=== PATIENT | female | born 1975 | race Caucasian/White ===

== ENCOUNTER 2022-09-10 10:50 | Emergency (ER) | payer OTHER, SELFPAY ==
[2022-09-10 10:53] VITALS: BP 132/97; PULSE 101; RESP 18; TEMP 36.9; O2SAT 95; BMI 29.5
--- NOTE | 2022-09-10 11:21 | ED.NAVMDI1 ---
HPI - Nausea/Vomiting/Diarrhea General Chief complaint: Nausea/Vomiting/Diarrhea Stated complaint: NAUSEA, VOMITING Time Seen by Provider: 09/10/22 11:03 Source: patient Mode of arrival: ambulance Limitations: no limitations History of Present Illness HPI Narrative: several days of nausea, vomiting and generalized abdominal pain in the pit of my stomach . No flank pain. No fever or chills. No prior history of bowel obstruction but she told me that she gets bound up a lot . Related Data Home Medications Medication Instructions Recorded Confirmed albuterol sulfate 90 mcg/actuation 1 inh inhalation Q6H PRN shortness 09/10/22 09/10/22 aerosol inhaler (Ventolin HFA) of breath or wheezing clonidine HCl 0.2 mg tablet 0.2 mg PO QDAY 09/10/22 09/10/22 diphenhydramine HCl 25 mg capsule 25 mg PO Q8H PRN allergy symptoms 09/10/22 09/10/22 (Allergy (diphenhydramine)) escitalopram oxalate 10 mg tablet 10 mg PO QDAY 09/10/22 09/10/22 famotidine 20 mg tablet 20 mg PO Q12H 09/10/22 09/10/22 levothyroxine 125 mcg tablet 125 mcg PO QDAY 09/10/22 09/10/22 loratadine 10 mg tablet 10 mg PO Q24H 09/10/22 09/10/22 omeprazole 40 mg capsule,delayed 40 mg PO QDAY 09/10/22 09/10/22 release pregabalin 150 mg capsule 150 mg PO Q12H 09/10/22 09/10/22 quetiapine 200 mg tablet 200 mg PO QDAY 09/10/22 09/10/22 simvastatin 20 mg tablet 20 mg PO QDAY 09/10/22 09/10/22 tizanidine 6 mg capsule 6 mg PO Q8H 09/10/22 09/10/22 Allergies Allergy/AdvReac Type Severity Reaction Status Date / Time Antihistamines - Alkylamine AdvReac Intermediate Verified 09/10/22 10:53 PFSH PFSH Social History Smoking status: Current every day smoker Exam Narrative Exam Narrative: Nurses notes and vital signs reviewed and patient is not hypoxic. afebrile General: Well-appearing and in no apparent distress. Skin: Warm, dry, no pallor noted. No rash. Head: Normocephalic, atraumatic. Neck: Supple, non-tender. Eye: Pupils are equal, round and EOMI. No scleral icterus. Ears, Nose, Mouth, and Throat: Oral mucosa is dry Cardiovascular: borderline tachycardia. Respiratory: No accessory muscle use or respiratory distress. Lungs are clear to auscultation, no wheezing, rales or rhonchi Back: No CVA tenderness Musculoskeletal: normal ROM GI: Abdomen is soft, non-distended. Normal bowel sounds. No masses appreciated. Diffuse tenderness to palpation. No rebound, guarding, or rigidity noted. Neurological: A&O x4. No cranial nerve dysfunction observed. No truncal ataxia. Moves all extremities. Sensation intact. Psychiatric: Cooperative and interactive. Normal mood and affect. Constitutional Vital Signs - 24 hr 09/10/22 10:53 Temperature 98.5 F Pulse Rate [Monitor] 101 H Respiratory Rate 18 Blood Pressure [Left Arm] 132/97 H Pulse Oximetry 95 Oxygen Delivery Method Room Air Course Vital Signs Vital signs: Vital Signs Temperature 98.5 F 09/10/22 10:53 Pulse Rate 101 H 09/10/22 10:53 Respiratory Rate 18 09/10/22 10:53 Blood Pressure 132/97 H 09/10/22 10:53 Pulse Oximetry 95 09/10/22 10:53 Oxygen Delivery Method Room Air 09/10/22 10:53 Temperature 98.5 F 09/10/22 10:53 Pulse Rate 101 H 09/10/22 10:53 Respiratory Rate 18 09/10/22 10:53 Blood Pressure 132/97 H 09/10/22 10:53 Pulse Oximetry 95 09/10/22 10:53 Oxygen Delivery Method Room Air 09/10/22 10:53 MDM - Nausea/Vomiting/Diarrhea MDM Narrative Medical decision making narrative: peripheral IV was established and blood drawn and sent for testing. The patient received normal saline IV fluid, IV Zofran and IV Dilaudid. CT scan of the abdomen pelvis was obtained with IV contrast but without oral contrastand she was found to have intussusception. I spoke with both Dr. Webb and Dr. carolina and it was agreed the patient be admitted for further monitoring and evaluation. Dr. carolina ask us to get a CT scan of the abdomen pelvis with oral contrast and Dr. Webb was made aware and ordered that test. We had a bed assignment and the patient was to be taken upstairs and she decided to sign out against medical advice. I do both verbal and written consent that she understood the risks associated with that decision and she said that she needed to go home. I encouraged her to return the emergency Department if her condition worsens at all. She was markedly improved after ED treatment. Lab Data Attestation: I reviewed the patient's lab results. Labs: Lab Results 09/10/22 Range/Units 11:28 WBC 6.7 (4.0-11.0) 10^3/uL RBC 4.31 (4.20-5.40) 10^6/uL Hgb 14.2 (12.0-16.0) g/dL Hct 41.2 (36.0-48.0) % MCV 95.6 (81.0-99.0) fL MCH 32.9 (26.7-34.0) pg MCHC 34.5 (29.9-35.2) g/dL RDW 14.4 (11.0-15.0) % Plt Count 144 L (150-450) 10^3/uL MPV 11.3 (9.5-13.5) fL Neut % (Auto) 66.8 (43.0-75.0) % Lymph % (Auto) 22.9 (20.5-60.0) % Broome % (Auto) 9.4 (1.7-12.0) % Eos % (Auto) 0.1 L (0.9-7.0) % Baso % (Auto) 0.7 (0.2-2.0) % Neut # (Auto) 4.5 (1.4-6.5) 10^3/uL Lymph # (Auto) 1.5 (1.2-3.8) 10^3/uL [place]ome # (Auto) 0.6 (0.3-0.8) 10^3/uL Eos # (Auto) 0.0 (0.0-0.7) 10^3/uL Baso # (Auto) 0.1 (0.0-0.1) 10^3/uL Abs Immat Gran (auto) 0.01 (0.00-0.03) 10^3/uL Imm/Tot Granulo (auto) 0.1 (0.0-0.5) % Sodium 140 (136-145) mmol/L Potassium 2.7 L* (3.5-5.1) mmol/L Chloride 98 (98-107) mmol/L Carbon Dioxide 28.8 (21.0-32.0) mmol/L Anion Gap 15.9 BUN 11.0 (7.0-18.0) mg/dL Creatinine 1.05 H (0.55-1.02) mg/dL Est GFR ( Amer) >60 (>=60) Est GFR (Non-Af Amer) 56 L (>=60) BUN/Creatinine Ratio 10.5 Glucose 105 (74-106) mg/dL Calcium 8.5 (8.5-10.1) mg/dL Total Bilirubin 0.7 (0.2-1.0) mg/dL AST 19 (15-37) U/L ALT 27 (14-59) U/L Alkaline Phosphatase 62 (46-116) U/L Total Protein 7.1 (6.4-8.2) g/dL Albumin 4.0 (3.4-5.0) g/dL Globulin 3.1 g/dL Albumin/Globulin Ratio 1.3 Lipase 119.0 (73.0-393.0) U/L Imaging Data ct abd/pelvis: Radiologist's impression: Patient Name: KAREN CLEMENTE MRN: [facility]:[id number] date: 1975 Sex: F Assigned Patient Location: ED.MAIN Current Patient Location: Accession/Order Number: [id number] Exam Date: 09/10/2022 12:38 Report Date: 09/10/2022 14:06 At the request of: JAN CHAPA Procedure: CT abdomen pelvis w con CT ABDOMEN AND PELVIS WITH CONTRAST HISTORY: Abdominal pain. Vomiting. COMPARISON: CT 02/18/2016. METHOD: Dose reduction techniques were achieved by using automated exposure control and/or adjustment of mA and/or kV according to patient size and/or use of iterative reconstruction technique. FINDINGS: The lung bases are clear. There is no intrahepatic mass or intrahepatic biliary ductal dilatation. The pancreas and stomach are normal appearing. The spleen is normal in size. The adrenal glands are normal appearing. The liver is fatty. There are multiple left renal stones the largest measuring 4 mm. There are no solid renal masses or hydronephrosis. There is no bowel wall thickening or obstruction. There is intussusception seen in the left upper quadrant jejunal bowel loop with no evidence of obstruction, axial image 44 and coronal image 45. The appendix is normal appearing. There is no free fluid or free air. There are no acute bony abnormalities. IMPRESSION: Left upper quadrant jejunal small bowel intussusception with no evidence of obstruction. Multiple left renal stones, largest measuring 4 mm; no hydronephrosis. Fatty liver. Normal appendix. Electronically authenticated by: ERIS RAMSEY Date: 09/10/2022 14:06 Discharge Plan Discharge Chief Complaint: Nausea/Vomiting/Diarrhea Clinical Impression: Intussusception Time of Disposition Decision: 13:24
[2022-09-10] MEDS: HYDROMORPHONE HCL 1 MG/ML CARTRIDGE IVP (11:28)
[2022-09-10] MEDS: PANTOPRAZOLE SODIUM 40 MG VIAL IV (11:28)
[2022-09-10] MEDS: 0.9 % SODIUM CHLORIDE 1,000 ML 999 ML IV (11:28)
[2022-09-10] MEDS: ONDANSETRON PF 4 MG/2 ML VIAL IV (11:28)
[2022-09-10 11:37] LABS: Basophils Absolute Auto 0.1 10^3/uL (0.0-0.1); Basophils Percent Auto 0.7 % (0.2-2.0); Eosinophils Percent Auto 0.1 % (0.9-7.0); Hematocrit 41.2 % (36.0-48.0); Hemoglobin 14.2 g/dL (12.0-16.0); Immature Granulocytes Abs Auto 0.01 10^3/uL (0.00-0.03); Immature Granulocytes Pct Auto 0.1 % (0.0-0.5); Lymphocytes Absolute Auto 1.5 10^3/uL (1.2-3.8); Lymphocytes Percent Auto 22.9 % (20.5-60.0); Mean Corpuscular HGB Conc 34.5 g/dL (29.9-35.2); Mean Corpuscular Hemoglobin 32.9 pg (26.7-34.0); Mean Corpuscular Volume 95.6 fL (81.0-99.0); Mean Platelet Volume 11.3 fL (9.5-13.5); Monocytes Absolute Auto 0.6 10^3/uL (0.3-0.8); Monocytes Percent Auto 9.4 % (1.7-12.0); Neutrophils Absolute Auto 4.5 10^3/uL (1.4-6.5); Neutrophils Percent Auto 66.8 % (43.0-75.0); Platelet Count 144 10^3/uL (150-450); Red Blood Count 4.31 10^6/uL (4.20-5.40); Red Cell Distribution Width 14.4 % (11.0-15.0); White Blood Count 6.7 10^3/uL (4.0-11.0)
[2022-09-10 11:51] LABS: Alanine Aminotransferase 27 U/L (14-59); Albumin Globulin Ratio 1.3; Alkaline Phosphatase 62 U/L (46-116); Anion Gap 15.9; Aspartate Amino Transferase 19 U/L (15-37); BUN Creatinine Ratio 10.5; Bilirubin Total 0.7 mg/dL (0.2-1.0); Calcium 8.5 mg/dL (8.5-10.1); Carbon Dioxide 28.8 mmol/L (21.0-32.0); Chloride 98 mmol/L (98-107); Estimated GFR (African America >60 (>=60); Estimated GFR (Non-African Ame 56 (>=60); Globulin 3.1 g/dL; Glucose 105 mg/dL (74-106); Sodium 140 mmol/L (136-145); Total Protein 7.1 g/dL (6.4-8.2)
[2022-09-10 11:52] LABS: Potassium 2.7 mmol/L (3.5-5.1)
[2022-09-10] MEDS: POTASSIUM CHLORIDE 10 MEQ ER TABLET 20 MEQ PO (12:19)
[2022-09-10] MEDS: POTASSIUM CHLORIDE IN WATER 10 MEQ/100 ML PIGGYBACK 100 MEQ IV (12:36)
--- NOTE | 2022-09-10 15:01 | PC.NURSE ---
pt states she can not stay in the hospital due to dog care this nurse educates patient on importance of her healthcare and to get this taken care of for abd pain she still adamantly states that she cant stayat the sopital and that she needs to take care of the dog this nurse asks patient if any other familly member can take care of the dog and pt states no they cant pt states thank you for caring but i need to take care of my dog dr martinez notified of pt decision at this time
--- NOTE | 2022-09-10 15:09 | PC.NURSE ---
ama paper signed w dr martinez in as well as this nurse to explain beliefs
[2022-09-10 15:23] VITALS: BP 124/76; PULSE 104; RESP 18; TEMP 36.8; O2SAT 98
== END 2022-09-10 15:42 | disposition left against medical advice (07) ==
LOC: ER 11:29 → MS 15:26
PROVIDERS: Emergency Provider Emergency Medicine; Visit Provider Family Medicine
DX: K56.1 Intussusception (principal); Z79.899 Other long term (current) drug therapy; F17.210 Nicotine dependence, cigarettes, uncomplicated
CPT/HCPCS: 36415; 74177; 80053; 81003; 83690; 85025; 96365; 96366; 96375; 99285; J1170; Q9967

== ENCOUNTER 2022-11-06 12:45 | Emergency (ER) | payer OTHER, SELFPAY ==
[2022-11-06 12:50] VITALS: BP 118/86; PULSE 72; RESP 18; TEMP 37.1; O2SAT 97; BMI 30.6
--- NOTE | 2022-11-06 12:54 | XR_ITS ---
The [address] [address] Patient Name: KAREN CLEMENTE MRN: [id number] date: 1975 Sex: F Assigned Patient Location: ER Current Patient Location: Accession/Order Number: [id number] Exam Date: 11/06/2022 12:56 Report Date: 11/06/2022 13:36 At the request of: TELLO JEFFREY Procedure: XR hand RT 2V EXAM: XR hand RT 2V HISTORY: Right hand bruising COMPARISON: None. TECHNIQUE: 2 views right hand. FINDINGS: No fracture or dislocation right hand. No significant soft tissue swelling or radiopaque foreign body. Minimal degenerative change throughout the IP joints. XR/XR hand RT 2V IMPRESSION: No acute process right hand. Electronically authenticated by: SANKET KNOX Date: 11/06/2022 13:36
--- NOTE | 2022-11-06 13:05 | ED.GENADUL1 ---
HPI - General Adult General Chief complaint: Skin/Abscess/Foreign Body Stated complaint: R HAND POSS. SPIDER BITE Time Seen by Provider: 11/06/22 13:05 Source: patient Mode of arrival: ambulance Limitations: no limitations History of Present Illness HPI narrative: This document has been composed with a new electronic medical record and [employer] voice recognition system. This document may not fully inaccurately reflect the entirety of the patient encounter.patient's here for evaluation of discoloration on the dorsum of her right hand and wrist. She has no known trauma falls injury or change in activity level. She is left-handed dominant. She does not have a discoloration or pain on the volar surface of the hand. She is not running a fever. She has not had a wounds that are draining or if had discharge or any indication of infection. She has no streaking in her forearm. No tenderness in her forearm elbow or any other he other joints are completely asymptomatic. She doesn't actually have pain over the joints of much as it is over the generalized dorsum of the hand Related Data Home Medications Medication Instructions Recorded Confirmed albuterol sulfate 90 mcg/actuation 2 inh inhalation Q6H PRN shortness 09/10/22 09/11/22 aerosol inhaler (Ventolin HFA) of breath or wheezing clonidine HCl 0.2 mg tablet 0.2 mg PO TID PRN hypertension 09/10/22 09/11/22 diphenhydramine HCl 25 mg capsule 25 mg PO Q8H PRN allergy symptoms 09/10/22 09/10/22 (Allergy (diphenhydramine)) escitalopram oxalate 10 mg tablet 10 mg PO QDAY 09/10/22 09/10/22 famotidine 20 mg tablet 20 mg PO .QHS 09/10/22 09/11/22 levothyroxine 125 mcg tablet 125 mcg PO QDAY 09/10/22 09/10/22 loratadine 10 mg tablet 10 mg PO .QD 09/10/22 09/11/22 omeprazole 40 mg capsule,delayed 40 mg PO QDAY 09/10/22 09/10/22 release pregabalin 150 mg capsule 150 mg PO TID 09/10/22 09/11/22 quetiapine 200 mg tablet 200 mg PO .QHS 09/10/22 09/11/22 simvastatin 20 mg tablet 20 mg PO .QHS 09/10/22 09/11/22 tizanidine 6 mg capsule 6 mg PO TID PRN muscle spasticity 09/10/22 09/11/22 budesonide-formoterol HFA 160 2 inh inhalation BID 09/11/22 09/11/22 mcg-4.5 mcg/actuation aerosol inhaler ondansetron 4 mg disintegrating 4 mg PO DAILY PRN nausea and 09/11/22 09/11/22 tablet vomiting Allergies Allergy/AdvReac Type Severity Reaction Status Date / Time naproxen Allergy Intermediate Verified 11/06/22 12:52 Antihistamines - Alkylamine AdvReac Intermediate Verified 09/10/22 10:53 PFSH [facility] Social History Smoking status: Current every day smoker Exam Narrative Exam Narrative: awake alert vitals are stable she is afebrile does not appear to uncomfortable. Her neurovascular examination of the distal extremity is normal with good capillary fill. There is no pallor or anemia. Strong radial pulses noted. She has full unrestricted range of motion of the digits and the wrist. She has a freely movable nontender ganglion cyst over the dorsum in the mid area proximal to the index finger MCP. I don't believe that's related to the bruising and ecchymosis is noted throughout the rest the dorsum of the hand. The volar surface the hand is normal. There is no abscess there is no evidence soft tissue infection there is no warmth. X-rays were done be negative by my review. Constitutional Vital Signs, click to edit/add: Last Vital Signs Temp 98.7 F 11/06/22 12:50 Pulse 72 11/06/22 12:50 Resp 18 11/06/22 12:50 BP 118/86 11/06/22 12:50 Pulse Ox 97 11/06/22 12:50 O2 Del Method Room Air 11/06/22 12:50 Course Vital Signs Vital signs: Vital Signs Temperature 98.7 F 11/06/22 12:50 Pulse Rate 72 11/06/22 12:50 Respiratory Rate 18 11/06/22 12:50 Blood Pressure 118/86 11/06/22 12:50 Pulse Oximetry 97 11/06/22 12:50 Oxygen Delivery Method Room Air 11/06/22 12:50 Temperature 98.7 F 11/06/22 12:50 Pulse Rate 72 11/06/22 12:50 Respiratory Rate 18 11/06/22 12:50 Blood Pressure 118/86 11/06/22 12:50 Pulse Oximetry 97 11/06/22 12:50 Oxygen Delivery Method Room Air 11/06/22 12:50 Medical Decision Making [facility] Narrative Medical decision making narrative: this patient has no history of trauma or injury and images are negative. She has a benign nonrelated ganglion cyst over the dorsum of her right hand. She is left-handed dominant. She has minimal discomfort with flexion and extension against resistance at the wrist bones with no tenderness over the carpal bones to palpation. This injury appears to be most consistent with a remote subcutaneous bleeding from one of the vessels in the hand with no bony abnormality or evidence of infection. She'll be placed in an immobilizing device. She is to follow-up with a hand surgeon if they ganglion cyst bothers her at all Discharge Plan Discharge Chief Complaint: Skin/Abscess/Foreign Body Clinical Impression: Ganglion cyst of dorsum of right wrist Patient Disposition: Home, Self-Care Time of Disposition Decision: 13:08 Prescriptions / Home Meds: No Action albuterol sulfate [Ventolin HFA] 90 mcg/actuation HFA aerosol inhaler 2 inh INHALATION Q6H PRN (Reason: shortness of breath or wheezing) clonidine HCl 0.2 mg tablet 0.2 mg PO TID PRN (Reason: hypertension) diphenhydramine HCl [Allergy (diphenhydramine)] 25 mg capsule 25 mg PO Q8H PRN (Reason: allergy symptoms) escitalopram oxalate 10 mg tablet 10 mg PO QDAY famotidine 20 mg tablet 20 mg PO .QHS levothyroxine 125 mcg tablet 125 mcg PO QDAY loratadine 10 mg tablet 10 mg PO .QD omeprazole 40 mg capsule,delayed release(DR/EC) 40 mg PO QDAY pregabalin 150 mg capsule 150 mg PO TID quetiapine 200 mg tablet 200 mg PO .QHS simvastatin 20 mg tablet 20 mg PO .QHS tizanidine 6 mg capsule 6 mg PO TID PRN (Reason: muscle spasticity) budesonide-formoterol 160-4.5 mcg/actuation HFA aerosol inhaler 2 inh inhalation BID ondansetron 4 mg tablet,disintegrating 4 mg PO DAILY PRN (Reason: nausea and vomiting) Additional Instructions: where the wrist splint for one week. Follow-up with local orthopedic or hand surgeon if he will not use cyst removed Stand Alone Forms: Portal Instructions Referrals: Physician,Non-Staff, MD [Primary Care Provider] - 1 week
== END 2022-11-06 13:26 | disposition home or self-care (01) ==
PROVIDERS: Emergency Provider Emergency Medicine Emergency Medical Services
DX: M67.431 Ganglion, right wrist (principal); Z79.890 Hormone replacement therapy; Z79.899 Other long term (current) drug therapy; F17.210 Nicotine dependence, cigarettes, uncomplicated
CPT/HCPCS: 73120; 99283

== ENCOUNTER 2023-01-18 12:17 | Emergency (ER) | payer OTHER, SELFPAY ==
[2023-01-18 12:20] VITALS: BP 91/61; PULSE 83; RESP 20; TEMP 36.9; O2SAT 95; BMI 27.5
--- NOTE | 2023-01-18 12:32 | ED_ITS ---
HPI - SOB/Dyspnea General Chief Complaint: Upper Respiratory Infection Stated Complaint: COUGH Time Seen by Provider: 01/18/23 12:19 Source: patient Mode of arrival: ambulance Limitations: no limitations History of Present Illness HPI Narrative: 47-year-old female who is a history of chronic obstructive pulmonary disease presents for cough and shortness of breath. She feels like this for him there but she can't coough it up. She hasn't had a nebulized treatment today but she did take one yesterday and she's been sick for 5-7 days. No known fever, she doesn't have a thermometer at home. No hemoptysis. Related Data Home Medications Medication Instructions Recorded Confirmed albuterol sulfate 90 mcg/actuation 2 inh inhalation Q6H PRN shortness 09/10/22 01/18/23 aerosol inhaler (Ventolin HFA) of breath or wheezing clonidine HCl 0.2 mg tablet 0.2 mg PO TID PRN hypertension 09/10/22 01/18/23 diphenhydramine HCl 25 mg capsule 25 mg PO Q8H PRN allergy symptoms 09/10/22 09/10/22 (Allergy (diphenhydramine)) escitalopram oxalate 10 mg tablet 10 mg PO QDAY 09/10/22 01/18/23 famotidine 20 mg tablet 20 mg PO .QHS 09/10/22 01/18/23 levothyroxine 125 mcg tablet 125 mcg PO QDAY 09/10/22 01/18/23 loratadine 10 mg tablet 10 mg PO .QD 09/10/22 09/11/22 omeprazole 40 mg capsule,delayed 40 mg PO QDAY 09/10/22 09/10/22 release pregabalin 150 mg capsule 150 mg PO TID 09/10/22 01/18/23 quetiapine 200 mg tablet 200 mg PO .QHS 09/10/22 01/18/23 simvastatin 20 mg tablet 20 mg PO .QHS 09/10/22 01/18/23 tizanidine 6 mg capsule 6 mg PO TID PRN muscle spasticity 09/10/22 01/18/23 budesonide-formoterol HFA 160 2 inh inhalation BID 09/11/22 01/18/23 mcg-4.5 mcg/actuation aerosol inhaler ondansetron 4 mg disintegrating 4 mg PO DAILY PRN nausea and 09/11/22 09/11/22 tablet vomiting Previous Rx's Medication Instructions Recorded azithromycin 250 mg tablet See Rx Instructions PO .COMPLEX #6 01/18/23 (Zithromax Z-Ramos) tabs prednisone 10 mg tablet See Rx Instructions .Route 01/18/23 .COMPLEX #30 tabs Allergies Allergy/AdvReac Type Severity Reaction Status Date / Time naproxen Allergy Intermediate Verified 01/18/23 12:23 Antihistamines - Alkylamine AdvReac Intermediate Verified 01/18/23 12:23 Review of Systems ROS Narrative A ten point review of systems is negative except as noted above. PFSH PFSH Medical History Arthritis ?M19.90 - Unspecified osteoarthritis, unspecified site (ICD-10) COPD (chronic obstructive pulmonary disease) ?J44.9 - Chronic obstructive pulmonary disease, unspecified (ICD-10) Emphysema of lung ?J43.9 - Emphysema, unspecified (ICD-10) Fibromyalgia ?M79.7 - Fibromyalgia (ICD-10) Ganglion cyst of dorsum of right wrist ?M67.431 - Ganglion, right wrist (ICD-10) Glaucoma ?H40.9 - Unspecified glaucoma (ICD-10) Intussusception ?K56.1 - Intussusception (ICD-10) Ovarian cyst ?N83.209 - Unspecified ovarian cyst, unspecified side (ICD-10) Pneumonia ?J18.9 - Pneumonia, unspecified organism (ICD-10) Recovering alcoholic ?F10.21 - Alcohol dependence, in remission (ICD-10) Surgical History (Updated 01/17/23 @ 13:31 by Annie Leong RN) H/O colonoscopy ?Z98.890 - Other specified postprocedural states (ICD-10) H/O oophorectomy History of lung biopsy ?Z98.890 - Other specified postprocedural states (ICD-10) Family History (Updated 01/17/23 @ 13:32 by Annie Leong, SHARONDA) Other Aneurysm Emphysema of lung Social History Smoking status: Current every day smoker Exam Narrative Exam Narrative: Nurses note and vital signs reviewed and patient is not hypoxic. General: The patient appears well and in no apparent distress. Patient is resting comfortably on cart. Skin: Warm, dry, no pallor noted. There is no rash noted. Head: Normocephalic, atraumatic Eye: Normal conjunctiva, no drainage Ears, Nose, Mouth, and Throat: oral mucosa is moist. Nares patent. Cardiovascular: Regular Rate and Rhythm Respiratory: bilateral rhonchi present throughout Back: non-tender GI: nontender Musculoskeletal: The patient has no evidence of calf tenderness, no pitting edema, symmetrical pulses noted bilaterally Neurological: A&O, normal speech Psychiatric: Cooperative Constitutional Vital Signs, click to edit/add: Last Vital Signs Temp 98.5 F 01/18/23 12:20 Pulse 75 01/18/23 12:51 Resp 20 01/18/23 12:51 BP 91/61 01/18/23 12:20 Pulse Ox 88 L 01/18/23 14:15 O2 Del Method Room Air 01/18/23 14:15 Course Vital Signs Vital signs: Vital Signs Temperature 98.5 F 01/18/23 12:20 Pulse Rate 83 01/18/23 12:20 Respiratory Rate 20 01/18/23 12:20 Blood Pressure 91/61 01/18/23 12:20 Pulse Oximetry 95 01/18/23 12:20 Oxygen Delivery Method Room Air 01/18/23 12:20 Temperature 98.5 F 01/18/23 12:20 Pulse Rate 75 01/18/23 12:51 Respiratory Rate 20 01/18/23 12:51 Blood Pressure 91/61 01/18/23 12:20 Pulse Oximetry 88 L 01/18/23 14:15 Oxygen Delivery Method Room Air 01/18/23 14:15 MDM - SOB/Dyspnea MDM Narrative Medical decision making narrative: the patient presents with chronic obstructive pulmonary disease exacerbation. She was given IV Solu-Medrol and aerosol treatments and feels improved and is able to be discharged home. Treatment diagnosis and disposition were discussed with the patient. Differential Diagnosis Differential diagnosis: Likely acute exacerbation of chronic obstructive airways disease, congestive heart failure and community acquired pneumonia Lab Data Attestation: I reviewed the patient's lab results. Labs: Lab Results 01/18/23 Range/Units 12:40 WBC 7.8 (4.0-11.0) 10^3/uL RBC 3.53 L (4.20-5.40) 10^6/uL Hgb 11.8 L (12.0-16.0) g/dL Hct 35.3 L (36.0-48.0) % MCV 100.0 H (81.0-99.0) fL MCH 33.4 (26.7-34.0) pg MCHC 33.4 (29.9-35.2) g/dL RDW 13.4 (11.0-15.0) % Plt Count 116 L (150-450) 10^3/uL MPV 11.9 (9.5-13.5) fL Neut % (Auto) 63.7 (43.0-75.0) % Lymph % (Auto) 23.7 (20.5-60.0) % [place] % (Auto) 10.2 (1.7-12.0) % Eos % (Auto) 1.4 (0.9-7.0) % Baso % (Auto) 0.5 (0.2-2.0) % Neut # (Auto) 4.9 (1.4-6.5) 10^3/uL Lymph # (Auto) 1.8 (1.2-3.8) 10^3/uL [place] # (Auto) 0.8 (0.3-0.8) 10^3/uL Eos # (Auto) 0.1 (0.0-0.7) 10^3/uL Baso # (Auto) 0.0 (0.0-0.1) 10^3/uL Abs Immat Gran (auto) 0.04 H (0.00-0.03) 10^3/uL Imm/Tot Granulo (auto) 0.5 (0.0-0.5) % Sodium 139 (136-145) mmol/L Potassium 3.9 (3.5-5.1) mmol/L Chloride 106 (98-107) mmol/L Carbon Dioxide 27.9 (21.0-32.0) mmol/L Anion Gap 9.0 BUN 10.0 (7.0-18.0) mg/dL Creatinine 0.81 (0.55-1.02) mg/dL Est GFR ( Amer) >60 (>=60) Est GFR (Non-Af Amer) >60 (>=60) BUN/Creatinine Ratio 12.3 Glucose 106 (74-106) mg/dL Calcium 8.5 (8.5-10.1) mg/dL SARS-CoV-2 (PCR) Negative (NEGATIVE) Imaging Data Chest x-ray: My impression: chest x-ray on my interpretation shows no acute findings Critical Care Time Critical Care Time Critical Care Time: Yes Total Critical Care Time: 35 Attestation: Due to the high probability of sudden and clinically significant deterioration in the patient's condition he/she required the highest level of my preparedness to intervene urgently I provided critical care time including documentation time, medication orders and management, reevaluation, vital sign assessment, ordering and reviewing of lab tests, ordering and reviewing of x-ray studies, and admission orders. Aggregate critical care time is 35 minutes including only time during which I was engaged in work directly related to his/her care and did not include time spent treating other patients simultaneously. Discharge Plan Discharge Chief Complaint: Upper Respiratory Infection Clinical Impression: Acute exacerbation of chronic obstructive pulmonary disease Patient Disposition: Home, Self-Care Time of Disposition Decision: 14:53 Condition: Good Mode of Transportation: Private Vehicle Prescriptions / Home Meds: New prednisone 10 mg tablet See Rx Instructions .ROUTE .COMPLEX Qty: 30 0RF Rx Instructions: 4 by mouth daily for three days then 3 by mouth daily for three days then 2 by mouth daily for three days then 1 by mouth daily for three days azithromycin [Zithromax Z-Ramos] 250 mg tablet See Rx Instructions .ROUTE .COMPLEX Qty: 6 0RF Rx Instructions: For 250 mg dose pack: take 500 mg today (day 1), then 250 mg for 4 days (days 2-5) No Action albuterol sulfate [Ventolin HFA] 90 mcg/actuation HFA aerosol inhaler 2 inh INHALATION Q6H PRN (Reason: shortness of breath or wheezing) clonidine HCl 0.2 mg tablet 0.2 mg PO TID PRN (Reason: hypertension) diphenhydramine HCl [Allergy (diphenhydramine)] 25 mg capsule 25 mg PO Q8H PRN (Reason: allergy symptoms) escitalopram oxalate 10 mg tablet 10 mg PO QDAY famotidine 20 mg tablet 20 mg PO .QHS levothyroxine 125 mcg tablet 125 mcg PO QDAY loratadine 10 mg tablet 10 mg PO .QD omeprazole 40 mg capsule,delayed release(DR/EC) 40 mg PO QDAY pregabalin 150 mg capsule 150 mg PO TID quetiapine 200 mg tablet 200 mg PO .QHS simvastatin 20 mg tablet 20 mg PO .QHS tizanidine 6 mg capsule 6 mg PO TID PRN (Reason: muscle spasticity) budesonide-formoterol 160-4.5 mcg/actuation HFA aerosol inhaler 2 inh inhalation BID ondansetron 4 mg tablet,disintegrating 4 mg PO DAILY PRN (Reason: nausea and vomiting) Instructions: COPD (Chronic Obstructive Pulmonary Disease) (ED) Stand Alone Forms: Portal Instructions Referrals: Physician,Non-Staff, MD [Primary Care Provider] - 1 week
[2023-01-18] MEDS: 0.9 % SODIUM CHLORIDE 1,000 ML 1000 ML IV (12:48)
[2023-01-18] MEDS: KETOROLAC TROMETHAMINE 30 MG/ML VIAL IVP (12:49)
[2023-01-18 12:51] VITALS: PULSE 75; RESP 20; O2SAT 94
[2023-01-18] MEDS: ALBUTEROL SULFATE 2.5 MG/3 ML VIAL NEB IH (12:51)
[2023-01-18 13:01] LABS: Basophils Percent Auto 0.5 % (0.2-2.0); Eosinophils Absolute Auto 0.1 10^3/uL (0.0-0.7); Eosinophils Percent Auto 1.4 % (0.9-7.0); Hematocrit 35.3 % (36.0-48.0); Hemoglobin 11.8 g/dL (12.0-16.0); Immature Granulocytes Abs Auto 0.04 10^3/uL (0.00-0.03); Immature Granulocytes Pct Auto 0.5 % (0.0-0.5); Lymphocytes Absolute Auto 1.8 10^3/uL (1.2-3.8); Lymphocytes Percent Auto 23.7 % (20.5-60.0); Mean Corpuscular HGB Conc 33.4 g/dL (29.9-35.2); Mean Corpuscular Hemoglobin 33.4 pg (26.7-34.0); Mean Platelet Volume 11.9 fL (9.5-13.5); Monocytes Absolute Auto 0.8 10^3/uL (0.3-0.8); Monocytes Percent Auto 10.2 % (1.7-12.0); Neutrophils Absolute Auto 4.9 10^3/uL (1.4-6.5); Neutrophils Percent Auto 63.7 % (43.0-75.0); Platelet Count 116 10^3/uL (150-450); Red Blood Count 3.53 10^6/uL (4.20-5.40); Red Cell Distribution Width 13.4 % (11.0-15.0); White Blood Count 7.8 10^3/uL (4.0-11.0)
[2023-01-18 13:05] LABS: BUN Creatinine Ratio 12.3; Calcium 8.5 mg/dL (8.5-10.1); Carbon Dioxide 27.9 mmol/L (21.0-32.0); Chloride 106 mmol/L (98-107); Estimated GFR (African America >60 (>=60); Estimated GFR (Non-African Ame >60 (>=60); Glucose 106 mg/dL (74-106); Potassium 3.9 mmol/L (3.5-5.1); SARS-CoV-2 Ag NEGATIVE (NEGATIVE); Sodium 139 mmol/L (136-145)
--- NOTE | 2023-01-18 13:05 | XR_ITS ---
The [address] [address] Patient Name: KAREN CLEMENTE MRN: [id number] date: 1975 Sex: F Assigned Patient Location: ER Current Patient Location: ER Accession/Order Number: [id number] Exam Date: 01/18/2023 13:00 Report Date: 01/18/2023 15:29 At the request of: ROBERT MUELLER Procedure: XR chest 1V EXAMINATION: XR chest 1V, 01/18/2023 1:00 PM EST HISTORY: SOB COMPARISON: Relevant priors reviewed including chest x-ray 09/21/2015 TECHNIQUE: AP portable view of the chest performed. FINDINGS: Medical devices: None. Cardiomediastinal silhouette is unchanged, given technical differences between exams. Similar hyperexpansion. The lungs are clear. No large pleural effusion, or pneumothorax. XR/XR chest 1V IMPRESSION: 1. No acute cardiopulmonary abnormality. Electronically authenticated by: SHAN GARSIA Date: 01/18/2023 15:29
[2023-01-18] MEDS: METHYLPREDNISOLONE SOD SUCC PF 125 MG/2 ML VIAL IVP (13:08)
[2023-01-18] MEDS: CODEINE 10 MG/GUAIFENESIN 100 MG 5 ML CUP 10 ML PO (13:26)
[2023-01-18 14:15] VITALS: O2SAT 88
--- NOTE | 2023-01-18 14:15 | PC.NURSE ---
pt placed on 2L NC -- SpO2 now 94%
--- NOTE | 2023-01-18 14:22 | ECG_ITS ---
The [facility] Test Date: 2023-01-18 Pat Name: KAREN CLEMENTE Department: Room: - Gender: Female [employer]: : 1975 Requested By: [id number] Order Number: [id number] Reading MD: MOLLY FIORE Measurements Intervals [place] Rate: 81 P: 90 ND: 140 QRS: 76 QRSD: 90 T: 69 QT: 364 QTc: 401 Interpretive Statements 1100 Sinus rhythm Non-Specific T wave inversion in aVL 2420 RSR (QR) in lead V1/V2, consistent with right ventricular conduction delay 7300 Indeterminate axis 9130 borderline ECG No previous ECG available for comparison Electronically Signed On 01-20-2023 6:19:27 EST by MOLLY FIORE
[2023-01-18 15:09] VITALS: O2SAT 90
[2023-01-18 15:17] LABS: SARS-CoV-2 NAA NOT DETECTED (NOT DETECTE)
--- OUTSIDE RECORDS SUMMARY | 2023-02-28 14:20 | XMS_ITS | CCD ---
Author Name Unknown Address [address] [place] [address] Organization [facility] Care Team Providers Care [employer] Name Role Phone MINISTERIO WALLIS Unavailable Unavailable MINISTERIO WALLIS Unavailable Unavailable Zbigniew/Kyaw Watt Attending Provider [facility] Primary Care Provider [phone] Pricilla Engle Attending Provider Geo Coy Unavailable Zbigniew/Kyree Watt Attending Provider [facility] Primary Care Provider Lowmindi, DO Tenriism Attending Provider Zbigniew/Kyree Watt Attending Provider [facility] Primary Care Provider DO Jason Michele Attending Provider Lowrie, DO Tenriism Referring Provider Lowrilester, DO Tenriism Other Provider [facility] Primary Care Provider DO Jason Michele Attending Provider Lowrie, DO Tenriism Other Provider MD Laurie Oliva Attending Provider [facility] Primary Care Provider MD Breanna Taylor Attending Provider Lowrilester, DO Tenriism Referring Provider DO Jason Michele Attending Provider [facility] Services Primary Care Provider MD Laurie Oliva Attending Provider [facility] Primary Care Unavaila ble Ketvertis, Laurie Admitting Unavailable Ketvertis, Laurie Attending Unavailable Leny, aJson Attending Unavailable [facility] Services Primary Care Unavaila ble Lowrie, Tenriism Referring Unavailable Leny, Jason Admitting Unavailable Claudia Idris Admitting Unavailab le ClaudiaIdris gillis Attending Unavailab le [facility] Services Primary Care Unavaila ble Ketvertis, Laurie Attending Unavailable [facility] Primary Care Unavaila ble Ketvertis, Laurie Admitting Unavailable Leny, Jason Attending Unavailable [facility] Services Primary Care Unavaila ble Lowrie, Tenriism Consulting Unavailable Leny, Jason Admitting Unavailable Leny, Jason Attending Unavailable Lowrie, Tenriism Referring Unavailable [facility] Services Primary Care Unavaila ble Jason Michele Admitting Unavailable Mast, Mike Admitting Unavailable Mast, Mike Attending Unavailable [facility] Services Primary Care Unavaila ble Lowrie, Tenriism Consulting Unavailable Allergies Allergy Classification Reported Allergen(s) Allergy Type Date of Onset Reaction(s) Facility NSAIDs (1 source) Naproxen Drug Allergy 09-12-19 18 Hives [facility] Unclassified (7 sources) Antihistamines - Alkylamine; Translations: [Antihistamines - Alkylamine] Allergy to substance 04-12-19 19 Anxiety [facility] (13 sources) diphenhydrAMINE Drug Allergy Anxiety attack [facility] [employer] Other (18 sources) Naproxen Drug Allergy 02-20-20 21 rash [facility] (8 sources) atorvastatin Drug Allergy legs shaking [facility] [employer] Other (1 source) Naproxen Drug Allergy 02-20-20 21 [facility] Repository Medications Current Medications Medication Drug Class(es) Dates Sig (Normalized) Sig (Original) [id number] 200 actuat albuterol 0.09 mg/actuat metered dose inhaler (20 sources) beta2-Adrenergic Agonist Start: 07-17-2017 take 2 puff(s) by inhalation every six hours as needed Ventolin HFA 108 (90 Base) MCG/ACT 2 puffs as needed Inhalation every 6 hrs July, Active Start: 07-17-2017 Start: 04-04-2017 take 90 ug by inhala tion every four hours Albuterol Sulfate Active 90 MCG INHALATION Q4H April 04, 2017 4:17pm Start: 04-04-2017 take 90 ug by inhala tion every four hours Albuterol Sulfate Active 90 MCG INHALATION Q4H April 04, 2017 12:00am Start: 04-04-2017 take 90 ug by inhala tion every four hours Albuterol Sulfate Active 90 MCG INHALATION Q4H April 04, 2017 1:00am Start: 03-16-2016 Albuterol Sulf ate (2.5 MG/3ML) 0.083% 1 unit dose Inhalation four times a day DX J44.9 COPD Mar, Active Start: 03-16-2016 benzonatate 100 mg oral capsule (13 sources) Non-narcotic Antitussive Start: 09-21-2017 take 1 capsule by mouth three times daily as needed Tessalon Perles 100 mg 1 capsule as needed Orally Three times a day Sep, Active 120 actuat budesonide 0.16 mg/actuat / formoterol fumarate 0.0045 mg/actuat metered dose inhaler (19 sources) Corticosteroid, beta2-Adrenergic Agonist Start: 01-30-2020 take 1 puff(s) by inhalation twice daily Budesonide-Formo terol (Symbicort) 160-4.5 mcg/actuation HFA aerosol inhaler Active 2 PUFF INHALATION Twice daily January 30, 2020 1:00am Start: 08-29-2018 take 2 puff(s) by in halation twice daily Symbicort 160-4.5 MCG/ACT 2 puffs Inhalation Twice a day Aug, Active Start: 08-29-2018 cloNIDine hydrochloride 0.2 mg oral tablet (20 sources) Central alpha-2 Adrenergic Agonist Start: 01-30-2020 End: 01-30-2020 take 0.2 mg by mouth three times daily Clonidine Hcl Active 0.2 MG PO Three times daily January 30, 2020 1:00am codeine phosphate 2 mg/ml / guaiFENesin 20 mg/ml oral solution (5 sources) Opioid Agonist Start: 06-28-2021 Virtussin A/C 100-10 MG/5ML 5 ml as needed Orally at bedtime for 30 days Jun, Active Start: 03-17-2021 Virtussin A/C 100-10 MG/5ML 5 ml as needed Orally at bedtime for 30 days Mar, Active Start: 01-25-2021 Start: 12-23-2020 Cheratussin AC 100-10 MG/5ML 5 ml as needed Orally at bedtime for 30 days Dec, Active escitalopram 10 mg oral tablet (20 sources) Serotonin Reuptake Inhibitor Start: 02-02-2020 take 10 mg by mouth once daily Escitalopram Oxalate Active 10 MG PO Daily February 02, 2020 1:00am Start: 01-30-2020 End: 02-02-2020 take 1 tablet by mouth once daily Escitalopram Oxalate (Lexapro) 5 mg Tablet Discontinued 5 MG PO Daily January 30, 2020 1:00am February 02, 2020 11:49am estrogens, conjugated (mcfp) 0.625 mg oral tablet (19 sources) Estrogen Start: 05-08-2017 Premarin 0.625 MG 1 tablet Orally Daily for Three Weeks, 1 Week off for 30 day(s) Apr, Active Famotidine (13 sources) Histamine-2 Receptor Antagonist Pepcid Orally On a day Active fluticasone propionate 0.05 mg/actuat metered dose nasal spray (19 sources) Corticosteroid Start: 01-30-2020 Fluticasone Pr opionate Active 1 SPRAY INTRANASAL Daily January 30, 2020 1:00am Start: 04-11-2017 take 2 spray(s) nasa l route once daily Fluticasone Propionate 50 MCG/ACT 2 sprays in each nostril Nasally Once a day Mar, Active Start: 04-11-2017 200 actuat ipratropium bromide 0.017 mg/actuat metered dose inhaler (13 sources) Anticholinergic Start: 02-26-2020 take 2 puff(s) by inhalation four times daily Atrovent HFA 17 MCG/ACT 2 puffs Inhalation Four times a day Feb, Active Start: 02-26-2020 levothyroxine sodium 0.075 mg oral tablet (20 sources) l-Thyroxine Start: 01-30-2020 take 75 ug by mouth once daily Levothyroxine Active 75 MCG PO Daily January 30, 2020 1:00am Start: 04-04-2017 End: 01-30-2020 take 50 ug by mouth once daily Levothyroxine Discontin ued 50 MCG PO Daily April 04, 2017 1:00am January 30, 2020 4:05pm Levothyroxine So dium 125 MCG Oral for 30 Days Active Synthroid 50 MCG Orally Active medroxyPROGESTERone acetate 2.5 mg oral tablet (20 sources) Progestin Start: 05-08-2017 take 1 tablet by mouth every twenty-four hours Provera 2.5 MG 1 tablet with food Orally Once a day for 30 days Apr, Active naltrexone hydrochloride 50 mg oral tablet (5 sources) Opioid Antagonist Start: 02-21-2021 take 50 mg by mouth once daily Naltrexone Active 50 MG PO Daily February 21, 2021 1:00am 24 hr nicotine 0.875 mg/hr transdermal system (6 sources) Cholinergic Nicotinic Agonist Start: 02-02-2020 Nicotine Active 1 EACH TRANSDERML Daily February 02, 2020 1:00am omeprazole 40 mg delayed release oral capsule (13 sources) Proton Pump Inhibitor Start: 03-15-2018 take 1 capsule by mouth every twenty-four hours Omeprazole 40 MG 1 capsule Orally Once a day for 30 day(s) Mar, Active pregabalin 150 mg oral capsule (19 sources) Start: 04-04-2017 take 150 mg by mouth three times daily Pregabalin Active 150 MG PO Three times daily April 04, 2017 1:00am take 1 capsule by mouth three ti mes daily Lyrica 100 MG 1 capsule Orally three times daily Active Vitamins 28-0.8 MG (13 sources) take 1 tablet by mouth once lelia y Vitamins 28-0.8 MG TAKE 1 TABLET BY MOUTH EVERY DAY Oral for 30 Active QUEtiapine 200 mg oral tablet (20 sources) Atypical Antipsychotic Start: 02-02-2020 take 200 mg by mouth at bedtime Quetiapine Active 200 MG PO Bedtime February 02, 2020 1:00am Start: 01-30-2020 End: 02-02-2020 take 100 mg by mouth at bedtime Quetiapine Discontinue d 100 MG PO Bedtime January 30, 2020 1:00am February 02, 2020 11:49am Start: 04-04-2017 End: 01-30-2020 take 100 mg by mouth at bedtime Quetiapine Discontinue d 100 MG PO Bedtime April 04, 2017 1:00am January 30, 2020 4:36pm take 1 tablet by maría th every twenty-four hours SEROquel 50 MG 1 tablet at bedtime Orally Once a day for 30 Active simvastatin 20 mg oral tablet (8 sources) HMG-CoA Reductase Inhibitor Simvastatin 20 MG Oral for 30 Days Active 60 actuat tiotropium 0.0025 mg/actuat inhalation spray (6 sources) Anticholinergic Start: 01-30-20 20 take 2.5 ug by inhalation twice daily Tiotropium [place] (Spiriva Respimat) 2.5 mcg/actuation mist Active 2 INH INHALATION Twice daily January 30, 2020 1:00am tiZANidine 4 mg oral tablet (6 sources) Central alpha-2 Adrenergic Agonist Start: 04-04-19 take 2 mg by mouth three times daily Tizanidine Active 2 MG PO Three times daily April 04, 2017 1:00am Virtussin A/C 100-10 MG/5ML (8 sources) Start: 01-17-20 Virtussin A/C 100-10 MG/5ML 5 ml as needed Orally at bedtime for 30 days Jan, Active Start: 10-25-2022 Virtussin A/C 100-10 MG/5ML 5 ml as needed Orally at bedtime for 30 days Oct, Active Start: 05-26-2022 Virtussin A/C 100-10 MG/5ML 5 ml as needed Orally at bedtime for 30 days May, Active Start: 03-21-2022 Virtussin A/C 100-10 MG/5ML 5 ml as needed Orally at bedtime for 30 days Mar, Active Start: 01-18-2022 Virtussin A/C 100-10 MG/5ML 5 ml as needed Orally at bedtime for 30 days Jan, Active Completed/Discontinued Medications Medication Drug Class(es) Dates Sig (Normalized) Sig (Original) ARIPiprazole 5 mg oral tablet (6 sources) Atypical Antipsychotic Start: 8 End: 0 take 1 tablet by mouth once daily Aripiprazole (Abilify) 5 mg Tablet Discontinued 5 MG PO Daily November 27, 2017 12:00am February 02, 2020 11:49am busPIRone hydrochloride 15 mg oral tablet (6 sources) Start: 8 End: 0 take 15 mg by mouth once daily Buspirone Discontinued 15 MG PO Daily July 22, 2017 12:00am January 30, 2020 4:32pm cariprazine 1.5 mg oral capsule (19 sources) Atypical Antipsychotic Start: 0 End: 0 take 1 capsule by mouth once daily Cariprazine (Vraylar) 1.5 mg capsule Discontinued 1.5 MG PO Daily January 30, 2020 1:00am February 02, 2020 11:49am chlordiazePOXIDE hydrochloride 25 mg oral capsule (6 sources) Benzodiazepine Start: 0 End: 1 take 1 tablet by mouth twice daily, then take 1 tablet by mouth once daily Chlordiazepoxide Hcl Discontinued 25 MG PO Twice daily 8 February 02, 2020 1:00am February 20, 2021 7:11am Take 1 tablet twice a day for two days, then one tablet daily for three days dextromethorphan hydrobromide 3 mg/ml / promethazine hydrochloride 1.25 mg/ml oral solution (6 sources) Phenothiazine, Uncompetitive N-weygom-W-aspartat e Receptor Antagonist, Sigma-1 Agonist Start: 8 End: 8 take 1 mL by mouth every six hours Promethazine-Dm Discontinued 5 ML PO Q6H 40 2 April 04, 2017 1:00am April 06, 2017 1:03am diclofenac potassium 50 mg oral tablet (6 sources) Nonsteroidal Anti-inflammatory Drug Start: 8 End: 8 take 50 mg by mouth once daily Diclofenac Potassium Discontinued 50 MG PO Daily July 22, 2017 12:00am November 27, 2017 6:21pm doxycycline hyclate 100 mg oral capsule (11 sources) Tetracycline-class Drug Start: 1 End: 1 take 100 mg by mouth twice daily Doxycycline Hyclate Discontinued 100 MG PO Twice daily 30 12December 22, 2020 12:00am February 19, 2021 6:55pm Start: 09-14-2017 End: 11-27-2017 take 100 mg by mouth twice daily Doxycycline Hyclate Discontinued 100 MG PO Twice daily 30 12September 14, 2017 12:00am November 27, 2017 6:21pm 120 actuat formoterol fumarate 0.005 mg/actuat / mometasone furoate 0.1 mg/actuat metered dose inhaler (6 sources) Corticosteroid, beta2-Adrenergic Agonist Start: 04-04-2017 End: 01-30-2020 Mometasone-Formoterol (Dulera) 100-5 mcg/actuation HFA aerosol inhaler Discontinued 5 MCG INHALATION Twice daily April 04, 2017 1:00am January 30, 2020 4:36pm ibuprofen 800 mg oral tablet (12 sources) Nonsteroidal Anti-inflammatory Drug Start: 05-29-2017 End: 02-02-2020 take 800 mg by mouth three times daily Ibuprofen Discontinued 800 MG PO Three times daily November 27, 2017 12:00am February 02, 2020 11:49am Ketorolac (9 sources) Nonsteroidal Anti-inflammatory Drug, Cyclooxygenase Inhibitor Start: 07-01-2017 Toradol per 15 mg Jun, 2 mL levoFLOXacin 750 mg oral tablet (6 sources) Quinolone Antimicrobial Start: 01-25-2018 End: 02-04-2018 take 1 tablet by mouth every twenty-fo ur hours Levofloxacin (Levaquin) 750 mg tablet Discontinued 750 MG PO Q24H 12 20January 25, 2018 1:00am February 04, 2018 1:02am ondansetron 4 mg disintegrating oral tablet (19 sources) Serotonin-3 Receptor Antagonist Start: 09-14-2017 End: 11-27-2017 take 1 tablet by mouth every eight hours Ondansetron (Zofran Odt) 4 mg tablet,disintegrating Discontinued 4 MG PO Q8H 9 September 14, 2017 12:00am November 27, 2017 6:20pm take 1 tablet by mouth once lelia y Ondansetron HCl 4 MG TAKE 1 (ONE) tablet BY MOUTH DAILY Oral for 30 Active predniSONE 20 mg oral tablet (20 sources) Start: 01-25-2018 End: 01-30-2018 take 40 mg by mouth once daily Prednisone Discontinued 40 MG PO Daily 10 January 25, 2018 1:00am January 30, 2018 1:01am Start: 09-14-2017 End: 01-30-2020 take 60 mg by mouth once daily at mealtime Prednisone Discontinued 60 MG PO Daily 15 September 14, 2017 12:00am January 30, 2020 4:32pm administer with food or milk Start: 07-22-2017 End: 09-05-2017 take 50 mg by mouth once daily at mealtime Prednisone Discontinued 50 MG PO Daily 5 July 22, 2017 12:00am September 05, 2017 2:54pm administer with food or milk Start: 04-04-2017 End: 07-22-2017 take 20 mg by mouth once daily at mealtime Prednisone Discontinued 20 MG PO Daily April 04, 2017 1:00am July 22, 2017 12:06pm administer with food or milk Problems Active Problems Problem Classification Problem Date Documented Date Episodic/Chronic Alcohol-related disorders (15 sources) Alcohol withdrawal syndrome; Translations: [Alcohol withdrawal syndrome] 02-19-2021 Chronic Alcohol-related disorders (6 sources) Alcohol intoxication; Translations: [Alcohol use, unspecified with intoxication, unspecified] 01-30-2020 Episodic Anxiety disorders (5 sources) Anxiety; Translations: [Anxiety disorder, unspecified] 02-27-2021 Chronic Chronic obstructive pulmonary disease and bronchiectasis (20 sources) Acute exacerbation of chronic obstructive airways disease; Translations: [Chronic obstructive pulmonary disease with (acute) exacerbation] Onset: 01-11-2021 Resolved: 01-11-2021 Chronic Chronic obstructive pulmonary disease and bronchiectasis (5 sources) Bronchitis; Translations: [Bronchitis, not specified as acute or chronic] 12-22-2020 Episodic Coagulation and hemorrhagic disorders (5 sources) Thrombocytopenic disorder; Translations: [Thrombocytopenia, unspecified] 02-19-2021 Chronic Esophageal disorders (15 sources) Gastroesophageal reflux disease; Translations: [Gastro-esophageal reflux disease without esophagitis] Onset: 01-11-2021 Resolved: 01-11-2021 Chronic Malaise and fatigue (1 source) Chronic fatigue, unspecified; Translations: [Chronic fatigue, unspecified] Onset: 08-10-2022 Chronic Menopausal disorders (5 sources) Menopausal syndrome; Translations: [Menopausal and female climacteric states] Chronic Mood disorders (13 sources) Bipolar disorder, unspecified; Translations: [Recurrent major depression] Onset: 09-16-2016 01-30-2020 Chronic Mood disorders (2 sources) Major depressive disorder, single episode, unspecified; Translations: [Major depressive disorder, single episode, unspecified] Onset: 09-16-2016 Nonmalignant breast conditions (5 sources) Breasts asymmetrical; Translations: [Other specified disorders of breast] Episodic Other connective tissue disease (6 sources) Lateral epicondylitis of right humerus; Translations: [Lateral epicondylitis, right elbow] 05-29-2017 Episodic Other nervous system disorders (1 source) Other chronic pain; Translations: [Other chronic pain] Onset: 05-04-2022 Chronic Other upper respiratory disease (13 sources) Allergic rhinitis; Translations: [Allergic rhinitis, unspecified] Chronic Other upper respiratory disease (2 sources) Allergic rhinitis, unspecified; Translations: [Allergic rhinitis J30.9] Onset: 01-11-2021 Resolved: 01-11-2021 Chronic Other upper respiratory infections (6 sources) Upper respiratory infection; Translations: [Acute upper respiratory infection, unspecified] 04-04-2017 Episodic Residual codes; unclassified (6 sources) Alcoholism; Translations: [Alcohol use disorder] 01-30-2020 Episodic Residual codes; unclassified (13 sources) Tobacco dependence syndrome; Translations: [Tobacco use] Episodic Residual codes; unclassified (2 sources) Tobacco use; Translations: [Tobacco use disorder Z72.0] Onset: 01-11-2021 Resolved: 01-11-2021 Episodic Suicide and intentional self-inflicted injury (6 sources) Suicidal thoughts; Translations: [Suicidal ideations] 01-30-2020 Episodic Superficial injury; contusion (6 sources) Contusion of upper limb; Translations: [Contusion of right upper arm, initial encounter] 01-30-2020 Episodic Thyroid disorders (2 sources) Hypothyroidism, unspecified; Translations: [Hypothyroidism, unspecified] Onset: 08-10-2022 Chronic Unclassified (1 source) Pain in right knee; Translations: [Pain in right knee] Onset: 05-04-2022 Past or Other Problems Problem Classification Problem Date Documented Da te Episodic/Chronic Abdominal pain (1 source) Epigastric pain; Translations: [Epigastric pain] Onset: 08-10-2022 Episodic Immunizations and screening for infectious disease (1 source) Encounter for screening for other viral diseases; Translations: [Encounter for screening for other viral diseases] Onset: 08-10-2022 Episodic Other non-traumatic joint disorders (1 source) Pain in left knee; Translations: [Pain in left knee] Onset: 05-04-2022 Episodic Results Test Name Value Interpretation Reference Range Facil ity Free T4 (Free Thyroxine)on 0 10-10-2022 Free T4 [Mass/Vol] 0.56 ng/dL Low 0.61-1.12 [facility] Comment on above: Order Comment: Reaso n for Exam Hypothyroidism, unspecified type Performed By: #### T SH3 wRFLX, T4F #### [facility] [address] Thyroid Stim Hormone w/Rflxo n 10-10-2022 Thyroid Stim Hormone w/Rflx 18.34 u[iU]/mL High 0.45 -5.33 [facility] Comment on above: Order Comment: Reaso n for Exam Hypothyroidism, unspecified type Result Comment: PERF ORMED BY: [place] [address] PATHOLOGIST [employer] MAK[employer] GISELLE ALVAREZ M.D. Performed By: #### T SH3 wRFLX, T4F #### [facility] [address] Thyrotropin [Units/volume] i n Serum or PlasmaOrdered By: Jarred Levy on 10-10-2022 TSH Qn 18.34 m[IU]/L 0.45-5.33 [facility] Thyroxine (T4) free [Mass/vo lume] in Serum or PlasmaOrdered By: Jarred Levy on 10-10-2022 Free T4 [Mass/Vol] 0.56 ng/dL 0.61-1.12 [facility] Alanine aminotransferase [En zymatic activity/volume] in Serum or PlasmaOrdered By: Cecilio Epps on 08-10-2022 ALT [Catalytic activity/Vol] 11 U/L [facility] Albumin [Mass/volume] in Ser um or Plasma by Bromocresol green (BCG) dye binding methoOrdered By: Cecilio Epps on 08-10-2022 Albumin BCG dye [Mass/Vol] 4.2 g/dL 3.5-5.7 [facility] Alkaline phosphatase [Enzyma tic activity/volume] in Serum or PlasmaOrdered By: Cecilio Epps on 08-10-2022 ALP [Catalytic activity/Vol] 56 U/L 34-104 [facility] Aspartate aminotransferase [ Enzymatic activity/volume] in Serum or PlasmaOrdered By: Cecilio Epps on 08-10-2022 AST [Catalytic activity/Vol] 13 U/L 13-39 [facility] Basophils Auto (Bld) [#/Vol] Ordered By: Cecilio Epps on 08-10-2022 Basophils (Bld) [#/Vol] 0.0 10*3/uL 0.0-0.2 [facility] Basophils/100 WBC Auto (Bld) Ordered By: Cecilio Epps on 08-10-2022 Basophils/100 WBC (Bld) 0.6 % . [facility] Bilirubin.total [Mass/volume ] in Serum or PlasmaOrdered By: Cecilio Epps on 08-10-2022 Bilirubin [Mass/Vol] 0.6 mg/dL 0.3-1.0 [facility] Calcium [Mass/volume] in Ser um or PlasmaOrdered By: Cecilio Epps on 08-10-2022 Calcium [Mass/Vol] 8.6 mg/dL 8.6-10.3 [facility] Carbon dioxide, total [Moles /volume] in Serum or PlasmaOrdered By: Cecilio Epps on 08-10-2022 CO2 [Moles/Vol] 28.4 mmol/L 21.0-31.0 [facility] Chloride [Moles/volume] in S teresa or PlasmaOrdered By: Cecilio Epps on 08-10-2022 Chloride [Moles/Vol] 104 mmol/L 98-107 [facility] Complete Blood Count Auto Di ffon 08-10-2022 Basophils (Bld) [#/Vol] 0.0 10*3/uL Normal 0.0-0.2 [facility] Comment on above: Order Comment: Reaso n for Exam Epigastric abdominal pain;Chronic fatigue Result Comment: PERF ORMED BY: [facility] [address] [place] [address] PATHOLOGIST [employer] GISELLE ALVAREZ M.D. Performed By: #### H CV RX PCR, HBSAB, HBCAB #### [facility] , #### T4F, [id number], CMP, [id number], CBC, TSH3 wRFLX #### [facility] [address] Basophils/100 WBC (Bld) 0.6 % Normal . [facility] Comment on above: Order Comment: Reaso n for Exam Epigastric abdominal pain;Chronic fatigue Performed By: #### H CV RX PCR, HBSAB, HBCAB #### [facility] , #### T4F, [id number], CMP, [id number], CBC, TSH3 wRFLX #### [address] Eosinophils (Bld) [#/Vol] 0.1 10*3/uL Normal 0.0-0.45 [facility] Comment on above: Order Comment: Reaso n for Exam Epigastric abdominal pain;Chronic fatigue Performed By: #### H CV RX PCR, HBSAB, HBCAB #### [facility] , #### T4F, [id number], CMP, [id number], CBC, TSH3 wRFLX #### [address] Eosinophils/100 WBC (Bld) 1.0 % Normal . [facility] Comment on above: Order Comment: Reaso n for Exam Epigastric abdominal pain;Chronic fatigue Performed By: #### H CV RX PCR, HBSAB, HBCAB #### [facility] , #### T4F, [id number], CMP, [id number], CBC, TSH3 wRFLX #### [address] Erythrocyte distribution wid th (RBC) [Ratio] 14.9 % Normal 11.9-15.3 [facility] Comment on above: Order Comment: Reaso n for Exam Epigastric abdominal pain;Chronic fatigue Performed By: #### H CV RX PCR, HBSAB, HBCAB #### [facility] , #### T4F, [id number], CMP, [id number], CBC, TSH3 wRFLX #### [facility] [address] Hematocrit (Bld) [Volume fraction] 41.1 % Normal 34.0-46.4 [facility] Comment on above: Order Comment: Reaso n for Exam Epigastric abdominal pain;Chronic fatigue Performed By: #### H CV RX PCR, HBSAB, HBCAB #### [facility] , #### T4F, [id number], CMP, [id number], CBC, TSH3 wRFLX #### [address] Hemoglobin (Bld) [Mass/Vol] 14.0 g/dL Normal 11.8-15. 4 [facility] Comment on above: Order Comment: Reaso n for Exam Epigastric abdominal pain;Chronic fatigue Performed By: #### H CV RX PCR, HBSAB, HBCAB #### [facility] , #### T4F, [id number], CMP, [id number], CBC, TSH3 wRFLX #### [place] [address] [place] Lymphocytes (Bld) [#/Vol] 1.6 10*3/uL Normal 1.00-4.8 [facility] Comment on above: Order Comment: Reaso n for Exam Epigastric abdominal pain;Chronic fatigue Performed By: #### H CV RX PCR, HBSAB, HBCAB #### [facility] , #### T4F, [id number], CMP, [id number], CBC, TSH3 wRFLX #### [place] [address] [place] Lymphocytes/100 WBC (Bld) 27.8 % Normal . [facility] Comment on above: Order Comment: Reaso n for Exam Epigastric abdominal pain;Chronic fatigue Performed By: #### H CV RX PCR, HBSAB, HBCAB #### [facility] , #### T4F, [id number], CMP, [id number], CBC, TSH3 wRFLX #### [facility] [address] MCH (RBC) [Entitic mass] 32.7 pg Normal 24.7-34.3 [facility] Comment on above: Order Comment: Reaso n for Exam Epigastric abdominal pain;Chronic fatigue Performed By: #### H CV RX PCR, HBSAB, HBCAB #### [facility] , #### T4F, [id number], CMP, [id number], CBC, TSH3 wRFLX #### [address] MCV (RBC) [Entitic vol] 96.2 fL Normal 80-100 [facility] Comment on above: Order Comment: Reaso n for Exam Epigastric abdominal pain;Chronic fatigue Performed By: #### H CV RX PCR, HBSAB, HBCAB #### [facility] , #### T4F, [id number], CMP, [id number], CBC, TSH3 wRFLX #### [address] Mean Corpuscular HGB Conc 34.0 g/dL Normal 32.0-35.0 [facility] Comment on above: Order Comment: Reaso n for Exam Epigastric abdominal pain;Chronic fatigue Performed By: #### H CV RX PCR, HBSAB, HBCAB #### [facility] , #### T4F, [id number], CMP, [id number], CBC, TSH3 wRFLX #### [facility] [address] [place] [address] Monocytes (Bld) [#/Vol] 0.5 10*3/uL Normal 0.0-0.8 [facility] Comment on above: Order Comment: Reaso n for Exam Epigastric abdominal pain;Chronic fatigue Performed By: #### H CV RX PCR, HBSAB, HBCAB #### [facility] , #### T4F, [id number], CMP, [id number], CBC, TSH3 wRFLX #### [facility] [address] [place] [id number] [place] Monocytes/100 WBC (Bld) 8.0 % Normal . [facility] Comment on above: Order Comment: Reaso n for Exam Epigastric abdominal pain;Chronic fatigue Performed By: #### H CV RX PCR, HBSAB, HBCAB #### [facility] , #### T4F, [id number], CMP, [id number], CBC, TSH3 wRFLX #### [facility] [address] [place] [address] [place] Neutrophils (Bld) [#/Vol] 3.7 10*3/uL Normal 1.8-7.7 [facility] Comment on above: Order Comment: Reaso n for Exam Epigastric abdominal pain;Chronic fatigue Performed By: #### H CV RX PCR, HBSAB, HBCAB #### [facility] , #### T4F, [id number], CMP, [id number], CBC, TSH3 wRFLX #### [facility] [address] [place] [id number] [place] Neutrophils/100 WBC (Bld) 62.6 % Normal . [facility] Comment on above: Order Comment: Reaso n for Exam Epigastric abdominal pain;Chronic fatigue Performed By: #### H CV RX PCR, HBSAB, HBCAB #### [facility] , #### T4F, [id number], CMP, [id number], CBC, TSH3 wRFLX #### [facility] [address] [place] [id number] [place] NRBC% 0.1 /100{WBC} Normal 0-0.5 [facility] Comment on above: Order Comment: Reaso n for Exam Epigastric abdominal pain;Chronic fatigue Performed By: #### H CV RX PCR, HBSAB, HBCAB #### [facility] , #### T4F, [id number], CMP, [id number], CBC, TSH3 wRFLX #### [facility] [address] Platelet mean volume (Bld) [Entitic vol] 10.1 fL Normal 6.3-10.7 [facility] Comment on above: Order Comment: Reaso n for Exam Epigastric abdominal pain;Chronic fatigue Performed By: #### H CV RX PCR, HBSAB, HBCAB #### [facility] , #### T4F, [id number], CMP, [id number], CBC, TSH3 wRFLX #### [facility] [address] Platelets (Bld) [#/Vol] 143 10*3/uL Low 150-450 [facility] Comment on above: Order Comment: Reaso n for Exam Epigastric abdominal pain;Chronic fatigue Performed By: #### H CV RX PCR, HBSAB, HBCAB #### [facility] , #### T4F, [id number], CMP, [id number], CBC, TSH3 wRFLX #### [facility] [address] [place] [address] RBC (Bld) [#/Vol] 4.28 10*6/uL Normal 3.60-5.00 [facility] Comment on above: Order Comment: Reaso n for Exam Epigastric abdominal pain;Chronic fatigue Performed By: #### H CV RX PCR, HBSAB, HBCAB #### [facility] , #### T4F, [id number], CMP, [id number], CBC, TSH3 wRFLX #### [facility] [address] WBC (Bld) [#/Vol] 5.9 10*3/uL Normal 3.8-11.6 [facility] Comment on above: Order Comment: Reaso n for Exam Epigastric abdominal pain;Chronic fatigue Performed By: #### H CV RX PCR, HBSAB, HBCAB #### [facility] , #### T4F, [id number], CMP, [id number], CBC, TSH3 wRFLX #### [facility] [address] Comprehensive Metabolic Pane gabriela 08-10-2022 Albumin [Mass/Vol] 4.2 g/dL Normal 3.5-5.7 [facility] Comment on above: Order Comment: Reaso n for Exam Epigastric abdominal pain;Chronic fatigue Reason for Exam Chronic fatigue Reason for Exam Hypothyroidism Performed By: #### H CV RX PCR, HBSAB, HBCAB #### [facility] , #### T4F, [id number], CMP, [id number], CBC, TSH3 wRFLX #### [address] Albumin/Globulin [Mass ratio] 1.8 {ratio} Normal [facility] Comment on above: Order Comment: Reaso n for Exam Epigastric abdominal pain;Chronic fatigue Reason for Exam Chronic fatigue Reason for Exam Hypothyroidism Performed By: #### H CV RX PCR, HBSAB, HBCAB #### [facility] , #### T4F, [id number], CMP, [id number], CBC, TSH3 wRFLX #### [place] [id number] [facility] ALP [Catalytic activity/Vol] 56 U/L Normal 34-104 [facility] Comment on above: Order Comment: Reaso n for Exam Epigastric abdominal pain;Chronic fatigue Reason for Exam Chronic fatigue Reason for Exam Hypothyroidism Performed By: #### H CV RX PCR, HBSAB, HBCAB #### [facility] , #### T4F, [id number], CMP, [id number], CBC, TSH3 wRFLX #### [place] [id number] [facility] ALT [Catalytic activity/Vol] 11 U/L Normal 7-52 [facility] Comment on above: Order Comment: Reaso n for Exam Epigastric abdominal pain;Chronic fatigue Reason for Exam Chronic fatigue Reason for Exam Hypothyroidism Performed By: #### H CV RX PCR, HBSAB, HBCAB #### [facility] , #### T4F, [id number], CMP, [id number], CBC, TSH3 wRFLX #### [address] Anion gap [Moles/Vol] 11.4 mmol/L Normal 6.0-15.0 [facility] Comment on above: Order Comment: Reaso n for Exam Epigastric abdominal pain;Chronic fatigue Reason for Exam Chronic fatigue Reason for Exam Hypothyroidism Performed By: #### H CV RX PCR, HBSAB, HBCAB #### [facility] , #### T4F, [id number], CMP, [id number], CBC, TSH3 wRFLX #### [address] AST [Catalytic activity/Vol] 13 U/L Normal 13-39 [facility] Comment on above: Order Comment: Reaso n for Exam Epigastric abdominal pain;Chronic fatigue Reason for Exam Chronic fatigue Reason for Exam Hypothyroidism Performed By: #### H CV RX PCR, HBSAB, HBCAB #### [facility] , #### T4F, [id number], CMP, [id number], CBC, TSH3 wRFLX #### [address] Bilirubin [Mass/Vol] 0.6 mg/dL Normal 0.3-1.0 [facility] Comment on above: Order Comment: Reaso n for Exam Epigastric abdominal pain;Chronic fatigue Reason for Exam Chronic fatigue Reason for Exam Hypothyroidism Performed By: #### H CV RX PCR, HBSAB, HBCAB #### [facility] , #### T4F, [id number], CMP, [id number], CBC, TSH3 wRFLX #### [address] Calcium [Mass/Vol] 8.6 mg/dL Normal 8.6-10.3 [facility] Comment on above: Order Comment: Reaso n for Exam Epigastric abdominal pain;Chronic fatigue Reason for Exam Chronic fatigue Reason for Exam Hypothyroidism Performed By: #### H CV RX PCR, HBSAB, HBCAB #### [facility] , #### T4F, [id number], CMP, [id number], CBC, TSH3 wRFLX #### [facility] [address] Chloride [Moles/Vol] 104 mmol/L Normal 98-107 [facility] Comment on above: Order Comment: Reaso n for Exam Epigastric abdominal pain;Chronic fatigue Reason for Exam Chronic fatigue Reason for Exam Hypothyroidism Performed By: #### H CV RX PCR, HBSAB, HBCAB #### [facility] , #### T4F, [id number], CMP, [id number], CBC, TSH3 wRFLX #### [address] CO2 [Moles/Vol] 28.4 mmol/L Normal 21.0-31.0 [facility] Comment on above: Order Comment: Reaso n for Exam Epigastric abdominal pain;Chronic fatigue Reason for Exam Chronic fatigue Reason for Exam Hypothyroidism Performed By: #### H CV RX PCR, HBSAB, HBCAB #### [facility] , #### T4F, [id number], CMP, [id number], CBC, TSH3 wRFLX #### [address] Creatinine [Mass/Vol] 0.99 mg/dL Normal 0.60-1.20 [facility] Comment on above: Order Comment: Reaso n for Exam Epigastric abdominal pain;Chronic fatigue Reason for Exam Chronic fatigue Reason for Exam Hypothyroidism Performed By: #### H CV RX PCR, HBSAB, HBCAB #### [facility] , #### T4F, [id number], CMP, [id number], CBC, TSH3 wRFLX #### [facility] [address] GFR/1.73 sq M.predicted MDRD (S/P/Bld) [Vol rate/Area] mL/min/{1.73_m2} Normal [facility] Comment on above: Order Comment: Reaso n for Exam Epigastric abdominal pain;Chronic fatigue Reason for Exam Chronic fatigue Reason for Exam Hypothyroidism Performed By: #### H CV RX PCR, HBSAB, HBCAB #### [facility] , #### T4F, [id number], CMP, [id number], CBC, TSH3 wRFLX #### [facility] [address] Globulin (S) [Mass/Vol] 2.4 g/dL Normal [facility] Comment on above: Order Comment: Reaso n for Exam Epigastric abdominal pain;Chronic fatigue Reason for Exam Chronic fatigue Reason for Exam Hypothyroidism Performed By: #### H CV RX PCR, HBSAB, HBCAB #### [facility] , #### T4F, [id number], CMP, [id number], CBC, TSH3 wRFLX #### [facility] [address] Glucose [Mass/Vol] 83 mg/dL Normal 70-100 [facility] Comment on above: Order Comment: Reaso n for Exam Epigastric abdominal pain;Chronic fatigue Reason for Exam Chronic fatigue Reason for Exam Hypothyroidism Result Comment: [place] Glucose Reference Range is dependent on time and content of last meal. Glucose of more than 200 mg/dL in a nonstressed, ambulatory subject supports the diagnosis of Diabetes Mellitus. ADA recommended reference range Performed By: #### H CV RX PCR, HBSAB, HBCAB #### [facility] , #### T4F, [id number], CMP, [id number], CBC, TSH3 wRFLX #### [facility] [address] [place] [id number] [facility] Potassium [Moles/Vol] 3.8 mmol/L Normal 3.5-5.1 [facility] Comment on above: Order Comment: Reaso n for Exam Epigastric abdominal pain;Chronic fatigue Reason for Exam Chronic fatigue Reason for Exam Hypothyroidism Performed By: #### H CV RX PCR, HBSAB, HBCAB #### [facility] , #### T4F, [id number], CMP, [id number], CBC, TSH3 wRFLX #### [facility] [address] Protein [Mass/Vol] 6.6 g/dL Normal 6.4-8.9 [facility] Comment on above: Order Comment: Reaso n for Exam Epigastric abdominal pain;Chronic fatigue Reason for Exam Chronic fatigue Reason for Exam Hypothyroidism Performed By: #### H CV RX PCR, HBSAB, HBCAB #### [facility] , #### T4F, [id number], CMP, [id number], CBC, TSH3 wRFLX #### [address] Sodium [Moles/Vol] 140 mmol/L Normal 136-145 [facility] Comment on above: Order Comment: Reaso n for Exam Epigastric abdominal pain;Chronic fatigue Reason for Exam Chronic fatigue Reason for Exam Hypothyroidism Performed By: #### H CV RX PCR, HBSAB, HBCAB #### [facility] , #### T4F, [id number], CMP, [id number], CBC, TSH3 wRFLX #### [place] [address] [place] Urea nitrogen [Mass/Vol] 16 mg/dL Normal 7-25 [facility] Comment on above: Order Comment: Reaso n for Exam Epigastric abdominal pain;Chronic fatigue Reason for Exam Chronic fatigue Reason for Exam Hypothyroidism Performed By: #### H CV RX PCR, HBSAB, HBCAB #### [facility] , #### T4F, [id number], CMP, [id number], CBC, TSH3 wRFLX #### [facility] [address] [place] [id number] [place] Creatinine [Mass/volume] in Serum or PlasmaOrdered By: Cecilio Epps on 08-10-2022 Creatinine [Mass/Vol] 0.99 mg/dL 0.60-1.20 [facility] Eosinophils Auto (Bld) [#/Vo l]Ordered By: Cecilio Epps on 08-10-2022 Eosinophils (Bld) [#/Vol] 0.1 10*3/uL 0.0-0.45 [facility] Eosinophils/100 WBC Auto (Bl d)Ordered By: Cecilio Epps on 08-10-2022 Eosinophils/100 WBC (Bld) 1.0 % . [facility] Erythrocyte distribution wid th Auto (RBC) [Ratio]Ordered By: Cecilio Epps on 08-10-2022 Erythrocyte distribution wid th (RBC) [Ratio] 14.9 % 11.9-15.3 [facility] Folate [Mass/volume] in Seru m or PlasmaOrdered By: Cecilio Epps on 08-10-2022 Folate [Mass/Vol] 4.9 ng/mL >5.9 [facility] Comment on above: Folate reference ran ge: >5.9 ng/mlThe WHO technical consultation on folate and vitamin [id number] has determined that folate concentrations lessthan 4 ng/ml are considered deficient. Free T4 (Free Thyroxine)on 0 08-10-2022 Free T4 [Mass/Vol] 0.28 ng/dL Low 0.61-1.12 [facility] Comment on above: Order Comment: Reaso n for Exam Epigastric abdominal pain;Chronic fatigue Reason for Exam Chronic fatigue Reason for Exam Hypothyroidism Performed By: #### T SH3 wRFLX, T4F #### [facility] [address] [place] [id number] [facility] Globulin Calc (S) [Mass/Vol] Ordered By: Cecilio Epps on 08-10-2022 Globulin (S) [Mass/Vol] 2.4 g/dL [facility] Glucose [Mass/volume] in Ser um or PlasmaOrdered By: Cecilio Epps on 08-10-2022 Glucose [Mass/Vol] 83 mg/dL 70-100 [facility] Comment on above: ADA recommended refe rence rangeRandom Glucose Reference Range is dependent on time and content of last meal. Glucose of more than 200 mg/dL in a nonstressed, ambulatory subject supports the diagnosis of Diabetes Mellitus. Hematocrit Auto (Bld) [Volum e fraction]Ordered By: Cecilio Epps on 08-10-2022 Hematocrit (Bld) [Volume fraction] 41.1 % 3 4.0-46.4 [facility] Hemoglobin [Mass/volume] in BloodOrdered By: Cecilio Epps on 08-10-2022 Hemoglobin (Bld) [Mass/Vol] 14.0 g/dL 11.8-15. 4 [facility] Hep C Ab wRfx to Qnt PCRon 0 08-10-2022 Hepatitis C Virus Antibody Non-Reactive Normal Non Xochilt ctive [facility] Comment on above: Order Comment: Reaso n for Exam Chronic fatigue Reason for Exam Chronic fatigue;Encounter for screening for other viral dise Performed By: #### T SH3 wRFLX, T4F #### [facility] [address] [place] [address] Interpretation Hepatitis C Normal . [facility] Comment on above: Order Comment: Reaso n for Exam Chronic fatigue Reason for Exam Chronic fatigue;Encounter for screening for other viral dise Result Comment: Not infected with HCV unless early or acute infection is suspected (which may be delayed in an immunocompromised individual), or other evidence exists to indicate HCV infection. Performed By: #### T SH3 wRFLX, T4F #### [facility] [address] [place] [address] Hepatitis B Core Antibodyon 08-10-2022 Hepatitis B Core Antibody Negative Normal Negative [facility] Comment on above: Order Comment: Reaso n for Exam Chronic fatigue Reason for Exam Chronic fatigue;Encounter for screening for other viral dise Result Comment: Perf ormed at: - [facility] [address] [id number] Environmental Engineer: Tadeo Rosado PhD, Phone: [phone] PERFORMED BY: [address] [place] [address] PATHOLOGIST LEGEND MAKER GISELLE ALVAREZ M.D. Performed By: #### T SH3 wRFLX, T4F #### [facility] [address] Hepatitis B Surface Antibody on 08-10-2022 Hepatitis B Surface Antibody Non-Reactive Normal . [facility] Comment on above: Order Comment: Reaso n for Exam Chronic fatigue Reason for Exam Chronic fatigue;Encounter for screening for other viral dise Result Comment: Non Reactive: Inconsistent with immunity, less than 10 mIU/mL Reactive: Consistent with immunity, greater than 9.9 mIU/mL Performed By: #### T SH3 wRFLX, T4F #### [facility] [address] [place] [id number] [facility] Hepatitis C virus IgG Ab [Pr esence] in Serum or Plasma by ImmunoassayOrdered By: Cecilio Epps on 08-10-2022 HCV IgG IA Ql Non-Reactive Non Reactive [facility] Hepatitis C virus RNA [Units /volume] (viral load) in Serum or Plasma by ONEIL with probOrdered By: Cecilio Epps on 08-10-2022 HCV RNA ONEIL+probe Qn N/A [facility] Hepatitis C virus RNA [log u nits/volume] (viral load) in Serum or Plasma by ONEIL withOrdered By: Cecilio Epps on 08-10-2022 HCV RNA ONEIL+probe [Log units/Vol] N/A [facility] Leukocytes [#/volume] correc rosalia for nucleated erythrocytes in Blood by Automated counOrdered By: Cecilio Epps on 08-10-2022 WBC corrected for nucl RBC A uto (Bld) [#/Vol] 5.9 10*3/uL 3.8-11.6 [facility] Lymphocytes Auto (Bld) [#/Vo l]Ordered By: Cecilio Epps on 08-10-2022 Lymphocytes (Bld) [#/Vol] 1.6 10*3/uL 1.00-4.8 [facility] Lymphocytes/100 WBC Auto (Bl d)Ordered By: Cecilio Epps on 08-10-2022 Lymphocytes/100 WBC (Bld) 27.8 % . [facility] MCH Auto (RBC) [Entitic mass ]Ordered By: Cecilio Epps on 08-10-2022 MCH (RBC) [Entitic mass] 32.7 pg 24.7-34.3 [facility] MCHC Auto (RBC) [Mass/Vol]Or dered By: Cecilio Epps on 08-10-2022 MCHC (RBC) [Mass/Vol] 34.0 g/dL 32.0-35.0 [facility] MCV Auto (RBC) [Entitic vol] Ordered By: Cecilio Epps on 08-10-2022 MCV (RBC) [Entitic vol] 96.2 fL 80-100 [facility] Monocytes Auto (Bld) [#/Vol] Ordered By: Cecilio Epps on 08-10-2022 Monocytes (Bld) [#/Vol] 0.5 10*3/uL 0.0-0.8 [facility] Monocytes/100 WBC Auto (Bld) Ordered By: Cecilio Epps on 08-10-2022 Monocytes/100 WBC (Bld) 8.0 % . [facility] Neutrophils Auto (Bld) [#/Vo l]Ordered By: Cecilio Epps on 08-10-2022 Neutrophils (Bld) [#/Vol] 3.7 10*3/uL 1.8-7.7 [facility] Neutrophils/100 WBC Auto (Bl d)Ordered By: Cecilio Epps on 08-10-2022 Neutrophils/100 WBC (Bld) 62.6 % . [facility] No Panel InformationOrdered By: Cecilio Epps on 08-10-2022 Estimated GFR (CKD-EPI) > 60.0 mL/Min [facility] Hepatitis B Core Total Antibody Negative Negative [facility] Comment on above: Performed at: - [address] [id number] Director: Tadeo Rosado PhD, Phone: [phone] Hepatitis C Interpretation See comment . [facility] Comment on above: Not infected with HC V unless early or acute infection issuspected (which may be delayed in an immunocompromisedindividual), or other evidence exists to indicate HCVinfection. Hepatitis C RNA Quantitative N/A [facility] Creatinine Clearance (Chem N/A [facility] Nucleated erythrocytes [Pres ence] in Blood by Automated countOrdered By: Cecilio Epps on 08-10-2022 Nucleated RBC Auto Ql (Bld) 0.1 /100{WBC} 0-0.5 [facility] Platelet mean volume Auto (B ld) [Entitic vol]Ordered By: Cecilio Epps on 08-10-2022 Platelet mean volume (Bld) [Entitic vol] 10.1 fL 6.3-10.7 [facility] Platelets Auto (Bld) [#/Vol] Ordered By: Cecilio Epps on 08-10-2022 Platelets (Bld) [#/Vol] 143 10*3/uL 150-450 [facility] Potassium [Moles/volume] in Serum or PlasmaOrdered By: Cecilio Epps on 08-10-2022 Potassium [Moles/Vol] 3.8 mmol/L 3.5-5.1 [facility] Protein [Mass/volume] in Ser um or PlasmaOrdered By: Cecilio Epps on 08-10-2022 Protein [Mass/Vol] 6.6 g/dL 6.4-8.9 [facility] RBC Auto (Bld) [#/Vol]Ordere d By: Cecilio Epps on 08-10-2022 RBC (Bld) [#/Vol] 4.28 10*6/uL 3.60-5.00 [facility] Serum hepatitis B virus surf beverley antibody detectionOrdered By: Cecilio Epps on 08-10-2022 HBV surface Ab Ql (S) Non-Reactive . [facility] Comment on above: Non Reactive: Incons istent with immunity, less than 10 mIU/mL Reactive: Consistent with immunity, greater than 9.9 mIU/mL Serum or plasma albumin/glob ulin mass ratioOrdered By: Cecilio Epps on 08-10-2022 Albumin/Globulin [Mass ratio] 1.8 {ratio} [facility] Serum or plasma anion gap de terminationOrdered By: Cecilio Epps on 08-10-2022 Anion gap [Moles/Vol] 11.4 mmol/L 6.0-15.0 [facility] Sodium [Moles/volume] in Ser um or PlasmaOrdered By: Cecilio Epps on 08-10-2022 Sodium [Moles/Vol] 140 mmol/L 136-145 [facility] Thyroid Stim Hormone w/Rflxo n 08-10-2022 Thyroid Stim Hormone w/Rflx 21.80 u[iU]/mL High 0.45 -5.33 [facility] Comment on above: Order Comment: Reaso n for Exam Epigastric abdominal pain;Chronic fatigue Reason for Exam Chronic fatigue Reason for Exam Hypothyroidism Performed By: #### T SH3 wRFLX, T4F #### [address] Thyrotropin [Units/volume] i n Serum or PlasmaOrdered By: Cecilio Epps on 08-10-2022 TSH Qn 21.80 m[IU]/L 0.45-5.33 [facility] Thyroxine (T4) free [Mass/vo lume] in Serum or PlasmaOrdered By: Cecilio Epps on 08-10-2022 Free T4 [Mass/Vol] 0.28 ng/dL 0.61-1.12 [facility] US liveron 08-10-2022 liver [facility] [place] [address] [place] [address] Ultrasound Report Signed Patient: Meghan Barlow MR#: [id number] [birth year] : 1975 Acct:[id number] Age/Sex: 46 / F ADM Date: 08/10/22 Loc: Room: Type: [facility] Attending Dr: Jason Michele DO Ordering Provider: Cecilio Epps DO, RES Date of Service: 08/10/22 US/US liver: Epigastric abdominal pain Copies to: Ceciilo Epps DO, MARTIN Michele DO LIMITED ABDOMINAL ULTRASOUND: CLINICAL HISTORY: Epigastric pain for 4 weeks COMPARISON: None TECHNIQUE: Grayscale and color Doppler images of the right upper quadrant organs were obtained. FINDINGS: Pancreas: Visualized portions appear unremarkable. Liver: No mass or intrahepatic ductal dilatation Gallbladder: Unremarkable CBD: 3 mm US/US liver IMPRESSION: NO ACUTE PROCESS. . Impression dictated by: Jarred Ramires Jr., D.ORadha08/10/2022 2:02 PM Dictation Location: [place] [address] Tech: Carol Rai Transcribed By: AMISH 08/10/221401 Dictated By: Jarred Ramires Jr, DO 08/10/221401 Signed By: 08/10/22 1402 Normal [facility] Urea nitrogen [Mass/volume] in Serum or PlasmaOrdered By: Cecilio Epps on 08-10-2022 Urea nitrogen [Mass/Vol] 16 mg/dL 10-04 [facility] Vit. B12/Folate Profileon Cobalamin (Vitamin B12) [Mass/Vol] 164 pg/mL Low 180-914 [facility] Comment on above: Order Comment: Reaso n for Exam Epigastric abdominal pain;Chronic fatigue Reason for Exam Chronic fatigue Reason for Exam Hypothyroidism Performed By: #### T SH3 wRFLX, T4F #### [facility] [address] Folate 4.9 ng/mL Low >5.9 [facility] Comment on above: Order Comment: Reaso n for Exam Epigastric abdominal pain;Chronic fatigue Reason for Exam Chronic fatigue Reason for Exam Hypothyroidism Result Comment: Brittney te reference range: >5.9 ng/ml The WHO technical consultation on folate and vitamin b12 deficiencies has determined that folate concentrations less than 4 ng/ml are considered deficient. Performed By: #### T SH3 wRFLX, T4F #### [facility] [address] [place] [id number] [facility] Vitamin B12 ser/plasOrdered By: Cecilio Epps on 08-10-2022 Cobalamin (Vitamin B12) [Mass/Vol] 164 pg/mL 180-914 [facility] Vitamin D 25 Hydroxy Totalon 08-10-2022 Vitamin D 25 Hydroxy Total 29.4 ng/mL Low 30-100 [facility] Comment on above: Order Comment: Reaso n for Exam Epigastric abdominal pain;Chronic fatigue Reason for Exam Chronic fatigue Reason for Exam Hypothyroidism Result Comment: CARMITA MIN D STATUS 25(OH)VITAMIN D RANGE (ng/mL) Deficient <20 Insufficient 20 to <30 Sufficient 30 to 100 Reference: Gagadneep Mccartney, Vadim CISNEROS, et al. Evaluation,treatment, and prevention of vitamin D deficiency; an Endocrine Society clinical practice guideline. JCEM. 2010; 96(7):191-. PERFORMED BY: [address] [address] PATHOLOGIST [employer]GEND MAKER GISELLE ALVAREZ M.D. Performed By: #### T SH3 wRFLX, T4F #### [facility] [address] [place] [address] [facility] Vitamin D+Metabolites [Mass/ volume] in Serum or PlasmaOrdered By: Cecilio Epps on 08-10-2022 Vitamin D+Metabolites [Mass/Vol] 29.4 ng/mL 30- 100 [facility] Comment on above: VITAMIN D STATUS 25( [place])VITAMIN D RANGE (ng/mL) Deficient <20 Insufficient 20 to <30Sufficient 30 to 100Reference: Gagandeep Mccartney, Vadim CISNEROS, et al. Evaluation,treatment, and prevention of vitamin D deficiency; an Endocrine Society clinical practice guideline. JCEM. 2010; 96(7):1911-. WBC Auto (Bld) [#/Vol]Ordere d By: Cecilio Epps on 08-10-2022 WBC (Bld) [#/Vol] 5.9 10*3/uL 3.8-11.6 [facility] Thyroid Stimulating Hormoneo n 06-06-2022 TSH Qn 6.15 m[IU]/L High 0.45-5.33 [facility] Comment on above: Order Comment: Reaso n for Exam Unspecified hypothyroidism Result Comment: PERF ORMED BY: [facility] [address] [facility] [address] PATHOLOGIST [employer]END MAK[employer] GISELLE ALVAREZ M.D. Performed By: #### T 3T, TSH3, T4T #### [facility] [address] [place] [address] [facility] Thyrotropin [Units/volume] i n Serum or PlasmaOrdered By: Cecilio Epps on 06-06-2022 TSH Qn 6.15 m[IU]/L 0.45-5.33 [facility] Thyroxine (T4) Totalon 06-06 T4 [Mass/Vol] 7.70 ug/dL Normal 5.39-11.82 [facility] Comment on above: Order Comment: Reaso n for Exam Unspecified hypothyroidism Performed By: #### T 3T, TSH3, T4T #### [facility] [address] Thyroxine (T4) [Mass/volume] in Serum or PlasmaOrdered By: Cecilio Epps on 06-06-2022 T4 [Mass/Vol] 7.70 ug/dL 5.39-11.82 [facility] Triiodothyronine (T3) Totalo n 06-06-2022 Triiodothyronine (T3) Total 1.01 ng/mL Normal 0.87-1.7 8 [facility] Comment on above: Order Comment: Reaso n for Exam Unspecified hypothyroidism Performed By: #### T 3T, TSH3, T4T #### [facility] [address] [place] [id number] [place] Triiodothyronine (T3) [Mass/ volume] in Serum or PlasmaOrdered By: Cecilio Epps on 06-06-2022 T3 [Mass/Vol] 1.01 ng/mL 0.87-1.78 [facility] XR knee BI 4Von 05-04-2022 XR knee BI 4V [facility] [place] [address] XRay Report Signed Patient: Meghan Barlow MR#: [id number] [birth year] : 1975 Acct:[id number] Age/Sex: 46 / F ADM Date: 05/04/22 Loc: XD Room: Type: [facility] Attending Dr: Jason Michele DO Copies to: Cecilio Epps DO, MARTIN Michele DO Ordering Provider: Cecilio Epps DO, RES Date of Service: 05/04/22 XR/XR knee standing BI: Pain in right knee;Pain in left knee ([id number]) XR/XR knee BI 4V: Pain in right knee;Pain in left knee ([id number]) XR/XR lumbar spine AP/LAT/FLX/EXT: Other chronic pain CLINICAL DATA: Bilateral knee pain and throbbing for the past couple weeks. No injury. Patient also has chronic low back pain. BILATERAL STANDING KNEES - 1 view COMPARISON: None Standing AP view of both knees was obtained. No fracture or dislocation is identified. The left patella does appear to be turned in in comparison to the right side. There is no disproportionate joint space narrowing. No prominent hypertrophy is seen. No focal soft tissue swelling is noted. XR/XR knee standing BI IMPRESSION: NO ACUTE BONY FINDINGS. BILATERAL KNEES - 4 views each COMPARISON: None AP, lateral and both oblique views of both knees were obtained. No fracture, dislocation or bony destruction is identified. There is no disproportionate joint space narrowing. There is minimal squaring off of the articular margins of the posterior patella. There is no knee effusion or soft tissue swelling. IMPRESSION: NO ACUTE BONY FINDINGS. LUMBAR SPINE WITH FLEXION AND EXTENSION VIEWS - 4 views COMPARISON: 04/08/2018 Standing AP as well as lateral views in neutral, flexion and extension were obtained. There is subtle levoscoliotic curvature. A potential limbus vertebra is again seen at the anterior inferior endplate of L5. There are no developing fractures or displacement. No instability is noted. The disc spaces are maintained. There is no prominent endplate spurring or facet disease. SI joints are intact. Left nephrolithiasis is still suspected. IMPRESSION: SLIGHT SCOLIOSIS. NO ACUTE BONY FINDINGS. SUSPECTED LEFT NEPHROLITHIASIS. Impression dictated by: Beulah Meier M.D.05/04/2022 12:31 PM Dictation Location: [place] [address] Transcribed By: [facility] 05/04/22 1231 Dictated By: Beulah Meier MD 05/04/22 1222 Signed By: 05/04/22 1231 Normal [facility] Free T4 (Free Thyroxine)on 04-19-2021 Free T4 [Mass/Vol] 0.59 ng/dL Low 0.61-1.12 [facility] Comment on above: Order Comment: Reaso n for Exam Hypothyroidism, unspecified type Performed By: #### T SH3 wRFLX, T4F #### [facility] [address] [place] [id number] [facility] TSH DL <= 0.005 mIU/L QnOrde red By: Cecilio Epps on 02-16-2022 TSH Qn 8.27 m[IU]/L 0.45-5.33 [facility] Thyroid Stim Hormone w/Rflxo n 02-16-2022 Thyroid Stim Hormone w/Rflx 8.27 u[iU]/mL High 0.45- 5.33 [facility] Comment on above: Order Comment: Reaso n for Exam Hypothyroidism, unspecified type Result Comment: PERF ORMED BY: [place] [address] PATHOLOGIST LEGEND MAKER GISELLE ALVAREZ M.D. Performed By: #### T SH3 wRFLX, T4F #### [address] Thyroxine (T4) free [Mass/vo lume] in Serum or PlasmaOrdered By: Cecilio Epps on 02-16-2022 Free T4 [Mass/Vol] 0.59 ng/dL 0.61-1.12 [facility] Free T4 (Free Thyroxine)on Free T4 [Mass/Vol] 0.37 ng/dL Low 0.61-1.12 [facility] Comment on above: Performed By: #### T SH3 wRFLX, T4F #### [facility] [address] [place] [address] TSH DL <= 0.005 mIU/L QnOrde red By: Cecilio Epps on 12-29-2021 TSH Qn 25.89 m[IU]/L 0.45-5.33 [facility] Thyroid Stim Hormone w/Rflxo n 12-29-2021 Thyroid Stim Hormone w/Rflx 25.89 u[iU]/mL High 0.45 -5.33 [facility] Comment on above: Result Comment: PERF ORMED BY: [place] [address] PATHOLOGIST LEGEND MAKER GISELLE ALVAREZ M.D. Performed By: #### T SH3 wRFLX, T4F #### [address] Thyroxine (T4) free [Mass/vo lume] in Serum or PlasmaOrdered By: Cecilio Epps on 12-29-2021 Free T4 [Mass/Vol] 0.37 ng/dL 0.61-1.12 [facility] Albumin [Mass/volume] in Ser um or Plasmaon 07-29-2020 Albumin [Mass/Vol] 4.0 g/dL 3.2-5.5 [facility] Creatinine and Glomerular fi ltration rate.predicted panel (S/P/Bld)on 07-29-2020 Creatinine [Mass/Vol] 0.77 mg/dL 0.44-1.03 [facility] Estimated glomerular filtrat ion rate (GFR) non- Americanon 07-29-2020 GFR/1.73 sq M.predicted roque g non-blacks MDRD (S/P/Bld) [Vol rate/Area] > 60 mL/Min [facility] Globulin Calc (S) [Mass/Vol] on 07-29-2020 Globulin (S) [Mass/Vol] 2.5 g/dL F [facility] No Panel Informationon 07-29 Estimated GFR () > 60 mL/Min [facility] Comment on above: GFR estimated refere nce range: According to KDOQI guidelines, <60 ml/min/1.73m2 is sufficient to diagnose a patient with chronic kidney disease. Pharmacy Creatinine Clearance (Chem N/A [facility] Protein [Mass/volume] in Ser um or Plasmaon 07-29-2020 Protein [Mass/Vol] 6.5 g/dL 6.1-7.9 [facility] Serum or plasma alanine goode otransferase measurement without P-5'-P (enzymatic activion 07-29-2020 ALT No additional P-5'-P [Ca talytic activity/Vol] 36 U/L 10-60 [facility] Serum or plasma albumin/glob ulin mass ratioon 07-29-2020 Albumin/Globulin [Mass ratio] 1.6 {ratio} [facility] Serum or plasma alkaline krysta sphatase measurement (enzymatic activity/volume)on 07-29-2020 ALP [Catalytic activity/Vol] 44 U/L 32-92 [facility] Serum or plasma aspartate am inotransferase measurement (enzymatic activity/volume)on 07-29-2020 AST [Catalytic activity/Vol] 24 U/L 10-42 [facility] Serum or plasma calcium zayra urement (mass/volume)on 07-29-2020 Calcium [Mass/Vol] 9.4 mg/dL 8.2-10.2 [facility] Serum or plasma chloride dayanna surement (moles/volume)on 07-29-2020 Chloride [Moles/Vol] 102 mmol/L 95-114 [facility] Serum or plasma glucose zayra urement (mass/volume)on 07-29-2020 Glucose [Mass/Vol] 80 mg/dL 70-100 [facility] Comment on above: ADA recommended refe rence rangeRandom Glucose Reference Range is dependent on time and content of last meal. Glucose of more than 200 mg/dL in a nonstressed, ambulatory subject supports the diagnosis of Diabetes Mellitus. Serum or plasma potassium me asurement (moles/volume)on 07-29-2020 Potassium [Moles/Vol] 4.1 mmol/L 3.5-5.1 [facility] Serum or plasma sodium measu rement (moles/volume)on 07-29-2020 Sodium [Moles/Vol] 137 mmol/L 136-146 [facility] Serum or plasma total biliru bin measurement (mass/volume)on 07-29-2020 Bilirubin [Mass/Vol] 0.5 mg/dL 0.3-1.2 [facility] Serum or plasma total carbon dioxide measurement (moles/volume)on 07-29-2020 CO2 [Moles/Vol] 27.5 mmol/L 22.0-30.0 [facility] Serum or plasma urea nitroge n measurement (mass/volume)on 07-29-2020 Urea nitrogen [Mass/Vol] 12 mg/dL 9-23 [facility] TSH DL <= 0.005 mIU/L Qnon 0 07-29-2020 TSH Qn 16.84 m[IU]/L 0.45-5.33 [facility] Thyroxine (T4) free [Mass/vo lume] in Serum or Plasmaon 07-29-2020 Free T4 [Mass/Vol] 0.57 ng/dL 0.61-1.12 [facility] Drug Scr, Abuse, Uron 2016 Amphetamine(s),Ur Negative Normal NEG [facility] Comment on above: Result Comment: (Pos itive cutoff 1000 ng/mL) Performed By: #### U ALACI ALDEN ####[address] [address] Barbiturate(s),Ur Negative Normal NEG [facility] Comment on above: Result Comment: (Pos itive cutoff 200 ng/mL) Performed By: #### LACI Arias DAU ####[address] [address] Base excess Negative Normal NEG [facility] Comment on above: Result Comment: (Pos itive cutoff 300 ng/mL) Performed By: #### U LACI Ryder DAU ####[address] [address] Benzodiazepine(s) Positive Abnormal NEG [facility] Comment on above: Result Comment: (Pos itive cutoff 200 ng/mL) Performed By: #### U LACI Ryder ALDEN ####[address] [address] Cannabinoid(s),Ur Negative Normal NEG [facility] Comment on above: Result Comment: (Pos itive cutoff 50 ng/mL) Performed By: #### U ALACI ALDEN ####[address] [address] Interpretive Info Assay provides medic al screening only. The absence of expected drug(s) and/or Normal [facility] Comment on above: Result Comment: meta bolite(s) may indicate diluted or adulterated urine, limitations of testing or timing of collection.Testing for legal purposes should be confirmed by another method. To request confirmation of test result, please call the lab within 7 days of sample submission.Performed at [facility] [address] [place] [address] Performed By: #### U ALACI ALDEN ####[facility] [place] [address] Opiate(s), Ur Negative Normal NEG [facility] Comment on above: Result Comment: (Pos itive cutoff 300 ng/mL) Performed By: #### U A UMQUOC ALDEN ####[address] [address] Oxycodone, Urine Negative Normal NEG [facility] Comment on above: Result Comment: (Pos itive cutoff 100 ng/mL) Performed By: #### U ALACI ALDEN ####[facility] [place] [address] Phencyclidine, Ur Negative Normal NEG [facility] Comment on above: Result Comment: (Pos itive cutoff 25 ng/mL) Performed By: #### U A UMCARLAO ALDEN ####[address] [address] Urine, methadone presence Negative Normal NEG [facility] Comment on above: Result Comment: (Pos itive cutoff 300 ng/mL) Performed By: #### U ALACI ALDEN ####[address] [address] Buprenorphrine, Ur NOT REPORTED Normal NEG [facility] Comment on above: Performed By: #### U A, UMICAO, ALDEN ####[address] [place] [address] MDMA, Urine NOT REPORTED Normal NEG [facility] Comment on above: Performed By: #### U A, UMICAO, ALDEN ####[address] [place] [address] Methamphetamine, Ur NOT REPORTED Normal NEG [facility] Comment on above: Performed By: #### U A, UMICAO, ALDEN ####[address] [address] Propoxyphene,Urine NOT REPORTED Normal NEG [facility] Comment on above: Performed By: #### U A, UMICAO, ALDEN ####[address] [address] Urine, tricyclic antidepressants NOT REPORTED Normal N [facility] Comment on above: Performed By: #### U A, UMICAO, ALDEN ####[address] [address] Urinalysis, Routineon 2016 Acetaminophen mass conc Negative Normal NEG [facility] Comment on above: Performed By: #### U A, UMICAO, ALDEN ####[address] [address] Bilirubin (direct) Negative Normal NEG [facility] Comment on above: Performed By: #### U A, UMICAO, ALDEN ####[address] [address] Hemoglobin mass conc (Bld) Negative Normal NEG [facility] Comment on above: Performed By: #### U A, UMICAO, ALDEN ####[address] [address] Nitrite,Ur Negative Normal NEG [facility] Comment on above: Performed By: #### U A, UMICAO, ALDEN ####[address] [place] [address] Turbidity CLOUDY Abnormal CLEAR [facility] Comment on above: Performed By: #### U A, UMICAO, ALDEN ####[address] [place] [address] Urine, color YELLOW Normal YEL [facility] Comment on above: Performed By: #### U A, UMICAO, ALDEN ####[address] [place] [address] Urine, glucose presence Negative Normal NEG [facility] Comment on above: Performed By: #### U A, UMICAO, ALDEN ####[address] [place] [address] Urine, leukocyte esterase presence TRACE Abnormal N EG [facility] Comment on above: Result Comment: Perf ormed at [place] [id number] [place] [address] Performed By: #### U A, UMICAO, ALDEN ####[address] [place] [address] Urine, pH 5.5 [pH] Normal 5.0-8.0 [facility] Comment on above: Performed By: #### U A, UMICAO, ALDEN ####[address] [place] [address] Urine, protein presence Negative Normal NEG [facility] Comment on above: Performed By: #### U A, UMICAO, ALDEN ####[address] [place] [address] Urine, specific gravity 1.012 Normal 1.000-1.030 [facility] Comment on above: Performed By: #### LACI Arias DAU ####[address] [address] Urobilinogen,Ur Normal Normal NORM [facility] Comment on above: Performed By: #### LACI Arias ALDEN ####[address] [address] Comment NOT REPORTED Normal [facility] Comment on above: Performed By: #### LACI Arias ALDEN ####[address] [address] Urinalysis,Microon 7 ----- Normal [facility] Comment on above: Performed By: #### LACI Arias, ALDEN ####[address] [place] [address] Mucus Strands 1+ Abnormal NONE [facility] Comment on above: Performed By: #### LACI Arias, ALDEN ####[address] [place] [address] Urine WBC's 2 TO 5 Normal [facility] Comment on above: Performed By: #### U ALACI, ALDEN ####[address] [place] [address] Urine, amorphous sediment pr esence in sediment 1+ Abnormal NONE [facility] Comment on above: Result Comment: Perf ormed at [facility] [address] [place] [address] Performed By: #### U ALACI, ALDEN ####[facility] [address] [place] [address] Urine, bacteria in sediment MODERATE Abnormal NONE [facility] Comment on above: Performed By: #### LACI Arias DAU ####[facility] [place] [address] Urine, erythrocytes 0 TO 2 Normal [facility] Comment on above: Performed By: #### LACI Arias DAU ####[facility] [place] [address] [place] [address] Epithelial, Renal NOT REPORTED Normal 0 [facility] Comment on above: Performed By: #### LACI Arias DAU ####[address] [place] [address] Other Observations NOT REPORTED Normal NREQ [facility] Comment on above: Performed By: #### LACI Arias DAU ####[facility] [place] [address], [place] [address] Trichomonas NOT REPORTED Normal NONE [facility] Comment on above: Performed By: #### LACI Arias DAU ####[facility] [place] [address] [place] [address] Urine, casts in sediment NOT REPORTED Normal [facility] Comment on above: Performed By: #### LACI Arias DAU ####[facility] [place] [address], [place] [address] Urine, crystals in sediment NOT REPORTED Normal NONE [facility] Comment on above: Performed By: #### LACI Arias DAU ####[facility] [place] [address], [place] [address] Urine, epithelial cells in sediment NOT REPORTED Normal [facility] Comment on above: Performed By: #### LACI Arias DAU ####[facility] [place] [address].[place] [address] Urine, yeast presence in sediment NOT REPORTED Normal NONE [facility] Comment on above: Performed By: #### LACI Arias DAU ####[facility] [place] [address] CBC with Diffon 09-16-2016 Abs. Basophil 0.10 k/uL Normal 0.0-0.2 [facility] Comment on above: Result Comment: Perf ormed at [facility] [address] [place] [address] Performed By: #### C DP, CP ####[address] [address] Abs.Neutrophil (Seg) 3.70 k/uL Normal 1.3-9.1 [facility] Comment on above: Performed By: #### C DP, CP ####[address] [address] Basophils/100 WBC Auto (Bld) 1 % Normal [facility] Comment on above: Performed By: #### C DP, CP ####[address] [address] Eosinophils 0.20 10*3/uL Normal 0.0-0.4 [facility] Comment on above: Performed By: #### C DP, CP ####[address] [address] Eosinophils/100 leukocytes 3 % Normal [facility] Comment on above: Performed By: #### C DP, CP ####[address] [address] Erythrocyte distribution wid th Auto Ratio (RBC) 13.9 % Normal 11.5-14.9 [facility] Comment on above: Performed By: #### C DP, CP ####[facility] [place] [address] Erythrocytes (RBC) 4.36 10*6/uL Normal 4.0-5.2 [facility] Comment on above: Performed By: #### C DP, CP ####[facility] [place] [address] Hematocrit (HCT) 42.6 % Normal 36-46 [facility] Comment on above: Performed By: #### C DP, CP ####[facility] [place] [address] Hemoglobin mass conc (Bld) 14.4 g/dL Normal 12.0-16.0 [facility] Comment on above: Performed By: #### C DP, CP ####[facility] [place] [address] Lymphocytes 2.00 10*3/uL Normal 1.0-4.8 [facility] Comment on above: Performed By: #### C DP, CP ####[facility] [place] [address] Lymphocytes/100 leukocytes 31 % Normal [facility] Comment on above: Performed By: #### C DP, CP ####[facility] [place] [address] MCH 33.0 pg Normal 26-34 [facility] Comment on above: Performed By: #### C DP, CP ####[facility] [place] [address] MCHC mass conc (RBC) 33.7 g/dL Normal 31-37 [facility] Comment on above: Performed By: #### C DP, CP ####[facility] [place] [address] MCV 97.7 fL Normal 80-100 [facility] Comment on above: Performed By: #### C DP, CP ####[facility] [place] [address] Monocytes 0.70 10*3/uL Normal 0.1-1.3 [facility] Comment on above: Performed By: #### C DP, CP ####[facility] [place] [address] Monocytes/100 leukocytes 10 % Normal [facility] Comment on above: Performed By: #### C DP, CP ####[facility] [place] [address] Neutrophil (Seg) 55 % Normal [facility] Comment on above: Performed By: #### C DP, CP ####[facility] [place] [address] Platelet mean volume (PMV) 9.7 fL Normal 6.0-12.0 [facility] Comment on above: Performed By: #### C DP, CP ####[facility] [facility] [address] Platelets 165 10*3/uL Normal 150-450 [facility] Comment on above: Performed By: #### C DP, CP ####[facility] [place] [address] WBC (Leukocytes) 6.7 10*3/uL Normal 3.5-11.0 [facility] Comment on above: Performed By: #### C DP, CP ####[facility] [place] [address] Auto Diff Performed NOT REPORTED Normal [facility] Comment on above: Performed By: #### C DP, CP ####[facility] [facility] [place] [address] Erythrocyte morphology NOT REPORTED Normal [facility] Comment on above: Performed By: #### C DP, CP ####[facility] [place] [address] Platelets NOT REPORTED Normal [facility] Comment on above: Performed By: #### C DP, CP ####[facility] [place] [address] WBC Morphology NOT REPORTED Normal [facility] Comment on above: Performed By: #### C DP, CP ####[address] [address] Comp Metabolic Profon 2016 (cont.) Normal [facility] Comment on above: Result Comment: Aver age GFR for 40-49 years old: 99 mL/min/1.73sq mChronic Kidney Disease: <60 mL/min/1.73sq mKidney failure: <15 mL/min/1.73sq meGFR calculated using average adult body mass. Additional eGFR calculator available at:http://www.[employer]authorSTREAM.com/multiple_crcl_2012.htmPerformed at [facility] [address] [place] [address] Performed By: #### C DP, CP ####[facility] [facility] [address] Alanine aminotransferase (ALT) 33 U/L Normal 5-33 [facility] Comment on above: Performed By: #### C DP, CP ####[facility] [place] [address] Albumin 4.0 g/dL Normal 3.5-5.2 [facility] Comment on above: Performed By: #### C DP, CP ####[facility] [facility] [place] [address] Alkaline Phos 64 U/L Normal 35-104 [facility] Comment on above: Performed By: #### C DP, CP ####[facility] [facility] [place] [address] Anion gap 12 mmol/L Normal 9-17 [facility] Comment on above: Performed By: #### C DP, CP ####[facility] [facility] [place] [address] Aspartate aminotransferase (AST) 37 U/L High <32 [facility] Comment on above: Performed By: #### C DP, CP ####[facility] [place] [address].[place] [address] Bilirubin Ql (U) 0.24 mg/dL Low 0.3-1.2 [facility] Comment on above: Performed By: #### C DP, CP ####[facility] [place] [address] Calcium 9.3 mg/dL Normal 8.6-10.4 [facility] Comment on above: Performed By: #### C DP, CP ####[facility] [facility] [place] [address] Chloride 98 mmol/L Normal 98-107 [facility] Comment on above: Performed By: #### C DP, CP ####[facility] [facility] [place] [address] CO2 27 mmol/L Normal 20-31 [facility] Comment on above: Performed By: #### C DP, CP ####[facility] [place] [address].[place] [address] Creatinine 0.60 mg/dL Normal 0.50-0.90 [facility] Comment on above: Performed By: #### C DP, CP ####[facility] [place] [address] eGFR (non-black) mL/min/{1.73_m2} Normal >60 [facility] Comment on above: Performed By: #### C DP, CP ####[facility] [place] [address] Glucose mass conc 108 mg/dL High 70-99 [facility] Comment on above: Performed By: #### C DP, CP ####[facility] [place] [address] Potassium molar conc 4.8 mmol/L Normal 3.7-5.3 [facility] Comment on above: Performed By: #### C DP, CP ####[facility] [place] [address] [place] [address] Protein 6.9 g/dL Normal 6.4-8.3 [facility] Comment on above: Performed By: #### C DP, CP ####[facility] [facility] [place] [address] Sodium 137 mmol/L Normal 135-144 [facility] Comment on above: Performed By: #### C DP, CP ####[facility] [place] [address] Urea nitrogen 21 mg/dL High 6-20 [facility] Comment on above: Performed By: #### C DP, CP ####[facility] [place] [address] Albumin/Globulin Ratio NOT REPORTED Normal 1.0-2.5 [facility] Comment on above: Performed By: #### C DP, CP ####[facility] [facility] [place] [address] BUN/CRE Ratio NOT REPORTED Normal 9-20 [facility] Comment on above: Performed By: #### C DP, CP ####[facility] [facility] [place] [address] Staging: NOT REPORTED Normal [facility] Comment on above: Performed By: #### C DP, CP ####[facility] [facility] [place] [address] Vital Signs Date Time Vital Sign Value Performing Clinician Efren tse 06-01-2022 12:30-0400 Body height 157.48 cm Geo Coy Other [employer] [facility] [employer] Other 06-01-2022 12:30-0400 Body mass index (BMI) [Ratio] 29.99 kg/m2 Geo oCy Other [employer] Other 06-01-2022 12:30-0400 Body temperature 96.8 [degF] Geo Coy Other [employer] Other 06-01-2022 12:30-0400 Body weight 74.39 kg Geo Coy Other [employer] Other 06-01-2022 12:30-0400 Diastolic blood pressure 75 mm[Hg] Geo Coy Other [employer] Other 06-01-2022 12:30-0400 Respiratory rate 20 /min Geo Coy Other [employer] Other 06-01-2022 12:30-0400 SaO2% (BldA) [Mass fraction] 97 % Christopher Zbigniew Other [employer] Other 06-01-2022 12:30-0400 Systolic blood pressure 119 mm[Hg] Christyareliser Zbigniew Other [employer] Other 01-11-2021 10:30-0400 Body height 157.48 cm Christyareliser Zbigniew Other [employer] Other 01-11-2021 10:30-0400 Body mass index (BMI) [Ratio] 27.8 kg/m2 Christyareliser Zbigniew Other [employer] Other 01-11-2021 10:30-0400 Body temperature 97.6 [degF] Meirer Zbigniew Other [employer] Other 01-11-2021 10:30-0400 Body weight 68.95 kg Christyareliser Zbigniew Other [employer] Other 01-11-2021 10:30-0400 Diastolic blood pressure 70 mm[Hg] Christyareliser Zbigniew Other [employer] Other 01-11-2021 10:30-0400 Respiratory rate 20 /min Christopher Zbigniew Other [employer] Other 01-11-2021 10:30-0400 SaO2% (BldA) [Mass fraction] 97 % Christopher Zbigniew Other [employer] Other 01-11-2021 10:30-0400 Systolic blood pressure 100 mm[Hg] Meirer Zbigniew Other [employer] Other Encounters Encounter Date Encounter Type Care Provider Facility Start: 01-13-2023 End: 01-13-2023 ambulatory Geo Crowleyno Other [employer] Other Start: 01-13-2023 Telephone encounter Geo hoango [facility] Start: 10-26-2022 End: 10-26-2022 ambulatory Geo Crowleyno Other [employer] Other Start: 10-26-2022 Telephone encounter Geo hoango [facility] Start: 10-24-2022 End: 10-24-2022 ambulatory Geo Crowleyno Other [employer] Other Start: 10-24-2022 Telephone encounter Geo hoango [facility] Start: 10-10-2022 End: 10-10-2022 ambulatory [facility] Facility[facility] Start: 10-10-2022 End: 10-10-2022 ambulatory Services [facility] Work Phone: [facility] Work Phone: Start: 10-10-2022 End: 10-10-2022 Departed Referred Services [facility] Work Phone: [facility] Start: 09-09-2022 ambulatory Idris Rogers acility:[facility] Start: 08-10-2022 End: 08-10-2022 ambulatory Jason [place] Facility:[facility] Start: 08-10-2022 End: 08-10-2022 ambulatory Services [facility] Work Phone: [facility] Work Phone: Start: 08-10-2022 End: 08-10-2022 Patient encounter procedure Services [facility] Work Phone: [facility] [place] Work Phone: Start: 07-25-2022 Registered Recurring Services [facility] Work Phone: [facility] Start: 06-06-2022 End: 06-06-2022 ambulatory Laurie Oliva Facility:[facility] Start: 06-06-2022 End: 06-06-2022 ambulatory Services [facility] Work Phone: [facility] Work Phone: Start: 06-06-2022 End: 06-06-2022 Departed Referred Services [facility] Work Phone: [facility] Start: 06-01-2022 End: 06-01-2022 ambulatory Geo Crowleyno Other [employer] Other Start: 06-01-2022 Office outpatient visit 15 minutes Geo Crowleyno [facility] Start: 05-23-2022 End: 05-23-2022 ambulatory Geo Mcculloughdano Other [employer] Other Start: 05-23-2022 Telephone encounter Geo hoango [facility] Start: 05-04-2022 End: 05-04-2022 ambulatory Jason Leny Facility:[facility] Start: 05-04-2022 End: 05-04-2022 ambulatory Services [facility] Work Phone: [facility] Work Phone: Start: 05-04-2022 End: 05-04-2022 Patient encounter procedure Services [facility] Work Phone: [facility] [place] Work Phone: Start: 04-05-2022 End: 04-05-2022 ambulatory Meirer Zbigniew Other [employer] Other Start: 04-05-2022 Telephone encounter Geo hoango [facility] Start: 03-21-2022 End: 03-21-2022 ambulatory Christyareliser Zbigniew Other [employer] Other Start: 03-21-2022 Telephone encounter Geo hoango [facility] Start: 02-16-2022 End: 02-16-2022 ambulatory Jason Leny Facility:[facility] Start: 02-16-2022 End: 02-16-2022 Departed Referred Services [facility] Work Phone: [facility] Start: 01-18-2022 End: 01-18-2022 ambulatory Christyareliser Zbigniew Other [employer] Other Start: 01-18-2022 Telephone encounter Geo hoango [facility] Start: 12-29-2021 End: 12-29-2021 ambulatory Mike Mast Facility:[facility] Start: 12-29-2021 End: 12-29-2021 ambulatory Services [facility] Work Phone: [facility] Work Phone: Start: 12-29-2021 End: 12-29-2021 Departed Referred Services [facility] Work Phone: [facility] Start: 06-23-2021 End: 06-23-2021 ambulatory Geo Mcculloughdano Other [employer] Other Start: 06-23-2021 Telephone encounter Geo hoango [facility] Start: 03-17-2021 End: 03-17-2021 ambulatory Meirlauryn McculloughZbigniew Other [employer] Other Start: 03-17-2021 Telephone encounter Geo hoango [facility] Start: 03-16-2021 End: 03-16-2021 ambulatory Meirer Zbigniew Other [employer] Other Start: 03-16-2021 Telephone encounter Christyareliser Jamel maegan [facility] Start: 01-25-2021 End: 01-25-2021 ambulatory Geo Coy Other [facility] [employer] Other Start: 01-25-2021 Telephone encounter Geo issa [facility] Start: 01-11-2021 Office outpatient visit 15 minutes Jadenshannon Crowleyno [facility] Start: 07-29-2020 End: 07-29-2020 Patient encounter procedure C. Zbigniew/Preceptor Work Phone: -[facility] Start: 09-16-2016 End: 09-22-2016 Evaluation and management of inpatient MINISTERIO WALLIS [facility] Start: 12-31-2003 Evaluation and management of inpatient C. Zbigniew/Preceptor Work Phone: -[address] [place] [address] Procedures Date Procedure Procedure Detail Performing Clinician Start: 08-10-2022 Ultrasonography of liver Services [facility] Work Phone: Start: 05-04-2022 End: 05-04-2022 X-ray of both knees Services [facility] Work Phone: Start: 05-04-2022 X-ray of lumbar spin e, four views Services [facility] Work Phone: Start: 09-21-2016 DISCHARGE PATIENT MINISTERIO BOWMAN Start: 09-19-2016 Microscopic urinalysis MINISTERIO MORGANPTA Start: 09-19-2016 Urinalysis MINISTERIO WALLIS Start: 09-19-2016 URINE DRUG SCREEN MINISTERIO Delarosa UPTA Start: 09-16-2016 CBC WITH AUTO DIFFERENTIAL MINISTERIO WALLIS Start: 09-16-2016 COMPREHENSIVE METABO LIC PANEL MINISTERIO MORGANPTA Start: 09-16-2016 FULL CODE MINISTERIO MORGANPTA Start: 09-16-2016 IP CONSULT TO HISTOR Y AND PHYSICAL MINISTERIO WALLIS Start: 09-16-2016 PATIENT STATUS (DIRECT) MINISTERIO MORGANPTA Start: 09-16-2016 DIET GENERAL MINISTERIO MORGANPTA Start: 09-16-2016 PATIENT STATUS (DIRECT) JAVIRosemarie WALLIS Plan of Treatment Date Care Activity Detail Author Hepatitis B core antibody measurement [facility] Hepatitis B virus jaramillo rface Ab [Presence] in Serum [facility] enter Hepatitis C virus Ig G Ab [Presence] in Serum or Plasma by Immunoassay [facility] Hepatitis C virus RN A [log units/volume] (viral load) in Serum or Plasma by ONE[employer] with probe detection [facility] Hepatitis C virus RN A [Units/volume] (viral load) in Serum or Plasma by ONEIL with probe detection [facility] enter [facility] Immunizations Immunization Date Immunization Notes Care Provider Dana deleon 07-01-2017 Toradol per 15 mg Alfie ayana Coy Other [employer] Other Payers Date Payer Category Payer Medicaid [id number] 2021 Self-pay [id number] 2012 Unknown [id number] Unknown [id number] 2.16.8 [id number] Unknown [id number] 2.16.8 [id number] Unknown [id number] 2.16.8 [id number] Unknown [id number] 2.16.8 [id number] Unknown [id number] 2.16.8 [id number] Unknown [id number] 2.16.8 [id number] Unknown [id number] 2.16.8 [id number] Social History Date Type Detail Facility Start: 01-30-2020 End: 02-27-2021 Tobacco smoking status MAIS Smoker (finding) [facility] Start: 1975 Sex Assigned At Female F [facility] Sex Assigned At Sex Assigned At Bir th [employer] Other Clinical Notes 01-11-2021 to 01-13-2023 Note Date & Type Note Facility 01-13-2023 Evaluation note Encounter Date Diagnosis Assessment Notes Jan, Chronic obstructive pulmonary disease, unspecified (ICD-10 - J44.9) [employer] Other 08-16-2023 Evaluation note* Encounter Date Diagnosis Assessment Notes Treatment Notes Treatment Clinical Notes Oct, Chronic obstructive pulmonary disease, unspecified (ICD-10 - J44.9) [employer] Other 08-14-2023 Evaluation note* Encounter Date Diagnosis Assessment Notes Treatment Notes Treatment Clinical Notes Oct, Chronic obstructive pulmonary disease, unspecified (ICD-10 - J44.9) [employer] Other 03-22-2023 Evaluation note* Encounter Date Diagnosis Assessment Notes Treatment Notes Treatment Clinical Notes May, Chronic obstructive pulmonary disease, unspecified (ICD-10 - J44.9) May, Tobacco use disorder (ICD-10 - Z72.0) May, Allergic rhinitis (ICD-10 - J30.9) May, GERD (gastroesophageal reflux disease) (ICD-10 - K21.9) [employer] Other 03-13-2023 Evaluation note* Encounter Date Diagnosis Assessment Notes Treatment Notes Treatment Clinical Notes May, Chronic obstructive pulmonary disease, unspecified (ICD-10 - J44.9) [employer] Other 01-24-2023 Evaluation note* Encounter Date Diagnosis Assessment Notes Treatment Notes Treatment Clinical Notes Mar, Chronic obstructive pulmonary disease, unspecified (ICD-10 - J44.9) [employer] Other 01-09-2023 Evaluation note* Encounter Date Diagnosis Assessment Notes Treatment Notes Treatment Clinical Notes Mar, Chronic obstructive pulmonary disease, unspecified (ICD-10 - J44.9) [employer] Other 11-08-2022 Evaluation note* Encounter Date Diagnosis Assessment Notes Treatment Notes Treatment Clinical Notes Jan, Chronic obstructive pulmonary disease, unspecified (ICD-10 - J44.9) [employer] Other 11-01-2021 Evaluation note* Encounter Date Diagnosis Assessment Notes Treatment Notes Treatment Clinical Notes Jan, Chronic obstructive pulmonary disease, unspecified (ICD-10 - J44.9) Jan, Tobacco use disorder (ICD-10 - Z72.0) Jan, Allergic rhinitis (ICD-10 - J30.9) Jan, GERD (gastroesophageal reflux disease) (ICD-10 - K21.9) [employer] Other Evaluation noteNo assessment information available [facility] note[facility] InformationNort [employer] Other History general Narrative - Reported* Type Description Date Medical History 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 Medical History pneumonia Medical History COPD Surgical History lung biopsy Surgical History Laparoscopy for kidney stones Surgical History Laparoscopy for ovarian cysts Surgical History removal of ludmila ovaries and tube s 2015 Hospitalization History pneumonia Hospitalization History lung biopsy [employer] Other History general Narrative - [facility] [employer] Other Hisutsm general Narrative - Reported* Type Description Date Medical History 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 [employer] Other Summary Purpose Family History Relationship Condition Age at Onset Recorded Date/T flaco brother Alcoholism Unknown Myocardial infarction Unknown father Alcoholism Unknown Not Specified Alcoholism Unknown sister Alcoholism Unknown Advance Directives Advance Directive Response Recorded Date/ Time Advance Directives No April 04, 2017 4:47pm Advance Directive Response Recorded Date/ Time Advance Directives No April 04, 2017 3:47pm Chief Complaint and Reason for Visit Chief Complaint ^Sharp Pain Kidney A xochilt r63.5 e03.8 Chief Complaint ^Sharp Pain Kidney A xochilt Chief Complaint ^Sharp Pain Kidney A xohcilt E03.9 m25.561 m25.562 g89.29 Chief Complaint ^Sharp Pain Kidney A xochilt m25.561 m25.562 g89.29 Unspecified hypothyroidism Chief Complaint ^Sharp Pain Kidney A xochilt E03.9 R10.13;E03.9;R53.82;Z11.59 Chief Complaint ^Sharp Pain Kidney A xochilt R10.13;E03.9;R53.82;Z11.59 Hypothyroidism, unspecified type Additional Source Comments INFORMATION SOURCE (unrecogn ized section and content) DATE CREATED AUTHOR 09/06/2017 [facility] DATE CREATED AUTHOR AUTHOR'S ORGANIZ ATION 12/17/2022 [facility] Goals (unrecognized section and content) Goals may be documented in a n alternate sectionNo InformationNo InformationNo InformationNo InformationGoals may be documented in an alternate sectionNo InformationGoals may be documented in an alternate sectionNo InformationNo InformationNo InformationNo InformationGoals may be documented in an alternate sectionGoals may be documented in an alternate sectionGoals may be documented in an alternate sectionNo InformationNo InformationNo Information REASON FOR VISIT (unrecogniz ed section and content) Last seen 02/2020- COPDNo In formationRefills-Cough medicinecough syruprefill cough syrupCough medicineNo InformationCough medicine6 mo f/u COPD, Allergic Rhinitis, GERDRefills- Cough syrupRefills- AlbuterolRefills- Cough syrup Care Teams (unrecognized sec tion and content) Team Status: Active Member Role Status Dates [facility] Primary Care Provider Active Team Status: Active Member Role Status Caleb Coy/Kyree Watt Attending Provider Active Team Status: Inactive Member Role Status Dates [facility] Primary Care Provider Active Jason Michele DO Attending Provider Active Cecilio Epps DO RES Other Provider Active Team Status: Inactive Member Role Status Dates [facility] Primary Care Provider Active Laurie Oliva MD Attending Provider Active Team Status: Inactive Member Role Status Dates [facility] Primary Care Provider Active Cecilio Epps DO RES Attending Provider Active Team Status: Inactive Member Role Status Dates [facility] Primary Care Provider Active Jason Michele DO Attending Provider Active Cecilio Epps DO RES Referring Provider Active Team Status: Active Member Role Status Dates [facility] Primary Care Provider Active Breanna Taylor MD Attending Provider Active Team Status: Inactive Member Role Status Dates [facility] Primary Care Provider Active Cecilio Epps DO RES Referring Provider Active Jason Michele DO Attending Provider Active FOR RECORDS PERTAINING TO PATIENTS WHO ARE OR HAVE BEEN ENROLLED IN A CHEMICAL DEPENDENCY/SUBSTANCEABUSE PROGRAM, SOME INFORMATION MAY BE OMITTED. This clinical summary was aggregated from multiple sources. Caution should be exercised in using it in the provision of clinical care. This summary normalizes information from multiple sources, and as a consequence, information in this document may materially change the coding, format and clinical context of patient data. In addition, data may be omitted in some cases. CLINICAL DECISIONS SHOULD BE BASED ON THE PRIMARY CLINICAL RECORDS. [facility], [facility]. provides no warranty or guarantee of the accuracy or completeness of information in this document.
== END 2023-01-18 15:50 | disposition home or self-care (01) ==
PROVIDERS: Emergency Provider Emergency Medicine
DX: J43.9 Emphysema, unspecified (principal); Z79.899 Other long term (current) drug therapy; Z79.890 Hormone replacement therapy; M19.90 Unspecified osteoarthritis, unspecified site; M79.7 Fibromyalgia; F10.21 Alcohol dependence, in remission; Z98.890 Other specified postprocedural states; Z90.721 Acquired absence of ovaries, unilateral; F17.210 Nicotine dependence, cigarettes, uncomplicated; Z20.822 Contact with and (suspected) exposure to COVID-19
CPT/HCPCS: 36415; 71045; 80048; 85025; 87635; 87811; 93005; 94640; 96374; 96375; 99285; J2930

== ENCOUNTER 2023-07-20 13:38 | Outpatient (OUT) | payer OTHER, SELFPAY ==
--- OUTSIDE RECORDS SUMMARY | 2023-07-20 14:02 | XMS_ITS | CCD ---
Author Organization [facility] Care Team Providers Care Training Specialist Name Role Phone MINISTERIO WALLIS Unavailable Unavailable MINISTERIO WALLIS Unavailable Unavailable Zbigniew/Kyaw Watt Attending Provider [facility] Primary Care Provider Pricilla Engle Attending Provider Geo Coy Unavailable Zbigniew/Kyree Watt Attending Provider [facility] Primary Care Provider DO Supriya Hindu Attending Provider Zbigniew/Kyree Watt Attending Provider [facility] Primary Care Provider [phone] DO Jason Michele Attending Provider Lowrie, DO Hindu Referring Provider Cecilrilester, DO Hindu Other Provider [facility] Primary Care Provider DO Jason Michele Attending Provider Lowrie, DO Hindu Other Provider MD Laurie Oliva Attending Provider [facility] Primary Care Provider [phone] MD Breanna Taylor Attending Provider Supriya, DO Hindu Referring Provider DO Jason Michele Attending Provider [facility] Primary Care Provider MD Laurie Oliva Attending Provider [phone] JANET BAEZ Attending Unavailable FELIX BELCHER Referring Unavailable FELIX BELCHER Primary Care Unavailable Jason Michele Attending Unavailable [facility] Primary Care Unavaila Cecilio Trejo Referring Unavailable Jason Michele Admitting Unavailable [facility] Primary Care Unavaila ble Laurie Oliva Admitting Unavailable Laurie Oliva Attending Unavailable [facility] Primary Care Unavaila ble Claudia, Idris Admitting Unavailab le Claudia, Idris Attending Unavailab le Allergies Allergy Classification Reported Allergen(s) Allergy Type Date of Onset Reaction(s) Facility NSAIDs (1 source) Naproxen Drug Allergy 09-12-19 18 Hives [facility] Unclassified (8 sources) Antihistamines - Alkylamine; Translations: [ANTIHISTAMINES - ALKYLAMINE] Allergy to substance 12-31-19 16 Anxiety [facility] (15 sources) diphenhydrAMINE Drug Allergy Anxiety attack [facility] [employer] Other (20 sources) Naproxen; Translations: [NAPROXEN] Drug Allergy 12-31-19 16 rash [facility] (10 sources) atorvastatin Drug Allergy legs shaking [place] [facility] Other (1 source) varenicline; Translations: [VARENICLINE] Drug Allergy 10-11-19 23 [facility] (1 source) atorvastatin Drug Allergy 05-25-19 24 [facility] (1 source) Naproxen Drug Allergy 05-25-19 24 [facility] Medications Current Medications Medication Drug Class(es) Dates Sig (Normalized) Sig (Original) [id number] 200 actuat albuterol 0.09 mg/actuat metered dose [...] DX J44.9 COPD Mar, Active Start: 03-16-2016 Albuterol Sulf ate (2.5 MG/3ML) 0.083% 1 unit dose Inhalation four times a day DX J44.9 COPD Mar, Active Start: 03-16-2016 benzonatate 100 mg oral capsule (15 sources) Non-narcotic Antitussive Start: 09-21-2017 take 1 capsule by mouth three times daily as needed Tessalon Perles 100 mg 1 capsule as needed Orally Three times a day Sep, Active 120 actuat budesonide 0.16 mg/actuat / formoterol fumarate 0.0045 mg/actuat metered dose inhaler (20 sources) Corticosteroid, beta2-Adrenergic Agonist Start: 01-30-2020 take 1 puff(s) by inhalation twice daily Budesonide-Formo terol (Symbicort) 160-4.5 mcg/actuation HFA aerosol inhaler Active 2 PUFF INHALATION Twice daily January 30, 2020 1:00am Start: 08-29-2018 take 2 puff(s) by in halation twice daily Symbicort 160-4.5 MCG/ACT 2 puffs Inhalation Twice a day Aug, Active Start: 08-29-2018 take 2 puff(s) by in [...] 1:00am February 02, 2020 11:49am estrogens, conjugated (halfway) 0.625 mg oral tablet (20 sources) Estrogen Start: 05-08-2017 Premarin 0.625 MG 1 tablet Orally Daily for Three Weeks, 1 Week off for 30 day(s) Apr, Active Famotidine (15 sources) Histamine-2 Receptor Antagonist Pepcid Orally On a day Active fluticasone propionate 0.05 mg/actuat metered dose nasal spray (20 sources) Corticosteroid Start: 01-30-2020 Fluticasone Pr opionate Active 1 SPRAY INTRANASAL Daily January 30, 2020 1:00am Start: 04-11-2017 take 2 spray(s) nasa l route once daily Fluticasone Propionate 50 MCG/ACT 2 sprays in each nostril Nasally Once a day Mar, Active Start: 04-11-2017 take 2 spray(s) nasa l route once daily Fluticasone Propionate 50 MCG/ACT 2 sprays in each nostril Nasally Once a day Mar, Active Start: 04-11-2017 200 actuat ipratropium bromide 0.017 mg/actuat metered dose inhaler (15 sources) Anticholinergic Start: 02-26-2020 take 2 puff(s) [...] 125 MCG Oral for 30 Days Active Levothyroxine So dium 125 MCG Oral for [...] omeprazole 40 mg delayed release oral capsule (15 sources) Proton Pump Inhibitor Start: 03-15-2018 take 1 capsule by mouth every twenty-four hours Omeprazole 40 MG 1 capsule Orally Once a day for 30 day(s) Mar, Active pregabalin 150 mg oral capsule (20 sources) Start: 04-04-2017 take 150 mg by mouth three times daily Pregabalin Active 150 MG PO Three times daily April 04, 2017 1:00am take 1 capsule by mouth three ti mes daily Lyrica 100 MG 1 capsule Orally three times daily Active Vitamins 28-0.8 MG (15 sources) take 1 tablet by mouth once [...] 30 Active simvastatin 20 mg oral tablet (10 sources) HMG-CoA Reductase Inhibitor Simvastatin 20 MG Oral for 30 Days Active 60 actuat tiotropium 0.0025 mg/actuat inhalation spray (6 sources) Anticholinergic Start: 01-30-20 20 take 2.5 ug by inhalation twice daily Tiotropium [place] (Spiriva Respimat) 2.5 mcg/actuation mist Active 2 INH INHALATION Twice daily January 30, 2020 1:00am tiZANidine 4 mg oral tablet (6 sources) Central alpha-2 Adrenergic Agonist Start: 04-04-19 18 take 2 mg by mouth three times daily Tizanidine Active 2 MG PO Three times daily April 04, 2017 1:00am Virtussin A/C 100-10 MG/5ML (9 sources) Start: 01-17-20 Virtussin A/C 100-10 MG/5ML [...] 2020 4:32pm cariprazine 1.5 mg oral capsule (20 sources) Atypical Antipsychotic Start: 0 End: 0 [...] Discontinued 25 MG PO Twice daily 8 5 February 02, 2020 1:00am February 20, 2021 7:11am Take 1 tablet twice a day for two days, then one tablet daily for three days dextromethorphan hydrobromide 3 mg/ml / promethazine hydrochloride 1.25 mg/ml oral solution (6 sources) Phenothiazine, Uncompetitive S-wkzrsr-S-aspartat e Receptor Antagonist, Sigma-1 Agonist Start: 8 [...] 2017 12:00am February 02, 2020 11:49am Ketorolac (11 sources) Nonsteroidal Anti-inflammatory Drug, Cyclooxygenase Inhibitor Start: 07-01-2017 Toradol per 15 mg Jun, 2 mL levoFLOXacin 750 mg oral tablet (6 sources) Quinolone Antimicrobial Start: 01-25-2018 End: 02-04-2018 take 1 tablet by mouth every twenty-fo ur hours Levofloxacin (Levaquin) 750 mg tablet Discontinued 750 MG PO Q24H 10 January 25, 2018 1:00am February 04, 2018 1:02am ondansetron 4 mg disintegrating oral tablet (20 sources) Serotonin-3 Receptor Antagonist Start: 09-14-2017 End: [...] mealtime Prednisone Discontinued 50 MG PO Daily 07 15July 22, 2017 12:00am September 05, 2017 2:54pm administer with food or milk Start: 04-04-2017 End: 07-22-2017 take 20 mg by mouth once daily at mealtime Prednisone Discontinued 20 MG PO Daily April 04, 2017 1:00am July 22, 2017 12:06pm administer with food or milk Problems Active Problems Problem Classification Problem Date Documented Da te Episodic/Chronic Alcohol-related disorders (15 sources) Alcohol withdrawal [...] obstructive pulmonary disease with (acute) exacerbation] Onset: 1 Resolved: 1 Chronic Chronic obstructive pulmonary disease and bronchiectasis (5 sources) Bronchitis; Translations: [Bronchitis, not specified as acute or chronic] 12-22-2020 Episodic Coagulation and hemorrhagic disorders (5 sources) Thrombocytopenic disorder; Translations: [Thrombocytopenia, unspecified] 02-19-2021 Chronic Esophageal disorders (17 sources) Gastroesophageal reflux disease; Translations: [Gastro-esophageal reflux disease without esophagitis] Onset: 1 Resolved: 1 Chronic Malaise and fatigue (1 source) Chronic fatigue, unspecified; Translations: [Chronic fatigue, unspecified] Onset: 3 Chronic Menopausal disorders (5 sources) Menopausal syndrome; Translations: [Menopausal and female climacteric states] Chronic Mood disorders (13 sources) Bipolar disorder, unspecified; Translations: [Recurrent major depression] Onset: 7 01-30-2020 Chronic Mood disorders (2 sources) Major depressive disorder, single episode, unspecified; Translations: [Major depressive disorder, single episode, unspecified] Onset: 7 Nausea and vomiting (1 source) Nausea with vomiting, unspecified; Translations: [Nausea with vomiting, unspecified] Onset: 4 Episodic Nonmalignant breast conditions (5 sources) Breasts asymmetrical; Translations: [Other specified disorders of breast] Episodic Other connective tissue disease (6 sources) Lateral epicondylitis of right humerus; Translations: [Lateral epicondylitis, right elbow] 05-29-2017 Episodic Other gastrointestinal disorders (1 source) Constipation, unspecified; Translations: [Constipation, unspecified] Onset: 4 Episodic Other screening for suspected conditions (not mental disorders or infectious disease) (1 source) Abnormal findings on diagnostic imaging of other parts of digestive tract; Translations: [Abnormal findings on diagnostic imaging of other parts of digestive tract] Onset: 4 Episodic Other upper respiratory disease (15 sources) Allergic rhinitis; Translations: [Allergic rhinitis, unspecified] Chronic Other upper respiratory disease (2 sources) Allergic rhinitis, unspecified; Translations: [Allergic rhinitis J30.9] Onset: 1 Resolved: 1 Chronic Other upper respiratory infections (6 sources) Upper respiratory infection; Translations: [Acute upper respiratory infection, unspecified] 04-04-2017 Episodic Residual codes; unclassified (6 sources) Alcoholism; Translations: [Alcohol use disorder] 01-30-2020 Episodic Residual codes; unclassified (15 sources) Tobacco dependence syndrome; Translations: [Tobacco use] Episodic Residual codes; unclassified (3 sources) Tobacco use; Translations: [Tobacco use disorder Z72.0] Onset: 1 Resolved: 1 Episodic Suicide and intentional self-inflicted injury (6 sources) Suicidal thoughts; Translations: [Suicidal ideations] 01-30-2020 Episodic Superficial injury; contusion (6 sources) Contusion of upper limb; Translations: [Contusion of right upper arm, initial encounter] 01-30-2020 Episodic Thyroid disorders (2 sources) Hypothyroidism, unspecified; Translations: [Hypothyroidism, unspecified] Onset: 3 Chronic Past or Other Problems Problem Classification Problem Date Documented Da te Episodic/Chronic Abdominal pain (4 sources) Epigastric pain; Translations: [Lower abdominal pain, unspecified] Onset: 08-10-2022 Episodic Immunizations and screening for infectious disease (1 source) Encounter for screening for other viral diseases; Translations: [Encounter for screening for other viral diseases] Onset: 08-10-2022 Episodic Results Test Name Value Interpretation Reference Range Facility Free T4 (Free Thyroxine)on 0 10-10-2022 Free T4 [Mass/Vol] 0.56 ng/dL Low 0.61-1.12 [facility] Comment on above: Order Comment: Reaso n for Exam Hypothyroidism, unspecified type Performed By: #### T 4F, TSH3 wRFLX #### [facility] [address] [place] [address] Thyroid Stim Hormone w/Rflxo n 10-10-2022 Thyroid Stim Hormone w/Rflx 18.34 u[iU]/mL High 0.45-5.33 [facility] Comment on above: Order Comment: Reaso n for Exam Hypothyroidism, unspecified type Result Comment: PERF ORMED BY: [place] [address] PATHOLOGIST PHOTOGRAPHY PROFESSOR GISELLE ALVAREZ M.D. Performed By: #### T 4F, TSH3 wRFLX #### [facility] [address] [place] [address] Thyrotropin [Units/volume] i n Serum or PlasmaOrdered By: Jarred Levy on 10-10-2022 TSH Qn 18.34 m[IU]/L 0.45-5.33 [facility] Thyroxine (T4) free [Mass/vo lume] in Serum or PlasmaOrdered By: Jarred Levy on 10-10-2022 Free T4 [Mass/Vol] 0.56 ng/dL 0.61-1.12 [facility] Alanine aminotransferase [En zymatic activity/volume] in Serum or PlasmaOrdered By: Cecilio Epps on 08-10-2022 ALT [Catalytic activity/Vol] 11 U/L 7-52 [facility] Albumin [Mass/volume] in Ser um or Plasma by Bromocresol green (BCG) dye binding methoOrdered By: Cecilio Epps on 08-10-2022 Albumin BCG dye [Mass/Vol] 4.2 g/dL 3.5-5.7 [facility] Alkaline phosphatase [Enzyma tic activity/volume] in Serum or PlasmaOrdered By: Cecilio Epps on 08-10-2022 ALP [Catalytic activity/Vol] 56 U/L 34-104 [facility] Aspartate aminotransferase [ Enzymatic activity/volume] in Serum or PlasmaOrdered By: Cecilio Epps on 08-10-2022 AST [Catalytic activity/Vol] 13 U/L 13-39 [facility] Basophils Auto (Bld) [#/Vol] Ordered By: Cecilio Epps on 08-10-2022 Basophils (Bld) [#/Vol] 0.0 10*3/uL 0.0-0.2 [facility] Basophils/100 WBC Auto (Bld) Ordered By: Cecilio Epps on 08-10-2022 Basophils/100 WBC (Bld) 0.6 % . [facility] Bilirubin.total [Mass/volume ] in Serum or PlasmaOrdered By: Cecilio Epps on 08-10-2022 Bilirubin [Mass/Vol] 0.6 mg/dL 0.3-1.0 [facility] Calcium [Mass/volume] in Ser um or PlasmaOrdered By: Cecilio Epps on 08-10-2022 Calcium [Mass/Vol] 8.6 mg/dL 8.6-10.3 [facility] Carbon dioxide, total [Moles /volume] in Serum or PlasmaOrdered By: Cecilio Epps on 08-10-2022 CO2 [Moles/Vol] 28.4 mmol/L 21.0-31.0 [facility] Chloride [Moles/volume] in S teresa or PlasmaOrdered By: Cecilio Epps on 08-10-2022 Chloride [Moles/Vol] 104 mmol/L 98-107 [facility] Complete Blood Count Auto Di ffon 08-10-2022 Basophils (Bld) [#/Vol] 0.0 10*3/uL Normal 0.0-0.2 [facility] Comment on above: Order Comment: Reaso n for Exam Epigastric abdominal pain;Chronic fatigue Result Comment: PERF ORMED BY: [place] [address] PATHOLOGIST PHOTOGRAPHY PROFESSOR GISELLE ALVAREZ M.D. Performed By: #### C MP, [id number], CBC, TSH3 wRFLX, T4F, [id number] #### [address] #### HBCAB, HCV RX PCR, HBSAB #### [facility] , Basophils/100 WBC (Bld) 0.6 % Normal . [facility] Comment on above: Order Comment: Reaso n for Exam Epigastric abdominal pain;Chronic fatigue Performed By: #### C MP, [id number], CBC, TSH3 wRFLX, T4F, [id number] #### [facility] [address] [place] [address] #### HBCAB, HCV RX PCR, HBSAB #### [facility] , Eosinophils (Bld) [#/Vol] 0.1 10*3/uL Normal 0.0-0.45 [facility] Comment on above: Order Comment: Reaso n for Exam Epigastric abdominal pain;Chronic fatigue Performed By: #### C MP, [id number], CBC, TSH3 wRFLX, T4F, [id number] #### [facility] [address] [place] [address] [place] #### HBCAB, HCV RX PCR, HBSAB #### [facility] , Eosinophils/100 WBC (Bld) 1.0 % Normal . [facility] Comment on above: Order Comment: Reaso n for Exam Epigastric abdominal pain;Chronic fatigue Performed By: #### C MP, [id number], CBC, TSH3 wRFLX, T4F, [id number] #### [place] [address] [place] #### HBCAB, HCV RX PCR, HBSAB #### [facility] , Erythrocyte distribution width (RBC) [Ratio] 14.9 % Normal 11.9-15.3 [facility] Comment on above: Order Comment: Reaso n for Exam Epigastric abdominal pain;Chronic fatigue Performed By: #### C MP, [id number], CBC, TSH3 wRFLX, T4F, [id number] #### [address] #### HBCAB, HCV RX PCR, HBSAB #### [facility] , Hematocrit (Bld) [Volume fraction] 41.1 % Normal 34.0-46.4 [facility] Comment on above: Order Comment: Reaso n for Exam Epigastric abdominal pain;Chronic fatigue Performed By: #### C MP, [id number], CBC, TSH3 wRFLX, T4F, [id number] #### [address] #### HBCAB, HCV RX PCR, HBSAB #### [facility] , Hemoglobin (Bld) [Mass/Vol] 14.0 g/dL Normal 11.8-15.4 [facility] Comment on above: Order Comment: Reaso n for Exam Epigastric abdominal pain;Chronic fatigue Performed By: #### C MP, [id number], CBC, TSH3 wRFLX, T4F, [id number] #### [place] [address] [place] #### HBCAB, HCV RX PCR, HBSAB #### [facility] , Lymphocytes (Bld) [#/Vol] 1.6 10*3/uL Normal 1.00-4.8 [facility] Comment on above: Order Comment: Reaso n for Exam Epigastric abdominal pain;Chronic fatigue Performed By: #### C MP, [id number], CBC, TSH3 wRFLX, T4F, [id number] #### [address] #### HBCAB, HCV RX PCR, HBSAB #### [facility] , Lymphocytes/100 WBC (Bld) 27.8 % Normal . [facility] Comment on above: Order Comment: Reaso n for Exam Epigastric abdominal pain;Chronic fatigue Performed By: #### C MP, [id number], CBC, TSH3 wRFLX, T4F, [id number] #### [address] #### HBCAB, HCV RX PCR, HBSAB #### [facility] , MCH (RBC) [Entitic mass] 32.7 pg Normal 24.7-34.3 [facility] Comment on above: Order Comment: Reaso n for Exam Epigastric abdominal pain;Chronic fatigue Performed By: #### C MP, [id number], CBC, TSH3 wRFLX, T4F, [id number] #### [address] #### HBCAB, HCV RX PCR, HBSAB #### [facility] , MCV (RBC) [Entitic vol] 96.2 fL Normal 80-100 [facility] Comment on above: Order Comment: Reaso n for Exam Epigastric abdominal pain;Chronic fatigue Performed By: #### C MP, [id number], CBC, TSH3 wRFLX, T4F, [id number] #### [place] [address] [place] #### HBCAB, HCV RX PCR, HBSAB #### [facility] , Mean Corpuscular HGB Conc 34.0 g/dL Normal 32.0-35.0 [facility] Comment on above: Order Comment: Reaso n for Exam Epigastric abdominal pain;Chronic fatigue Performed By: #### C MP, [id number], CBC, TSH3 wRFLX, T4F, [id number] #### [place] [address] [place] #### HBCAB, HCV RX PCR, HBSAB #### [facility] , Monocytes (Bld) [#/Vol] 0.5 10*3/uL Normal 0.0-0.8 [facility] Comment on above: Order Comment: Reaso n for Exam Epigastric abdominal pain;Chronic fatigue Performed By: #### C MP, [id number], CBC, TSH3 wRFLX, T4F, [id number] #### [place] [address] [place] #### HBCAB, HCV RX PCR, HBSAB #### [facility] , Monocytes/100 WBC (Bld) 8.0 % Normal . [facility] Comment on above: Order Comment: Reaso n for Exam Epigastric abdominal pain;Chronic fatigue Performed By: #### C MP, [id number], CBC, TSH3 wRFLX, T4F, [id number] #### [address] #### HBCAB, HCV RX PCR, HBSAB #### [facility] , Neutrophils (Bld) [#/Vol] 3.7 10*3/uL Normal 1.8-7.7 [facility] Comment on above: Order Comment: Reaso n for Exam Epigastric abdominal pain;Chronic fatigue Performed By: #### C MP, [id number], CBC, TSH3 wRFLX, T4F, [id number] #### [place] [address] [place] #### HBCAB, HCV RX PCR, HBSAB #### [facility] , Neutrophils/100 WBC (Bld) 62.6 % Normal . [facility] Comment on above: Order Comment: Reaso n for Exam Epigastric abdominal pain;Chronic fatigue Performed By: #### C MP, [id number], CBC, TSH3 wRFLX, T4F, [id number] #### [place] [address] [place] #### HBCAB, HCV RX PCR, HBSAB #### [facility] , NRBC% 0.1 /100{WBC} Normal 0-0.5 [facility] Comment on above: Order Comment: Reaso n for Exam Epigastric abdominal pain;Chronic fatigue Performed By: #### C MP, [id number], CBC, TSH3 wRFLX, T4F, [id number] #### [address] #### HBCAB, HCV RX PCR, HBSAB #### [facility] , Platelet mean volume (Bld) [Entitic vol] 10.1 fL Normal 6.3-10.7 [facility] Comment on above: Order Comment: Reaso n for Exam Epigastric abdominal pain;Chronic fatigue Performed By: #### C MP, [id number], CBC, TSH3 wRFLX, T4F, [id number] #### [place] [address] [place] #### HBCAB, HCV RX PCR, HBSAB #### [facility] , Platelets (Bld) [#/Vol] 143 10*3/uL Low 150-450 [facility] Comment on above: Order Comment: Reaso n for Exam Epigastric abdominal pain;Chronic fatigue Performed By: #### C MP, [id number], CBC, TSH3 wRFLX, T4F, [id number] #### [place] [address] [place] #### HBCAB, HCV RX PCR, HBSAB #### [facility] , RBC (Bld) [#/Vol] 4.28 10*6/uL Normal 3.60-5.00 [facility] Comment on above: Order Comment: Reaso n for Exam Epigastric abdominal pain;Chronic fatigue Performed By: #### C MP, [id number], CBC, TSH3 wRFLX, T4F, [id number] #### [address] #### HBCAB, HCV RX PCR, HBSAB #### [facility] , WBC (Bld) [#/Vol] 5.9 10*3/uL Normal 3.8-11.6 [facility] Comment on above: Order Comment: Reaso n for Exam Epigastric abdominal pain;Chronic fatigue Performed By: #### C MP, [id number], CBC, TSH3 wRFLX, T4F, [id number] #### [address] #### HBCAB, HCV RX PCR, HBSAB #### [facility] , Comprehensive Metabolic Pane gabriela 08-10-2022 Albumin [Mass/Vol] 4.2 g/dL Normal 3.5-5.7 [facility] Comment on above: Order Comment: Reaso n for Exam Epigastric abdominal pain;Chronic fatigue Reason for Exam Chronic fatigue Reason for Exam Hypothyroidism Performed By: #### C MP, [id number], CBC, TSH3 wRFLX, T4F, [id number] #### [address] #### HBCAB, HCV RX PCR, HBSAB #### [facility] , Albumin/Globulin [Mass ratio] 1.8 {ratio} Normal [facility] Comment on above: Order Comment: Reaso n for Exam Epigastric abdominal pain;Chronic fatigue Reason for Exam Chronic fatigue Reason for Exam Hypothyroidism Performed By: #### C MP, [id number], CBC, TSH3 wRFLX, T4F, [id number] #### [place] [address] [place] #### HBCAB, HCV RX PCR, HBSAB #### [facility] , ALP [Catalytic activity/Vol] 56 U/L Normal 34-104 [facility] Comment on above: Order Comment: Reaso n for Exam Epigastric abdominal pain;Chronic fatigue Reason for Exam Chronic fatigue Reason for Exam Hypothyroidism Performed By: #### C MP, [id number], CBC, TSH3 wRFLX, T4F, [id number] #### [address] #### HBCAB, HCV RX PCR, HBSAB #### [facility] , ALT [Catalytic activity/Vol] 11 U/L Normal 7-52 [facility] Comment on above: Order Comment: Reaso n for Exam Epigastric abdominal pain;Chronic fatigue Reason for Exam Chronic fatigue Reason for Exam Hypothyroidism Performed By: #### C MP, [id number], CBC, TSH3 wRFLX, T4F, [id number] #### [address] #### HBCAB, HCV RX PCR, HBSAB #### [facility] , Anion gap [Moles/Vol] 11.4 mmol/L Normal 6.0-15.0 [facility] Comment on above: Order Comment: Reaso n for Exam Epigastric abdominal pain;Chronic fatigue Reason for Exam Chronic fatigue Reason for Exam Hypothyroidism Performed By: #### C MP, [id number], CBC, TSH3 wRFLX, T4F, [id number] #### [address] #### HBCAB, HCV RX PCR, HBSAB #### [facility] , AST [Catalytic activity/Vol] 13 U/L Normal 13-39 [facility] Comment on above: Order Comment: Reaso n for Exam Epigastric abdominal pain;Chronic fatigue Reason for Exam Chronic fatigue Reason for Exam Hypothyroidism Performed By: #### C MP, [id number], CBC, TSH3 wRFLX, T4F, [id number] #### [place] [address] [place] #### HBCAB, HCV RX PCR, HBSAB #### [facility] , Bilirubin [Mass/Vol] 0.6 mg/dL Normal 0.3-1.0 [facility] Comment on above: Order Comment: Reaso n for Exam Epigastric abdominal pain;Chronic fatigue Reason for Exam Chronic fatigue Reason for Exam Hypothyroidism Performed By: #### C MP, [id number], CBC, TSH3 wRFLX, T4F, [id number] #### [address] #### HBCAB, HCV RX PCR, HBSAB #### [facility] , Calcium [Mass/Vol] 8.6 mg/dL Normal 8.6-10.3 [facility] Comment on above: Order Comment: Reaso n for Exam Epigastric abdominal pain;Chronic fatigue Reason for Exam Chronic fatigue Reason for Exam Hypothyroidism Performed By: #### C MP, [id number], CBC, TSH3 wRFLX, T4F, [id number] #### [address] #### HBCAB, HCV RX PCR, HBSAB #### [facility] , Chloride [Moles/Vol] 104 mmol/L Normal 98-107 [facility] Comment on above: Order Comment: Reaso n for Exam Epigastric abdominal pain;Chronic fatigue Reason for Exam Chronic fatigue Reason for Exam Hypothyroidism Performed By: #### C MP, [id number], CBC, TSH3 wRFLX, T4F, [id number] #### [place] [address] [place] #### HBCAB, HCV RX PCR, HBSAB #### [facility] , CO2 [Moles/Vol] 28.4 mmol/L Normal 21.0-31.0 [facility] Comment on above: Order Comment: Reaso n for Exam Epigastric abdominal pain;Chronic fatigue Reason for Exam Chronic fatigue Reason for Exam Hypothyroidism Performed By: #### C MP, [id number], CBC, TSH3 wRFLX, T4F, [id number] #### [place] [address] [place] #### HBCAB, HCV RX PCR, HBSAB #### [facility] , Creatinine [Mass/Vol] 0.99 mg/dL Normal 0.60-1.20 [facility] Comment on above: Order Comment: Reaso n for Exam Epigastric abdominal pain;Chronic fatigue Reason for Exam Chronic fatigue Reason for Exam Hypothyroidism Performed By: #### C MP, [id number], CBC, TSH3 wRFLX, T4F, [id number] #### [address] #### HBCAB, HCV RX PCR, HBSAB #### [facility] , GFR/1.73 sq M.predicted MDRD (S/P/Bld) [Vol rate/Area] mL/min/{1.73_m2} Normal [facility] Comment on above: Order Comment: Reaso n for Exam Epigastric abdominal pain;Chronic fatigue Reason for Exam Chronic fatigue Reason for Exam Hypothyroidism Performed By: #### C MP, [id number], CBC, TSH3 wRFLX, T4F, [id number] #### [address] #### HBCAB, HCV RX PCR, HBSAB #### [facility] , Globulin (S) [Mass/Vol] 2.4 g/dL Normal T [facility] Comment on above: Order Comment: Reaso n for Exam Epigastric abdominal pain;Chronic fatigue Reason for Exam Chronic fatigue Reason for Exam Hypothyroidism Performed By: #### C MP, [id number], CBC, TSH3 wRFLX, T4F, [id number] #### [place] [address] [place] #### HBCAB, HCV RX PCR, HBSAB #### [facility] , Glucose [Mass/Vol] 83 mg/dL Normal 70-100 [facility] Comment on above: Order Comment: Reaso n for Exam Epigastric abdominal pain;Chronic fatigue Reason for Exam Chronic fatigue Reason for Exam Hypothyroidism Result Comment: [facility] Glucose Reference Range is dependent on time and content of last meal. Glucose of more than 200 mg/dL in a nonstressed, ambulatory subject supports the diagnosis of Diabetes Mellitus. ADA recommended reference range Performed By: #### C MP, [id number], CBC, TSH3 wRFLX, T4F, [id number] #### [address] #### HBCAB, HCV RX PCR, HBSAB #### [facility] , Potassium [Moles/Vol] 3.8 mmol/L Normal 3.5-5.1 [facility] Comment on above: Order Comment: Reaso n for Exam Epigastric abdominal pain;Chronic fatigue Reason for Exam Chronic fatigue Reason for Exam Hypothyroidism Performed By: #### C MP, [id number], CBC, TSH3 wRFLX, T4F, [id number] #### [address] #### HBCAB, HCV RX PCR, HBSAB #### [facility] , Protein [Mass/Vol] 6.6 g/dL Normal 6.4-8.9 [facility] Comment on above: Order Comment: Reaso n for Exam Epigastric abdominal pain;Chronic fatigue Reason for Exam Chronic fatigue Reason for Exam Hypothyroidism Performed By: #### C MP, [id number], CBC, TSH3 wRFLX, T4F, [id number] #### [place] [address] [place] #### HBCAB, HCV RX PCR, HBSAB #### [facility] , Sodium [Moles/Vol] 140 mmol/L Normal 136-145 [facility] Comment on above: Order Comment: Reaso n for Exam Epigastric abdominal pain;Chronic fatigue Reason for Exam Chronic fatigue Reason for Exam Hypothyroidism Performed By: #### C MP, [id number], CBC, TSH3 wRFLX, T4F, [id number] #### [place] [address] [place] #### HBCAB, HCV RX PCR, HBSAB #### [facility] , Urea nitrogen [Mass/Vol] 16 mg/dL Normal 7-25 [facility] Comment on above: Order Comment: Reaso n for Exam Epigastric abdominal pain;Chronic fatigue Reason for Exam Chronic fatigue Reason for Exam Hypothyroidism Performed By: #### C MP, [id number], CBC, TSH3 wRFLX, T4F, [id number] #### [facility] [address] #### HBCAB, HCV RX PCR, HBSAB #### [facility] , Creatinine [Mass/volume] in Serum or PlasmaOrdered By: Cecilio Epps on 08-10-2022 Creatinine [Mass/Vol] 0.99 mg/dL 0.60-1.20 [facility] Eosinophils Auto (Bld) [#/Vo l]Ordered By: Cecilio Epps on 08-10-2022 Eosinophils (Bld) [#/Vol] 0.1 10*3/uL 0.0-0.45 [facility] Eosinophils/100 WBC Auto (Bl d)Ordered By: Cecilio Epps on 08-10-2022 Eosinophils/100 WBC (Bld) 1.0 % . [facility] Erythrocyte distribution wid th Auto (RBC) [Ratio]Ordered By: Cecilio Epps on 08-10-2022 Erythrocyte distribution width (RBC) [Ratio] 14.9 % 11.9-15.3 [facility] Folate [Mass/volume] in Seru m or PlasmaOrdered By: Cecilio Epps on 08-10-2022 Folate [Mass/Vol] 4.9 ng/mL >5.9 [facility] Comment on above: Folate reference ran ge: >5.9 ng/mlThe WHO technical consultation on folate and vitamin [id number] has determined that folate concentrations lessthan 4 ng/ml are considered deficient. Free T4 (Free Thyroxine)on 0 08-10-2022 Free T4 [Mass/Vol] 0.28 ng/dL Low 0.61-1.12 [facility] Comment on above: Order Comment: Reaso n for Exam Epigastric abdominal pain;Chronic fatigue Reason for Exam Chronic fatigue Reason for Exam Hypothyroidism Performed By: #### C MP, [id number], CBC, TSH3 wRFLX, T4F, [id number] #### [facility] [address] #### HBCAB, HCV RX PCR, HBSAB #### [facility] , Globulin Calc (S) [Mass/Vol] Ordered By: Cecilio Epps on 08-10-2022 Globulin (S) [Mass/Vol] 2.4 g/dL F [facility] Glucose [Mass/volume] in Ser um or PlasmaOrdered By: Cecilio Epps on 08-10-2022 Glucose [Mass/Vol] 83 mg/dL 70-100 [facility] Comment on above: ADA recommended refe rence rangeRandom Glucose Reference Range is dependent on time and content of last meal. Glucose of more than 200 mg/dL in a nonstressed, ambulatory subject supports the diagnosis of Diabetes Mellitus. Hematocrit Auto (Bld) [Volum e fraction]Ordered By: Cecilio Epps on 08-10-2022 Hematocrit (Bld) [Volume fraction] 41.1 % 34.0-46.4 [facility] Hemoglobin [Mass/volume] in BloodOrdered By: Cecilio Epps on 08-10-2022 Hemoglobin (Bld) [Mass/Vol] 14.0 g/dL 11.8-15.4 [facility] Hep C Ab wRfx to Qnt PCRon 0 08-10-2022 Hepatitis C Virus Antibody Non-Reactive Normal Non Reactive [facility] Comment on above: Order Comment: Reaso n for Exam Chronic fatigue Reason for Exam Chronic fatigue;Encounter for screening for other viral dise Performed By: #### C MP, [id number], CBC, TSH3 wRFLX, T4F, [id number] #### [facility] [address] [place] [address] [place] #### HBCAB, HCV RX PCR, HBSAB #### [facility] , Interpretation Hepatitis C Normal . [facility] Comment on above: Order Comment: Reaso n for Exam Chronic fatigue Reason for Exam Chronic fatigue;Encounter for screening for other viral dise Result Comment: Not infected with HCV unless early or acute infection is suspected (which may be delayed in an immunocompromised individual), or other evidence exists to indicate HCV infection. Performed By: #### C MP, [id number], CBC, TSH3 wRFLX, T4F, [id number] #### [address] #### HBCAB, HCV RX PCR, HBSAB #### [facility] , Hepatitis B Core Antibodyon 08-10-2022 Hepatitis B Core Antibody Negative Normal Negative [facility] Comment on above: Order Comment: Reaso n for Exam Hypothyroidism, unspecified type Result Comment: Perf ormed at: - [facility] [address] [id number] Staff Toxicologist: Tadeo Rosado PhD, Phone: [phone] PERFORMED BY: [place] [address] PATHOLOGIST PHOTOGRAPHY PROFESSOR GISELLE ALVAREZ M.D. Performed By: #### T 4F, TSH3 wRFLX #### [address] Hepatitis B Surface Antibody on 08-10-2022 Hepatitis B Surface Antibody Non-Reactive Normal . [facility] Comment on above: Order Comment: Reaso n for Exam Hypothyroidism, unspecified type Result Comment: Non Reactive: Inconsistent with immunity, less than 10 mIU/mL Reactive: Consistent with immunity, greater than 9.9 mIU/mL Performed By: #### T 4F, TSH3 wRFLX #### [address] Hepatitis C virus IgG Ab [Pr esence] in Serum or Plasma by ImmunoassayOrdered By: Cecilio Epps on 08-10-2022 HCV IgG IA Ql Non-Reactive Non Reactive [facility] Hepatitis C virus RNA [Units /volume] (viral load) in Serum or Plasma by ONEIL with probOrdered By: Cecilio Epps on 08-10-2022 HCV RNA ONEIL+probe Qn N/A [facility] Hepatitis C virus RNA [log u nits/volume] (viral load) in Serum or Plasma by ONEIL withOrdered By: Cecilio Epps on 08-10-2022 HCV RNA ONEIL+probe [Log units/Vol] N/A [facility] Leukocytes [#/volume] correc rosalia for nucleated erythrocytes in Blood by Automated counOrdered By: Cecilio Epps on 08-10-2022 WBC corrected for nucl RBC Auto (Bld) [#/Vol] 5.9 10*3/uL 3.8-11.6 [facility] Lymphocytes Auto (Bld) [#/Vo l]Ordered By: Cecilio Epps on 08-10-2022 Lymphocytes (Bld) [#/Vol] 1.6 10*3/uL 1.00-4.8 [facility] Lymphocytes/100 WBC Auto (Bl d)Ordered By: Cecilio Epps on 08-10-2022 Lymphocytes/100 WBC (Bld) 27.8 % . [facility] MCH Auto (RBC) [Entitic mass ]Ordered By: Cecilio Epps on 08-10-2022 MCH (RBC) [Entitic mass] 32.7 pg 24.7-34.3 [facility] MCHC Auto (RBC) [Mass/Vol]Or dered By: Cecilio Epps on 08-10-2022 MCHC (RBC) [Mass/Vol] 34.0 g/dL 32.0-35.0 [facility] MCV Auto (RBC) [Entitic vol] Ordered By: Cecilio Epps on 08-10-2022 MCV (RBC) [Entitic vol] 96.2 fL 80-100 [facility] Monocytes Auto (Bld) [#/Vol] Ordered By: Cecilio Epps on 08-10-2022 Monocytes (Bld) [#/Vol] 0.5 10*3/uL 0.0-0.8 [facility] Monocytes/100 WBC Auto (Bld) Ordered By: Cecilio Epps on 08-10-2022 Monocytes/100 WBC (Bld) 8.0 % . [facility] Neutrophils Auto (Bld) [#/Vo l]Ordered By: Cecilio Epps on 08-10-2022 Neutrophils (Bld) [#/Vol] 3.7 10*3/uL 1.8-7.7 [facility] Neutrophils/100 WBC Auto (Bl d)Ordered By: Cecilio Epps on 08-10-2022 Neutrophils/100 WBC (Bld) 62.6 % . [facility] No Panel InformationOrdered By: Cecilio Epps on 08-10-2022 Estimated GFR (CKD-EPI) > 60.0 mL/Min [facility] Hepatitis B Core Total Antibody Negative Negative [facility] Comment on above: Performed at: - [address] Director: Tadeo Rosado PhD, Phone: [phone] Hepatitis C Interpretation See comment . [facility] Comment on above: Not infected with HC V unless early or acute infection issuspected (which may be delayed in an immunocompromisedindividual), or other evidence exists to indicate HCVinfection. Hepatitis C RNA Quantitative N/A [facility] Creatinine Clearance (Chem N/A [facility] Nucleated erythrocytes [Pres ence] in Blood by Automated countOrdered By: Cecilio Epps on 08-10-2022 Nucleated RBC Auto Ql (Bld) 0.1 /100{WBC} 0-0.5 [facility] Platelet mean volume Auto (B ld) [Entitic vol]Ordered By: Cecilio Epps on 08-10-2022 Platelet mean volume (Bld) [Entitic vol] 10.1 fL 6.3-10.7 [facility] Platelets Auto (Bld) [#/Vol] Ordered By: Cecilio Epps on 08-10-2022 Platelets (Bld) [#/Vol] 143 10*3/uL 150-450 [facility] Potassium [Moles/volume] in Serum or PlasmaOrdered By: Cecilio Epps on 08-10-2022 Potassium [Moles/Vol] 3.8 mmol/L 3.5-5.1 [facility] Protein [Mass/volume] in Ser um or PlasmaOrdered By: Cecilio Epps on 08-10-2022 Protein [Mass/Vol] 6.6 g/dL 6.4-8.9 [facility] RBC Auto (Bld) [#/Vol]Ordere d By: Cecilio Epps on 08-10-2022 RBC (Bld) [#/Vol] 4.28 10*6/uL 3.60-5.00 [facility] Serum hepatitis B virus surf beverley antibody detectionOrdered By: Cecilio Epps on 08-10-2022 HBV surface Ab Ql (S) Non-Reactive . [facility] Comment on above: Non Reactive: Incons istent with immunity, less than 10 mIU/mL Reactive: Consistent with immunity, greater than 9.9 mIU/mL Serum or plasma albumin/glob ulin mass ratioOrdered By: Cecilio Epps on 08-10-2022 Albumin/Globulin [Mass ratio] 1.8 {ratio} [facility] Serum or plasma anion gap de terminationOrdered By: Cecilio Epps on 08-10-2022 Anion gap [Moles/Vol] 11.4 mmol/L 6.0-15.0 [facility] Sodium [Moles/volume] in Ser um or PlasmaOrdered By: Cecilio Epps on 08-10-2022 Sodium [Moles/Vol] 140 mmol/L 136-145 [facility] Thyroid Stim Hormone w/Rflxo n 08-10-2022 Thyroid Stim Hormone w/Rflx 21.80 u[iU]/mL High 0.45-5.33 [facility] Comment on above: Order Comment: Reaso n for Exam Epigastric abdominal pain;Chronic fatigue Reason for Exam Chronic fatigue Reason for Exam Hypothyroidism Performed By: #### C MP, [id number], CBC, TSH3 wRFLX, T4F, [id number] #### [facility] [address] [place] [address] #### HBCAB, HCV RX PCR, HBSAB #### [facility] , Thyrotropin [Units/volume] i n Serum or PlasmaOrdered By: Cecilio Epps on 08-10-2022 TSH Qn 21.80 m[IU]/L 0.45-5.33 [facility] Thyroxine (T4) free [Mass/vo lume] in Serum or PlasmaOrdered By: Cecilio Epps on 08-10-2022 Free T4 [Mass/Vol] 0.28 ng/dL 0.61-1.12 [facility] US liveron 08-10-2022 US liver [facility] [address] [place] [address] Ultrasound Report Signed Patient: Meghan Barlow MR#: [id number] [birth year] : 1975 Acct:[id number] Age/Sex: 46 / F ADM Date: 08/10/22 Loc: Room: Type: [facility] [address] Attending Dr: Jason Michele DO Ordering Provider: Cecilio Epps DO, RES Date of Service: 08/10/22 US/US liver: Epigastric abdominal pain Copies to: Cecilio Epps DO, MARTIN Michele DO LIMITED ABDOMINAL ULTRASOUND: CLINICAL HISTORY: Epigastric pain for 4 weeks COMPARISON: None TECHNIQUE: Grayscale and color Doppler images of the right upper quadrant organs were obtained. FINDINGS: Pancreas: Visualized portions appear unremarkable. Liver: No mass or intrahepatic ductal dilatation Gallbladder: Unremarkable CBD: 3 mm US/US liver IMPRESSION: NO ACUTE PROCESS. . Impression dictated by: Jarred Ramires Jr., DRadhaORadha08/10/2022 2:02 PM Dictation Location: [place] [address] Tech: Carol Rai Transcribed By: AMISH 08/10/22 140 Dictated By: Jarred Ramires Jr, DO 08/10/22 1402 Signed By: 08/10/22 1402 Normal [facility] Urea nitrogen [Mass/volume] in Serum or PlasmaOrdered By: Cecilio Epps on 08-10-2022 Urea nitrogen [Mass/Vol] 16 mg/dL 10-04 [facility] Vit. B12/Folate Profileon Cobalamin (Vitamin B12) [Mass/Vol] 164 pg/mL Low 180-914 [facility] Comment on above: Order Comment: Reaso n for Exam Epigastric abdominal pain;Chronic fatigue Reason for Exam Chronic fatigue Reason for Exam Hypothyroidism Performed By: #### C MP, [id number], CBC, TSH3 wRFLX, T4F, [id number] #### [address] #### HBCAB, HCV RX PCR, HBSAB #### [facility] , Folate 4.9 ng/mL Low >5.9 [facility] Comment on above: Order Comment: Reaso n for Exam Epigastric abdominal pain;Chronic fatigue Reason for Exam Chronic fatigue Reason for Exam Hypothyroidism Result Comment: Brittney te reference range: >5.9 ng/ml The WHO technical consultation on folate and vitamin b12 deficiencies has determined that folate concentrations less than 4 ng/ml are considered deficient. Performed By: #### C MP, [id number], CBC, TSH3 wRFLX, T4F, [id number] #### [facility] [address] [place] [id number] [facility] #### HBCAB, HCV RX PCR, HBSAB #### [facility] , Vitamin B12 ser/plasOrdered By: Cecilio Epps on 08-10-2022 Cobalamin (Vitamin B12) [Mass/Vol] 164 pg/mL 180-914 [facility] Vitamin D 25 Hydroxy Totalon 08-10-2022 Vitamin D 25 Hydroxy Total 29.4 ng/mL Low 30-100 [facility] Comment on above: Order Comment: Reaso n for Exam Epigastric abdominal pain;Chronic fatigue Reason for Exam Chronic fatigue Reason for Exam Hypothyroidism Result Comment: CARMITA MIN D STATUS 25(OH)VITAMIN D RANGE (ng/mL) Deficient <20 Insufficient 20 to <30 Sufficient 30 to 100 Reference: Kasandra MF,Gagandeep NC, Vadim CISNEROS, et al. Evaluation,treatment, and prevention of vitamin D deficiency; an Endocrine Society clinical practice guideline. JCEM. 2010; 96(7):1911-30. PERFORMED BY: [place] [address] PATHOLOGIST PHOTOGRAPHY PROFESSOR GISELLE ALVAREZ M.D. Performed By: #### C MP, [id number], CBC, TSH3 wRFLX, T4F, [id number] #### [facility] [address] [place] [id number] [facility] #### HBCAB, HCV RX PCR, HBSAB #### [facility] , Vitamin D+Metabolites [Mass/ volume] in Serum or PlasmaOrdered By: Cecilio Epps on 08-10-2022 Vitamin D+Metabolites [Mass/Vol] 29.4 ng/mL 30-100 [facility] Comment on above: VITAMIN D STATUS 25( [place])VITAMIN D RANGE (ng/mL) Deficient <20 Insufficient 20 to <30Sufficient 30 to 100Reference: Kasandra MF,Gagandeep CHATMAN, Vadim CISNEROS, et al. Evaluation,treatment, and prevention of vitamin D deficiency; an Endocrine Society clinical practice guideline. JCEM. 2010; 96(7):1911-30. WBC Auto (Bld) [#/Vol]Ordere d By: Cecilio Epps on 08-10-2022 WBC (Bld) [#/Vol] 5.9 10*3/uL 3.8-11.6 [facility] Thyrotropin [Units/volume] i n Serum or PlasmaOrdered By: Cecilio Epps on 06-06-2022 TSH Qn 6.15 m[IU]/L 0.45-5.33 [facility] Thyroxine (T4) [Mass/volume] in Serum or PlasmaOrdered By: Cecilio Epps on 06-06-2022 T4 [Mass/Vol] 7.70 ug/dL 5.39-11.82 [facility] Triiodothyronine (T3) [Mass/ volume] in Serum or PlasmaOrdered By: Cecilio Epps on 06-06-2022 T3 [Mass/Vol] 1.01 ng/mL 0.87-1.78 [facility] TSH DL <= 0.005 mIU/L QnOrde red By: Cecilio Epps on 02-16-2022 TSH Qn 8.27 m[IU]/L 0.45-5.33 [facility] Thyroxine (T4) free [Mass/vo lume] in Serum or PlasmaOrdered By: Cecilio Epps on 02-16-2022 Free T4 [Mass/Vol] 0.59 ng/dL 0.61-1.12 [facility] TSH DL <= 0.005 mIU/L QnOrde red By: Cecilio Epps on 12-29-2021 TSH Qn 25.89 m[IU]/L 0.45-5.33 [facility] Thyroxine (T4) free [Mass/vo lume] in Serum or PlasmaOrdered By: Cecilio Epps on 12-29-2021 Free T4 [Mass/Vol] 0.37 ng/dL 0.61-1.12 [facility] Albumin [Mass/volume] in Ser um or Plasmaon 07-29-2020 Albumin [Mass/Vol] 4.0 g/dL 3.2-5.5 [facility] Creatinine and Glomerular fi ltration rate.predicted panel (S/P/Bld)on 07-29-2020 Creatinine [Mass/Vol] 0.77 mg/dL 0.44-1.03 [facility] Estimated glomerular filtrat ion rate (GFR) non- Americanon 07-29-2020 GFR/1.73 sq M.predicted among non-blacks MDRD (S/P/Bld) [Vol rate/Area] > 60 mL/Min [facility] Globulin Calc (S) [Mass/Vol] on 07-29-2020 Globulin (S) [Mass/Vol] 2.5 g/dL F [facility] No Panel Informationon 07-29 Estimated GFR () > 60 mL/Min [facility] Comment on above: GFR estimated refere nce range: According to KDOQI guidelines, <60 ml/min/1.73m2 is sufficient to diagnose a patient with chronic kidney disease. Pharmacy Creatinine Clearance (Chem N/A [facility] Protein [Mass/volume] in Ser um or Plasmaon 07-29-2020 Protein [Mass/Vol] 6.5 g/dL 6.1-7.9 [facility] Serum or plasma alanine goode otransferase measurement without P-5'-P (enzymatic activion 07-29-2020 ALT No additional P-5'-P [Catalytic activity/Vol] 36 U/L 10-60 [facility] Serum or plasma albumin/glob ulin mass ratioon 07-29-2020 Albumin/Globulin [Mass ratio] 1.6 {ratio} [facility] Serum or plasma alkaline krysta sphatase measurement (enzymatic activity/volume)on 07-29-2020 ALP [Catalytic activity/Vol] 44 U/L 32-92 [facility] Serum or plasma aspartate am inotransferase measurement (enzymatic activity/volume)on 07-29-2020 AST [Catalytic activity/Vol] 24 U/L 10-42 [facility] Serum or plasma calcium zayra urement (mass/volume)on 07-29-2020 Calcium [Mass/Vol] 9.4 mg/dL 8.2-10.2 [facility] Serum or plasma chloride dayanna surement (moles/volume)on 07-29-2020 Chloride [Moles/Vol] 102 mmol/L 95-114 [facility] Serum or plasma glucose zayra urement (mass/volume)on 07-29-2020 Glucose [Mass/Vol] 80 mg/dL 70-100 [facility] Comment on above: ADA recommended refe rence rangeRandom Glucose Reference Range is dependent on time and content of last meal. Glucose of more than 200 mg/dL in a nonstressed, ambulatory subject supports the diagnosis of Diabetes Mellitus. Serum or plasma potassium me asurement (moles/volume)on 07-29-2020 Potassium [Moles/Vol] 4.1 mmol/L 3.5-5.1 [facility] Serum or plasma sodium measu rement (moles/volume)on 07-29-2020 Sodium [Moles/Vol] 137 mmol/L 136-146 [facility] Serum or plasma total biliru bin measurement (mass/volume)on 07-29-2020 Bilirubin [Mass/Vol] 0.5 mg/dL 0.3-1.2 [facility] Serum or plasma total carbon dioxide measurement (moles/volume)on 07-29-2020 CO2 [Moles/Vol] 27.5 mmol/L 22.0-30.0 [facility] Serum or plasma urea nitroge n measurement (mass/volume)on 07-29-2020 Urea nitrogen [Mass/Vol] 12 mg/dL 9-23 [facility] TSH DL <= 0.005 mIU/L Qnon 0 07-29-2020 TSH Qn 16.84 m[IU]/L 0.45-5.33 [facility] Thyroxine (T4) free [Mass/vo lume] in Serum or Plasmaon 07-29-2020 Free T4 [Mass/Vol] 0.57 ng/dL 0.61-1.12 [facility] Drug Scr, Abuse, Uron 2016 Amphetamine(s),Ur Negative Normal NEG [facility] Comment on above: Result Comment: (Pos itive cutoff 1000 ng/mL) Performed By: #### U LACI Ryder DAU ####[address] [address] Barbiturate(s),Ur Negative Normal NEG [facility] Comment on above: Result Comment: (Pos itive cutoff 200 ng/mL) Performed By: #### U LACI Ryder DAU ####[address] [address] Base excess Negative Normal NEG [facility] Comment on above: Result Comment: (Pos itive cutoff 300 ng/mL) Performed By: #### LACI Arias DAU ####[address] [address] Benzodiazepine(s) Positive Abnormal NEG [facility] Comment on above: Result Comment: (Pos itive cutoff 200 ng/mL) Performed By: #### U LACI Ryder DAU ####[address] [address] Cannabinoid(s),Ur Negative Normal NEG [facility] Comment on above: Result Comment: (Pos itive cutoff 50 ng/mL) Performed By: #### U ALACI ALDEN ####[address] [address] Interpretive Info Assay provides medical screening only. The absence of expected drug(s) and/or Normal [facility] Comment on above: Result Comment: meta bolite(s) may indicate diluted or adulterated urine, limitations of testing or timing of collection.Testing for legal purposes should be confirmed by another method. To request confirmation of test result, please call the lab within 7 days of sample submission.Performed at [facility] [address] [place] [address] Performed By: #### U A, UMICAO, ALDEN ####[address] [address] Opiate(s), Ur Negative Normal NEG [facility] Comment on above: Result Comment: (Pos itive cutoff 300 ng/mL) Performed By: #### U A, UMICAO, ALDEN ####[address] [address] Oxycodone, Urine Negative Normal NEG [facility] Comment on above: Result Comment: (Pos itive cutoff 100 ng/mL) Performed By: #### U A, UMICAO, ALDEN ####[address] [address] Phencyclidine, Ur Negative Normal NEG [facility] Comment on above: Result Comment: (Pos itive cutoff 25 ng/mL) Performed By: #### U A, UMICAO, ALDEN ####[address] [address] Urine, methadone presence Negative Normal NEG [facility] Comment on above: Result Comment: (Pos itive cutoff 300 ng/mL) Performed By: #### U A, UMICAO, ALDEN ####[address] [address] Buprenorphrine, Ur NOT REPORTED Normal NEG [facility] Comment on above: Performed By: #### U A, UMICAO, ALDEN ####[address] [place] [address] MDMA, Urine NOT REPORTED Normal NEG [facility] Comment on above: Performed By: #### LACI Arias ALDEN ####[address] [address] Methamphetamine, Ur NOT REPORTED Normal NEG [facility] Comment on above: Performed By: #### LACI Arias ALDEN ####[address] [address] Propoxyphene,Urine NOT REPORTED Normal NEG [facility] Comment on above: Performed By: #### LACI Arias ALDEN ####[address] [address] Urine, tricyclic antidepressants NOT REPORTED Normal NEG [facility] Comment on above: Performed By: #### LACI Arias ALDEN ####[address] [address] Urinalysis, Routineon 2016 Acetaminophen mass conc Negative Normal NEG [facility] Comment on above: Performed By: #### LACI Arias ALDEN ####[address] [address] Bilirubin (direct) Negative Normal NEG [facility] Comment on above: Performed By: #### U LACI Ryder, ALDEN ####[address] [address] Hemoglobin mass conc (Bld) Negative Normal NEG [facility] Comment on above: Performed By: #### U ALACI, ALDEN ####[address] [address] Nitrite,Ur Negative Normal NEG [facility] Comment on above: Performed By: #### U A, UMICAO, ALDEN ####[facility] [facility] [place] [address] Turbidity CLOUDY Abnormal CLEAR [facility] Comment on above: Performed By: #### LACI Arias ALDEN ####[facility] [facility] [place] [address] Urine, color YELLOW Normal YEL [facility] Comment on above: Performed By: #### LACI Airas DAU ####[facility] [facility] [place] [address] Urine, glucose presence Negative Normal NEG [facility] Comment on above: Performed By: #### LACI Arias ALDEN ####[facility] [place] [address].[place] [address] Urine, leukocyte esterase presence TRACE Abnormal NEG [facility] Comment on above: Result Comment: Perf ormed at [facility] [address] [place] [place] [address] Performed By: #### LACI Arias DAU ####[facility] [facility] [place] [address] Urine, pH 5.5 [pH] Normal 5.0-8.0 [facility] Comment on above: Performed By: #### LACI Arias DAU ####[facility] [place] [address].[place] [address] Urine, protein presence Negative Normal NEG [facility] Comment on above: Performed By: #### LACI Arias ALDEN ####[facility] [facility] [place] [address] Urine, specific gravity 1.012 Normal 1.000-1.030 [facility] Comment on above: Performed By: #### U A, UMICAO, ALDEN ####[address] [address] Urobilinogen,Ur Normal Normal NORM [facility] Comment on above: Performed By: #### U A, UMICAO, ALDEN ####[address] [address] Comment NOT REPORTED Normal [facility] Comment on above: Performed By: #### U A, UMICAO, ALDEN ####[address] [address] Urinalysis,Microon 7 ----- Normal [facility] Comment on above: Performed By: #### U A, UMICAO, ALDEN ####[address] [address] Mucus Strands 1+ Abnormal NONE [facility] Comment on above: Performed By: #### U A, UMICAO, ALDEN ####[address] [address] Urine WBC's 2 TO 5 Normal [facility] Comment on above: Performed By: #### U A, UMICAO, ALDEN ####[address] [address] Urine, amorphous sediment presence in sediment 1+ Abnormal [facility] Comment on above: Result Comment: Perf ormed at [facility] [address] [place] [address] Performed By: #### U A, UMICAO, ALDEN ####[address] [address] Urine, bacteria in sediment MODERATE Abnormal NONE [facility] Comment on above: Performed By: #### U A, UMICAO, ALDEN ####[facility] [facility] [place] [address] Urine, erythrocytes 0 TO 2 Normal [facility] Comment on above: Performed By: #### U A, UMICAO, ALDEN ####[facility] [facility] [place] [address] Epithelial, Renal NOT REPORTED Normal 0 [facility] Comment on above: Performed By: #### U A, UMICAO, ALDEN ####[facility] [place] [address] Other Observations NOT REPORTED [facility] on above: Performed By: #### U A, UMICAO, ALDEN ####[address] [place] [address] Trichomonas NOT REPORTED Normal NONE [facility] Comment on above: Performed By: #### U A, UMICAO, ALDEN ####[facility] [place] [address] Urine, casts in sediment NOT REPORTED Normal [facility] Comment on above: Performed By: #### U A, UMICAO, ALDEN ####[facility] [place] [address].[place] [address] Urine, crystals in sediment NOT REPORTED Normal NONE [facility] Comment on above: Performed By: #### U A, UMICAO, ALDEN ####[facility] [place] [address].[place] [address] Urine, epithelial cells in sediment NOT REPORTED Normal [facility] Comment on above: Performed By: #### U A, UMICAO, ALDEN ####[facility] [place] [address].[place] [address] Urine, yeast presence in sediment NOT REPORTED Normal NONE [facility] Comment on above: Performed By: #### U LACI Ryder DAU ####[address] [address] CBC with Diffon 09-16-2016 Abs. Basophil 0.10 k/uL Normal 0.0-0.2 [facility] Comment on above: Result Comment: Perf ormed at [facility] [address] [place] [address] Performed By: #### C DP, CP ####[address] [address] Abs.Neutrophil (Seg) 3.70 k/uL Normal 1.3-9.1 [facility] Comment on above: Performed By: #### C DP, CP ####[address] [address] Basophils/100 WBC Auto (Bld) 1 % Normal [facility] Comment on above: Performed By: #### C DP, CP ####[address] [address] Eosinophils 0.20 10*3/uL Normal 0.0-0.4 [facility] Comment on above: Performed By: #### C DP, CP ####[address] [address] Eosinophils/100 leukocytes 3 % Normal [facility] Comment on above: Performed By: #### C DP, CP ####[address] [address] Erythrocyte distribution width Auto Ratio (RBC) 13.9 % Normal 11.5-14.9 [facility] Comment on above: Performed By: #### C DP, CP ####[address] [address] Erythrocytes (RBC) 4.36 10*6/uL Normal 4.0-5.2 [facility] Comment on above: Performed By: #### C DP, CP ####[facility] [place] [address] Hematocrit (HCT) 42.6 % Normal 36-46 [facility] Comment on above: Performed By: #### C DP, CP ####[facility] [place] [address] Hemoglobin mass conc (Bld) 14.4 g/dL Normal 12.0-16.0 [facility] Comment on above: Performed By: #### C DP, CP ####[facility] [place] [address] Lymphocytes 2.00 10*3/uL Normal 1.0-4.8 [facility] Comment on above: Performed By: #### C DP, CP ####[facility] [place] [address] Lymphocytes/100 leukocytes 31 % Normal [facility] Comment on above: Performed By: #### C DP, CP ####[facility] [place] [address] MCH 33.0 pg Normal 26-34 [facility] Comment on above: Performed By: #### C DP, CP ####[facility] [place] [address] MCHC mass conc (RBC) 33.7 g/dL Normal 31-37 [facility] Comment on above: Performed By: #### C DP, CP ####[facility] [place] [address] MCV 97.7 fL Normal 80-100 [facility] Comment on above: Performed By: #### C DP, CP ####[facility] [facility] [place] [address] Monocytes 0.70 10*3/uL Normal 0.1-1.3 [facility] Comment on above: Performed By: #### C DP, CP ####[facility] [place] [address] Monocytes/100 leukocytes 10 % Normal [facility] Comment on above: Performed By: #### C DP, CP ####[facility] [facility] [place] [address] Neutrophil (Seg) 55 % Normal [facility] Comment on above: Performed By: #### C DP, CP ####[address] [place] [address] Platelet mean volume (PMV) 9.7 fL Normal 6.0-12.0 [facility] Comment on above: Performed By: #### C DP, CP ####[facility] [place] [address].[place] [address] Platelets 165 10*3/uL Normal 150-450 [facility] Comment on above: Performed By: #### C DP, CP ####[facility] [facility] [place] [address] WBC (Leukocytes) 6.7 10*3/uL Normal 3.5-11.0 [facility] Comment on above: Performed By: #### C DP, CP ####[facility] [place] [address] Auto Diff Performed NOT REPORTED Normal [facility] Comment on above: Performed By: #### C DP, CP ####[facility] [place], [place] [address]e [facility] [place] [address] Erythrocyte morphology NOT REPORTED Normal [facility] Comment on above: Performed By: #### C DP, CP ####[facility] [place] [address] Platelets NOT REPORTED Normal [facility] Comment on above: Performed By: #### C DP, CP ####[facility] [place] [address] WBC Morphology NOT REPORTED Normal [facility] Comment on above: Performed By: #### C DP, CP ####[facility] [place] [address] Comp Metabolic Profon 2016 (cont.) Normal [facility] Comment on above: Result Comment: Aver age GFR for 40-49 years old: 99 mL/min/1.73sq mChronic Kidney Disease: <60 mL/min/1.73sq mKidney failure: <15 mL/min/1.73sq meGFR calculated using average adult body mass. Additional eGFR calculator available at:http://www.DreamLines.Promobucket/multiple_crcl_2012.htmPerformed at [facility] [address] [place] [address] Performed By: #### C DP, CP ####[facility] [place] [address] Alanine aminotransferase (ALT) 33 U/L Normal 5-33 [facility] Comment on above: Performed By: #### C DP, CP ####[facility] [place] [address] Albumin 4.0 g/dL Normal 3.5-5.2 [facility] Comment on above: Performed By: #### C DP, CP ####[facility] [place] [address] Alkaline Phos 64 U/L Normal 35-104 [facility] Comment on above: Performed By: #### C DP, CP ####[facility] [facility] [place] [address] Anion gap 12 mmol/L Normal 9-17 [facility] Comment on above: Performed By: #### C DP, CP ####[facility] [place] [address].[place] [address] Aspartate aminotransferase (AST) 37 U/L High <32 [facility] Comment on above: Performed By: #### C DP, CP ####[facility] [place] [address] Bilirubin Ql (U) 0.24 mg/dL Low 0.3-1.2 [facility] Comment on above: Performed By: #### C DP, CP ####[address] [address] Calcium 9.3 mg/dL Normal 8.6-10.4 [facility] Comment on above: Performed By: #### C DP, CP ####[address] [address] Chloride 98 mmol/L Normal 98-107 [facility] Comment on above: Performed By: #### C DP, CP ####[address] [address] CO2 27 mmol/L Normal 20-31 [facility] Comment on above: Performed By: #### C DP, CP ####[facility] [place] [address] Creatinine 0.60 mg/dL Normal 0.50-0.90 [facility] Comment on above: Performed By: #### C DP, CP ####[address] [address] eGFR (non-black) mL/min/{1.73_m2} Normal >60 Me [facility] Comment on above: Performed By: #### C DP, CP ####[address] [address] Glucose mass conc 108 mg/dL High 70-99 [facility] Comment on above: Performed By: #### C DP, CP ####[address] [place] [address] Potassium molar conc 4.8 mmol/L Normal 3.7-5.3 [facility] Comment on above: Performed By: #### C DP, CP ####[address] [address] Protein 6.9 g/dL Normal 6.4-8.3 [facility] Comment on above: Performed By: #### C DP, CP ####[address] [address] Sodium 137 mmol/L Normal 135-144 [facility] Comment on above: Performed By: #### C DP, CP ####[address] [address] Urea nitrogen 21 mg/dL High 6-20 [facility] Comment on above: Performed By: #### C DP, CP ####[address] [address] Albumin/Globulin Ratio NOT REPORTED Normal 1.0-2.5 [facility] Comment on above: Performed By: #### C DP, CP ####[address] [address] BUN/CRE Ratio NOT REPORTED Normal 9-20 [facility] Comment on above: Performed By: #### C DP, CP ####[address] [place] [address] Staging: NOT REPORTED Normal [facility] Comment on above: Performed By: #### C DP, CP ####[facility] [facility] [place] [address] Vital Signs Date Time Vital Sign Value Performing Clinician Efren tse 06-01-2022 12:30-0400 Body height 157.48 cm Geo Coy Other [facility] Other 06-01-2022 12:30-0400 Body mass index (BMI) [Ratio] 29.99 kg/m2 Geo Coy Other [facility] Other 06-01-2022 12:30-0400 Body temperature 96.8 [degF] Geo Coy Other [facility] Other 06-01-2022 12:30-0400 Body weight 74.39 kg Geo Coy Other [facility] Other 06-01-2022 12:30-0400 Diastolic blood pressure 75 mm[Hg] Geo Coy Other [facility] Other 06-01-2022 12:30-0400 Respiratory rate 20 /min Geo Coy Other [facility] Other 06-01-2022 12:30-0400 SaO2% (BldA) [Mass fraction] 97 % Geo Coy Other [facility] Other 06-01-2022 12:30-0400 Systolic blood pressure 119 mm[Hg] Geo Coy Other [facility] Other 01-11-2021 10:30-0400 Body height 157.48 cm Geo Crowleyno Other [facility] Other 01-11-2021 10:30-0400 Body mass index (BMI) [Ratio] 27.8 kg/m2 Meirer Zbigniew Other [facility] Other 01-11-2021 10:30-0400 Body temperature 97.6 [degF] Meirer Zbigniew Other [facility] Other 01-11-2021 10:30-0400 Body weight 68.95 kg Meirer Zbigniew Other [facility] Other 01-11-2021 10:30-0400 Diastolic blood pressure 70 mm[Hg] Meirer Zbigniew Other [facility] Other 01-11-2021 10:30-0400 Respiratory rate 20 /min Meirer Zbigniew Other [facility] Other 01-11-2021 10:30-0400 SaO2% (BldA) [Mass fraction] 97 % Geo Mcculloughdano Other [facility] Other 01-11-2021 10:30-0400 Systolic blood pressure 100 mm[Hg] Meirer Zbigniew Other [facility] Other Encounters Encounter Date Encounter Type Care Provider Facility Start: 07-17-2023 ambulatory Services [facility] Facility:[facility] Start: 07-04-2023 End: 07-04-2023 ambulatory [facility] Start: 04-18-2023 End: 04-18-2023 ambulatory Christopher Zbigniew Other [facility] Other Start: 04-18-2023 Telephone encounter Christyareliser Jamel maegan [facility] Start: 04-04-2023 End: 04-04-2023 ambulatory Christopher Zbigniew Other [facility] Other Start: 04-04-2023 Telephone encounter Christyareliser Jamel maegan [facility] Start: 01-13-2023 End: 01-13-2023 ambulatory Christopher Zbigniew Other [facility] Other Start: 01-13-2023 Telephone encounter Christyareliser Jamel maegan [facility] Start: 10-26-2022 End: 10-26-2022 ambulatory Christopher Zbigniew Other [facility] Other Start: 10-26-2022 Telephone encounter Christyareliser Jamel maegan [facility] Start: 10-24-2022 End: 10-24-2022 ambulatory Christopher Zbigniew Other [facility] Other Start: 10-24-2022 Telephone encounter Christyareliser Jamel maegan [facility] Start: 10-10-2022 End: 10-10-2022 ambulatory [facility] Start: 10-10-2022 End: 10-10-2022 ambulatory Services [facility] Work Phone: [facility] Work Phone: Start: 10-10-2022 End: 10-10-2022 Departed Referred Services [facility] Work Phone: [facility] Start: 08-10-2022 End: 08-10-2022 [facility] Start: 08-10-2022 End: 08-10-2022 ambulatory Services [facility] Work Phone: [facility] Work Phone: Start: 08-10-2022 End: 08-10-2022 Patient encounter procedure Services [facility] Work Phone: [facility] Work Phone: Start: 07-25-2022 Registered Recurring Services [facility] Work Phone: [facility] Start: 06-06-2022 End: 06-06-2022 ambulatory Services [facility] Work Phone: [facility] Work Phone: Start: 06-06-2022 End: 06-06-2022 Departed Referred Services [facility] Work Phone: [facility] Start: 06-01-2022 End: 06-01-2022 ambulatory Geo Coy Other [facility] Other Start: 06-01-2022 Office outpatient visit 15 minutes Geo Coy [facility] Start: 05-23-2022 End: 05-23-2022 ambulatory Geo Crowleyno Other [facility] Other Start: 05-23-2022 Telephone encounter Geo issa [facility] Start: 05-04-2022 End: 05-04-2022 ambulatory Services [facility] Work Phone: [facility] Work Phone: Start: 05-04-2022 End: 05-04-2022 Patient encounter procedure Services [facility] Work Phone: [facility] Work Phone: Start: 04-05-2022 End: 04-05-2022 ambulatory Geo Crowleyno Other [facility] Other Start: 04-05-2022 Telephone encounter Christshannon Mccullough maegan [facility] Start: 03-21-2022 End: 03-21-2022 ambulatory Christopher Zbigniew Other [facility] Other Start: 03-21-2022 Telephone encounter Geo hoango [facility] Start: 02-16-2022 End: 02-16-2022 Departed Referred Services [facility] Work Phone: [facility] Start: 01-18-2022 End: 01-18-2022 ambulatory Christopher Zbigniew Other [facility] Other Start: 01-18-2022 Telephone encounter Geo hoango [facility] Start: 12-29-2021 End: 12-29-2021 ambulatory Services [facility] Work Phone: [facility] Work Phone: Start: 12-29-2021 End: 12-29-2021 Departed Referred Services [facility] Work Phone: [facility] Start: 06-23-2021 End: 06-23-2021 ambulatory Christopher Zbigniew Other [facility] Other Start: 06-23-2021 Telephone encounter Geo hoango [facility] Start: 03-17-2021 End: 03-17-2021 ambulatory Christopher Zbigniew Other [facility] Other Start: 03-17-2021 Telephone encounter Geo Mccullough maegan [facility] Start: 03-16-2021 End: 03-16-2021 ambulatory Christopher Zbigniew Other [facility] Other Start: 03-16-2021 Telephone encounter Christshannon Mccullough maegan [facility] Start: 01-25-2021 End: 01-25-2021 ambulatory Christopher Zbigniew Other [facility] [employer] Other Start: 01-25-2021 Telephone encounter Geo issa [facility] Start: 01-11-2021 Office outpatient visit 15 minutes Geo Coy [facility] Start: 07-29-2020 End: 07-29-2020 Patient encounter procedure Sky. Zbigniew/Preceptor Work Phone: -[facility] Start: 09-16-2016 End: 09-22-2016 Evaluation and management of inpatient KUL B WALLIS [facility] Start: 12-31-2003 Evaluation and management of inpatient Kyaw Coy/Preceptor Work Phone: -[address] [place] [address] Procedures Date Procedure Procedure Detail Performing Clinician Start: 08-10-2022 Ultrasonography of liver Services [employer] [facility] Work Phone: Start: 05-04-2022 End: 05-04-2022 X-ray of both knees Services [facility] Work Phone: Start: 05-04-2022 X-ray of lumbar spin e, four views Services [employer] [facility] Work Phone: Start: 09-21-2016 DISCHARGE PATIENT MINISTERIO Delarosa UPTA Start: 09-19-2016 Microscopic urinalysis MINISTERIO MORGANPTA Start: 09-19-2016 Urinalysis JAVIL WALLIS Start: 09-19-2016 URINE DRUG SCREEN JAVIL G UPTA Start: 09-16-2016 CBC WITH AUTO DIFFERENTIAL JAVIL WALLIS Start: 09-16-2016 COMPREHENSIVE METABO LIC PANEL JAVIL WALLIS Start: 09-16-2016 FULL CODE JAVIL WALLIS Start: 09-16-2016 IP CONSULT TO HISTOR Y AND PHYSICAL JAVIL WALLIS Start: 09-16-2016 PATIENT STATUS (DIRECT) JAVIL WALLIS Start: 09-16-2016 DIET GENERAL MINISTERIO MORGANPTA Start: 09-16-2016 PATIENT STATUS (DIRECT) MINISTERIO WALLIS Plan of Treatment Date Care Activity Detail Author Hepatitis B core antibody measurement [facility] [facility] Hepatitis B virus jaramillo rface Ab [Presence] in Serum [facility] enter Hepatitis C virus Ig G Ab [Presence] in Serum or Plasma by Immunoassay [facility] Hepatitis C virus RN A [log units/volume] (viral load) in Serum or Plasma by ONEIL with probe detection [facility] Hepatitis C virus RN A [Units/volume] (viral load) in Serum or Plasma by ONEIL with probe detection [facility] enter [facility] Immunizations Immunization Date Immunization Notes Care Provider Dana deleon 07-01-2017 Toradol per 15 mg Alfie Coy Other [employer] [facility] [employer] Other Payers Date Payer Category Payer Self-pay [id number] 2022 Medicaid [id number] 2012 Unknown [id number] 1975 Unknown [id number] Unknown [id number] [id number] Unknown [id number] [id number] [id number] Unknown [id number] [id number] [id number] Social History Date Type Detail Facility Start: 01-30-2020 End: 02-27-2021 Tobacco smoking status MOIS Smoker (finding) [facility] Start: 1975 Sex Assigned At Female F [facility] Sex Assigned At Sex Assigned At Bir th [facility] [employer] Other Clinical Notes 01-11-2021 to 04-18-2023 Note Date & Type Note Facility 04-18-2023 Evaluation note Encounter Date Diagnosis Assessment Notes Apr, Chronic obstructive pulmonary disease, unspecified (ICD-10 - J44.9) [facility] Other 01-23-2024 Evaluation note* Encounter Date Diagnosis Assessment Notes Treatment Notes Treatment Clinical Notes Mar, Chronic obstructive pulmonary disease, unspecified (ICD-10 - J44.9) [facility] Other 11-03-2023 Evaluation note* Encounter Date Diagnosis Assessment Notes Treatment Notes Treatment Clinical Notes Jan, Chronic obstructive pulmonary disease, unspecified (ICD-10 - J44.9) [facility] Other 08-16-2023 Evaluation note* Encounter Date Diagnosis Assessment Notes Treatment Notes Treatment Clinical Notes Oct, Chronic obstructive pulmonary disease, unspecified (ICD-10 - J44.9) [facility] Other 08-14-2023 Evaluation note* Encounter Date Diagnosis Assessment Notes Treatment Notes Treatment Clinical Notes Oct, Chronic obstructive pulmonary disease, unspecified (ICD-10 - J44.9) [facility] Other 03-22-2023 Evaluation note* Encounter Date Diagnosis Assessment Notes Treatment Notes Treatment Clinical Notes May, Chronic obstructive pulmonary disease, unspecified (ICD-10 - J44.9) May, Tobacco use disorder (ICD-10 - Z72.0) May, Allergic rhinitis (ICD-10 - J30.9) May, GERD (gastroesophageal reflux disease) (ICD-10 - K21.9) [facility] Other 03-13-2023 Evaluation note* Encounter Date Diagnosis Assessment Notes Treatment Notes Treatment Clinical Notes May, Chronic obstructive pulmonary disease, unspecified (ICD-10 - J44.9) [facility] Other 01-24-2023 Evaluation note* Encounter Date Diagnosis Assessment Notes Treatment Notes Treatment Clinical Notes Mar, Chronic obstructive pulmonary disease, unspecified (ICD-10 - J44.9) [facility] Other 01-09-2023 Evaluation note* Encounter Date Diagnosis Assessment Notes Treatment Notes Treatment Clinical Notes Mar, Chronic obstructive pulmonary disease, unspecified (ICD-10 - J44.9) [facility] Other 11-08-2022 Evaluation note* Encounter Date Diagnosis Assessment Notes Treatment Notes Treatment Clinical Notes Jan, Chronic obstructive pulmonary disease, unspecified (ICD-10 - J44.9) [facility] Other 11-01-2021 Evaluation note* Encounter Date Diagnosis Assessment Notes Treatment Notes Treatment Clinical Notes Jan, Chronic obstructive pulmonary disease, unspecified (ICD-10 - J44.9) Jan, Tobacco use disorder (ICD-10 - Z72.0) Jan, Allergic rhinitis (ICD-10 - J30.9) Jan, GERD (gastroesophageal reflux disease) (ICD-10 - K21.9) [facility] Other Evaluation noteNo assessment information available [facility] Information[facility] [employer] Other History general Narrative - Reported* Type Description Date Medical History 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 [facility] Other Summary Purpose Family History No Family History Records Found Relationship Condition Age at Onset Recorded Date/T flaco brother Alcoholism Unknown Myocardial infarction Unknown father Alcoholism Unknown Not Specified Alcoholism Unknown sister Alcoholism Unknown Advance Directives No Advanced Directives Records Found Advance Directive Response Recorded Date/ Time Advance Directives No April 04, 2017 4:47pm Advance Directive Response Recorded Date/ Time Advance Directives No April 04, 2017 3:47pm Chief Complaint and Reason for Visit Chief Complaint ^Sharp Pain Kidney A xochilt r63.5 e03.8 Chief Complaint ^Sharp Pain Kidney A xochilt Chief Complaint ^Sharp Pain Kidney A xochilt E03.9 m25.561 m25.562 g89.29 Chief Complaint ^Sharp Pain Kidney A xochilt m25.561 m25.562 g89.29 Unspecified hypothyroidism Chief Complaint ^Sharp Pain Kidney A xochilt E03.9 BH R10.13;E03.9;R53.82;Z11.59 Chief Complaint ^Sharp Pain Kidney A xochilt BH R10.13;E03.9;R53.82;Z11.59 Hypothyroidism, unspecified type Additional Source Comments INFORMATION SOURCE (unrecogn ized section and content) DATE CREATED AUTHOR 09/06/2017 [facility] DATE CREATED AUTHOR AUTHOR'S ORGANIZ ATION 07/05/2023 [facility] DATE CREATED AUTHOR AUTHOR'S ORGANIZ ATION 07/17/2023 [facility] Goals (unrecognized section and content) Goals may be documented in a n alternate sectionNo InformationNo InformationNo InformationNo InformationGoals may be documented in an alternate sectionNo InformationGoals may be documented in an alternate sectionNo InformationNo InformationNo InformationNo InformationGoals may be documented in an alternate sectionGoals may be documented in an alternate sectionGoals may be documented in an alternate sectionNo InformationNo InformationNo InformationNo InformationNo Information REASON FOR VISIT (unrecogniz ed section and content) Last seen 02/2020- COPDNo In formationRefills-Cough medicinecough syruprefill cough syrupCough medicineNo InformationCough medicine6 mo f/u COPD, Allergic Rhinitis, GERDRefills- Cough syrupRefills- AlbuterolRefills- Cough syrupCough syrup refillFYI Care Teams (unrecognized sec tion and content) Team Status: Active Member Role Status Dates [facility] Primary Care Provider Active Team Status: Active Member Role Status Caleb Coy/Kyree Watt Attending Provider Active Team Status: Inactive Member Role Status Dates [facility] Primary Care Provider Active Jason Michele DO Attending Provider Active Cecilio Epps DO RES Other Provider Active Team Status: Inactive Member Role Status Dates [facility] Primary Care Provider Active Laurie Oliva MD Attending Provider Active Team Status: Inactive Member Role Status Dates [facility] Primary Care Provider Active Cecilio Epps DO RES Attending Provider Active Team Status: Inactive Member Role Status Dates [facility] Primary Care Provider Active Jason Michele DO Attending Provider Active Cecilio Epps , DO MARTIN Referring Provider Active Team Status: Active Member Role Status Dates Services [facility] Primary Care Provider Active Breanna Taylor MD Attending Provider Active Team Status: Inactive Member Role Status Dates Services [facility] Primary Care Provider Active Cecilio Epps , RES Referring Provider Active Jason Michele , Attending Provider Active FOR RECORDS PERTAINING TO [...] BE BASED ON THE PRIMARY CLINICAL RECORDS. [facility] provides no warranty or guarantee of the accuracy or completeness of information in this document.
== END 2023-07-20 13:39 | disposition home or self-care (01) ==
LOC: PST 13:38
PROVIDERS: Visit Provider Surgery
DX: Z01.818 Encounter for other preprocedural examination (principal); R11.14 Bilious vomiting; K59.09 Other constipation

== ENCOUNTER 2023-09-10 13:44 | Emergency (ER) | payer OTHER, SELFPAY ==
[2023-09-10] VITALS (13 sets, daily range): BP systolic 95–121; BP diastolic 52–80; PULSE 74–89; TEMP 37.2; O2SAT 90–98; BMI 25.2
--- OUTSIDE RECORDS SUMMARY | 2023-09-10 13:52 | XMS_ITS | CCD ---
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 Name Role Phone MINISTERIO WALLIS Unavailable Unavailable MINISTERIO WALLIS Unavailable Unavailable Zbigniew/Kyaw Watt Attending Provider [facility] Primary Care Provider [phone] Pricilla Engle Attending Provider Geo Coy Unavailable Zbigniew/Kyree Watt Attending Provider [facility] Primary Care Provider [phone] DO Cecilio Epps Attending Provider Zbigniew/Kyree Watt Attending Provider [facility] Primary Care Provider [phone] DO Jason Michele Attending Provider Supriya, [place] Referring Provider Supriya, [place] Other Provider [facility] Primary Care Provider [phone] DO Jason Michele Attending Provider Supriya, [place] Other Provider MD Laurie Oliva Attending Provider [facility] Primary Care Provider [phone] MD Alex Taylorheather Attending Provider [phone] DO uSpriya Temple Referring Provider DO Jason Michele Attending Provider [phone] [facility] Primary Care Provider MD Laurie Oliva Attending Provider JANET BAEZ Attending Unavailable FELIX BELCHER Referring Unavailable FELIX BELCHER Primary Care Unavailable Laurie Oliva Attending Unavailable [facility] Primary Care Unavaila ble Laurie Oliva Admitting Unavailable Idris Taylor Admitting Unavailab le Idris Taylor Attending Unavailab le [facility] Primary Care Unavaila ble Allergies Allergy Classification Reported Allergen(s) Allergy Type Date of Onset Reaction(s) Facility NSAIDs (1 source) Naproxen Drug Allergy 09-12-19 18 Hives [facility] Unclassified (8 sources) Antihistamines - Alkylamine; Translations: [ANTIHISTAMINES - ALKYLAMINE] Allergy to substance 12-31-19 16 Anxiety [facility] (15 sources) diphenhydrAMINE Drug Allergy Anxiety attack [facility] Other (20 sources) Naproxen; Translations: [NAPROXEN] Drug Allergy 12-31-19 16 rash [facility] (10 sources) atorvastatin Drug Allergy legs shaking [facility] Other (1 source) varenicline; Translations: [VARENICLINE] Drug Allergy 10-11-19 23 [facility] (1 source) atorvastatin Drug Allergy 05-25-19 24 [facility] (1 source) Naproxen Drug Allergy 05-25-19 24 [facility] Medications Current Medications Medication Drug Class(es) Dates Sig (Normalized) Sig (Original) [id number] 200 actuat albuterol 0.09 mg/actuat metered dose [...] 1:00am February 02, 2020 11:49am estrogens, conjugated (fci) 0.625 mg oral tablet (20 sources) Estrogen Start: 05-08-2017 Premarin 0.625 MG 1 tablet Orally Daily for Three Weeks, 1 Week off for 30 day(s) Apr, Active Famotidine (15 sources) Histamine-2 Receptor Antagonist Pepcid Orally On ce a day Active fluticasone propionate 0.05 mg/actuat [...] 2.5 ug by inhalation twice daily Tiotropium [place] (Spiriva Respimat) 2.5 mcg/actuation mist Active 2 [...] mg/ml oral solution (6 sources) Phenothiazine, Uncompetitive V-xmsqzb-F-aspartat e Receptor Antagonist, Sigma-1 Agonist Start: 8 [...] oral capsule (11 sources) Tetracycline-class Drug Start: End: take 100 mg by mouth twice daily [...] mealtime Prednisone Discontinued 60 MG PO Daily 25 07September 14, 2017 12:00am January 30, 2020 4:32pm [...] 12:06pm administer with food or milk Problems Problem Classification Problem Date Documented Da te Episodic/Chronic Abdominal pain (3 sources) Epigastric pain; Translations: [Lower abdominal pain, unspecified] Onset: 4 Episodic Alcohol-related disorders (15 sources) Alcohol withdrawal syndrome; [...] without esophagitis] Onset: 1 Resolved: 1 Chronic Menopausal disorders (5 sources) Menopausal syndrome; [...] arm, initial encounter] 01-30-2020 Episodic Thyroid disorders (1 source) Hypothyroidism, unspecified; Translations: [Hypothyroidism, unspecified] Onset: 3 Chronic Results Test Name Value Interpretation Reference Range Facility Thyroid Stim Hormone w/Rflxo n 10-10-2022 Thyroid Stim Hormone w/Rflx 18.34 u[iU]/mL High 0.45-5.33 [facility] Comment on above: Order Comment: Reaso n for Exam Hypothyroidism, unspecified type Result Comment: PERF ORMED BY: [place] [address] PATHOLOGIST [employer]ICIP[employer] FIREFIGHTER GISELLE ALVAREZ M.D. Performed By: #### T SH3 wRFLX, T4F #### [facility] [address] [place] [address] Thyrotropin [Units/volume] i n Serum or PlasmaOrdered By: Jarred Levy on 10-10-2022 TSH Qn 18.34 m[IU]/L 0.45-5.33 [facility] Thyroxine (T4) free [Mass/vo lume] in Serum or PlasmaOrdered By: Jarred Levy on 10-10-2022 Free T4 [Mass/Vol] 0.56 ng/dL Low 0.61-1.12 [facility] Comment on above: Order Comment: Reaso n for Exam Hypothyroidism, unspecified type Performed By: #### T SH3 wRFLX, T4F #### [facility] [address] [place] [address] Alanine aminotransferase [En zymatic activity/volume] in Serum or PlasmaOrdered By: Cecilio Epps on 08-10-2022 ALT [Catalytic activity/Vol] 11 U/L 7-52 [facility] Albumin [Mass/volume] in Ser um or Plasma by Bromocresol green (BCG) dye binding methoOrdered By: Cecilio Epps on 08-10-2022 Albumin BCG dye [Mass/Vol] 4.2 g/dL 3.5-5.7 [facility] Alkaline phosphatase [Enzyma tic activity/volume] in Serum or PlasmaOrdered By: Cecilio Epps on 08-10-2022 ALP [Catalytic activity/Vol] 56 U/L 34-104 [facility] Aspartate aminotransferase [ Enzymatic activity/volume] in Serum or PlasmaOrdered By: Cecilio Epps on 08-10-2022 AST [Catalytic activity/Vol] 13 U/L 13-39 [facility] Basophils Auto (Bld) [#/Vol] Ordered By: Cecilio Epps on 08-10-2022 Basophils (Bld) [#/Vol] 0.0 10*3/uL 0.0-0.2 [facility] Basophils/100 WBC Auto (Bld) Ordered By: Cecilio Epps on 08-10-2022 Basophils/100 WBC (Bld) 0.6 % . F [facility] Bilirubin.total [Mass/volume ] in Serum or PlasmaOrdered By: Cecilio Epps on 08-10-2022 Bilirubin [Mass/Vol] 0.6 mg/dL 0.3-1.0 [facility] Calcium [Mass/volume] in Ser um or PlasmaOrdered By: Cecilio Epps on 08-10-2022 Calcium [Mass/Vol] 8.6 mg/dL 8.6-10.3 [facility] Carbon dioxide, total [Moles /volume] in Serum or PlasmaOrdered By: Cecilio Epps on 08-10-2022 CO2 [Moles/Vol] 28.4 mmol/L 21.0-31.0 [facility] Chloride [Moles/volume] in S teresa or PlasmaOrdered By: Cecilio Epps on 08-10-2022 Chloride [Moles/Vol] 104 mmol/L 98-107 [facility] Creatinine [Mass/volume] in Serum or PlasmaOrdered By: Cecilio Epps on 08-10-2022 Creatinine [Mass/Vol] 0.99 mg/dL 0.60-1.20 [facility] Eosinophils Auto (Bld) [#/Vo l]Ordered By: Cecilio Epps on 08-10-2022 Eosinophils (Bld) [#/Vol] 0.1 10*3/uL 0.0-0.45 [facility] Eosinophils/100 WBC Auto (Bl d)Ordered By: Cecilio Epps on 08-10-2022 Eosinophils/100 WBC (Bld) 1.0 % . [facility] Erythrocyte distribution wid th Auto (RBC) [Ratio]Ordered By: Cecilio Epps on 08-10-2022 Erythrocyte distribution width (RBC) [Ratio] 14.9 % 11.9-15.3 [facility] Folate [Mass/volume] in Seru m or PlasmaOrdered By: Cecilio Epps on 08-10-2022 Folate [Mass/Vol] 4.9 ng/mL >5.9 [facility] Comment on above: Folate reference ran ge: >5.9 ng/mlThe WHO technical consultation on folate and vitamin [id number] has determined that folate concentrations lessthan 4 ng/ml are considered deficient. Globulin Calc (S) [Mass/Vol] Ordered By: Cecilio Epps on 08-10-2022 Globulin (S) [Mass/Vol] 2.4 g/dL F [facility] Glucose [Mass/volume] in Ser um or PlasmaOrdered By: Cecilio Epps on 08-10-2022 Glucose [Mass/Vol] 83 mg/dL 70-100 [facility] Comment on above: ADA recommended refe rence rangeRandom Glucose Reference Range is dependent on time and content of last meal. Glucose of more than 200 mg/dL in a nonstressed, ambulatory subject supports the diagnosis of Diabetes Mellitus. Hematocrit Auto (Bld) [Volum e fraction]Ordered By: Cecilio Epps on 08-10-2022 Hematocrit (Bld) [Volume fraction] 41.1 % 34.0-46.4 [facility] Hemoglobin [Mass/volume] in BloodOrdered By: Cecilio Epps on 08-10-2022 Hemoglobin (Bld) [Mass/Vol] 14.0 g/dL 11.8-15.4 [facility] Hepatitis C virus IgG Ab [Pr esence] in Serum or Plasma by ImmunoassayOrdered By: Cecilio Epps on 08-10-2022 HCV IgG IA Ql Non-Reactive Non Reactive [facility] Hepatitis C virus RNA [Units /volume] (viral load) in Serum or Plasma by ONEIL with probOrdered By: Cecilio Epps on 08-10-2022 HCV RNA ONEIL+probe Qn N/A [facility] Hepatitis C virus RNA [log u nits/volume] (viral load) in Serum or Plasma by ONEIL withOrdered By: Cecilio Epps on 08-10-2022 HCV RNA ONEIL+probe [Log units/Vol] N/A [facility] Leukocytes [#/volume] correc rosalia for nucleated erythrocytes in Blood by Automated counOrdered By: Cecilio Epps on 08-10-2022 WBC corrected for nucl RBC Auto (Bld) [#/Vol] 5.9 10*3/uL 3.8-11.6 [facility] Lymphocytes Auto (Bld) [#/Vo l]Ordered By: Cecilio Epps on 08-10-2022 Lymphocytes (Bld) [#/Vol] 1.6 10*3/uL 1.00-4.8 [facility] Lymphocytes/100 WBC Auto (Bl d)Ordered By: Cecilio Epps on 08-10-2022 Lymphocytes/100 WBC (Bld) 27.8 % . [facility] MCH Auto (RBC) [Entitic mass ]Ordered By: Cecilio Epps on 08-10-2022 MCH (RBC) [Entitic mass] 32.7 pg 24.7-34.3 [facility] MCHC Auto (RBC) [Mass/Vol]Or dered By: Cecilio Epps on 08-10-2022 MCHC (RBC) [Mass/Vol] 34.0 g/dL 32.0-35.0 [facility] MCV Auto (RBC) [Entitic vol] Ordered By: Cecilio Epps on 08-10-2022 MCV (RBC) [Entitic vol] 96.2 fL 80-[address] [facility] Monocytes Auto (Bld) [#/Vol] Ordered By: Cecilio Epps on 08-10-2022 Monocytes (Bld) [#/Vol] 0.5 10*3/uL 0.0-0.8 [facility] Monocytes/100 WBC Auto (Bld) Ordered By: Cecilio Epps on 08-10-2022 Monocytes/100 WBC (Bld) 8.0 % . F [facility] Neutrophils Auto (Bld) [#/Vo l]Ordered By: Cecilio Epps on 08-10-2022 Neutrophils (Bld) [#/Vol] 3.7 10*3/uL 1.8-7.7 [facility] Neutrophils/100 WBC Auto (Bl d)Ordered By: Cecilio Epps on 08-10-2022 Neutrophils/100 WBC (Bld) 62.6 % . [facility] No Panel InformationOrdered By: Cecilio Epps on 08-10-2022 Estimated GFR (CKD-EPI) > 60.0 mL/Min [facility] Hepatitis B Core Total Antibody Negative Negative [facility] Comment on above: Performed at: [place] [id number] Director: Tadeo Rosado PhD, Phone: [phone] Hepatitis C Interpretation See comment . [facility] Comment on above: Not infected with HC V unless early or acute infection issuspected (which may be delayed in an immunocompromisedindividual), or other evidence exists to indicate HCVinfection. Hepatitis C RNA Quantitative N/A [facility] Creatinine Clearance (Chem N/A [facility] Nucleated erythrocytes [Pres ence] in Blood by Automated countOrdered By: Cecilio Epps on 08-10-2022 Nucleated RBC Auto Ql (Bld) 0.1 /100{WBC} 0-0.5 [facility] Platelet mean volume Auto (B ld) [Entitic vol]Ordered By: Cecilio Epps on 08-10-2022 Platelet mean volume (Bld) [Entitic vol] 10.1 fL 6.3-10.7 [facility] Platelets Auto (Bld) [#/Vol] Ordered By: Cecilio Epps on 08-10-2022 Platelets (Bld) [#/Vol] 143 10*3/uL 150-450 [facility] Potassium [Moles/volume] in Serum or PlasmaOrdered By: Cecilio Epps on 08-10-2022 Potassium [Moles/Vol] 3.8 mmol/L 3.5-5.1 [facility] Protein [Mass/volume] in Ser um or PlasmaOrdered By: Cecilio Epps on 08-10-2022 Protein [Mass/Vol] 6.6 g/dL 6.4-8.9 [facility] RBC Auto (Bld) [#/Vol]Ordere d By: Cecilio Epps on 08-10-2022 RBC (Bld) [#/Vol] 4.28 10*6/uL 3.60-5.[address] [facility] Serum hepatitis B virus surf beverley antibody detectionOrdered By: Cecilio Epps on 08-10-2022 HBV surface Ab Ql (S) Non-Reactive . F [facility] Comment on above: Non Reactive: Incons istent with immunity, less than 10 mIU/mL Reactive: Consistent with immunity, greater than 9.9 mIU/mL Serum or plasma albumin/glob ulin mass ratioOrdered By: Cecilio Epps on 08-10-2022 Albumin/Globulin [Mass ratio] 1.8 {ratio} [facility] Serum or plasma anion gap de terminationOrdered By: Cecilio Epps on 08-10-2022 Anion gap [Moles/Vol] 11.4 mmol/L 6.0-15.0 [facility] Sodium [Moles/volume] in Ser um or PlasmaOrdered By: Cecilio Epps on 08-10-2022 Sodium [Moles/Vol] 140 mmol/L 136-145 [facility] Thyrotropin [Units/volume] i n Serum or PlasmaOrdered By: Cecilio Epps on 08-10-2022 TSH Qn 21.80 m[IU]/L 0.45-5.33 [facility] Thyroxine (T4) free [Mass/vo lume] in Serum or PlasmaOrdered By: Cecilio Epps on 08-10-2022 Free T4 [Mass/Vol] 0.28 ng/dL 0.61-1.12 [facility] Urea nitrogen [Mass/volume] in Serum or PlasmaOrdered By: Cecilio Epps on 08-10-2022 Urea nitrogen [Mass/Vol] 16 mg/dL 7-25 [facility] Vitamin B12 ser/plasOrdered By: Cecilio Epps on 08-10-2022 Cobalamin (Vitamin B12) [Mass/Vol] 164 pg/mL 180-914 [facility] Vitamin D+Metabolites [Mass/ volume] in Serum or PlasmaOrdered By: Cecilio Epps on 08-10-2022 Vitamin D+Metabolites [Mass/Vol] 29.4 ng/mL 30-100 [facility] Comment on above: VITAMIN D STATUS 25( [place])VITAMIN D RANGE (ng/mL) Deficient <20 Insufficient 20 to <30Sufficient 30 to 100Reference: Kasandra MF,Gagandeep CHATMAN, Vadim CISNEROS, et al. Evaluation,treatment, and prevention of vitamin D deficiency; an Endocrine Society clinical practice guideline. JCEM. 2010; 96(7):1911-30. WBC Auto (Bld) [#/Vol]Ordere d By: Cecilio Epps on 08-10-2022 WBC (Bld) [#/Vol] 5.9 10*3/uL 3.8-11.6 [facility] Thyrotropin [Units/volume] i n Serum or PlasmaOrdered By: Cecilio Epps on 06-06-2022 TSH Qn 6.15 m[IU]/L 0.45-5.33 [facility] Thyroxine (T4) [Mass/volume] in Serum or PlasmaOrdered By: Cecilio Epps on 06-06-2022 T4 [Mass/Vol] 7.70 ug/dL 5.39-11.82 [facility] Triiodothyronine (T3) [Mass/ volume] in Serum or PlasmaOrdered By: Cecilio Epps on 06-06-2022 T3 [Mass/Vol] 1.01 ng/mL 0.87-1.78 [facility] TSH DL <= 0.005 mIU/L QnOrde red By: Cecilio Epps on 02-16-2022 TSH Qn 8.27 m[IU]/L 0.45-5.33 [facility] Thyroxine (T4) free [Mass/vo lume] in Serum or PlasmaOrdered By: Cecilio Epps on 02-16-2022 Free T4 [Mass/Vol] 0.59 ng/dL 0.61-1.12 [facility] TSH DL <= 0.005 mIU/L QnOrde red By: Cecilio Epps on 12-29-2021 TSH Qn 25.89 m[IU]/L 0.45-5.33 [facility] Thyroxine (T4) free [Mass/vo lume] in Serum or PlasmaOrdered By: Cecilio Epps on 12-29-2021 Free T4 [Mass/Vol] 0.37 ng/dL 0.61-1.12 [facility] Albumin [Mass/volume] in Ser um or Plasmaon 07-29-2020 Albumin [Mass/Vol] 4.0 g/dL 3.2-5.5 [facility] Creatinine and Glomerular fi ltration rate.predicted panel (S/P/Bld)on 07-29-2020 Creatinine [Mass/Vol] 0.77 mg/dL 0.44-1.03 [facility] Estimated glomerular filtrat ion rate (GFR) non- Americanon 07-29-2020 GFR/1.73 sq M.predicted among non-blacks MDRD (S/P/Bld) [Vol rate/Area] > 60 mL/Min [facility] Globulin Calc (S) [Mass/Vol] on 07-29-2020 Globulin (S) [Mass/Vol] 2.5 g/dL [facility] No Panel Informationon 07-29 Estimated GFR () > 60 mL/Min [facility] Comment on above: GFR estimated refere nce range: According to KDOQI guidelines, <60 ml/min/1.73m2 is sufficient to diagnose a patient with chronic kidney disease. Pharmacy Creatinine Clearance (Chem N/A [facility] Protein [Mass/volume] in Ser um or Plasmaon 07-29-2020 Protein [Mass/Vol] 6.5 g/dL 6.1-7.9 [facility] Serum or plasma alanine goode otransferase measurement without P-5'-P (enzymatic activion 07-29-2020 ALT No additional P-5'-P [Catalytic activity/Vol] 36 U/L 10-60 [facility] Serum or plasma albumin/glob ulin mass ratioon 07-29-2020 Albumin/Globulin [Mass ratio] 1.6 {ratio} [facility] Serum or plasma alkaline krysta sphatase measurement (enzymatic activity/volume)on 07-29-2020 ALP [Catalytic activity/Vol] 44 U/L 32-92 [facility] Serum or plasma aspartate am inotransferase measurement (enzymatic activity/volume)on 07-29-2020 AST [Catalytic activity/Vol] 24 U/L 10-42 [facility] Serum or plasma calcium zayra urement (mass/volume)on 07-29-2020 Calcium [Mass/Vol] 9.4 mg/dL 8.2-10.2 [facility] Serum or plasma chloride dayanna surement (moles/volume)on 07-29-2020 Chloride [Moles/Vol] 102 mmol/L 95-114 [facility] Serum or plasma glucose zayra urement (mass/volume)on 07-29-2020 Glucose [Mass/Vol] 80 mg/dL 70-100 [facility] Comment on above: ADA recommended refe rence rangeRandom Glucose Reference Range is dependent on time and content of last meal. Glucose of more than 200 mg/dL in a nonstressed, ambulatory subject supports the diagnosis of Diabetes Mellitus. Serum or plasma potassium me asurement (moles/volume)on 07-29-2020 Potassium [Moles/Vol] 4.1 mmol/L 3.5-5.1 [facility] Serum or plasma sodium measu rement (moles/volume)on 07-29-2020 Sodium [Moles/Vol] 137 mmol/L 136-146 [facility] Serum or plasma total biliru bin measurement (mass/volume)on 07-29-2020 Bilirubin [Mass/Vol] 0.5 mg/dL 0.3-1.2 [facility] Serum or plasma total carbon dioxide measurement (moles/volume)on 07-29-2020 CO2 [Moles/Vol] 27.5 mmol/L 22.0-30.0 [facility] Serum or plasma urea nitroge n measurement (mass/volume)on 07-29-2020 Urea nitrogen [Mass/Vol] 12 mg/dL 9-23 [facility] TSH DL <= 0.005 mIU/L Qnon 0 07-29-2020 TSH Qn 16.84 m[IU]/L 0.45-5.33 [facility] Thyroxine (T4) free [Mass/vo lume] in Serum or Plasmaon 07-29-2020 Free T4 [Mass/Vol] 0.57 ng/dL 0.61-1.12 [facility] Drug Scr, Abuse, Uron 2016 Amphetamine(s),Ur Negative Normal NEG [facility] Comment on above: Result Comment: (Pos itive cutoff 1000 ng/mL) Performed By: #### U LACI Ryder ALDEN ####[address] [address] Barbiturate(s),Ur Negative Normal NEG [facility] Comment on above: Result Comment: (Pos itive cutoff 200 ng/mL) Performed By: #### LACI Arias DAU ####[address] [address] Base excess Negative Normal NEG [facility] Comment on above: Result Comment: (Pos itive cutoff 300 ng/mL) Performed By: #### U LACI Ryder ALDEN ####[address] [address] Benzodiazepine(s) Positive Abnormal NEG [facility] Comment on above: Result Comment: (Pos itive cutoff 200 ng/mL) Performed By: #### U ALACI ALDEN ####[address] [address] Cannabinoid(s),Ur Negative Normal NEG [facility] Comment on above: Result Comment: (Pos itive cutoff 50 ng/mL) Performed By: #### U ALACI ALDEN ####[address] [address] Interpretive Info Assay provides medical screening only. The absence of expected drug(s) and/or Normal [facility] Comment on above: Result Comment: meta bolite(s) may indicate diluted or adulterated urine, limitations of testing or timing of collection.Testing for legal purposes should be confirmed by another method. To request confirmation of test result, please call the lab within 7 days of sample submission.Performed at [facility] [address] [place] [address] Performed By: #### U ALACI ALDEN ####[facility] [place] [address] Opiate(s), Ur Negative Normal NEG [facility] Comment on above: Result Comment: (Pos itive cutoff 300 ng/mL) Performed By: #### U ALACI ALDEN ####[address] [address] Oxycodone, Urine Negative Normal NEG [facility] Comment on above: Result Comment: (Pos itive cutoff 100 ng/mL) Performed By: #### U ALACI ALDEN ####[address] [address] Phencyclidine, Ur Negative Normal NEG [facility] Comment on above: Result Comment: (Pos itive cutoff 25 ng/mL) Performed By: #### U ALACI ALDEN ####[address] [place] [address] Urine, methadone presence Negative Normal NEG [facility] Comment on above: Result Comment: (Pos itive cutoff 300 ng/mL) Performed By: #### U A UMCARLAO ALDEN ####[address] [address] Buprenorphrine, Ur NOT REPORTED Normal NEG [facility] Comment on above: Performed By: #### U A, UMICAO, ALDEN ####[address] [address] MDMA, Urine NOT REPORTED Normal NEG [facility] Comment on above: Performed By: #### U A, UMICAO, ALDEN ####[address] [address] Methamphetamine, Ur NOT REPORTED Normal NEG [facility] Comment on above: Performed By: #### U A, UMICAO, ALDEN ####[address] [address] Propoxyphene,Urine NOT REPORTED Normal NEG [facility] Comment on above: Performed By: #### U A, UMICAO, ALDEN ####[address] [address] Urine, tricyclic antidepressants NOT REPORTED Normal NEG [facility] Comment on above: Performed By: #### U A, UMICAO, ALDEN ####[address] [address] Urinalysis, Routineon 2016 Acetaminophen mass conc Negative Normal NEG [facility] Comment on above: Performed By: #### U A, UMICAO, ALDEN ####[address] [address] Bilirubin (direct) Negative Normal NEG [facility] Comment on above: Performed By: #### U A, UMICAO, ALDEN ####[address] [address] Hemoglobin mass conc (Bld) Negative Normal NEG [facility] Comment on above: Performed By: #### U A, UMICAO, ALDEN ####[address] [address] Nitrite,Ur Negative Normal NEG [facility] Comment on above: Performed By: #### U APAULO, ALDEN ####[address] [address] Turbidity CLOUDY Abnormal CLEAR [facility] Comment on above: Performed By: #### U A, UMCARLAO, ALDEN ####[address] [place] [address] Urine, color YELLOW Normal YEL [facility] Comment on above: Performed By: #### U APAULO, ALDEN ####[address] [address] Urine, glucose presence Negative Normal NEG [facility] Comment on above: Performed By: #### U A UMCARLAO, ALDEN ####[address] [place] [address] Urine, leukocyte esterase presence TRACE Abnormal NEG [facility] Comment on above: Result Comment: Perf ormed at [facility] [address] [facility] [address] Performed By: #### U A, UMCARLAO, ALDEN ####[address] [place] [address] Urine, pH 5.5 [pH] Normal 5.0-8.0 [facility] Comment on above: Performed By: #### U A, UMICAO, ALDEN ####[address] [address] Urine, protein presence Negative Normal NEG [facility] Comment on above: Performed By: #### U A, UMICAO, ALDEN ####[address] [address] Urine, specific gravity 1.012 Normal 1.000-1.030 [facility] Comment on above: Performed By: #### LACI Arias DAU ####[address] [address] Urobilinogen,Ur Normal Normal NORM [facility] Comment on above: Performed By: #### LACI Arias ALDEN ####[address] [address] Comment NOT REPORTED Normal [facility] Comment on above: Performed By: #### LACI Arias DAU ####[address] [address] Urinalysis,Microon 7 ----- Normal [facility] Comment on above: Performed By: #### LACI Arias ALDEN ####[address] [place] [address] Mucus Strands 1+ Abnormal NONE [facility] Comment on above: Performed By: #### LACI Arias ALDEN ####[address] [place] [address] Urine WBC's 2 TO 5 Normal [facility] Comment on above: Performed By: #### LACI Arias ALDEN ####[address] [place] [address] Urine, amorphous sediment presence in sediment 1+ Abnormal NONE [facility] Comment on above: Result Comment: Perf ormed at [facility] [address] [place] [address] Performed By: #### U ALACI, ALDEN ####[address] [address] Urine, bacteria in sediment MODERATE Abnormal NONE [facility] Comment on above: Performed By: #### LACI Arias DAU ####[address] [address] Urine, erythrocytes 0 TO 2 Normal [facility] Comment on above: Performed By: #### LACI Arias DAU ####[address] [address] Epithelial, Renal NOT REPORTED Normal 0 [facility] Comment on above: Performed By: #### LACI Arias DAU ####[address] [address] Other Observations NOT REPORTED Normal NREQ [facility] Comment on above: Performed By: #### LACI Arias DAU ####[address] [place] [address] Trichomonas NOT REPORTED Normal NONE [facility] Comment on above: Performed By: #### LACI Arias DAU ####[address] [address] Urine, casts in sediment NOT REPORTED Normal [facility] Comment on above: Performed By: #### LACI Arias DAU ####[address] [place] [address] Urine, crystals in sediment NOT REPORTED Normal NONE [facility] Comment on above: Performed By: #### LACI Arias DAU ####[address] [address] Urine, epithelial cells in sediment NOT REPORTED Normal [facility] Comment on above: Performed By: #### LACI Arias DAU ####[address] [place] [address] Urine, yeast presence in sediment NOT REPORTED Normal NONE [facility] Comment on above: Performed By: #### U LACI Ryder DAU ####[address] [address] CBC with Diffon 09-16-2016 Abs. Basophil 0.10 k/uL Normal 0.0-0.2 [facility] Comment on above: Result Comment: Perf ormed at [facility] [address] [place] [address] Performed By: #### C DP, CP ####[address] [address] Abs.Neutrophil (Seg) 3.70 k/uL Normal 1.3-9.1 [facility] Comment on above: Performed By: #### C DP, CP ####[address] [address] Basophils/100 WBC Auto (Bld) 1 % Normal [facility] Comment on above: Performed By: #### C DP, CP ####[address] [address] Eosinophils 0.20 10*3/uL Normal 0.0-0.4 [facility] Comment on above: Performed By: #### C DP, CP ####[address] [address] Eosinophils/100 leukocytes 3 % Normal [facility] Comment on above: Performed By: #### C DP, CP ####[address] [address] Erythrocyte distribution width Auto Ratio (RBC) 13.9 % Normal 11.5-14.9 [facility] Comment on above: Performed By: #### C DP, CP ####[facility] [facility] [place] [address] Erythrocytes (RBC) 4.36 10*6/uL Normal 4.0-5.2 [facility] Comment on above: Performed By: #### C DP, CP ####[facility] [place] [address].[place] [address] Hematocrit (HCT) 42.6 % Normal 36-46 [facility] Comment on above: Performed By: #### C DP, CP ####[facility] [place] [address] Hemoglobin mass conc (Bld) 14.4 g/dL Normal 12.0-16.0 [facility] Comment on above: Performed By: #### C DP, CP ####[facility] [place] [address].[place] [address] Lymphocytes 2.00 10*3/uL Normal 1.0-4.8 [facility] Comment on above: Performed By: #### C DP, CP ####[address] [address] Lymphocytes/100 leukocytes 31 % Normal [facility] Comment on above: Performed By: #### C DP, CP ####[facility] [place] [address].[place] [address] MCH 33.0 pg Normal 26-34 [facility] Comment on above: Performed By: #### C DP, CP ####[facility] [place] [address].[place] [address] MCHC mass conc (RBC) 33.7 g/dL Normal 31-37 [facility] Comment on above: Performed By: #### C DP, CP ####[address] [address] MCV 97.7 fL Normal 80-100 [facility] Comment on above: Performed By: #### C DP, CP ####[facility] [place] [address] Monocytes 0.70 10*3/uL Normal 0.1-1.3 [facility] Comment on above: Performed By: #### C DP, CP ####[facility] [place] [address] Monocytes/100 leukocytes 10 % Normal [facility] Comment on above: Performed By: #### C DP, CP ####[address] [address] Neutrophil (Seg) 55 % Normal [facility] Comment on above: Performed By: #### C DP, CP ####[address] [address] Platelet mean volume (PMV) 9.7 fL Normal 6.0-12.0 [facility] Comment on above: Performed By: #### C DP, CP ####[address] [address] Platelets 165 10*3/uL Normal 150-450 [facility] Comment on above: Performed By: #### C DP, CP ####[address] [address] WBC (Leukocytes) 6.7 10*3/uL Normal 3.5-11.[address] [facility] Comment on above: Performed By: #### C DP, CP ####[address] [address] Auto Diff Performed NOT REPORTED Normal [facility] Comment on above: Performed By: #### C DP, CP ####[address] [address] Erythrocyte morphology NOT REPORTED Normal [facility] Comment on above: Performed By: #### C DP, CP ####[address] [address] Platelets NOT REPORTED Normal [facility] Comment on above: Performed By: #### C DP, CP ####[address] [address] WBC Morphology NOT REPORTED Normal [facility] Comment on above: Performed By: #### C DP, CP ####[address] [address] Comp Metabolic Profon 2016 (cont.) Normal [facility] Comment on above: Result Comment: Aver age GFR for 40-49 years old: 99 mL/min/1.73sq mChronic Kidney Disease: <60 mL/min/1.73sq mKidney failure: <15 mL/min/1.73sq meGFR calculated using average adult body mass. Additional eGFR calculator available at:http://[email or web address]/multiple_crcl_2012.htmPerformed at [facility] [address] [place] [address] Performed By: #### C DP, CP ####[address] [address] Alanine aminotransferase (ALT) 33 U/L Normal 5-33 [facility] Comment on above: Performed By: #### C DP, CP ####[address] [address] Albumin 4.0 g/dL Normal 3.5-5.2 [facility] Comment on above: Performed By: #### C DP, CP ####[address] [address] Alkaline Phos 64 U/L Normal 35-104 [facility] Comment on above: Performed By: #### C DP, CP ####[address] [address] Anion gap 12 mmol/L Normal 9-17 [facility] Comment on above: Performed By: #### C DP, CP ####[address] [address] Aspartate aminotransferase (AST) 37 U/L High <32 [facility] Comment on above: Performed By: #### C DP, CP ####[address] [address] Bilirubin Ql (U) 0.24 mg/dL Low 0.3-1.2 [facility] Comment on above: Performed By: #### C DP, CP ####[address] [address] Calcium 9.3 mg/dL Normal 8.6-10.4 [facility] Comment on above: Performed By: #### C DP, CP ####[address] [address] Chloride 98 mmol/L Normal 98-107 [facility] Comment on above: Performed By: #### C DP, CP ####[address] [address] CO2 27 mmol/L Normal 20-31 [facility] Comment on above: Performed By: #### C DP, CP ####[address] [address] Creatinine 0.60 mg/dL Normal 0.50-0.90 [facility] Comment on above: Performed By: #### C DP, CP ####[address] [place] [address] eGFR (non-black) mL/min/{1.73_m2} Normal >60 [facility] Comment on above: Performed By: #### C DP, CP ####[facility] [facility] [place] [address] Glucose mass conc 108 mg/dL High 70-[address] [facility] Comment on above: Performed By: #### C DP, CP ####[facility] [place] [address].[place] [address] Potassium molar conc 4.8 mmol/L Normal 3.7-5.3 [facility] Comment on above: Performed By: #### C DP, CP ####[address] [address] Protein 6.9 g/dL Normal 6.4-8.3 [facility] Comment on above: Performed By: #### C DP, CP ####[facility] [place] [address] Sodium 137 mmol/L Normal 135-144 [facility] Comment on above: Performed By: #### C DP, CP ####[address] [place] [address] Urea nitrogen 21 mg/dL High 6-20 [facility] Comment on above: Performed By: #### C DP, CP ####[address] [place] [address] Albumin/Globulin Ratio NOT REPORTED Normal 1.0-2.5 [facility] Comment on above: Performed By: #### C DP, CP ####[address] [address] BUN/CRE Ratio NOT REPORTED Normal 9-20 [facility] Comment on above: Performed By: #### C DP, CP ####[facility] [facility] [place] [address] Staging: NOT REPORTED Normal [facility] Comment on above: Performed By: #### C DP, CP ####[facility] [facility] [place] [address] Vital Signs Date Time Vital Sign Value Performing Clinician Faci litharris 06-01-2022 12:30-0400 Body height 157.48 cm Geo Coy Other [facility] Other 06-01-2022 12:30-0400 Body mass index (BMI) [Ratio] 29.99 kg/m2 Geo Coy Other [facility] Other 06-01-2022 12:30-0400 Body temperature 96.8 [degF] Geo Coy Other [facility] Other 06-01-2022 12:30-0400 Body weight 74.39 kg Geo Coy Other [facility] Other 06-01-2022 12:30-0400 Diastolic blood pressure 75 mm[Hg] Geo Coy Other [facility] Other 06-01-2022 12:30-0400 Respiratory rate 20 /min Geo Coy Other [facility] Other 06-01-2022 12:30-0400 SaO2% (BldA) [Mass fraction] 97 % Geo Coy Other [facility] Other 06-01-2022 12:30-0400 Systolic blood pressure 119 mm[Hg] Geo Mcculloughdano Other [facility] Other 01-11-2021 10:30-0400 Body height 157.48 cm Geo Mcculloughdano Other [facility] Other 01-11-2021 10:30-0400 Body mass index (BMI) [Ratio] 27.8 kg/m2 Geo Mcculloughdano Other [facility] Other 01-11-2021 10:30-0400 Body temperature 97.6 [degF] Meirer Zbigniew Other [facility] Other 01-11-2021 10:30-0400 Body weight 68.95 kg Geo Mcculloughdano Other [facility] Other 01-11-2021 10:30-0400 Diastolic blood pressure 70 mm[Hg] Jadenyareliser Zbigniew Other [facility] Other 01-11-2021 10:30-0400 Respiratory rate 20 /min Meirer Zbigniew Other [facility] Other 01-11-2021 10:30-0400 SaO2% (BldA) [Mass fraction] 97 % Meirer Zbigniew Other [facility] Other 01-11-2021 10:30-0400 Systolic blood pressure 100 mm[Hg] Christyareliser Zbigniew Other [facility] Other Encounters Encounter Date Encounter Type Care Provider Facility Start: 08-28-2023 ambulatory Idris Rogers acility:[facility] Start: 07-04-2023 End: 07-04-2023 ambulatory [facility] Start: 04-18-2023 End: 04-18-2023 ambulatory Christopher Zbigniew Other [facility] Other Start: 04-18-2023 Telephone encounter Geo hoango [facility] Start: 04-04-2023 End: 04-04-2023 ambulatory Christopher Zbigniew Other [facility] Other Start: 04-04-2023 Telephone encounter Christyareliser Jamel maegan [facility] Start: 01-13-2023 End: 01-13-2023 ambulatory Christopher Zbigniew Other [facility] Other Start: 01-13-2023 Telephone encounter Christyareliser Jamel maegan [facility] Start: 10-26-2022 End: 10-26-2022 ambulatory Christopher Zbigniew Other [facility] Other Start: 10-26-2022 Telephone encounter Christyareliser Jamel maegan [facility] Start: 10-24-2022 End: 10-24-2022 ambulatory Christopher Zbigniew Other [facility] Other Start: 10-24-2022 Telephone encounter Christyareliser Jamel maegan [facility] Start: 10-10-2022 End: 10-10-2022 ambulatory [facility] Work Phone: [facility] Work Phone: Start: 10-10-2022 End: 10-10-2022 Departed Referred Services [facility] Work Phone: [facility] Start: 08-10-2022 End: 08-10-2022 ambulatory [facility] Work Phone: [facility] Work Phone: Start: 08-10-2022 End: 08-10-2022 Patient encounter procedure Services [facility] Work Phone: [facility] [place] Work Phone: Start: 07-25-2022 Registered Recurring Services [facility] Work Phone: [facility] Start: 06-06-2022 End: 06-06-2022 ambulatory [facility] Work Phone: [facility] Work Phone: Start: 06-06-2022 End: 06-06-2022 Departed Referred Services [facility] Work Phone: [facility] Start: 06-01-2022 End: 06-01-2022 ambulatory Christyareliser Zbigniew Other [facility] Other Start: 06-01-2022 Office outpatient visit 15 minutes Geo Mcculloughdano [facility] Start: 05-23-2022 End: 05-23-2022 ambulatory Christopher Zbigniew Other [facility] Other Start: 05-23-2022 Telephone encounter Geo Jamel maegan [facility] Start: 05-04-2022 End: 05-04-2022 ambulatory [facility] Work Phone: [facility] Work Phone: Start: 05-04-2022 End: 05-04-2022 Patient encounter procedure Services [facility] Work Phone: [facility] [place] Work Phone: Start: 04-05-2022 End: 04-05-2022 ambulatory Christopher Zbigniew Other [facility] Other Start: 04-05-2022 Telephone encounter Christshannon Jamel maegan [facility] Start: 03-21-2022 End: 03-21-2022 ambulatory Christopher Zbigniew Other [facility] Other Start: 03-21-2022 Telephone encounter Geo hoango [facility] Start: 02-16-2022 End: 02-16-2022 Departed Referred Services [facility] Work Phone: [facility] Start: 01-18-2022 End: 01-18-2022 ambulatory Christopher Zbigniew Other [facility] Other Start: 01-18-2022 Telephone encounter Geo hoango [facility] Start: 12-29-2021 End: 12-29-2021 ambulatory Services [facility] Work Phone: [facility] Work Phone: Start: 12-29-2021 End: 12-29-2021 Departed Referred Services [facility] Work Phone: [facility] Start: 06-23-2021 End: 06-23-2021 ambulatory Christopher Zbigniew Other [facility] Other Start: 06-23-2021 Telephone encounter Geo hoango [facility] Start: 03-17-2021 End: 03-17-2021 ambulatory Christopher Zbigniew Other [facility] Other Start: 03-17-2021 Telephone encounter Geo hoango [facility] Start: 03-16-2021 End: 03-16-2021 ambulatory Christopher Zbigniew Other [facility] Other Start: 03-16-2021 Telephone encounter Geo Mccullough maegan [facility] Start: 01-25-2021 End: 01-25-2021 ambulatory Christopher Zbigniew Other [facility] Other Start: 01-25-2021 Telephone encounter Meirlauryn Mccullough maegan [facility] Start: 01-11-2021 Office outpatient visit 15 minutes Geo Coy [facility] Start: 07-29-2020 End: 07-29-2020 Patient encounter procedure C. Zbigniew/Preceptor Work Phone: -[facility] [place] Start: 09-16-2016 End: 09-22-2016 Evaluation and management of inpatient KUL B WALLIS [facility] Start: 12-31-2003 Evaluation and management of inpatient Sky. Zbigniew/Preceptor Work Phone: -[address] [place] [address] Procedures Date Procedure Procedure Detail Performing Clinician Start: 08-10-2022 Ultrasonography of liver Services [facility] Work Phone: Start: 05-04-2022 End: 05-04-2022 X-ray of both knees Services [facility] Work Phone: Start: 05-04-2022 X-ray of lumbar spin e, four views Services [facility] Work Phone: Start: 09-21-2016 DISCHARGE PATIENT KUL G UPTA Start: 09-19-2016 Microscopic urinalysis MINISTERIO MORGANPTA Start: 09-19-2016 Urinalysis JAVIL WALLIS Start: 09-19-2016 URINE DRUG SCREEN KUL G UPTA Start: 09-16-2016 CBC WITH AUTO DIFFERENTIAL JAVIL WALLIS Start: 09-16-2016 COMPREHENSIVE METABO LIC PANEL MINISTERIO WALLIS Start: 09-16-2016 FULL CODE JAVIL WALLIS Start: 09-16-2016 IP CONSULT TO HISTOR Y AND PHYSICAL MINISTERIO WALLIS Start: 09-16-2016 PATIENT STATUS (DIRECT) JAVIL WALLIS Start: 09-16-2016 DIET GENERAL MINISTERIO WALLIS Start: 09-16-2016 PATIENT STATUS (DIRECT) MINISTERIO WALLIS Plan of Treatment Date Care Activity Detail Author Hepatitis B core antibody measurement [facility] Hepatitis B virus jaramillo rface Ab [Presence] in Serum [facility] Hepatitis C virus Ig G Ab [Presence] in Serum or Plasma by Immunoassay [facility] Hepatitis C virus RN A [log units/volume] (viral load) in Serum or Plasma by ONE[facility] with probe detection [facility] Hepatitis C virus RN A [Units/volume] (viral load) in Serum or Plasma by ONEIL with probe detection [facility] enter [facility] Immunizations Immunization Date Immunization Notes Care Provider Dana deleon 07-01-2017 Toradol per 15 mg Alfie Coy Other [employer] [facility] [facility] [employer] Other Payers Date Payer Category Payer Self-pay [id number] 2022 Medicaid [id number] 2012 Unknown [id number] 1975 Unknown [id number] Unknown [id number] Unknown [id number] Social History Date Type Detail Facility Start: 01-30-2020 End: 02-27-2021 Tobacco smoking status NHIS Smoker (finding) [facility] Start: 1975 Sex Assigned At Female F [facility] Sex Assigned At Sex Assigned At Bir th [facility] Other Clinical Notes 01-11-2021 to 04-18-2023 Note Date & Type Note Facility 04-18-2023 Evaluation note Encounter Date Diagnosis Assessment Notes Apr, Chronic obstructive pulmonary disease, unspecified (ICD-10 - J44.9) [facility] Other 01-23-2024 Evaluation note* Encounter Date Diagnosis Assessment Notes Treatment Notes Treatment Clinical Notes Mar, Chronic obstructive pulmonary disease, unspecified (ICD-10 - J44.9) [facility] Other 11-03-2023 Evaluation note* Encounter Date Diagnosis Assessment Notes Treatment Notes Treatment Clinical Notes Jan, Chronic obstructive pulmonary disease, unspecified (ICD-10 - J44.9) [facility] Other 08-16-2023 Evaluation note* Encounter Date Diagnosis Assessment Notes Treatment Notes Treatment Clinical Notes Oct, Chronic obstructive pulmonary disease, unspecified (ICD-10 - J44.9) [facility] Other 08-14-2023 Evaluation note* Encounter Date Diagnosis Assessment Notes Treatment Notes Treatment Clinical Notes Oct, Chronic obstructive pulmonary disease, unspecified (ICD-10 - J44.9) [facility] Other 03-22-2023 Evaluation note* Encounter Date Diagnosis Assessment Notes Treatment Notes Treatment Clinical Notes May, Chronic obstructive pulmonary disease, unspecified (ICD-10 - J44.9) May, Tobacco use disorder (ICD-10 - Z72.0) May, Allergic rhinitis (ICD-10 - J30.9) May, GERD (gastroesophageal reflux disease) (ICD-10 - K21.9) [facility] Other 03-13-2023 Evaluation note* Encounter Date Diagnosis Assessment Notes Treatment Notes Treatment Clinical Notes May, Chronic obstructive pulmonary disease, unspecified (ICD-10 - J44.9) [facility] Other 01-24-2023 Evaluation note* Encounter Date Diagnosis Assessment Notes Treatment Notes Treatment Clinical Notes Mar, Chronic obstructive pulmonary disease, unspecified (ICD-10 - J44.9) [facility] Other 01-09-2023 Evaluation note* Encounter Date Diagnosis Assessment Notes Treatment Notes Treatment Clinical Notes Mar, Chronic obstructive pulmonary disease, unspecified (ICD-10 - J44.9) [facility] Other 11-08-2022 Evaluation note* Encounter Date Diagnosis Assessment Notes Treatment Notes Treatment Clinical Notes Jan, Chronic obstructive pulmonary disease, unspecified (ICD-10 - J44.9) [facility] Other 11-01-2021 Evaluation note* Encounter Date Diagnosis Assessment Notes Treatment Notes Treatment Clinical Notes Jan, Chronic obstructive pulmonary disease, unspecified (ICD-10 - J44.9) Jan, Tobacco use disorder (ICD-10 - Z72.0) Jan, Allergic rhinitis (ICD-10 - J30.9) Jan, GERD (gastroesophageal reflux disease) (ICD-10 - K21.9) [facility] Other Evaluation noteNo assessment information available [facility] noteNo InformationNort[facility] Other [employer] general Narrative - Reported* Type Description Date Medical History 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 [employer] mping 10/2022 [facility] Other Summary Purpose Family History No Family [...] section and content) DATE CREATED AUTHOR 09/06/2017 [facility] DATE CREATED AUTHOR AUTHOR'S ORGANIZ ATION 07/05/2023 [facility] DATE CREATED AUTHOR AUTHOR'S ORGANIZ ATION 09/06/2023 [facility] Goals (unrecognized section and content) [...] Status: Active Member Role Status Dates Services [facility] Primary Care Provider Active Team Status: Active Member Role Status Caleb Coy/Kyree Watt Attending Provider Active Team Status: Inactive Member Role Status Dates [facility] Primary Care Provider Active Jason Michele DO Attending Provider Active Cecilio Epps DO MARTIN Other Provider Active Team Status: Inactive Member Role Status D[employer] Services [facility] Primary Care Provider Active Laurie Oliva MD Attending Provider Active Team Status: Inactive Member Role Status D[facility] Services [facility] Primary Care Provider Active Cecilio Epps DO MARTIN Attending Provider Active Team Status: Inactive Member Role Status [facility] Primary Care Provider Active Jason Michele DO Attending Provider Active Cecilio Epps DO RES Referring Provider Active Team Status: Active Member Role Status Dates [facility] Primary Care Provider Active Breanna Taylor MD Attending Provider Active Team Status: Inactive Member Role Status [place] [facility] Primary Care Provider Active Cecilio Epps DO [...] BE BASED ON THE PRIMARY CLINICAL RECORDS. [facility] [employer] provides no warranty or guarantee of the accuracy or completeness of information in this document.
--- NOTE | 2023-09-10 14:10 | XR_ITS ---
The [address] [address] Patient Name: KAREN CLEMENTE MRN: [id number] date: 1975 Sex: F Assigned Patient Location: ER Current Patient Location: ER Accession/Order Number: [id number] Exam Date: 09/10/2023 14:15 Report Date: 09/10/2023 15:29 At the request of: ROBERT MUELLER Procedure: XR chest 1V EXAM: XR chest 1V TECHNIQUE: Single AP view chest HISTORY: Back pain, COPD history COMPARISON: 01/18/2023 FINDINGS: The heart and mediastinum are unremarkable. The lung dye are clear of any acute infiltrate, effusion or mass. No acute bony abnormality. XR/XR chest 1V IMPRESSION: No acute pulmonary disease. Electronically authenticated by: ALEXIS FOWLER Date: 09/10/2023 15:29
--- NOTE | 2023-09-10 14:10 | ECG_ITS ---
[facility] Test Date: 2023-09-10 Pat Name: KAREN CLEMENTE Department: Room: - Gender: Female Document Advisor: : 1975 Requested By: Order Number: [id number] Reading MD: ALEX WADDELL Measurements Intervals [place] Rate: 80 P: 81 MN: 136 QRS: 47 QRSD: 96 T: 70 QT: 396 QTc: 431 Interpretive Statements 1100 Sinus rhythm 1470 with occasional supraventricular premature complexes 2440 Incomplete right bundle branch block 7300 Indeterminate axis 9140 abnormal rhythm ECG Compared to ECG 01/18/2023 12:27:09 Incomplete right bundle-branch block now present T-wave abnormality no longer present Electronically Signed On 09-10-2023 21:01:33 EDT by ALEX WADDELL
--- NOTE | 2023-09-10 14:11 | ED_ITS ---
HPI HPI - General Adult General Chief complaint: Shortness of Breath/Dyspnea Stated complaint: SOB Time Seen by Provider: 09/10/23 14:04 Source: patient Mode of arrival: walk-in Limitations: no limitations History of Present Illness HPI narrative: 47-year-old female presents to the emergency department for shortness of breath and some sharp pains in her back. 1 is in the right lower thoracic area and the other in the mid thoracic area, midline. It sharp and she has had these on and off for few days. No injury. No history of PE or DVT. Has been coughing up a small amount of phlegm, white to yellow. No hemoptysis. Related Data Home Medications ?Medication ?Instructions ?Recorded ?Confirmed albuterol sulfate 90 mcg/actuation 2 inh inhalation Q6H PRN shortness 09/10/22 07/18/23 aerosol inhaler (Ventolin HFA) of breath or wheezing clonidine HCl 0.2 mg tablet 0.2 mg PO TID 09/10/22 07/18/23 famotidine 20 mg tablet 20 mg PO .QHS 09/10/22 07/17/23 levothyroxine 125 mcg tablet 50 mcg PO QDAY 09/10/22 07/17/23 pregabalin 150 mg capsule 150 mg PO TID 09/10/22 07/17/23 quetiapine 200 mg tablet 100 mg PO .QHS 09/10/22 07/17/23 budesonide-formoterol HFA 160 2 inh inhalation BID 09/11/22 07/18/23 mcg-4.5 mcg/actuation aerosol inhaler ondansetron 4 mg disintegrating 8 mg PO DAILY PRN nausea and 09/11/22 07/17/23 tablet vomiting aclidinium bromide 400 1 inh inhalation BID 07/17/23 mcg/actuation breath activated powder inhaler (Tudorza Pressair) cholecalciferol (vitamin D3) 25 1,000 unit PO DAILY 07/17/23 mcg (1,000 unit) tablet conjugated estrogens 0.3 mg tablet 0.3 mg PO DAILY 07/17/23 (Premarin) docusate sodium 100 mg tablet 100 mg PO BID PRN constipation 07/17/23 escitalopram oxalate 20 mg tablet 20 mg PO DAILY 07/17/23 (Lexapro) olanzapine-fluoxetine 12 mg-50 mg 1 cap PO DAILY 07/17/23 capsule (Symbyax) progesterone micronized 200 mg 400 mg PO DAILY 07/17/23 capsule (Prometrium) psyllium husk 0.4 gram capsule 0.4 g PO DAILY 07/17/23 (Daily Fiber) tizanidine 2 mg tablet 2 mg PO Q6H PRN muscle spasticity 07/17/23 Previous Rx's ?Medication ?Instructions ?Recorded prednisone 10 mg tablet See Rx Instructions .Route 09/10/23 .COMPLEX #30 tabs tramadol 50 mg tablet 50 mg PO Q8H PRN pain 5 days #20 09/10/23 tabs Allergies Allergy/AdvReac Type Severity Reaction Status Date / Time naproxen Allergy Intermediate Verified 09/10/23 13:58 varenicline Allergy Verified 09/10/23 13:58 Antihistamines - Alkylamine AdvReac Intermediate Verified 09/10/23 13:58 Opioid HPI Opioid Management Most Recent Opioid Data: Last Pain Scale 6 09/10/23 14:57 Last MAR Pain Assessment 09/10/23 14:57 Review of Systems ROS Narrative A ten point review of systems is negative except as noted above. [facility] Medical History (Updated 09/10/23 @ 15:39 by Eugene Arcos MD) Full dentures ?Z97.2 - Presence of dental prosthetic device (complete) (partial) (ICD-10) ?K08.109 - Complete loss of teeth, unspecified cause, unspecified class (ICD- 10) Anemia ?D64.9 - Anemia, unspecified (ICD-10) Sleep apnea ?G47.30 - Sleep apnea, unspecified (ICD-10) Hypothyroidism ?E03.9 - Hypothyroidism, unspecified (ICD-10) Edentulous ?K08.109 - Complete loss of teeth, unspecified cause, unspecified class (ICD- 10) Vomiting ?R11.10 - Vomiting, unspecified (ICD-10) Nausea ?R11.0 - Nausea (ICD-10) Menopause ?Z78.0 - Asymptomatic menopausal state (ICD-10) Disease of thyroid gland ?E07.9 - Disorder of thyroid, unspecified (ICD-10) Fibromyalgia ?M79.7 - Fibromyalgia (ICD-10) Acute posttraumatic stress disorder ?F43.11 - Post-traumatic stress disorder, acute (ICD-10) Kidney stones ?N20.0 - Calculus of kidney (ICD-10) Acid reflux ?K21.9 - Gastro-esophageal reflux disease without esophagitis (ICD-10) History of peptic ulcer disease ?Z87.11 - Personal history of peptic ulcer disease (ICD-10) Abdominal pain ?R10.9 - Unspecified abdominal pain (ICD-10) Nausea and vomiting ?R11.2 - Nausea with vomiting, unspecified (ICD-10) Constipation ?K59.00 - Constipation, unspecified (ICD-10) Recovering alcoholic ?F10.21 - Alcohol dependence, in remission (ICD-10) Pneumonia ?J18.9 - Pneumonia, unspecified organism (ICD-10) Ovarian cyst ?N83.209 - Unspecified ovarian cyst, unspecified side (ICD-10) Glaucoma ?H40.9 - Unspecified glaucoma (ICD-10) Emphysema of lung ?J43.9 - Emphysema, unspecified (ICD-10) COPD (chronic obstructive pulmonary disease) ?J44.9 - Chronic obstructive pulmonary disease, unspecified (ICD-10) Arthritis ?M19.90 - Unspecified osteoarthritis, unspecified site (ICD-10) Ganglion cyst of dorsum of right wrist ?M67.431 - Ganglion, right wrist (ICD-10) Intussusception ?K56.1 - Intussusception (ICD-10) Surgical History (Updated 07/20/23 @ 09:17 by Joanei Roper NP) H/O tooth extraction ?K08.409 - Partial loss of teeth, unspecified cause, unspecified class (ICD- 10) History of esophagogastroduodenoscopy (EGD) ?Z98.890 - Other specified postprocedural states (ICD-10) H/O oophorectomy History of lung biopsy ?Z98.890 - Other specified postprocedural states (ICD-10) H/O colonoscopy ?Z98.890 - Other specified postprocedural states (ICD-10) Family History (Updated 07/20/23 @ 09:21 by Joanie Roper NP) Other Aneurysm Emphysema of lung Family history of COPD (chronic obstructive pulmonary disease) Family history of cancer Family history of emphysema Family history of myocardial infarction Social History (Updated 07/20/23 @ 09:13 by Joanie Roper NP) Within the past year, how often did you have a drink containing alcohol: monthly or less Within the past year, how many standard drinks containing alcohol did you have on a typical day: 1 or 2 Total score: 0 Score interpretation: A score less than 3 is consistent with normal alcohol consumption. Smoking status: Current every day smoker What tobacco products do you use: cigarettes Packs per day: 2 Years smoked: 30 Smoking pack-years: 60.00 Non-prescribed substance use: denies use Highest level of school completed/degree received: 10th grade Exam Narrative Exam Narrative: Nurses note and vital signs reviewed and patient is not hypoxic. General: The patient appears well and in no apparent distress. Patient is resting comfortably on cart. She is speaking in full sentences Skin: Warm, dry, no pallor noted. There is no rash noted. Head: Normocephalic, atraumatic Eye: Normal conjunctiva, no drainage Ears, Nose, Mouth, and Throat: oral mucosa is moist. Nares patent. Cardiovascular: Regular Rate and Rhythm Respiratory: Patient is in no distress, no accessory muscle use, lungs are clear to auscultation, no wheezing, rales or rhonchi. Good air movement present Back: non-tender, no CVA tenderness bilaterally to percussion. No bruise or rash on her back GI: Soft and nontender Musculoskeletal: The patient has no evidence of calf tenderness, no pitting edema, symmetrical pulses noted bilaterally Neurological: A&O, normal speech Psychiatric: Cooperative Constitutional Vital Signs, click to edit/add: Last Vital Signs Temp 98.9 F 09/10/23 13:58 Pulse 89 09/10/23 13:58 Resp 16 09/10/23 13:58 BP 101/71 09/10/23 13:58 Pulse Ox 93 L 09/10/23 13:58 O2 Del Method Room Air 09/10/23 13:58 Course Vital Signs Vital signs: Vital Signs Temperature 98.9 F 09/10/23 13:58 Pulse Rate 89 09/10/23 13:58 Respiratory Rate 16 09/10/23 13:58 Blood Pressure 101/71 09/10/23 13:58 Pulse Oximetry 93 L 09/10/23 13:58 Oxygen Delivery Method Room Air 09/10/23 13:58 Temperature 98.9 F 09/10/23 13:58 Pulse Rate 89 09/10/23 13:58 Respiratory Rate 16 09/10/23 13:58 Blood Pressure 101/71 09/10/23 13:58 Pulse Oximetry 93 L 09/10/23 13:58 Oxygen Delivery Method Room Air 09/10/23 13:58 Medical Decision Making MDM Narrative Medical decision making narrative: Workup is negative including D-dimer and troponin. Chest x-ray shows no pneumothorax or pneumonia. My clinical impression is that she has pleurisy. Treatment diagnosis and follow-up were discussed with the patient. Differential Diagnosis Differential Diagnosis: Pneumonia, pneumothorax, pleurisy, PE Lab Data Lab results reviewed: Yes I reviewed the patient's lab results Labs: Lab Results 09/10/23 Range/Units 14:25 WBC 5.4 (4.0-11.0) 10^3/uL RBC 3.91 L (4.20-5.40) 10^6/uL Hgb 13.2 (12.0-16.0) g/dL Hct 39.2 (36.0-48.0) % MCV 100.3 H (81.0-99.0) fL MCH 33.8 (26.7-34.0) pg MCHC 33.7 (29.9-35.2) g/dL RDW 14.6 (11.0-15.0) % Plt Count 132 L (150-450) 10^3/uL MPV 10.9 (9.5-13.5) fL Neut % (Auto) 36.6 L (43.0-75.0) % Lymph % (Auto) 50.4 (20.5-60.0) % [place] % (Auto) 10.6 (1.7-12.0) % Eos % (Auto) 1.3 (0.9-7.0) % Baso % (Auto) 0.9 (0.2-2.0) % Neut # (Auto) 2.0 (1.4-6.5) 10^3/uL Lymph # (Auto) 2.7 (1.2-3.8) 10^3/uL [place] # (Auto) 0.6 (0.3-0.8) 10^3/uL Eos # (Auto) 0.1 (0.0-0.7) 10^3/uL Baso # (Auto) 0.1 (0.0-0.1) 10^3/uL Abs Immat Gran (auto) 0.01 (0.00-0.03) 10^3/uL Imm/Tot Granulo (auto) 0.2 (0.0-0.5) % D-Dimer 0.23 (<=0.59) mg/L FEU Sodium 140 (136-145) mmol/L Potassium 2.6 L* (3.5-5.1) mmol/L Chloride 100 (98-107) mmol/L Carbon Dioxide 30.2 (21.0-32.0) mmol/L Anion Gap 12.4 BUN 8.0 (7.0-18.0) mg/dL Creatinine 0.83 (0.55-1.02) mg/dL Est GFR ( Amer) >60 (>=60) Est GFR (Non-Af Amer) >60 (>=60) BUN/Creatinine Ratio 9.6 Glucose 107 H (74-106) mg/dL Calcium 8.7 (8.5-10.1) mg/dL Troponin I High Sens 4.6 (4.0-51.3) pg/mL Imaging Data Chest x-ray: Radiologist's impression: ITS Impressions Chest X-Ray 09/10/23 14:10 IMPRESSION: No acute pulmonary disease. Electronically authenticated by: ALEXIS FOWLER Date: 09/10/2023 15:29 ECG Data Attestation: I personally reviewed and interpreted this ECG as follows: (EKG on my interpretation shows normal sinus rhythm with a rate of 80, no acute changes) Discharge Plan Discharge Stand Alone Forms: Portal Instructions Chief Complaint: Shortness of Breath/Dyspnea Clinical Impression: Pleurisy Patient Disposition: Home, Self-Care Time of Disposition Decision: 15:39 Condition: Good Mode of Transportation: Private Vehicle Prescriptions / Home Meds: New tramadol 50 mg tablet 50 mg PO Q8H PRN (Reason: pain) 5 Days Qty: 20 0RF prednisone 10 mg tablet See Rx Instructions .ROUTE .COMPLEX Qty: 30 0RF Rx Instructions: 4 by mouth daily for three days then 3 by mouth daily for three days then 2 by mouth daily for three days then 1 by mouth daily for three days No Action albuterol sulfate [Ventolin HFA] 90 mcg/actuation HFA aerosol inhaler 2 inh INHALATION Q6H PRN (Reason: shortness of breath or wheezing) clonidine HCl 0.2 mg tablet 0.2 mg PO TID famotidine 20 mg tablet 20 mg PO .QHS levothyroxine 125 mcg tablet 50 mcg PO QDAY pregabalin 150 mg capsule 150 mg PO TID quetiapine 200 mg tablet 100 mg PO .QHS budesonide-formoterol 160-4.5 mcg/actuation HFA aerosol inhaler 2 inh inhalation BID ondansetron 4 mg tablet,disintegrating 8 mg PO DAILY PRN (Reason: nausea and vomiting) Tudorza Pressair 400 mcg/actuation aerosol powdr breath activated 1 inh inhalation BID cholecalciferol (vitamin D3) 25 mcg (1,000 unit) tablet 1,000 unit PO DAILY docusate sodium 100 mg tablet 100 mg PO BID PRN (Reason: constipation) escitalopram oxalate [Lexapro] 20 mg tablet 20 mg PO DAILY Premarin 0.3 mg tablet 0.3 mg PO DAILY Rx Instructions: cyclically psyllium husk [Daily Fiber] 0.4 gram capsule 0.4 g PO DAILY olanzapine-fluoxetine [Symbyax] 12-50 mg capsule 1 cap PO DAILY progesterone micronized [Prometrium] 200 mg capsule 400 mg PO DAILY tizanidine 2 mg tablet 2 mg PO Q6H PRN (Reason: muscle spasticity) Rx Instructions: do not exceed 3 doses per 24 hrs Print Language: Sami Instructions: Pleurisy (ED) Referrals: Physician,Non-Staff, MD [Primary Care Provider] - 1 week
[2023-09-10 14:29] LABS: Basophils Absolute Auto 0.1 10^3/uL (0.0-0.1); Basophils Percent Auto 0.9 % (0.2-2.0); Eosinophils Absolute Auto 0.1 10^3/uL (0.0-0.7); Eosinophils Percent Auto 1.3 % (0.9-7.0); Hematocrit 39.2 % (36.0-48.0); Hemoglobin 13.2 g/dL (12.0-16.0); Immature Granulocytes Abs Auto 0.01 10^3/uL (0.00-0.03); Immature Granulocytes Pct Auto 0.2 % (0.0-0.5); Lymphocytes Absolute Auto 2.7 10^3/uL (1.2-3.8); Lymphocytes Percent Auto 50.4 % (20.5-60.0); Mean Corpuscular HGB Conc 33.7 g/dL (29.9-35.2); Mean Corpuscular Hemoglobin 33.8 pg (26.7-34.0); Mean Corpuscular Volume 100.3 fL (81.0-99.0); Mean Platelet Volume 10.9 fL (9.5-13.5); Monocytes Absolute Auto 0.6 10^3/uL (0.3-0.8); Monocytes Percent Auto 10.6 % (1.7-12.0); Neutrophils Percent Auto 36.6 % (43.0-75.0); Platelet Count 132 10^3/uL (150-450); Red Blood Count 3.91 10^6/uL (4.20-5.40); Red Cell Distribution Width 14.6 % (11.0-15.0); White Blood Count 5.4 10^3/uL (4.0-11.0)
[2023-09-10 14:43] LABS: D Dimer 0.23 mg/L FEU (<=0.59)
[2023-09-10 14:47] LABS: Anion Gap 12.4; BUN Creatinine Ratio 9.6; Calcium 8.7 mg/dL (8.5-10.1); Carbon Dioxide 30.2 mmol/L (21.0-32.0); Chloride 100 mmol/L (98-107); Estimated GFR (African America >60 (>=60); Estimated GFR (Non-African Ame >60 (>=60); Glucose 107 mg/dL (74-106); Sodium 140 mmol/L (136-145); Troponin I High Sensitivity 4.6 pg/mL (4.0-51.3)
[2023-09-10 14:48] LABS: Potassium 2.6 mmol/L (3.5-5.1)
[2023-09-10] MEDS: MORPHINE SULFATE 4 MG/ML VIAL IV (14:57)
== END 2023-09-10 15:56 | disposition home or self-care (01) ==
PROVIDERS: Emergency Provider Emergency Medicine
DX: F17.210 Nicotine dependence, cigarettes, uncomplicated (principal); R09.1 Pleurisy
CPT/HCPCS: 36415; 71045; 80048; 84484; 85025; 85378; 93005; 96374; 99285; J2270

== ENCOUNTER 2023-10-08 01:49 | Emergency (ER) | payer OTHER, SELFPAY ==
[2023-10-08 01:51] VITALS: BP 162/101; PULSE 109; TEMP 36.6; O2SAT 99
--- OUTSIDE RECORDS SUMMARY | 2023-10-08 02:01 | XMS_ITS | CCD ---
Author Organization [facility] Care Team Providers Care Assembler Tubing Name Role Phone MINISTERIO WALLIS Unavailable Unavailable MINISTERIO WALLIS Unavailable Unavailable Zbigniew/Kyaw Watt Attending Provider [facility] Primary Care Provider Pricilla Engle Attending Provider Geo Coy Unavailable Zbigniew/Kyree Watt Attending Provider [facility] Primary Care Provider DO Cecilio Epps Attending Provider Zbigniew/Kyree Watt Attending Provider [facility] Primary Care Provider [phone] DO Jason Michele Attending Provider Supriya, Samaritan Referring Provider Supriya, Samaritan Other Provider [facility] Primary Care Provider DO Jason Michele Attending Provider Supriya, Samaritan Other Provider MD Laurie Oliva Attending Provider [facility] Primary Care Provider [phone] MD Alex Taylorheather Attending Provider DO Supriya Samaritan Referring Provider DO Jason Mcihele Attending Provider [facility] Primary Care Provider MD Laurie Oliva Attending Provider JANET BAEZ Attending Unavailable FELIX BELCHER Referring Unavailable FELIX BELCHER Primary Care Unavailable [facility] Primary Care Unavaila ble Laurie Oliva Attending Unavailable Laurie Oliva Admitting Unavailable Idris Taylor Attending Unavailab le Idris Taylor Admitting Unavailab le [facility] Primary Care Unavaila ble Allergies Allergy Classification Reported Allergen(s) Allergy Type Date of Onset Reaction(s) Facility NSAIDs (1 source) Naproxen Drug Allergy 09-12-19 18 Hives [facility] Unclassified (8 sources) Antihistamines - Alkylamine; Translations: [ANTIHISTAMINES - ALKYLAMINE] Allergy to substance 12-31-19 16 Anxiety [facility] (15 sources) diphenhydrAMINE Drug Allergy Anxiety [facility] [employer] Other (20 sources) Naproxen; Translations: [NAPROXEN] Drug Allergy 12-31-19 16 rash [facility] (10 sources) atorvastatin Drug Allergy legs shaking [facility] [employer] Other (1 source) varenicline; Translations: [VARENICLINE] Drug Allergy 10-11-19 23 [facility] (1 source) atorvastatin Drug Allergy 05-25-19 24 [facility] (1 source) Naproxen Drug Allergy 05-25-19 24 [facility] Medications Current Medications Medication Drug Class(es) Dates Sig (Normalized) Sig (Original) [id number] 200 actuat albuterol 0.09 mg/actuat metered dose [...] 1:00am February 02, 2020 11:49am estrogens, conjugated (care home) 0.625 mg oral tablet (20 sources) Estrogen [...] 2.5 ug by inhalation twice daily Tiotropium [place] (Spiriva Respimat) 2.5 mcg/actuation mist Active 2 [...] mg/ml oral solution (6 sources) Phenothiazine, Uncompetitive [id number]-aspartat e Receptor Antagonist, Sigma-1 Agonist Start: 8 [...] Hormone w/Rflx 18.34 u[iU]/mL High 0.45-5.33 [facility] Comment on above: Order Comment: Reaso n for Exam Hypothyroidism, unspecified type Result Comment: PERF ORMED BY: [place] [address] PATHOLOGIST HOME VISITOR GISELLE ALVAREZ M.D. Performed By: #### T SH3 wRFLX, T4F #### [facility] [address] [place] [address] Thyrotropin [Units/volume] i n Serum or PlasmaOrdered By: Jarred Levy on 10-10-2022 TSH Qn 18.34 m[IU]/L 0.45-5.33 [facility] Thyroxine (T4) free [Mass/vo lume] in Serum or PlasmaOrdered By: Jarred Levy on 10-10-2022 Free T4 [Mass/Vol] 0.56 ng/dL Low 0.61-1.12 [facility] Comment on above: Order Comment: Reaso n for Exam Hypothyroidism, unspecified type Performed By: #### T SH3 wRFLX, T4F #### [facility] [address] [place] [address] Alanine aminotransferase [En zymatic activity/volume] in Serum or PlasmaOrdered By: Cecilio Epps on 08-10-2022 ALT [Catalytic activity/Vol] 11 U/L 7-52 [facility] Albumin [Mass/volume] in Ser um or Plasma by Bromocresol green (BCG) dye binding methoOrdered By: Cecilio Epps on 08-10-2022 Albumin BCG dye [Mass/Vol] 4.2 g/dL 3.5-5.7 [facility] Alkaline phosphatase [Enzyma tic activity/volume] in Serum or PlasmaOrdered By: Cecilio Epps on 08-10-2022 ALP [Catalytic activity/Vol] 56 U/L 34-104 [facility] Aspartate aminotransferase [ Enzymatic activity/volume] in Serum or PlasmaOrdered By: Cecilio Epps on 08-10-2022 AST [Catalytic activity/Vol] 13 U/L 13-39 [facility] Basophils Auto (Bld) [#/Vol] Ordered By: Cecilio Epps on 08-10-2022 Basophils (Bld) [#/Vol] 0.0 10*3/uL 0.0-0.2 [facility] Basophils/100 WBC Auto (Bld) Ordered By: Cecilio Epps on 08-10-2022 Basophils/100 WBC (Bld) 0.6 % . [facility] Bilirubin.total [Mass/volume ] in Serum or PlasmaOrdered By: Cecilio Epps on 08-10-2022 Bilirubin [Mass/Vol] 0.6 mg/dL 0.3-1.0 [facility] Calcium [Mass/volume] in Ser um or PlasmaOrdered By: Cecilio Epps on 08-10-2022 Calcium [Mass/Vol] 8.6 mg/dL 8.6-10.3 [facility] Carbon dioxide, total [Moles /volume] in Serum or PlasmaOrdered By: Cecilio Epps on 08-10-2022 CO2 [Moles/Vol] 28.4 mmol/L 21.0-31.0 [facility] Chloride [Moles/volume] in S teresa or PlasmaOrdered By: Cecilio Epps on 08-10-2022 Chloride [Moles/Vol] 104 mmol/L 98-107 [facility] Creatinine [Mass/volume] in Serum or PlasmaOrdered By: Cecilio Epps on 08-10-2022 Creatinine [Mass/Vol] 0.99 mg/dL 0.60-1.20 [facility] Eosinophils Auto (Bld) [#/Vo l]Ordered By: Cecilio Epps on 08-10-2022 Eosinophils (Bld) [#/Vol] 0.1 10*3/uL 0.0-0.45 [facility] Eosinophils/100 WBC Auto (Bl d)Ordered By: Cecilio Epps on 08-10-2022 Eosinophils/100 WBC (Bld) 1.0 % . [facility] Erythrocyte distribution wid th Auto (RBC) [Ratio]Ordered By: Cecilio Epps on 08-10-2022 Erythrocyte distribution width (RBC) [Ratio] 14.9 % 11.9-15.3 [facility] Folate [Mass/volume] in Seru m or PlasmaOrdered By: Cecilio Epps on 08-10-2022 Folate [Mass/Vol] 4.9 ng/mL >5.9 [facility] Comment on above: Folate reference ran ge: >5.9 ng/mlThe WHO technical consultation on folate and vitamin [id number] has determined that folate concentrations lessthan 4 ng/ml are considered deficient. Globulin Calc (S) [Mass/Vol] Ordered By: Cecilio Epps on 08-10-2022 Globulin (S) [Mass/Vol] 2.4 g/dL [facility] Glucose [Mass/volume] in Ser um or PlasmaOrdered By: Cecilio Epps on 08-10-2022 Glucose [Mass/Vol] 83 mg/dL 70-100 [facility] Comment on above: ADA recommended refe rence rangeRandom Glucose Reference Range is dependent on time and content of last meal. Glucose of more than 200 mg/dL in a nonstressed, ambulatory subject supports the diagnosis of Diabetes Mellitus. Hematocrit Auto (Bld) [Volum e fraction]Ordered By: Cecilio Epps on 08-10-2022 Hematocrit (Bld) [Volume fraction] 41.1 % 34.0-46.4 [facility] Hemoglobin [Mass/volume] in BloodOrdered By: Cecilio Epps on 08-10-2022 Hemoglobin (Bld) [Mass/Vol] 14.0 g/dL 11.8-15.4 [facility] Hepatitis C virus IgG Ab [Pr esence] in Serum or Plasma by ImmunoassayOrdered By: Cecilio Epps on 08-10-2022 HCV IgG IA Ql Non-Reactive Non Reactive [facility] Hepatitis C virus RNA [Units /volume] (viral load) in Serum or Plasma by ONEIL with probOrdered By: Cecilio Epps on 08-10-2022 HCV RNA ONEIL+probe Qn N/A [facility] Hepatitis C virus RNA [log u nits/volume] (viral load) in Serum or Plasma by ONEIL withOrdered By: Cecilio Epps on 08-10-2022 HCV RNA ONEIL+probe [Log units/Vol] N/A [facility] Leukocytes [#/volume] correc rosalia for nucleated erythrocytes in Blood by Automated counOrdered By: Cecilio Epps on 08-10-2022 WBC corrected for nucl RBC Auto (Bld) [#/Vol] 5.9 10*3/uL 3.8-11.6 [facility] Lymphocytes Auto (Bld) [#/Vo l]Ordered By: Cecilio Epps on 08-10-2022 Lymphocytes (Bld) [#/Vol] 1.6 10*3/uL 1.00-4.8 [facility] Lymphocytes/100 WBC Auto (Bl d)Ordered By: Cecilio Epps on 08-10-2022 Lymphocytes/100 WBC (Bld) 27.8 % . [facility] MCH Auto (RBC) [Entitic mass ]Ordered By: Cecilio Epps on 08-10-2022 MCH (RBC) [Entitic mass] 32.7 pg 24.7-34.3 [facility] MCHC Auto (RBC) [Mass/Vol]Or dered By: Cecilio Epps on 08-10-2022 MCHC (RBC) [Mass/Vol] 34.0 g/dL 32.0-35.0 [facility] MCV Auto (RBC) [Entitic vol] Ordered By: Cecilio Epps on 08-10-2022 MCV (RBC) [Entitic vol] 96.2 fL 80-100 [facility] Monocytes Auto (Bld) [#/Vol] Ordered By: Cecilio Epps on 08-10-2022 Monocytes (Bld) [#/Vol] 0.5 10*3/uL 0.0-0.8 [facility] Monocytes/100 WBC Auto (Bld) Ordered By: Cecilio Epps on 08-10-2022 Monocytes/100 WBC (Bld) 8.0 % . [facility] Neutrophils Auto (Bld) [#/Vo l]Ordered By: Cecilio Epps on 08-10-2022 Neutrophils (Bld) [#/Vol] 3.7 10*3/uL 1.8-7.7 [facility] Neutrophils/100 WBC Auto (Bl d)Ordered By: Cecilio Epps on 08-10-2022 Neutrophils/100 WBC (Bld) 62.6 % . [facility] No Panel InformationOrdered By: Cecilio Epps on 08-10-2022 Estimated GFR (CKD-EPI) > 60.0 mL/Min [facility] Hepatitis B Core Total Antibody Negative Negative [facility] Comment on above: Performed at: [place] [id number] Director: Tadeo Rosado PhD, Phone: [phone] Hepatitis C Interpretation See comment . [facility] Comment on above: Not infected with HC V unless early or acute infection issuspected (which may be delayed in an immunocompromisedindividual), or other evidence exists to indicate HCVinfection. Hepatitis C RNA Quantitative N/A [facility] Creatinine Clearance (Chem N/A [facility] Nucleated erythrocytes [Pres ence] in Blood by Automated countOrdered By: Cecilio Epps on 08-10-2022 Nucleated RBC Auto Ql (Bld) 0.1 /100{WBC} 0-0.5 [facility] Platelet mean volume Auto (B ld) [Entitic vol]Ordered By: Cecilio Epps on 08-10-2022 Platelet mean volume (Bld) [Entitic vol] 10.1 fL 6.3-10.7 [facility] Platelets Auto (Bld) [#/Vol] Ordered By: Cecilio Epps on 08-10-2022 Platelets (Bld) [#/Vol] 143 10*3/uL 150-450 [facility] Potassium [Moles/volume] in Serum or PlasmaOrdered By: Cecilio Epps on 08-10-2022 Potassium [Moles/Vol] 3.8 mmol/L 3.5-5.1 [facility] Protein [Mass/volume] in Ser um or PlasmaOrdered By: Cecilio Epps on 08-10-2022 Protein [Mass/Vol] 6.6 g/dL 6.4-8.9 [facility] RBC Auto (Bld) [#/Vol]Ordere d By: Cecilio Epps on 08-10-2022 RBC (Bld) [#/Vol] 4.28 10*6/uL 3.60-5.00 [facility] Serum hepatitis B virus surf beverley antibody detectionOrdered By: Cecilio Epps on 08-10-2022 HBV surface Ab Ql (S) Non-Reactive . [facility] Comment on above: Non Reactive: Incons istent with immunity, less than 10 mIU/mL Reactive: Consistent with immunity, greater than 9.9 mIU/mL Serum or plasma albumin/glob ulin mass ratioOrdered By: Cecilio Epps on 08-10-2022 Albumin/Globulin [Mass ratio] 1.8 {ratio} [facility] Serum or plasma anion gap de terminationOrdered By: Cecilio Epps on 08-10-2022 Anion gap [Moles/Vol] 11.4 mmol/L 6.0-15.0 [facility] Sodium [Moles/volume] in Ser um or PlasmaOrdered By: Cecilio Epps on 08-10-2022 Sodium [Moles/Vol] 140 mmol/L 136-145 [facility] Thyrotropin [Units/volume] i n Serum or PlasmaOrdered By: Cecilio Epps on 08-10-2022 TSH Qn 21.80 m[IU]/L 0.45-5.33 [facility] Thyroxine (T4) free [Mass/vo lume] in Serum or PlasmaOrdered By: Cecilio Epps on 08-10-2022 Free T4 [Mass/Vol] 0.28 ng/dL 0.61-1.12 [facility] Urea nitrogen [Mass/volume] in Serum or PlasmaOrdered By: Cecilio Epps on 08-10-2022 Urea nitrogen [Mass/Vol] 16 mg/dL 7-25 [facility] Vitamin B12 ser/plasOrdered By: Cecilio Epps on 08-10-2022 Cobalamin (Vitamin B12) [Mass/Vol] 164 pg/mL 180-914 [facility] Vitamin D+Metabolites [Mass/ volume] in Serum or PlasmaOrdered By: Cecilio Epps on 08-10-2022 Vitamin D+Metabolites [Mass/Vol] 29.4 ng/mL 30-100 [facility] Comment on above: VITAMIN D STATUS 25( [place])VITAMIN D RANGE (ng/mL) Deficient <20 Insufficient 20 to <30Sufficient 30 to 100Reference: Kasandra MF,Gagandeep CHATMAN, Vadim CISNEROS, et al. Evaluation,treatment, and prevention of vitamin D deficiency; an Endocrine Society clinical practice guideline. JCEM. 2010; 96(7):1911-30. WBC Auto (Bld) [#/Vol]Ordere d By: Cecilio Epps on 08-10-2022 WBC (Bld) [#/Vol] 5.9 10*3/uL 3.8-11.6 [facility] Thyrotropin [Units/volume] i n Serum or PlasmaOrdered By: Cecilio Epps on 06-06-2022 TSH Qn 6.15 m[IU]/L 0.45-5.33 [facility] Thyroxine (T4) [Mass/volume] in Serum or PlasmaOrdered By: Cecilio Epps on 06-06-2022 T4 [Mass/Vol] 7.70 ug/dL 5.39-11.82 [facility] Triiodothyronine (T3) [Mass/ volume] in Serum or PlasmaOrdered By: Cecilio Epps on 06-06-2022 T3 [Mass/Vol] 1.01 ng/mL 0.87-1.78 [facility] TSH DL <= 0.005 mIU/L QnOrde red By: Cecilio Epps on 02-16-2022 TSH Qn 8.27 m[IU]/L 0.45-5.33 [facility] Thyroxine (T4) free [Mass/vo lume] in Serum or PlasmaOrdered By: Cecilio Epps on 02-16-2022 Free T4 [Mass/Vol] 0.59 ng/dL 0.61-1.12 [facility] TSH DL <= 0.005 mIU/L QnOrde red By: Cecilio Epps on 12-29-2021 TSH Qn 25.89 m[IU]/L 0.45-5.33 [facility] Thyroxine (T4) free [Mass/vo lume] in Serum or PlasmaOrdered By: Cecilio Epps on 12-29-2021 Free T4 [Mass/Vol] 0.37 ng/dL 0.61-1.12 [facility] Albumin [Mass/volume] in Ser um or Plasmaon 07-29-2020 Albumin [Mass/Vol] 4.0 g/dL 3.2-5.5 [facility] Creatinine and Glomerular fi ltration rate.predicted panel (S/P/Bld)on 07-29-2020 Creatinine [Mass/Vol] 0.77 mg/dL 0.44-1.03 [facility] Estimated glomerular filtrat ion rate (GFR) non- Americanon 07-29-2020 GFR/1.73 sq M.predicted among non-blacks MDRD (S/P/Bld) [Vol rate/Area] > 60 mL/Min [facility] Globulin Calc (S) [Mass/Vol] on 07-29-2020 Globulin (S) [Mass/Vol] 2.5 g/dL F [facility] No Panel Informationon 07-29 Estimated GFR () > 60 mL/Min [facility] Comment on above: GFR estimated refere nce range: According to KDOQI guidelines, <60 ml/min/1.73m2 is sufficient to diagnose a patient with chronic kidney disease. Pharmacy Creatinine Clearance (Chem N/A [facility] Protein [Mass/volume] in Ser um or Plasmaon 07-29-2020 Protein [Mass/Vol] 6.5 g/dL 6.1-7.9 [facility] Serum or plasma alanine goode otransferase measurement without P-5'-P (enzymatic activion 07-29-2020 ALT No additional P-5'-P [Catalytic activity/Vol] 36 U/L 10-60 [facility] Serum or plasma albumin/glob ulin mass ratioon 07-29-2020 Albumin/Globulin [Mass ratio] 1.6 {ratio} [facility] Serum or plasma alkaline krysta sphatase measurement (enzymatic activity/volume)on 07-29-2020 ALP [Catalytic activity/Vol] 44 U/L 32-92 [facility] Serum or plasma aspartate am inotransferase measurement (enzymatic activity/volume)on 07-29-2020 AST [Catalytic activity/Vol] 24 U/L 10-42 [facility] Serum or plasma calcium zayra urement (mass/volume)on 07-29-2020 Calcium [Mass/Vol] 9.4 mg/dL 8.2-10.2 [facility] Serum or plasma chloride dayanna surement (moles/volume)on 07-29-2020 Chloride [Moles/Vol] 102 mmol/L 95-114 [facility] Serum or plasma glucose zayra urement (mass/volume)on 07-29-2020 Glucose [Mass/Vol] 80 mg/dL 70-100 [facility] Comment on above: ADA recommended refe rence rangeRandom Glucose Reference Range is dependent on time and content of last meal. Glucose of more than 200 mg/dL in a nonstressed, ambulatory subject supports the diagnosis of Diabetes Mellitus. Serum or plasma potassium me asurement (moles/volume)on 07-29-2020 Potassium [Moles/Vol] 4.1 mmol/L 3.5-5.1 [facility] Serum or plasma sodium measu rement (moles/volume)on 07-29-2020 Sodium [Moles/Vol] 137 mmol/L 136-146 [facility] Serum or plasma total biliru bin measurement (mass/volume)on 07-29-2020 Bilirubin [Mass/Vol] 0.5 mg/dL 0.3-1.2 [facility] Serum or plasma total carbon dioxide measurement (moles/volume)on 07-29-2020 CO2 [Moles/Vol] 27.5 mmol/L 22.0-30.0 [facility] Serum or plasma urea nitroge n measurement (mass/volume)on 07-29-2020 Urea nitrogen [Mass/Vol] 12 mg/dL 9-23 [facility] TSH DL <= 0.005 mIU/L Qnon 0 07-29-2020 TSH Qn 16.84 m[IU]/L 0.45-5.33 [facility] Thyroxine (T4) free [Mass/vo lume] in Serum or Plasmaon 07-29-2020 Free T4 [Mass/Vol] 0.57 ng/dL 0.61-1.12 [facility] Drug Scr, Abuse, Uron 2016 Amphetamine(s),Ur Negative Normal NEG [facility] Comment on above: Result Comment: (Pos itive cutoff 1000 ng/mL) Performed By: #### U LACI Ryder ALDEN ####[address] [address] Barbiturate(s),Ur Negative Normal NEG [facility] Comment on above: Result Comment: (Pos itive cutoff 200 ng/mL) Performed By: #### LACI Arias DAU ####[address] [address] Base excess Negative Normal NEG [facility] Comment on above: Result Comment: (Pos itive cutoff 300 ng/mL) Performed By: #### U LACI Ryder ALDEN ####[address] [address] Benzodiazepine(s) Positive Abnormal NEG [facility] Comment on above: Result Comment: (Pos itive cutoff 200 ng/mL) Performed By: #### U ALACI ALDEN ####[address] [address] Cannabinoid(s),Ur Negative Normal NEG [facility] Comment on above: Result Comment: (Pos itive cutoff 50 ng/mL) Performed By: #### U ALACI ALDEN ####[address] [address] Interpretive Info Assay provides medical screening only. The absence of expected drug(s) and/or [facility] Comment on above: Result Comment: meta bolite(s) may indicate diluted or adulterated urine, limitations of testing or timing of collection.Testing for legal purposes should be confirmed by another method. To request confirmation of test result, please call the lab within 7 days of sample submission.Performed at [facility] [address] [place] [address] Performed By: #### U ALACI ALDEN ####[facility] [place] [address] Opiate(s), Ur Negative Normal NEG [facility] Comment on above: Result Comment: (Pos itive cutoff 300 ng/mL) Performed By: #### U ALACI ALDEN ####[address] [address] Oxycodone, Urine Negative Normal NEG [facility] Comment on above: Result Comment: (Pos itive cutoff 100 ng/mL) Performed By: #### U ALACI ALDEN ####[address] [address] Phencyclidine, Ur Negative Normal NEG [facility] Comment on above: Result Comment: (Pos itive cutoff 25 ng/mL) Performed By: #### U ALACI ALDEN ####[address] [place] [address] Urine, methadone presence Negative Normal NEG [facility] Comment on above: Result Comment: (Pos itive cutoff 300 ng/mL) Performed By: #### U A UMCARLAO ALDEN ####[address] [address] Buprenorphrine, Ur NOT REPORTED Normal NEG [facility] Comment on above: Performed By: #### U A, UMICAO, ALDEN ####[address] [address] MDMA, Urine NOT REPORTED Normal NEG [facility] Comment on above: Performed By: #### U A, UMICAO, ALDEN ####[address] [address] Methamphetamine, Ur NOT REPORTED Normal NEG [facility] Comment on above: Performed By: #### U A, UMICAO, ALDEN ####[address] [address] Propoxyphene,Urine NOT REPORTED Normal NEG [facility] Comment on above: Performed By: #### U A, UMICAO, ALDEN ####[address] [address] Urine, tricyclic antidepressants NOT REPORTED Normal NEG [facility] Comment on above: Performed By: #### U A, UMICAO, ALDEN ####[address] [address] Urinalysis, Routineon 2016 Acetaminophen mass conc Negative Normal NEG [facility] Comment on above: Performed By: #### U A, UMICAO, ALDEN ####[address] [address] Bilirubin (direct) Negative Normal NEG [facility] Comment on above: Performed By: #### U A, UMICAO, ALDEN ####[address] [address] Hemoglobin mass conc (Bld) Negative Normal NEG [facility] Comment on above: Performed By: #### U A, UMICAO, ALDEN ####[address] [address] Nitrite,Ur Negative Normal NEG [facility] Comment on above: Performed By: #### U APAULO, ALDEN ####[address] [address] Turbidity CLOUDY Abnormal CLEAR [facility] Comment on above: Performed By: #### U A, UMCARLAO, ALDEN ####[address] [place] [address] Urine, color YELLOW Normal YEL [facility] Comment on above: Performed By: #### U APAULO, ALDEN ####[address] [address] Urine, glucose presence Negative Normal NEG [facility] Comment on above: Performed By: #### U A UMCARLAO, ALDEN ####[address] [place] [address] Urine, leukocyte esterase presence TRACE Abnormal NEG [facility] Comment on above: Result Comment: Perf ormed at [facility] [address] [facility] [place] [address] Performed By: #### U A, UMCARLAO, ALDEN ####[address] [place] [address] Urine, pH 5.5 [pH] Normal 5.0-8.0 [facility] Comment on above: Performed By: #### U A, UMICAO, ALDEN ####[address] [address] Urine, protein presence Negative Normal NEG [facility] Comment on above: Performed By: #### U A, UMICAO, ALDEN ####[address] [address] Urine, specific gravity 1.012 Normal 1.000-1.030 [facility] Comment on above: Performed By: #### LACI Arias DAU ####[address] [address] Urobilinogen,Ur Normal Normal NORM [facility] Comment on above: Performed By: #### LACI Arias ALDEN ####[address] [address] Comment NOT REPORTED Normal [facility] Comment on above: Performed By: #### LACI Arias DAU ####[address] [address] Urinalysis,Microon 7 ----- Normal [facility] Comment on above: Performed By: #### LACI Arias ALDEN ####[address] [place] [address] Mucus Strands 1+ Abnormal NONE [facility] Comment on above: Performed By: #### LACI Arias ALDEN ####[address] [place] [address] Urine WBC's 2 TO 5 Normal [facility] Comment on above: Performed By: #### LACI Arias ALDEN ####[address] [place] [address] Urine, amorphous sediment presence in sediment 1+ Abnormal NONE [facility] Comment on above: Result Comment: Perf ormed at [facility] [address] [place] [address] Performed By: #### U ALACI, ALDEN ####[address] [address] Urine, bacteria in sediment MODERATE Abnormal NONE [facility] Comment on above: Performed By: #### LACI Arias DAU ####[address] [address] Urine, erythrocytes 0 TO 2 Normal [facility] Comment on above: Performed By: #### LACI Arias DAU ####[address] [address] Epithelial, Renal NOT REPORTED Normal 0 [facility] Comment on above: Performed By: #### LACI Arias DAU ####[address] [address] Other Observations NOT REPORTED Normal NREQ [facility] Comment on above: Performed By: #### LACI Arias DAU ####[address] [place] [address] Trichomonas NOT REPORTED Normal NONE [facility] Comment on above: Performed By: #### LACI Arias DAU ####[address] [address] Urine, casts in sediment NOT REPORTED Normal [facility] Comment on above: Performed By: #### LACI Arias DAU ####[address] [place] [address] Urine, crystals in sediment NOT REPORTED Normal NONE [facility] Comment on above: Performed By: #### LACI Arias DAU ####[address] [address] [address] Urine, epithelial cells in sediment NOT REPORTED [facility] Comment on above: Performed By: #### LACI Arias DAU ####[address] [place] [address] Urine, yeast presence in sediment NOT REPORTED Normal NONE [facility] Comment on above: Performed By: #### U LACI Ryder DAU ####[address] [address] CBC with Diffon 09-16-2016 Abs. Basophil 0.10 k/uL Normal 0.0-0.2 [facility] Comment on above: Result Comment: Perf ormed at [facility] [address] [place] [address] Performed By: #### C DP, CP ####[address] [address] Abs.Neutrophil (Seg) 3.70 k/uL Normal 1.3-9.1 [facility] Comment on above: Performed By: #### C DP, CP ####[address] [address] Basophils/100 WBC Auto (Bld) 1 % Normal [facility] Comment on above: Performed By: #### C DP, CP ####[address] [address] Eosinophils 0.20 10*3/uL Normal 0.0-0.4 [facility] Comment on above: Performed By: #### C DP, CP ####[address] [address] Eosinophils/100 leukocytes 3 % Normal [facility] Comment on above: Performed By: #### C DP, CP ####[address] [address] Erythrocyte distribution width Auto Ratio (RBC) 13.9 % Normal 11.5-14.9 [facility] Comment on above: Performed By: #### C DP, CP ####[facility] [facility] [place] [address] Erythrocytes (RBC) 4.36 10*6/uL Normal 4.0-5.2 [facility] Comment on above: Performed By: #### C DP, CP ####[facility] [place] [address].[place] [address] Hematocrit (HCT) 42.6 % Normal 36-46 [facility] Comment on above: Performed By: #### C DP, CP ####[facility] [place] [address] Hemoglobin mass conc (Bld) 14.4 g/dL Normal 12.0-16.0 [facility] Comment on above: Performed By: #### C DP, CP ####[facility] [place] [address].[place] [address] Lymphocytes 2.00 10*3/uL Normal 1.0-4.8 [facility] Comment on above: Performed By: #### C DP, CP ####[address] [address] Lymphocytes/100 leukocytes 31 % Normal [facility] Comment on above: Performed By: #### C DP, CP ####[facility] [place] [address].[place] [address] MCH 33.0 pg Normal 26-34 [facility] Comment on above: Performed By: #### C DP, CP ####[facility] [place] [address].[place] [address] MCHC mass conc (RBC) 33.7 g/dL Normal 31-37 [facility] Comment on above: Performed By: #### C DP, CP ####[address] [address] MCV 97.7 fL Normal 80-100 [facility] Comment on above: Performed By: #### C DP, CP ####[facility] [place] [address] Monocytes 0.70 10*3/uL Normal 0.1-1.3 [facility] Comment on above: Performed By: #### C DP, CP ####[facility] [place] [address] Monocytes/100 leukocytes 10 % Normal [facility] Comment on above: Performed By: #### C DP, CP ####[address] [address] Neutrophil (Seg) 55 % Normal [facility] Comment on above: Performed By: #### C DP, CP ####[address] [address] Platelet mean volume (PMV) 9.7 fL Normal 6.0-12.0 [facility] Comment on above: Performed By: #### C DP, CP ####[address] [address] Platelets 165 10*3/uL Normal 150-450 [facility] Comment on above: Performed By: #### C DP, CP ####[address] [address] WBC (Leukocytes) 6.7 10*3/uL Normal 3.5-11.0 [facility] Comment on above: Performed By: #### C DP, CP ####[address] [address] Auto Diff Performed NOT REPORTED Normal [facility] Comment on above: Performed By: #### C DP, CP ####[address] [address] Erythrocyte morphology NOT REPORTED Normal [facility] Comment on above: Performed By: #### C DP, CP ####[address] [address] Platelets NOT REPORTED Normal [facility] Comment on above: Performed By: #### C DP, CP ####[address] [address] WBC Morphology NOT REPORTED Normal [facility] Comment on above: Performed By: #### C DP, CP ####[address] [address] Comp Metabolic Profon 2016 (cont.) Normal [facility] Comment on above: Result Comment: Aver age GFR for 40-49 years old: 99 mL/min/1.73sq mChronic Kidney Disease: <60 mL/min/1.73sq mKidney failure: <15 mL/min/1.73sq meGFR calculated using average adult body mass. Additional eGFR calculator available at:http://[email or web address]_[email or web address] at [facility] [address] [place] [address] Performed By: #### C DP, CP ####[address] [address] Alanine aminotransferase (ALT) 33 U/L Normal 5-33 [facility] Comment on above: Performed By: #### C DP, CP ####[address] [address] Albumin 4.0 g/dL Normal 3.5-5.2 [facility] Comment on above: Performed By: #### C DP, CP ####[address] [address] Alkaline Phos 64 U/L Normal 35-104 [facility] Comment on above: Performed By: #### C DP, CP ####[address] [address] Anion gap 12 mmol/L Normal 9-17 [facility] Comment on above: Performed By: #### C DP, CP ####[address] [address] Aspartate aminotransferase (AST) 37 U/L High <32 [facility] Comment on above: Performed By: #### C DP, CP ####[address] [address] Bilirubin Ql (U) 0.24 mg/dL Low 0.3-1.2 [facility] Comment on above: Performed By: #### C DP, CP ####[address] [address] Calcium 9.3 mg/dL Normal 8.6-10.4 [facility] Comment on above: Performed By: #### C DP, CP ####[address] [address] Chloride 98 mmol/L Normal 98-107 [facility] Comment on above: Performed By: #### C DP, CP ####[address] [address] CO2 27 mmol/L Normal 20-31 [facility] Comment on above: Performed By: #### C DP, CP ####[address] [address] Creatinine 0.60 mg/dL Normal 0.50-0.90 [facility] Comment on above: Performed By: #### C DP, CP ####[address] [place] [address] eGFR (non-black) mL/min/{1.73_m2} Normal >60 [facility] Comment on above: Performed By: #### C DP, CP ####[facility] [facility] [place] [address] Glucose mass conc 108 mg/dL High 70-99 [facility] Comment on above: Performed By: #### C DP, CP ####[facility] [place] [address].[place] [address] Potassium molar conc 4.8 mmol/L Normal 3.7-5.3 [facility] Comment on above: Performed By: #### C DP, CP ####[address] [address] Protein 6.9 g/dL Normal 6.4-8.3 [facility] Comment on above: Performed By: #### C DP, CP ####[facility] [place] [address] Sodium 137 mmol/L Normal 135-144 [facility] Comment on above: Performed By: #### C DP, CP ####[address] [place] [address] Urea nitrogen 21 mg/dL High 6-20 [facility] Comment on above: Performed By: #### C DP, CP ####[address] [place] [address] Albumin/Globulin Ratio NOT REPORTED Normal 1.0-2.5 [facility] Comment on above: Performed By: #### C DP, CP ####[address] [address] BUN/CRE Ratio NOT REPORTED Normal 9-20 [facility] Comment on above: Performed By: #### C DP, CP ####[facility] [facility] [place] [address] Staging: NOT REPORTED Normal [facility] Comment on above: Performed By: #### C DP, CP ####[facility] [facility] [place] [address] Vital Signs Date Time Vital Sign Value Performing Clinician Faci litharris 06-01-2022 12:30-0400 Body height 157.48 cm Geo Coy Other [facility] Other 06-01-2022 12:30-0400 Body mass index (BMI) [Ratio] 29.99 kg/m2 Geo Coy Other [facility] Other 06-01-2022 12:30-0400 Body temperature 96.8 [degF] Geo Coy Other [facility] Other 06-01-2022 12:30-0400 Body weight 74.39 kg Geo Coy Other [facility] Other 06-01-2022 12:30-0400 Diastolic blood pressure 75 mm[Hg] Geo Coy Other [facility] Other 06-01-2022 12:30-0400 Respiratory rate 20 /min Geo Coy Other [facility] Other 06-01-2022 12:30-0400 SaO2% (BldA) [Mass fraction] 97 % Geo Coy Other [facility] Other 06-01-2022 12:30-0400 Systolic blood pressure 119 mm[Hg] Geo Mcculloughdano Other [facility] Other 01-11-2021 10:30-0400 Body height 157.48 cm Geo Mcculloughdano Other [facility] Other 01-11-2021 10:30-0400 Body mass index (BMI) [Ratio] 27.8 kg/m2 Geo Mcculloughdano Other [facility] Other 01-11-2021 10:30-0400 Body temperature 97.6 [degF] Meirer Zbigniew Other [facility] Other 01-11-2021 10:30-0400 Body weight 68.95 kg Geo Mcculloughdano Other [facility] Other 01-11-2021 10:30-0400 Diastolic blood pressure 70 mm[Hg] Jadenyareliser Zbigniew Other [facility] Other 01-11-2021 10:30-0400 Respiratory rate 20 /min Meirer Zbigniew Other [facility] Other 01-11-2021 10:30-0400 SaO2% (BldA) [Mass fraction] 97 % Meirer Zbigniew Other [facility] Other 01-11-2021 10:30-0400 Systolic blood pressure 100 mm[Hg] Christyareliser Zbigniew Other [facility] Other Encounters Encounter Date Encounter Type Care Provider Facility Start: 09-27-2023 ambulatory Idris Rogers acility:[facility] Start: 07-04-2023 End: 07-04-2023 ambulatory [facility] Start: 04-18-2023 End: 04-18-2023 ambulatory Christopher Zbigniew Other [facility] Other Start: 04-18-2023 Telephone encounter Geo hoango [facility] Start: 04-04-2023 End: 04-04-2023 ambulatory Christopher Zibgniew Other [facility] Other Start: 04-04-2023 Telephone encounter Christyareliser Jamel maegan [facility] Start: 01-13-2023 End: 01-13-2023 ambulatory Christopher Zbigniew Other [facility] Other Start: 01-13-2023 Telephone encounter Christyareliser Jamel maegan [facility] Start: 10-26-2022 End: 10-26-2022 ambulatory Christopher Zbigniew Other [facility] Other Start: 10-26-2022 Telephone encounter Christyareliser Jamel maegan [facility] Start: 10-24-2022 End: 10-24-2022 ambulatory Christopher Zbigniew Other [facility] Other Start: 10-24-2022 Telephone encounter Christyareliser Jamel maegan [facility] Start: 10-10-2022 End: 10-10-2022 ambulatory [facility] Work Phone: [facility] Work Phone: Start: 10-10-2022 End: 10-10-2022 Departed Referred Services [facility] Work Phone: [facility] Start: 08-10-2022 End: 08-10-2022 ambulatory Services [facility] Work Phone: [facility] Work Phone: Start: 08-10-2022 End: 08-10-2022 Patient encounter procedure Services [facility] Work Phone: [facility] [place] Work Phone: Start: 07-25-2022 Registered Recurring Services [facility] Work Phone: [facility] Start: 06-06-2022 End: 06-06-2022 ambulatory Services [facility] Work Phone: [facility] Work Phone: Start: 06-06-2022 End: 06-06-2022 Departed Referred Services [facility] Work Phone: [facility] Start: 06-01-2022 End: 06-01-2022 ambulatory Christyareliser Zbigniew Other [facility] Other Start: 06-01-2022 Office outpatient visit 15 minutes Geo Mcculloughdano [facility] Start: 05-23-2022 End: 05-23-2022 ambulatory Christopher Zbigniew Other [facility] Other Start: 05-23-2022 Telephone encounter Geo Jamel maegan [facility] Start: 05-04-2022 End: 05-04-2022 ambulatory Services [facility] Work Phone: [facility] Work Phone: Start: 05-04-2022 End: 05-04-2022 Patient encounter procedure Services [facility] Work Phone: [facility] [place] Work Phone: Start: 04-05-2022 End: 04-05-2022 ambulatory Christopher Zbigniew Other [facility] Other Start: 04-05-2022 Telephone encounter Christshannon Jamel maegan [facility] Start: 03-21-2022 End: 03-21-2022 ambulatory Christopher Zbigniew Other [facility] Other Start: 03-21-2022 Telephone encounter Geo hoango [facility] Start: 02-16-2022 End: 02-16-2022 Departed Referred Services [facility] Work Phone: [facility] Start: 01-18-2022 End: 01-18-2022 ambulatory Christopher Zbigniew Other [facility] Other Start: 01-18-2022 Telephone encounter Geo hoango [facility] Start: 12-29-2021 End: 12-29-2021 ambulatory Services [facility] Work Phone: [facility] Work Phone: Start: 12-29-2021 End: 12-29-2021 Departed Referred Services Family [facility] Work Phone: [facility] Start: 06-23-2021 End: 06-23-2021 ambulatory Christopher Zbigniew Other [facility] Other Start: 06-23-2021 Telephone encounter Geo hoango [facility] Start: 03-17-2021 End: 03-17-2021 ambulatory Christopher Zbigniew Other [facility] Other Start: 03-17-2021 Telephone encounter Geo hoango [facility] Start: 03-16-2021 End: 03-16-2021 ambulatory Christopher Zbigniew Other [facility] Other Start: 03-16-2021 Telephone encounter Geo Mccullough maegan [facility] Start: 01-25-2021 End: 01-25-2021 ambulatory Christopher Zbigniew Other [facility] Other Start: 01-25-2021 Telephone encounter Meirlauryn Mccullough maegan [facility] Start: 01-11-2021 Office outpatient visit 15 minutes Geo Coy [facility] Start: 07-29-2020 End: 07-29-2020 Patient encounter procedure C. Zbigniew/Preceptor Work Phone: -[facility] [place] Start: 09-16-2016 End: 09-22-2016 Evaluation and management of inpatient [facility] Start: 12-31-2003 Evaluation and management of inpatient Sky. Zbigniew/Preceptor Work Phone: -[address] [place] [address] Procedures Date Procedure Procedure Detail Performing Clinician Start: 08-10-2022 Ultrasonography of liver Services [facility] Work Phone: Start: 05-04-2022 End: 05-04-2022 X-ray of both knees Services [facility] Work Phone: Start: 05-04-2022 X-ray of lumbar spin e, four views Services [facility] Work Phone: Start: 09-21-2016 DISCHARGE PATIENT KUL [...] Detail Author Hepatitis B core antibody measurement [facility] Hepatitis B virus jaramillo rface Ab [Presence] in Serum [facility] enter Hepatitis C virus Ig G Ab [Presence] in Serum or Plasma by Immunoassay [facility] Hepatitis C virus RN A [log units/volume] (viral load) in Serum or Plasma by ONEIL with probe detection [facility] Hepatitis C virus RN A [Units/volume] (viral load) in Serum or Plasma by ONEIL with probe detection [place] [facility] Immunizations Immunization Date Immunization Notes Care Provider aDna deleon 07-01-2017 Toradol per 15 mg Alfie Coy Other [facility] Other Payers Date Payer Category Payer Self-pay [id number] 2022 Medicaid [id number] 2012 Unknown [id number] 1975 Unknown [id number] Unknown [id number] Unknown [id number] Social History Date Type Detail Facility Start: 01-30-2020 End: 02-27-2021 Tobacco smoking status NHIS Smoker (finding) [facility] Start: 1975 Sex Assigned At Female F [facility] Sex Assigned At Sex Assigned At Bir th [facility] [employer] Other Clinical Notes 01-11-2021 to 04-18-2023 Note Date & Type Note Facility 04-18-2023 Evaluation note Encounter Date Diagnosis Assessment Notes Apr, Chronic obstructive pulmonary disease, unspecified (ICD-10 - J44.9) [facility] Other 01-23-2024 Evaluation note* Encounter Date Diagnosis Assessment Notes Treatment Notes Treatment Clinical Notes Mar, Chronic obstructive pulmonary disease, unspecified (ICD-10 - J44.9) [facility] Other 11-03-2023 Evaluation note* Encounter Date Diagnosis Assessment Notes Treatment Notes Treatment Clinical Notes Jan, Chronic obstructive pulmonary disease, unspecified (ICD-10 - J44.9) [facility] Other 08-16-2023 Evaluation note* Encounter Date Diagnosis Assessment Notes Treatment Notes Treatment Clinical Notes Oct, Chronic obstructive pulmonary disease, unspecified (ICD-10 - J44.9) [facility] Other 08-14-2023 Evaluation note* Encounter Date Diagnosis Assessment Notes Treatment Notes Treatment Clinical Notes Oct, Chronic obstructive pulmonary disease, unspecified (ICD-10 - J44.9) [facility] Other 03-22-2023 Evaluation note* Encounter Date Diagnosis Assessment Notes Treatment Notes Treatment Clinical Notes May, Chronic obstructive pulmonary disease, unspecified (ICD-10 - J44.9) May, Tobacco use disorder (ICD-10 - Z72.0) May, Allergic rhinitis (ICD-10 - J30.9) May, GERD (gastroesophageal reflux disease) (ICD-10 - K21.9) [facility] Other 03-13-2023 Evaluation note* Encounter Date Diagnosis Assessment Notes Treatment Notes Treatment Clinical Notes May, Chronic obstructive pulmonary disease, unspecified (ICD-10 - J44.9) [facility] Other 01-24-2023 Evaluation note* Encounter Date Diagnosis Assessment Notes Treatment Notes Treatment Clinical Notes Mar, Chronic obstructive pulmonary disease, unspecified (ICD-10 - J44.9) [facility] Other 01-09-2023 Evaluation note* Encounter Date Diagnosis Assessment Notes Treatment Notes Treatment Clinical Notes Mar, Chronic obstructive pulmonary disease, unspecified (ICD-10 - J44.9) [facility] Other 11-08-2022 Evaluation note* Encounter Date Diagnosis Assessment Notes Treatment Notes Treatment Clinical Notes Jan, Chronic obstructive pulmonary disease, unspecified (ICD-10 - J44.9) [facility] Other 11-01-2021 Evaluation note* Encounter Date Diagnosis Assessment Notes Treatment Notes Treatment Clinical Notes Jan, Chronic obstructive pulmonary disease, unspecified (ICD-10 - J44.9) Jan, Tobacco use disorder (ICD-10 - Z72.0) Jan, Allergic rhinitis (ICD-10 - J30.9) Jan, GERD (gastroesophageal reflux disease) (ICD-10 - K21.9) [facility] Other Evaluation noteNo assessment information available [facility] noteNo InformationNortGe[facility] [employer] Other [employer] general Narrative - Reported* Type Description Date Medical History 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 [facility] Other Summary Purpose Family History No Family [...] section and content) DATE CREATED AUTHOR 09/06/2017 [facility] DATE CREATED AUTHOR AUTHOR'S ORGANIZ ATION 07/05/2023 [facility] DATE CREATED AUTHOR AUTHOR'S ORGANIZ ATION 10/05/2023 [facility] Goals (unrecognized section and content) [...] Status: Active Member Role Status Dates Services [facility] Primary Care Provider Active Team Status: Active Member Role Status Dates Kyaw Coy/Kyree Watt Attending Provider Active Team Status: Inactive Member Role Status Dates [facility] Primary Care Provider Active Jason Michele DO Attending Provider Active Cecilio Epps DO MART[facility] Other Provider Active Team Status: Inactive Member Role Status Dates Services [facility] Primary Care Provider Active Laurie Oliva MD Attending Provider Active Team Status: Inactive Member Role Status Dates Services [facility] Primary Care Provider Active Cecilio Epps DO MARTIN Attending Provider Active Team Status: Inactive Member Role Status Dates Services [facility] Primary Care Provider Active Jason Michele DO Attending Provider Active Cecilio Epps DO MARTIN Referring Provider Active Team Status: Active Member Role Status Dates [facility] Primary Care Provider Active Breanna Taylor MD Attending Provider Active Team Status: Inactive Member Role Status [facility] Services [facility] Primary Care Provider Active Cecilio Epps DO [...] BE BASED ON THE PRIMARY CLINICAL RECORDS. [facility] [employer] provides no warranty or guarantee of the accuracy or completeness of information in this document.
--- NOTE | 2023-10-08 02:24 | ED_ITS ---
HPI - Nausea/Vomiting/Diarrhea General Chief complaint: Nausea/Vomiting/Diarrhea Stated complaint: chest pain Time Seen by Provider: 10/08/23 01:54 Source: patient Mode of arrival: walk-in Limitations: no limitations History of Present Illness HPI Narrative: patient presents complaining of vomiting. States recent diagnosis of pleurisy. daily smoker. José gave her zofran and morphine. José States she was placing her finger down her throat trying to make herself vomit. she is a poor historian stating that she is sick and her face is sweating Related Data Home Medications ?Medication ?Instructions ?Recorded ?Confirmed albuterol sulfate 90 mcg/actuation 2 inh inhalation Q6H PRN shortness 09/10/22 07/18/23 aerosol inhaler (Ventolin HFA) of breath or wheezing clonidine HCl 0.2 mg tablet 0.2 mg PO TID 09/10/22 07/18/23 famotidine 20 mg tablet 20 mg PO .QHS 09/10/22 07/17/23 levothyroxine 125 mcg tablet 50 mcg PO QDAY 09/10/22 07/17/23 pregabalin 150 mg capsule 150 mg PO TID 09/10/22 07/17/23 quetiapine 200 mg tablet 100 mg PO .QHS 09/10/22 07/17/23 budesonide-formoterol HFA 160 2 inh inhalation BID 09/11/22 07/18/23 mcg-4.5 mcg/actuation aerosol inhaler ondansetron 4 mg disintegrating 8 mg PO DAILY PRN nausea and 09/11/22 07/17/23 tablet vomiting aclidinium bromide 400 1 inh inhalation BID 07/17/23 mcg/actuation breath activated powder inhaler (Tudorza Pressair) cholecalciferol (vitamin D3) 25 1,000 unit PO DAILY 07/17/23 mcg (1,000 unit) tablet conjugated estrogens 0.3 mg tablet 0.3 mg PO DAILY 07/17/23 (Premarin) docusate sodium 100 mg tablet 100 mg PO BID PRN constipation 07/17/23 escitalopram oxalate 20 mg tablet 20 mg PO DAILY 07/17/23 (Lexapro) olanzapine-fluoxetine 12 mg-50 mg 1 cap PO DAILY 07/17/23 capsule (Symbyax) progesterone micronized 200 mg 400 mg PO DAILY 07/17/23 capsule (Prometrium) psyllium husk 0.4 gram capsule 0.4 g PO DAILY 07/17/23 (Daily Fiber) tizanidine 2 mg tablet 2 mg PO Q6H PRN muscle spasticity 07/17/23 Previous Rx's ?Medication ?Instructions ?Recorded prednisone 10 mg tablet See Rx Instructions .Route 09/10/23 .COMPLEX #30 tabs tramadol 50 mg tablet 50 mg PO Q8H PRN pain 5 days #20 09/10/23 tabs Allergies Allergy/AdvReac Type Severity Reaction Status Date / Time naproxen Allergy Intermediate Hives Verified 10/08/23 01:51 varenicline Allergy Hives Verified 10/08/23 01:51 Antihistamines - Alkylamine AdvReac Intermediate Hives Verified 10/08/23 05:34 Review of Systems ROS Status of ROS 10 or more systems reviewed and unremark able except as noted in history and below [facility] Medical History (Updated 10/08/23 @ 06:30 by Chase Mcdaniels MD) Full dentures ?Z97.2 - Presence of dental prosthetic device (complete) (partial) (ICD-10) ?K08.109 - Complete loss of teeth, unspecified cause, unspecified class (ICD- 10) Anemia ?D64.9 - Anemia, unspecified (ICD-10) Sleep apnea ?G47.30 - Sleep apnea, unspecified (ICD-10) Hypothyroidism ?E03.9 - Hypothyroidism, unspecified (ICD-10) Edentulous ?K08.109 - Complete loss of teeth, unspecified cause, unspecified class (ICD- 10) Vomiting ?R11.10 - Vomiting, unspecified (ICD-10) Nausea ?R11.0 - Nausea (ICD-10) Menopause ?Z78.0 - Asymptomatic menopausal state (ICD-10) Disease of thyroid gland ?E07.9 - Disorder of thyroid, unspecified (ICD-10) Fibromyalgia ?M79.7 - Fibromyalgia (ICD-10) Acute posttraumatic stress disorder ?F43.11 - Post-traumatic stress disorder, acute (ICD-10) Kidney stones ?N20.0 - Calculus of kidney (ICD-10) Acid reflux ?K21.9 - Gastro-esophageal reflux disease without esophagitis (ICD-10) History of peptic ulcer disease ?Z87.11 - Personal history of peptic ulcer disease (ICD-10) Abdominal pain ?R10.9 - Unspecified abdominal pain (ICD-10) Nausea and vomiting ?R11.2 - Nausea with vomiting, unspecified (ICD-10) Constipation ?K59.00 - Constipation, unspecified (ICD-10) Recovering alcoholic ?F10.21 - Alcohol dependence, in remission (ICD-10) Pneumonia ?J18.9 - Pneumonia, unspecified organism (ICD-10) Ovarian cyst ?N83.209 - Unspecified ovarian cyst, unspecified side (ICD-10) Glaucoma ?H40.9 - Unspecified glaucoma (ICD-10) Emphysema of lung ?J43.9 - Emphysema, unspecified (ICD-10) COPD (chronic obstructive pulmonary disease) ?J44.9 - Chronic obstructive pulmonary disease, unspecified (ICD-10) Arthritis ?M19.90 - Unspecified osteoarthritis, unspecified site (ICD-10) Ganglion cyst of dorsum of right wrist ?M67.431 - Ganglion, right wrist (ICD-10) Intussusception ?K56.1 - Intussusception (ICD-10) Surgical History (Updated 07/20/23 @ 09:17 by Joanie Roper NP) H/O tooth extraction ?K08.409 - Partial loss of teeth, unspecified cause, unspecified class (ICD- 10) History of esophagogastroduodenoscopy (EGD) ?Z98.890 - Other specified postprocedural states (ICD-10) H/O oophorectomy History of lung biopsy ?Z98.890 - Other specified postprocedural states (ICD-10) H/O colonoscopy ?Z98.890 - Other specified postprocedural states (ICD-10) Family History (Updated 07/20/23 @ 09:21 by Joanie Roper NP) Other Aneurysm Emphysema of lung Family history of COPD (chronic obstructive pulmonary disease) Family history of cancer Family history of emphysema Family history of myocardial infarction Social History (Updated 07/20/23 @ 09:13 by Joanie Roper NP) Within the past year, how often did you have a drink containing alcohol: monthly or less Within the past year, how many standard drinks containing alcohol did you have on a typical day: 1 or 2 Total score: 0 Score interpretation: A score less than 3 is consistent with normal alcohol consumption. Smoking status: Current every day smoker What tobacco products do you use: cigarettes Packs per day: 2 Years smoked: 30 Smoking pack-years: 60.00 Non-prescribed substance use: denies use Highest level of school completed/degree received: 10th grade Exam Constitutional Vital Signs, click to edit/add: Last Vital Signs Temp 98 F 10/08/23 01:51 Pulse 110 H 10/08/23 05:24 Resp 16 10/08/23 05:24 BP 158/105 H 10/08/23 05:24 Pulse Ox 97 10/08/23 05:24 O2 Del Method Room Air 10/08/23 01:51 Common normals: no apparent distress, average body habitus, oriented x3, no limitations, healthy appearing, alert and well nourished HENIN Common normals: normocephalic and head/scalp atraumatic Respiratory Common normals: normal respiratory effort, no retractions, no use of accessory muscles and clear to auscultation bilaterally Cardio Common normals: regular rate, regular rhythm, S1 normal heart sound and S2 normal heart sound GI Common normals: Normal to inspection, nondistended, normoactive bowel sounds present, soft to palpation and non-tender Extremity Common normals: normal to inspection and full ROM Neuro Common normals: oriented x3, CN's II-XII intact bilaterally, moves all extremities and no focal motor deficits Psych Appearance: grossly normal Course Vital Signs Vital signs: Vital Signs Temperature 98 F 10/08/23 01:51 Pulse Rate 109 H 10/08/23 01:51 Respiratory Rate 20 10/08/23 01:51 Blood Pressure 162/101 H 10/08/23 01:51 Pulse Oximetry 99 10/08/23 01:51 Oxygen Delivery Method Room Air 10/08/23 01:51 Temperature 98 F 10/08/23 01:51 Pulse Rate 110 H 10/08/23 05:24 Respiratory Rate 16 10/08/23 05:24 Blood Pressure 158/105 H 10/08/23 05:24 Pulse Oximetry 97 10/08/23 05:24 Oxygen Delivery Method Room Air 10/08/23 01:51 MDM - Nausea/Vomiting/Diarrhea MDM Narrative Medical decision making narrative: patient is a poor historian. Presents complaining of nausea and abdominal pain. No significant improvement in symptoms despite several anti emetics. labs unrevealing. cxray and abdominal xray per my review without acute findings. Final interpretation pending. Patient re evaluated and continues with same complaint. CT abdomen ordered and care transferred at change of shift Lab Data Labs: Lab Results 10/08/23 10/08/23 Range/Units 01:58 05:15 WBC 10.2 (4.0-11.0) 10^3/uL RBC 4.34 (4.20-5.40) 10^6/uL Hgb 14.7 (12.0-16.0) g/dL Hct 44.3 (36.0-48.0) % MCV 102.1 H (81.0-99.0) fL MCH 33.9 (26.7-34.0) pg MCHC 33.2 (29.9-35.2) g/dL RDW 14.1 (11.0-15.0) % Plt Count 182 (150-450) 10^3/uL MPV 11.2 (9.5-13.5) fL Neut % (Auto) 73.6 (43.0-75.0) % Lymph % (Auto) 16.9 L (20.5-60.0) % [place] % (Auto) 8.2 (1.7-12.0) % Eos % (Auto) 0.3 L (0.9-7.0) % Baso % (Auto) 0.7 (0.2-2.0) % Neut # (Auto) 7.5 H (1.4-6.5) 10^3/uL Lymph # (Auto) 1.7 (1.2-3.8) 10^3/uL [place] # (Auto) 0.8 (0.3-0.8) 10^3/uL Eos # (Auto) 0.0 (0.0-0.7) 10^3/uL Baso # (Auto) 0.1 (0.0-0.1) 10^3/uL Abs Immat Gran (auto) 0.03 (0.00-0.03) 10^3/uL Imm/Tot Granulo (auto) 0.3 (0.0-0.5) % D-Dimer <0.19 (<=0.59) mg/L FEU Sodium 140 (136-145) mmol/L Potassium 3.7 (3.5-5.1) mmol/L Chloride 101 (98-107) mmol/L Carbon Dioxide 23.7 (21.0-32.0) mmol/L Anion Gap 19.0 BUN 16.0 (7.0-18.0) mg/dL Creatinine 0.95 (0.55-1.02) mg/dL Est GFR ( Amer) >60 (>=60) Est GFR (Non-Af Amer) >60 (>=60) BUN/Creatinine Ratio 16.8 Glucose 123 H (74-106) mg/dL Lactate 0.7 (0.4-2.0) mmol/L Calcium 9.5 (8.5-10.1) mg/dL Total Bilirubin 1.1 H (0.2-1.0) mg/dL AST 34 (15-37) U/L ALT 59 (14-59) U/L Alkaline Phosphatase 70 (46-116) U/L Troponin I High Sens <4.0 L (4.0-51.3) pg/mL Total Protein 7.8 (6.4-8.2) g/dL Albumin 4.4 (3.4-5.0) g/dL Globulin 3.4 g/dL Albumin/Globulin Ratio 1.3 Lipase 60.0 (16.0-77.0) U/L Urine Color Yellow (YELLOW) Urine Clarity Clear (CLEAR) Urine pH 7.0 (5.0-9.0) Ur Specific [place] 1.025 (1.005-1.025) Urine Protein Trace (NEG/TRACE) mg/dL Urine Glucose (UA) Negative (NEGATIVE) mg/dL Urine Ketones >=80 A (NEGATIVE) mg/dL Urine Occult Blood Negative (NEGATIVE) Urine Nitrite Negative (NEGATIVE) Urine Bilirubin Moderate A (NEGATIVE) Urine Urobilinogen 1.0 (0.2-1.0) EU/dL Ur Leukocyte Esterase Negative (NEGATIVE) Discharge Plan Discharge Chief Complaint: Nausea/Vomiting/Diarrhea Clinical Impression: Nausea Patient Disposition: Still a Patient Prescriptions / Home Meds: No Action albuterol sulfate [Ventolin HFA] 90 mcg/actuation HFA aerosol inhaler 2 inh INHALATION Q6H PRN (Reason: shortness of breath or wheezing) clonidine HCl 0.2 mg tablet 0.2 mg PO TID famotidine 20 mg tablet 20 mg PO .QHS levothyroxine 125 mcg tablet 50 mcg PO QDAY pregabalin 150 mg capsule 150 mg PO TID quetiapine 200 mg tablet 100 mg PO .QHS budesonide-formoterol 160-4.5 mcg/actuation HFA aerosol inhaler 2 inh inhalation BID ondansetron 4 mg tablet,disintegrating 8 mg PO DAILY PRN (Reason: nausea and vomiting) tramadol 50 mg tablet 50 mg PO Q8H PRN (Reason: pain) 5 Days Qty: 20 0RF prednisone 10 mg tablet See Rx Instructions .ROUTE .COMPLEX Qty: 30 0RF Rx Instructions: 4 by mouth daily for three days then 3 by mouth daily for three days then 2 by mouth daily for three days then 1 by mouth daily for three days Tudorza Pressair 400 mcg/actuation aerosol powdr breath activated 1 inh inhalation BID cholecalciferol (vitamin D3) 25 mcg (1,000 unit) tablet 1,000 unit PO DAILY docusate sodium 100 mg tablet 100 mg PO BID PRN (Reason: constipation) escitalopram oxalate [Lexapro] 20 mg tablet 20 mg PO DAILY Premarin 0.3 mg tablet 0.3 mg PO DAILY Rx Instructions: cyclically psyllium husk [Daily Fiber] 0.4 gram capsule 0.4 g PO DAILY olanzapine-fluoxetine [Symbyax] 12-50 mg capsule 1 cap PO DAILY progesterone micronized [Prometrium] 200 mg capsule 400 mg PO DAILY tizanidine 2 mg tablet 2 mg PO Q6H PRN (Reason: muscle spasticity) Rx Instructions: do not exceed 3 doses per 24 hrs Print Language: [place] Referrals: Physician,Non-Staff, MD [Primary Care Provider] - 1 week
--- NOTE | 2023-10-08 02:27 | XR_ITS ---
The [address] [address] Patient Name: KAREN CLEMENTE MRN: [id number] date: 1975 Sex: F Assigned Patient Location: ER Current Patient Location: ED.MAIN Accession/Order Number: [id number] Exam Date: 10/08/2023 02:40 Report Date: 10/08/2023 06:36 At the request of: DEJUAN LEBRON Procedure: XR acute abdomen series EXAM: XR acute abdomen series HISTORY: Nausea and vomiting for one day. COMPARISON: Chest x-ray, 09/10/2023, and CT abdomen pelvis, 02/18/2016. TECHNIQUE: AP chest with supine and upright AP abdominal x-rays. FINDINGS: The heart, mediastinum and pulmonary vascularity are within normal limits. The lungs are well expanded and clear. The bowel gas pattern appears normal. Colonic stool volume appears normal. No bowel wall thickening, pneumatosis or free air is seen. Clustered tiny left renal calculi are unchanged. There is a mild broad lumbar levoscoliosis. No acute osseous abnormality is seen. XR/XR acute abdomen series IMPRESSION: 1. No acute findings in the chest or abdomen. 2. Multiple tiny clustered left renal calculi, unchanged. Electronically authenticated by: JOE CLARK Date: 10/08/2023 06:36
[2023-10-08 02:35] LABS: Basophils Absolute Auto 0.1 10^3/uL (0.0-0.1); Basophils Percent Auto 0.7 % (0.2-2.0); Eosinophils Percent Auto 0.3 % (0.9-7.0); Hematocrit 44.3 % (36.0-48.0); Hemoglobin 14.7 g/dL (12.0-16.0); Immature Granulocytes Abs Auto 0.03 10^3/uL (0.00-0.03); Immature Granulocytes Pct Auto 0.3 % (0.0-0.5); Lymphocytes Absolute Auto 1.7 10^3/uL (1.2-3.8); Lymphocytes Percent Auto 16.9 % (20.5-60.0); Mean Corpuscular HGB Conc 33.2 g/dL (29.9-35.2); Mean Corpuscular Hemoglobin 33.9 pg (26.7-34.0); Mean Corpuscular Volume 102.1 fL (81.0-99.0); Mean Platelet Volume 11.2 fL (9.5-13.5); Monocytes Absolute Auto 0.8 10^3/uL (0.3-0.8); Monocytes Percent Auto 8.2 % (1.7-12.0); Neutrophils Absolute Auto 7.5 10^3/uL (1.4-6.5); Neutrophils Percent Auto 73.6 % (43.0-75.0); Platelet Count 182 10^3/uL (150-450); Red Blood Count 4.34 10^6/uL (4.20-5.40); Red Cell Distribution Width 14.1 % (11.0-15.0); White Blood Count 10.2 10^3/uL (4.0-11.0)
[2023-10-08 02:47] LABS: D Dimer <0.19 mg/L FEU (<=0.59)
[2023-10-08 02:49] LABS: Alanine Aminotransferase 59 U/L (14-59); Albumin Globulin Ratio 1.3; Albumin Level 4.4 g/dL (3.4-5.0); Alkaline Phosphatase 70 U/L (46-116); Aspartate Amino Transferase 34 U/L (15-37); BUN Creatinine Ratio 16.8; Bilirubin Total 1.1 mg/dL (0.2-1.0); Calcium 9.5 mg/dL (8.5-10.1); Carbon Dioxide 23.7 mmol/L (21.0-32.0); Chloride 101 mmol/L (98-107); Estimated GFR (African America >60 (>=60); Estimated GFR (Non-African Ame >60 (>=60); Globulin 3.4 g/dL; Glucose 123 mg/dL (74-106); Potassium 3.7 mmol/L (3.5-5.1); Sodium 140 mmol/L (136-145); Total Protein 7.8 g/dL (6.4-8.2)
[2023-10-08 02:51] LABS: Lactate/Lactic Acid 0.7 mmol/L (0.4-2.0); Troponin I High Sensitivity <4.0 pg/mL (4.0-51.3)
[2023-10-08] MEDS: 0.9 % SODIUM CHLORIDE 1,000 ML 100 ML IV (02:53)
[2023-10-08] MEDS: PROMETHAZINE HCL 25 MG in 0.9 % SODIUM CHLORIDE 50 ML 204 MG IV (02:53)
[2023-10-08] MEDS: MAGNESIUM SULFATE IN WATER 2 GM/50 ML PREMIX IV (03:13)
[2023-10-08 04:18] VITALS: PULSE 107; O2SAT 96
[2023-10-08 05:22] LABS: Bilirubin Urine MODERATE (NEGATIVE); Blood Urine NEGATIVE (NEGATIVE); Clarity Urine CLEAR (CLEAR); Color Urine YELLOW (YELLOW); Glucose Urine UA NEGATIVE (NEGATIVE); Ketones Urine >=80 mg/dL (NEGATIVE); Leukocyte Esterase Urine NEGATIVE (NEGATIVE); Nitrite Urine NEGATIVE (NEGATIVE); Protein Urine TRACE mg/dL (NEG/TRACE); Specific Gravity Urine 1.025 (1.005-1.025)
[2023-10-08 05:24] VITALS: BP 158/105; PULSE 110; O2SAT 97
[2023-10-08 05:24] LABS: Urine Microscopic Indicated NO
[2023-10-08] MEDS: METOCLOPRAMIDE HCL 10 MG/2 ML VIAL IVP (05:30)
--- NOTE | 2023-10-08 06:26 | CT_ITS ---
The [place] [id number] Patient Name: KAREN CLEMENTE MRN: [id number] date: 1975 Sex: F Assigned Patient Location: ER Current Patient Location: [facility] Accession/Order Number: [id number] Exam Date: 10/08/2023 06:46 Report Date: 10/08/2023 08:01 At the request of: DEJUAN LEBRON Procedure: CT abdomen pelvis wo con EXAM: CT abdomen pelvis wo con , 10/08/2023 HISTORY: nausea and abdominal pain COMPARISON: Prior CT scan from 09/10/2022. TECHNIQUE: CT scan of the abdomen and pelvis was performed without contrast. Coronal and sagittal reconstruction performed. Dose reduction techniques were achieved by using automated exposure control and/or adjustment of mA and/or kV according to patient size and/or use of iterative reconstruction technique. FINDINGS: Multiple small left renal calculi are again seen, the largest measuring approximately 4 mm in size. No hydronephrosis or hydroureter. The right kidney and ureter demonstrate no stone or dilatation. Urinary bladder is unremarkable. Mild hepatic steatosis. Subcentimeter hypodensity in the left lobe of the liver, likely representing a cyst, unchanged. The spleen, pancreas, gallbladder, bile ducts and both adrenal glands are unremarkable. No enlarged lymph node in the abdomen, retroperitoneum or the pelvis. Mild atherosclerotic calcification of the abdominal aorta. Unremarkable IVC. Unremarkable appendix. No bowel dilatation or bowel wall thickening. Uterus and adnexa are unremarkable. No free fluid in the peritoneal cavity. The bone windows demonstrate no acute osseous finding. Mild subcutaneous infiltration in the right anterior abdominal wall. Scans the lung bases show minimal atelectasis. CT/CT abdomen pelvis wo con IMPRESSION: 1. No acute findings in the abdomen or pelvis. 2. Multiple left renal calculi without obstruction. 3. Mild hepatic steatosis. Electronically authenticated by: KYLEE BURNS Date: 10/08/2023 08:01
[2023-10-08] MEDS: ONDANSETRON PF 4 MG/2 ML VIAL IV (06:38)
[2023-10-08 07:04] VITALS: BP 141/72; PULSE 100; O2SAT 96
[2023-10-08 07:33] VITALS: PULSE 98; O2SAT 97
--- NOTE | 2023-10-08 08:15 | ED_ITS ---
HPI - Nausea/Vomiting/Diarrhea General Chief complaint: Nausea/Vomiting/Diarrhea Stated complaint: chest pain Time Seen by Provider: 10/08/23 01:54 Source: patient Mode of arrival: walk-in Limitations: no limitations History of Present Illness HPI Narrative: 47-year-old female presented to the emergency department and was initially seen by Dr. Mcdaniels. Please see his full history and physical exam. The patient was signed out to me after discussing the case thoroughly with Dr. Mcdaniels. Related Data Home Medications ?Medication ?Instructions ?Recorded ?Confirmed albuterol sulfate 90 mcg/actuation 2 inh inhalation Q6H PRN shortness 09/10/22 07/18/23 aerosol inhaler (Ventolin HFA) of breath or wheezing clonidine HCl 0.2 mg tablet 0.2 mg PO TID 09/10/22 07/18/23 famotidine 20 mg tablet 20 mg PO .QHS 09/10/22 07/17/23 levothyroxine 125 mcg tablet 50 mcg PO QDAY 09/10/22 07/17/23 pregabalin 150 mg capsule 150 mg PO TID 09/10/22 07/17/23 quetiapine 200 mg tablet 100 mg PO .QHS 09/10/22 07/17/23 budesonide-formoterol HFA 160 2 inh inhalation BID 09/11/22 07/18/23 mcg-4.5 mcg/actuation aerosol inhaler ondansetron 4 mg disintegrating 8 mg PO DAILY PRN nausea and 09/11/22 07/17/23 tablet vomiting aclidinium bromide 400 1 inh inhalation BID 07/17/23 mcg/actuation breath activated powder inhaler (Tudorza Pressair) cholecalciferol (vitamin D3) 25 1,000 unit PO DAILY 07/17/23 mcg (1,000 unit) tablet conjugated estrogens 0.3 mg tablet 0.3 mg PO DAILY 07/17/23 (Premarin) docusate sodium 100 mg tablet 100 mg PO BID PRN constipation 07/17/23 escitalopram oxalate 20 mg tablet 20 mg PO DAILY 07/17/23 (Lexapro) olanzapine-fluoxetine 12 mg-50 mg 1 cap PO DAILY 07/17/23 capsule (Symbyax) progesterone micronized 200 mg 400 mg PO DAILY 07/17/23 capsule (Prometrium) psyllium husk 0.4 gram capsule 0.4 g PO DAILY 07/17/23 (Daily Fiber) tizanidine 2 mg tablet 2 mg PO Q6H PRN muscle spasticity 07/17/23 Previous Rx's ?Medication ?Instructions ?Recorded prednisone 10 mg tablet See Rx Instructions .Route 09/10/23 .COMPLEX #30 tabs tramadol 50 mg tablet 50 mg PO Q8H PRN pain 5 days #20 09/10/23 tabs promethazine 25 mg tablet 25 mg PO QID PRN nausea and 10/08/23 vomiting #20 tabs Allergies Allergy/AdvReac Type Severity Reaction Status Date / Time naproxen Allergy Intermediate Hives Verified 10/08/23 01:51 varenicline Allergy Hives Verified 10/08/23 01:51 Antihistamines - Alkylamine AdvReac Intermediate Hives Verified 10/08/23 05:34 [facility] Medical History (Updated 10/08/23 @ 06:30 by Chase Mcdaniels MD) Full dentures ?Z97.2 - Presence of dental prosthetic device (complete) (partial) (ICD-10) ?K08.109 - Complete loss of teeth, unspecified cause, unspecified class (ICD-10) Anemia ?D64.9 - Anemia, unspecified (ICD-10) Sleep apnea ?G47.30 - Sleep apnea, unspecified (ICD-10) Hypothyroidism ?E03.9 - Hypothyroidism, unspecified (ICD-10) Edentulous ?K08.109 - Complete loss of teeth, unspecified cause, unspecified class (ICD- 10) Vomiting ?R11.10 - Vomiting, unspecified (ICD-10) Nausea ?R11.0 - Nausea (ICD-10) Menopause ?Z78.0 - Asymptomatic menopausal state (ICD-10) Disease of thyroid gland ?E07.9 - Disorder of thyroid, unspecified (ICD-10) Fibromyalgia ?M79.7 - Fibromyalgia (ICD-10) Acute posttraumatic stress disorder ?F43.11 - Post-traumatic stress disorder, acute (ICD-10) Kidney stones ?N20.0 - Calculus of kidney (ICD-10) Acid reflux ?K21.9 - Gastro-esophageal reflux disease without esophagitis (ICD-10) History of peptic ulcer disease ?Z87.11 - Personal history of peptic ulcer disease (ICD-10) Abdominal pain ?R10.9 - Unspecified abdominal pain (ICD-10) Nausea and vomiting ?R11.2 - Nausea with vomiting, unspecified (ICD-10) Constipation ?K59.00 - Constipation, unspecified (ICD-10) Recovering alcoholic ?F10.21 - Alcohol dependence, in remission (ICD-10) Pneumonia ?J18.9 - Pneumonia, unspecified organism (ICD-10) Ovarian cyst ?N83.209 - Unspecified ovarian cyst, unspecified side (ICD-10) Glaucoma ?H40.9 - Unspecified glaucoma (ICD-10) Emphysema of lung ?J43.9 - Emphysema, unspecified (ICD-10) COPD (chronic obstructive pulmonary disease) ?J44.9 - Chronic obstructive pulmonary disease, unspecified (ICD-10) Arthritis ?M19.90 - Unspecified osteoarthritis, unspecified site (ICD-10) Ganglion cyst of dorsum of right wrist ?M67.431 - Ganglion, right wrist (ICD-10) Intussusception ?K56.1 - Intussusception (ICD-10) Surgical History (Updated 07/20/23 @ 09:17 by Joanie Roper NP) H/O tooth extraction ?K08.409 - Partial loss of teeth, unspecified cause, unspecified class (ICD- 10) History of esophagogastroduodenoscopy (EGD) ?Z98.890 - Other specified postprocedural states (ICD-10) H/O oophorectomy History of lung biopsy ?Z98.890 - Other specified postprocedural states (ICD-10) H/O colonoscopy ?Z98.890 - Other specified postprocedural states (ICD-10) Family History (Updated 07/20/23 @ 09:21 by Joanie Roper NP) Other Aneurysm Emphysema of lung Family history of COPD (chronic obstructive pulmonary disease) Family history of cancer Family history of emphysema Family history of myocardial infarction Social History (Updated 07/20/23 @ 09:13 by Joanie Roper NP) Within the past year, how often did you have a drink containing alcohol: monthly or less Within the past year, how many standard drinks containing alcohol did you have on a typical day: 1 or 2 Total score: 0 Score interpretation: A score less than 3 is consistent with normal alcohol consumption. Smoking status: Current every day smoker What tobacco products do you use: cigarettes Packs per day: 2 Years smoked: 30 Smoking pack-years: 60.00 Non-prescribed substance use: denies use Highest level of school completed/degree received: 10th grade Exam Constitutional Vital Signs, click to edit/add: Last Vital Signs Temp 98 F 10/08/23 01:51 Pulse 98 H 10/08/23 07:33 Resp 20 10/08/23 07:33 BP 141/72 10/08/23 07:04 Pulse Ox 97 10/08/23 07:33 O2 Del Method Room Air 10/08/23 01:51 Course Vital Signs Vital signs: Vital Signs Temperature 98 F 10/08/23 01:51 Pulse Rate 109 H 10/08/23 01:51 Respiratory Rate 20 10/08/23 01:51 Blood Pressure 162/101 H 10/08/23 01:51 Pulse Oximetry 99 10/08/23 01:51 Oxygen Delivery Method Room Air 10/08/23 01:51 Temperature 98 F 10/08/23 01:51 Pulse Rate 98 H 10/08/23 07:33 Respiratory Rate 20 10/08/23 07:33 Blood Pressure 141/72 10/08/23 07:04 Pulse Oximetry 97 10/08/23 07:33 Oxygen Delivery Method Room Air 10/08/23 01:51 MDM - Nausea/Vomiting/Diarrhea MDM Narrative Medical decision making narrative: Lab now this is essentially negative BC is 10. CAT scan shows no acute findings and she is discharged home with a prescription for Phenergan. She will follow- up with her family doctor. Treatment diagnosis and follow-up were discussed with the patient. Differential Diagnosis Differential diagnosis: Likely gastroenteritis, dehydration and other (Anxiety) Lab Data Attestation: I reviewed the patient's lab results. Labs: Lab Results 10/08/23 10/08/23 Range/Units 01:58 05:15 WBC 10.2 (4.0-11.0) 10^3/uL RBC 4.34 (4.20-5.40) 10^6/uL Hgb 14.7 (12.0-16.0) g/dL Hct 44.3 (36.0-48.0) % MCV 102.1 H (81.0-99.0) fL MCH 33.9 (26.7-34.0) pg MCHC 33.2 (29.9-35.2) g/dL RDW 14.1 (11.0-15.0) % Plt Count 182 (150-450) 10^3/uL MPV 11.2 (9.5-13.5) fL Neut % (Auto) 73.6 (43.0-75.0) % Lymph % (Auto) 16.9 L (20.5-60.0) % [place] % (Auto) 8.2 (1.7-12.0) % Eos % (Auto) 0.3 L (0.9-7.0) % Baso % (Auto) 0.7 (0.2-2.0) % Neut # (Auto) 7.5 H (1.4-6.5) 10^3/uL Lymph # (Auto) 1.7 (1.2-3.8) 10^3/uL [place] # (Auto) 0.8 (0.3-0.8) 10^3/uL Eos # (Auto) 0.0 (0.0-0.7) 10^3/uL Baso # (Auto) 0.1 (0.0-0.1) 10^3/uL Abs Immat Gran (auto) 0.03 (0.00-0.03) 10^3/uL Imm/Tot Granulo (auto) 0.3 (0.0-0.5) % D-Dimer <0.19 (<=0.59) mg/L FEU Sodium 140 (136-145) mmol/L Potassium 3.7 (3.5-5.1) mmol/L Chloride 101 (98-107) mmol/L Carbon Dioxide 23.7 (21.0-32.0) mmol/L Anion Gap 19.0 BUN 16.0 (7.0-18.0) mg/dL Creatinine 0.95 (0.55-1.02) mg/dL Est GFR ( Amer) >60 (>=60) Est GFR (Non-Af Amer) >60 (>=60) BUN/Creatinine Ratio 16.8 Glucose 123 H (74-106) mg/dL Lactate 0.7 (0.4-2.0) mmol/L Calcium 9.5 (8.5-10.1) mg/dL Total Bilirubin 1.1 H (0.2-1.0) mg/dL AST 34 (15-37) U/L ALT 59 (14-59) U/L Alkaline Phosphatase 70 (46-116) U/L Troponin I High Sens <4.0 L (4.0-51.3) pg/mL Total Protein 7.8 (6.4-8.2) g/dL Albumin 4.4 (3.4-5.0) g/dL Globulin 3.4 g/dL Albumin/Globulin Ratio 1.3 Lipase 60.0 (16.0-77.0) U/L Urine Color Yellow (YELLOW) Urine Clarity Clear (CLEAR) Urine pH 7.0 (5.0-9.0) Ur Specific [place] 1.025 (1.005-1.025) Urine Protein Trace (NEG/TRACE) mg/dL Urine Glucose (UA) Negative (NEGATIVE) mg/dL Urine Ketones >=80 A (NEGATIVE) mg/dL Urine Occult Blood Negative (NEGATIVE) Urine Nitrite Negative (NEGATIVE) Urine Bilirubin Moderate A (NEGATIVE) Urine Urobilinogen 1.0 (0.2-1.0) EU/dL Ur Leukocyte Esterase Negative (NEGATIVE) Imaging Data CT scan - abdomen: Radiologist's impression: ITS Impressions Chest/Abdomen X-ray 10/08/23 02:27 IMPRESSION: 1. No acute findings in the chest or abdomen. 2. Multiple tiny clustered left renal calculi, unchanged. Electronically authenticated by: JOE CLARK Date: 10/08/2023 06:36 Abdomen/Pelvis CT 10/08/23 06:26 IMPRESSION: 1. No acute findings in the abdomen or pelvis. 2. Multiple left renal calculi without obstruction. 3. Mild hepatic steatosis. Electronically authenticated by: KYLEE BURNS Date: 10/08/2023 08:01 Discharge Plan Discharge Stand Alone Forms: Portal Instructions Chief Complaint: Nausea/Vomiting/Diarrhea Clinical Impression: Nausea Patient Disposition: Home, Self-Care Time of Disposition Decision: 08:14 Condition: Good Mode of Transportation: Private Vehicle Prescriptions / Home Meds: New promethazine 25 mg tablet 25 mg PO QID PRN (Reason: nausea and vomiting) Qty: 20 0RF No Action albuterol sulfate [Ventolin HFA] 90 mcg/actuation HFA aerosol inhaler 2 inh INHALATION Q6H PRN (Reason: shortness of breath or wheezing) clonidine HCl 0.2 mg tablet 0.2 mg PO TID famotidine 20 mg tablet 20 mg PO .QHS levothyroxine 125 mcg tablet 50 mcg PO QDAY pregabalin 150 mg capsule 150 mg PO TID quetiapine 200 mg tablet 100 mg PO .QHS budesonide-formoterol 160-4.5 mcg/actuation HFA aerosol inhaler 2 inh inhalation BID ondansetron 4 mg tablet,disintegrating 8 mg PO DAILY PRN (Reason: nausea and vomiting) tramadol 50 mg tablet 50 mg PO Q8H PRN (Reason: pain) 5 Days Qty: 20 0RF prednisone 10 mg tablet See Rx Instructions .ROUTE .COMPLEX Qty: 30 0RF Rx Instructions: 4 by mouth daily for three days then 3 by mouth daily for three days then 2 by mouth daily for three days then 1 by mouth daily for three days Tudorza Pressair 400 mcg/actuation aerosol powdr breath activated 1 inh inhalation BID cholecalciferol (vitamin D3) 25 mcg (1,000 unit) tablet 1,000 unit PO DAILY docusate sodium 100 mg tablet 100 mg PO BID PRN (Reason: constipation) escitalopram oxalate [Lexapro] 20 mg tablet 20 mg PO DAILY Premarin 0.3 mg tablet 0.3 mg PO DAILY Rx Instructions: cyclically psyllium husk [Daily Fiber] 0.4 gram capsule 0.4 g PO DAILY olanzapine-fluoxetine [Symbyax] 12-50 mg capsule 1 cap PO DAILY progesterone micronized [Prometrium] 200 mg capsule 400 mg PO DAILY tizanidine 2 mg tablet 2 mg PO Q6H PRN (Reason: muscle spasticity) Rx Instructions: do not exceed 3 doses per 24 hrs Print Language: German Instructions: Acute Nausea and Vomiting (ED) Referrals: Physician,Non-Staff, MD [Primary Care Provider] - 1 week
[2023-10-08 08:20] VITALS: BP 122/76; PULSE 100; O2SAT 97
== END 2023-10-08 08:23 | disposition home or self-care (01) ==
PROVIDERS: Internal Medicine; Emergency Provider Emergency Medicine
DX: R11.0 Nausea (principal); F17.210 Nicotine dependence, cigarettes, uncomplicated
CPT/HCPCS: 36415; 74022; 74176; 80053; 81003; 83605; 83690; 84484; 85025; 85378; 96361; 96365; 96368; 96375; 99285; J2250; J2405; J2765; J3475

== ENCOUNTER 2024-12-31 17:29 | Emergency (ER) | payer OTHER, SELFPAY ==
[2024-12-31 17:39] VITALS: BP 134/86; PULSE 85; TEMP 37.1; O2SAT 96; BMI 24.0
--- OUTSIDE RECORDS SUMMARY | 2024-12-31 17:46 | XMS_ITS | CCD ---
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 Name Role Phone MINISTERIO WALLIS Unavailable Unavailable MINISTERIO WALLIS Unavailable Unavailable Zbigniew/Shukri CRadha Attending Provider [facility] Services Primary Care Provider Pricilla Engle Attending Provider Geo Coy Unavailable Zbigniew/Kyree Watt CRadha Attending Provider [facility] Services Primary Care Provider DO Cecilio Epps Attending Provider Zbigniew/Kyree Watt CRadha Attending Provider [facility] Services Primary Care Provider DO Jason Michele Attending Provider Supriya, DO [facility] Referring Provider Supriya, DO [facility] Other Provider [facility], Services Primary Care Provider DO Jason Michele Attending Provider Lowrie, DO [facility] Other Provider MD Laurie Oliva Attending Provider [facility] Services Primary Care Provider MD Breanna Taylor Attending Provider DO Cecilio Epps Referring Provider DO Jason Michele Attending Provider [facility] Primary Care Provider MD Laurie Oliva Attending Provider [phone] NIEVES GOFF Attending Unavailable SIMI, FELIX Harrison Referring Unavailable SIMI, FELIX Harrison Primary Care Unavailable SIMI, FELIX Harrison Referring Unavailable SIMI, FELIX Harrison Primary Care Unavailable SIMI, FELIX R Referring Unavailable SIMI, FELIX R Primary Care Unavailable NIEVES GOFF Attending Unavailable SIMI, FELIX Harrison Referring Unavailable SIMI, FELIX Harrison Primary Care Unavailable [facility] Primary Care Provider MD Idris Taylor Attending Provider [phone] Unavailable Primary Care Provider Unavailabl e DALE GIBSON Referring Unavailable SHERLYN, DALE Referring Unavailable DALE GIBSON Referring Unavailable Simi RODAS, Felix Harrison Primary Care Provider Felix Belcher MD Primary Care Provider Unavai phil Coy/Preceptor Kyree, C. Attending Provider [facility] Primary Care Provider [phone] Idris Taylor MD Attending Provider [phone] Jen Salas DO Attending Provider Jason Michele DO Primary Care Provider Zbigniew/Preceptor MOlivia, CRadha Attending Provider Jen Salas DO Attending Provider [phone] [facility] Primary Care Provider [phone] Idris Taylor MD Attending Provider [phone] Jason Michele DO Attending Provider Jen Salas DO Referring Provider [phone] DEENA BELL Attending Unavailable DEENA BELL Referring Unavailable [facility] Primary Care Provider [phone] Idris Taylor MD Attending Provider Charbel Buchanan(Rust) Primary Care Provider Jen Salas Attending Unavailable Jen Salas Admitting Unavailable Jen Salas Referring Unavailable [facility], Services Primary Care Unavaila Jason Mitchell Admitting Unavailable Jason Michele Attending Unavailable [facility] Services Primary Care Unavaila ble Idris Taylor Admitting Unavailab Idris Pollard Attending Unavailab Jen Alexander Referring Unavailable [facility] Services Primary Care Unavaila Jason Mitchell Admitting Unavailable Jason Michele Attending Unavailable FELIX BELCHER Referring Unavailable SIMI, FELIX R Primary Care Unavailable TOÑA VO Admitting Unavailable TOÑA VO Attending Unavailable SIMI, FELIX R Primary Care Unavailable TOÑA VO Attending Unavailable TOÑA VO Referring Unavailable SIMI, FELIX R Primary Care Unavailable KETTY ROACH Attending Unavailable SIMI, FELIX R Primary Care Unavailable SIMI, FELIX R Primary Care Unavailable FRANCK KNIGHT Attending Unavailable [facility] Primary Care Unava ilADAM Jaquez Attending Unavailable Allergies Allergy ClassificationReported Allergen(s)Allergy TypeDate of OnsetReaction(s) FacilityNSAIDs (1 source)NaproxenDrug Ombdiwu52-55-0762WozncNwmumtuavKettering Health [facility] Unclassified (15 sources)Antihistamines - Alkylamine; Translations: [ANTIHISTAMINES - ALKYLAMINE]Allergy to -42-1328Kimye (See Comments), [facility] (15 sources)diphenhydrAMINEDrug AllergyAnxiety [facility] [employer] Other (20 sources)Naproxen; Translations: [NAPROXEN]Drug Porsqqs51-87-6486llqo, ItchingMer[facility] (14 sources)atorvastatinDrug Lojvlzd91-68-8409maqz [facility] (8 sources)varenicline; Translations: [VARENICLINE]Drug Gpeiotf28-20-3552Avqky (See Comments)[facility] (3 sources)Antihistamines, Chlorpheniramine-TypePropensity to adverse reactions to kfdc40-04-2928Rmz [facility] (1 source)AntihistimineDrug Iynanxq77-95-3435Jjkzid Status Change, Shortness of BreathKettering Health Work Phone: (1 source)atorvastatinDrug Qnbrlew92-48-5107OiebrgjbzMercy Health Willard Hospital Repository (1 source)NaproxenDrug Vlvzsfj27-78-2603EsratpauaMercy Health Willard Hospital Repository Medications Current Medications MedicationDrug Class(es)DatesSig (Normalized)Sig (Original)aclidinium (6 sources)ACLIDINIUM BROMIDE (TUDORZA PRESSAIR INHL) Inhale. [id number] 200 actuat albuterol 0.09 mg/actuat metered dose inhaler (20 sources)beta2-Adrenergic AgonistStart: 06-17-2024 End: 61-58-2607fxrn 1 puff(s) by inhalation every six hours as needed for wheezingAlbuterol Sulfate (Ventolin Hfa) 90 mcg/actuation HFA aerosol inhaler Active 2 PUFF INHALATION Every 6 hours as needed for shortness of breath or wheezing 8.5 30 June 17, 2024 12:08pmStart: 44-36-4061cfzp 1 [IU] by inhalation four times dailyAlbuterol Sulfate 2.5 mg /3 mL (0.083 %) solution for nebulization Active 2.5 MG INHALATION Four times daily May 25, 2023 12:00am FreeTextSi unit dose Inhalation four times a day DX J44.9 COPD; Note: Source Status: Continue; Provider: Zbigniew Guardado EStart: 05-25-2023 End: 58-74-2149emwm 2 puff(s) by inhalation every six hours as neededAlbuterol Sulfate (Ventolin Hfa) 90 mcg/actuation HFA aerosol inhaler Discontinued 2 PUFF INHALATION Every 6 hours May 25, 2023 12:00am June 17, 2024 12:07pm FreeTextSi puffs as needed Inhalation every 6 hrs; Note: Source Status: Continue; Provider: Zbigniew Guardado EStart: 72-17-7300krkf 2 puff(s) by inhalation every six hours as neededVentolin HFA 108 (90 Base) MCG/ACT 2 puffs as needed Inhalation every 6 hrs July, ActiveStart: 67-60-9858Zpywn: 47-86-6292zkcv 90 ug by inhalation every four hoursAlbuterol Sulfate Active 90 MCG INHALATION Q4H April 04, 2017 4:17pmStart: 04-04-2017 End: 00-69-1254nzbf 90 ug by inhalation every four hoursAlbuterol Sulfate Discontinued 90 MCG INHALATION Q4H April 04, 2017 1:00am May 25, 2023 9:24amStart: 06-84-9076zmcd 90 ug by inhalation every four hoursAlbuterol Sulfate Active 90 MCG INHALATION Q4H April 04, 2017 12:00amStart: 04-04-2017 take 90 ug by inhalation every four hoursAlbuterol Sulfate Active 90 MCG INHALATION Q4H April 04, 2017 1:00amStart: 09-28-2169Kjuuvoatb Sulfate (2.5 MG/3ML) 0.083% 1 unit dose Inhalation four times a day DX J44.9 COPD ActiveStart: 99-65-6375Lkstbzseu Sulfate (2.5 MG/3ML) 0.083% 1 unit dose Inhalation four times a day DX J44.9 COPD ActiveStart: 03-16-2016 Start: 84-06-1578qxzb 2 puff(s) by inhalation every six hours as neededalbuterol HFA (PROAIR HFA) 90 mcg/actuation inhaler Inhale 2 Puffs as instructed every 6 hours as needed. 0 08/28/2014 ActiveStart: 16-79-5729dfqoxexuk sulfate HFA 108 (90 Base) MCG/ACT inhaler Inhale 2 puffs into the lungs 08/28/2014 ActiveStart: 83-24-9531oexjqufhw (PROVENTIL HFA;VENTOLIN HFA) 90 mcg/actuation inhaler Inhale 1 puff. 08/28/2014 Activebenzonatate 100 mg oral capsule (19 sources)Non-narcotic AntitussiveStart: 51-47-3949rmkv 1 capsule by mouth three times daily as neededBenzonatate 100 mg capsule Active 100 MG PO Three times daily May 25, 2023 12:00am FreeTextSi capsule as needed Orally Three times a day; Note: Source Status: Taking; Provider: Reny Manriquez KStart: 59-58-3572ymwn 1 capsule by mouth three times daily as neededTessalon Perles 100 mg 1 capsule as needed Orally Three times a day Sep, Trlcnf205 actuat budesonide 0.16 mg/actuat / formoterol fumarate 0.0045 mg/actuat metered dose inhaler (20 sources)Corticosteroid, beta2-Adrenergic AgonistStart: 06-17-2024 End: 49-39-4062Kyrktpkkhq-Formoterol (Symbicort) 160-4.5 mcg/actuation HFA aerosol inhaler Active 2 INH INHALATIONTwice daily 10.2 30 June 17, 2024 12:08pmStart: 05-25-2023 End: 23-19-5466tmqw 2 puff(s) by inhalation twice dailyBudesonide-Formoterol (Symbicort) 160-4.5 mcg/actuation HFA aerosol inhaler Discontinued 2 INH INHAL ATION Twice daily May 25, 2023 12:00am June 17, 2024 12:07pm FreeTextSi puffs Inhalation Twice a day; Note: Source Status: Continue; Provider: Zbigniew Veratart: 01-30-2020 End: 64-92-4028yxqp 1 puff(s) by inhalation twice dailyBudesonide-Formoterol (Symbicort) 160-4.5 mcg/actuation HFA aerosol inhaler Discontinued 2 PUFF INHA LATION Twice daily January 30, 2020 1:00am December 21, 2023 11:32amStart: 66-44-4482hunn 2 puff(s) by inhalation twice dailySymbicort 160-4.5 MCG/ACT 2 puffs Inhalation Twice a day Aug, ActiveStart: 54-75-8903uxub 2 puff(s) by inhalation twice dailySymbicort 160-4.5 MCG/ACT 2 puffs Inhalation Twice a day Aug, ActiveStart: 35-28-9271tyhz 2 puff(s) by inhalation in the morningbudesonide-formoterol (SYMBICORT) 160-4.5 mcg/actuation inhaler Indications: bronchospasm prevention with COPD Inhale 2 puffs in the morning and 2 puffs before bedtime. Indications: bronchospasm prevention with COPD. Active cholecalciferol 0.025 mg oral tablet (6 sources)Vitamin DStart: 60-55-0132txdb 1 tablet by mouth once daily cholecalciferol 1,000 units tablet TAKE 1 TABLET BY MOUTH EVERY DAY 04/26/2023 ActivecloNIDine hydrochloride 0.2 mg oral tablet (20 sources)Central alpha-2 Adrenergic AgonistStart: 01-30-2020 End: 20-04-5055batq 1 tablet by mouth three times daily as needed for anxiety Clonidine Hcl 0.2 mg tablet Active 0.2 MG PO Three times daily as needed for Anxiety January 1:00amStart: 12-85-2792pahCPFwwp HCl (CATAPRES) 0.2 mg tablet Take one(1) tablet daily. 09/27/2018 Activedocusate sodium 100 mg oral capsule (6 sources)Start: 67-35-6070xxkz 1 capsule by mouth twice daily as needed docusate sodium (COLACE) 100 mg capsule Take 1 capsule (100 mg total) by mouth 2 (two) times a day as needed. 05/04/2023 Activeergocalciferol 1.25 mg oral capsule (1 source)Provitamin D2 CompoundStart: 50-50-2004murj 1 capsule by mouth every weekergocalciferol, vitamin D2, (VITAMIN D) 50,000 unit capsule Take 1 capsule by mouth once each week.12 capsule 0 05/26/2014 Activeescitalopram 10 mg oral tablet (20 sources)Serotonin Reuptake InhibitorStart: 76-34-4672qflr 1 tablet by mouth once dailyEscitalopram Oxalate 10 mg tablet Active 10 MG PO Daily December 21, 2023 12:00amStart: 12-07-2023 End: 04-52-6733ympx 2 tablets by mouth once dailyEscitalopram Oxalate 5 mg tablet Discontinued 10 MG PO Daily December 07, 2023 12:19pm December 21, 2023 11:35amStart: 12-07-2023 End: 45-12-5465ydow 10 mg by mouth once dailyEscitalopram Oxalate Discontinued 10 MG PO Daily December 07, 2023 12:19pm December 21, 2023 11:35amStart: 05-25-2023 End: 92-85-9300fpuk 1 tablet by mouth once dailyEscitalopram Oxalate 5 mg tablet Discontinued 5 MG PO Daily May 25, 2023 12:00am December 07, 2023 12:19pm FreeTextSig: TAKE 1 TABLET BY MOUTH EVERY DAY Oral; Note: Source Status: Taking; Refills: 5; Qty: 30 Unspecified; Provider: MARNI FRANCISCOtart: 02-02-2020 End: 27-70-6712czzg 1 tablet by mouth once dailyEscitalopram Oxalate 10 mg Tablet Discontinued 10 MG PO Daily February 02, 2020 1:00am May 25, 2023 9:28amStart: 01-30-2020 End: 92-86-0881tlpo 1 tablet by mouth once dailyEscitalopram Oxalate (Lexapro) 5 mg Tablet Discontinued 5 MG PO Daily January 30, 2020 1:00am February 02, 2020 11:49amtake 1 tablet by mouth in the morningescitalopram (LEXAPRO) 20 mg tablet Take 1 tablet (20 mg total) by mouth in the morning. Activeestrogens, conjugated (halfway) 0.625 mg oral tablet (20 sources)EstrogenStart: 24-81-5231vryj 1 tablet by mouth once dailyConjugated Estrogens 0.625 mg tablet Active 1 TAB PO Daily September 05, 2017 12:00amtake 1 tablet by mouth in the morningestrogens, conjugated (PREMARIN ORAL) Take 1 tablet by mouth in the morning. Patient did not know the dosage. Active famotidine 20 mg oral tablet (20 sources)Histamine-2 Receptor Antagonisttake 1 tablet by mouth once daily famotidine (PEPCID) 20 mg tablet Take 20 mg by mouth once daily. Active FAMOTIDINE (PEPCID ORAL) Take by mouth. ActivePepcid Orally Once a day Active FLUoxetine 50 mg / OLANZapine 12 mg oral capsule (7 sources)Atypical Antipsychotic, Serotonin Reuptake Inhibitortake 1 capsule by mouth once daily at bedtimeOLANZapine-FLUoxetine (SYMBYAX) 12-50 mg per capsule Take 1 capsule by mouth daily at bedtime. Activefluticasone propionate 0.05 mg/actuat metered dose nasal spray (20 sources)CorticosteroidStart: 78-13-2329sphb 2 spray(s) nasal route once dailyFluticasone Propionate 50 mcg/actuation spray,suspension Active 2 SPRAY INTRANASAL Daily May 25, 2023 12:00am FreeTextSi sprays in each nostril Nasally Once a day; Note: Source Status: Continue; Provider: Zbigniew Guardado EStart: 01-30-2020 End: 57-58-8870Kfusoosirum Propionate 50 mcg/actuation spray,suspension Discontinued 1 SPRAY INTRANASAL Daily January 30, 2020 1:00am May 25, 2023 9:24amStart: 16-88-4056guju 2 spray(s) nasal route once dailyFluticasone Propionate 50 MCG/ACT 2 sprays in each nostril Nasally Once a day Mar, ActiveStart: 66-61-2492fwls 2 spray(s) nasal route once dailyFluticasone Propionate 50 MCG/ACT 2 sprays in each nostril Nasally Once a day Mar, ActiveStart: 51-97-6891464 actuat ipratropium bromide 0.017 mg/actuat metered dose inhaler (15 sources)AnticholinergicStart: 41-03-8168luaj 2 puff(s) by inhalation four times dailyAtrovent HFA 17 MCG/ACT 2 puffs Inhalation Four times a day Feb, ActiveStart: 43-59-9868zqesiixhcnyax sodium 0.125 mg oral tablet (20 sources)l-ThyroxineStart: 05-25-2023 End: 56-61-9330nqgd 1 tablet by mouth once dailyLevothyroxine 125 mcg tablet Active 125 MCG PO Daily December 07, 2023 12:17pmStart: 05-25-2023 End: 26-96-7377Tycecalwtdtiy Discontinued MCG PO May 25, 2023 12:00am December 07, 2023 12:19pm FreeTextSig: Oral; Note: Source Status: Taking; Qty: 30 Tablet; Provider: Zbigniew Guardado ( )Start: 01-30-2020 End: 54-63-3776wivc 1 tablet by mouth once dailyLevothyroxine 75 mcg tablet Discontinued 75 MCG PO Daily January 30, 2020 1:00am May 25, 2023 9:28am Start: 04-04-2017 End: 12-34-8107auls 1 tablet by mouth once dailyLevothyroxine 50 mcg tablet Discontinued 50 MCG PO Daily April 04, 2017 1:00am January 30, 2020 4:05pmLevothyroxine 75 mcg cap Take by mouth daily as directed. Active Levothyroxine Sodium 50 MCG CAPS Take 50 mcg by mouth ActiveLevothyroxine Sodium 125 MCG Oral for 30 Days ActiveLevothyroxine Sodium 125 MCG Oral for 30 Days ActiveSynthroid 50 MCG Orally Activeloratadine 10 mg oral tablet (4 sources)Start: 59-83-6566utnp 1 tablet by mouth once daily as needed Loratadine 10 mg tablet Active 10 MG PO Daily as needed December 07, 2023 12:00ammedroxyPROGESTERone acetate 2.5 mg oral tablet (20 sources)ProgestinStart: 61-52-0131fywi 1 tablet by mouth every twenty-four hoursProvera 2.5 MG 1 tablet with food Orally Once a day for 30 days Apr, Activenaltrexone hydrochloride 50 mg oral tablet (10 sources)Opioid AntagonistStart: 46-13-5579tlle 1 tablet by mouth once daily Naltrexone 50 mg tablet Active 50 MG PO Daily February 21, 2021 1:00am omeprazole 40 mg delayed release oral capsule (20 sources)Proton Pump InhibitorStart: 85-31-3507qzxv 1 capsule by mouth once dailyOmeprazole 40 mg capsule,delayed release(DR/EC) Active 40 MG PO Daily May 25, 2023 12:00am FreeTextSi capsule Orally Once a day; Note: Source Status: Taking; Provider: Zbigniew Monroeetron 8 mg oral tablet (20 sources)Serotonin-3 Receptor AntagonistStart: 62-98-7081jjetwelebma (ZOFRAN) 8 mg tablet Take 1 tablet (8 mg total) by mouth. 06/19/2023 ActiveStart: 09-14-2017 End: 28-29-5723ermp 1 tablet by mouth every eight hours as needed for nausea and vomitingOndansetron (Zofran Odt) 4 mg tablet,disintegrating Discontinued 4 MG PO Q8H as needed for nausea and vomiting 9 3 September 14, 2017 12:00am November 27, 2017 6:20pmtake 1 tablet by mouth twice daily as needed for nausea ondansetron (ZOFRAN-ODT) 4 MG disintegrating tablet Take 4 mg by mouth 2 times daily as needed for Nausea or Vomiting Activetake 1 tablet by mouth once daily Ondansetron HCl 4 MG TAKE 1 (ONE) tablet BY MOUTH DAILY Oral for 30 Active pregabalin 150 mg oral capsule (20 sources)Start: 54-29-2264elej 1 capsule by mouth once dailyPregabalin 150 mg capsule Active 150 MG PO Daily December 21, 2023 12:00amStart: 04-04-2017 End: 87-95-6161Flxlrzlaya 100 mg capsule Discontinued 150 MG PO Three times daily April 04, 2017 1:00am December 21, 2023 11:35amStart: 04-04-2017 End: 53-78-2629rtbz 150 mg by mouth three times dailyPregabalin Discontinued 150 MG PO Three times daily April 04, 2017 1:00am December 21, 2023 11:35am Start: 78-34-6103jnzu 1 capsule by mouth three times dailypregabalin (LYRICA) 100 mg capsule Take 100 mg by mouth three times daily. 0 11/06/2018 Active 28 mg iron- 800 mcg tablet (6 sources)Start: 26-05-2921fydf 1 tablet by mouth once dailyPRENATAL 28 mg iron- 800 mcg tablet TAKE 1 TABLET BY MOUTH EVERY DAY 04/28/2023 ActivePrenatal Vitamins 28-0.8 MG (15 sources)take 1 tablet by mouth once dailyPrenatal Vitamins 28-0.8 MG TAKE 1 TABLET BY MOUTH EVERY DAY Oral for 30 Activeprogesterone 200 mg oral capsule (9 sources)Progesteronetake 1-12 capsules by mouth once dailyprogesterone (PROMETRIUM) 200 MG capsule Indications: on days 1-12 of cycle Take 200 mg by mouth daily Indications: on days 1-12 of cycle Activepromethazine hydrochloride 25 mg oral tablet (6 sources)PhenothiazineStart: 38-95-1257cyoz 1 tablet by mouth four times daily as needed for nauseapromethazine (PHENERGAN) 25 mg tablet Take 1 tablet (25 mg total) by mouth 4 (four) times a day as needed for vomiting or nausea. 10/09/2023 ActiveStart: 08-30-6400evne 12.5-25 mg by mouth every eight hours as neededpromethazine (PHENERGAN) 25 mg tablet Take 0.5-1 tablets by mouth every 8 hours as needed for Nausea/Vomiting (or migraine.). FOR NAUSEA 30 tablet 3 11/15/2018 Activepsyllium 400 mg oral capsule (6 sources)Start: 94-54-9769jqle 1 capsule by mouth in the morningMetamuciL 0.4 gram capsule Take 1 capsule (0.4 g total) by mouth in the morning. 04/26/2023 ActiveQUEtiapine 50 mg oral tablet (20 sources)Atypical AntipsychoticStart: 74-38-8229lldp 1 tablet by mouth once daily at bedtimeQuetiapine (Seroquel) 50 mg tablet Active 50 MG PO Daily at bedtime May 25, 2023 12:00am FreeTextSi tablet at bedtime Orally Once a day; Note: Source Status: Taking; Refills: 2; Provider: Zbigniew Guardado ( )Start: 04-04-2017 End: 51-14-3069Fuewqevpsc 200 mg tablet Discontinued 100 MG PO Bedtime April 04, 2017 1:00am January 30, 2020 4:36pmStart: 04-04-2017 End: 10-18-8266nqys 100 mg by mouth at bedtimeQuetiapine Discontinued 100 MG PO Bedtime April 04, 2017 1:00am January 30, 2020 4:36pmStart: 09-21-2016 End: 51-35-5150VEMdjgiryu (SEROQUEL) 100 mg tablet Take 100 mg by mouth. 09/21/2016 ActiveStart: 09-21-2016 End: 46-08-3251shbg 1 tablet by mouth once daily at bedtimeQUEtiapine (SEROQUEL) 200 mg tablet Indications: Abnormal MRI Take 200 mg by mouth daily at bedtime. 09/21/2016 Activetake 0.5 tablet by mouth once dailyQUEtiapine (SEROquel) 200 mg tablet Take 0.5 tablets (100 mg total) by mouth nightly. Activetake 1 tablet by mouth every twenty-four hoursSEROquel 50 MG 1 tablet at bedtime Orally Once a day for 30 Activerizatriptan 10 mg oral tablet (1 source)Serotonin-1b and Serotonin-1d Receptor AgonistStart: 29-77-8238riwm 1 tablet by mouth two times weeklyrizatriptan (MAXALT) 10 mg tablet Take 1 po AT ONSET OF HEADACHE. MAY REPEAT ONCE AFTER 2 HOURS if needed. DO NOT use on more than 2 days per week. 9 tablet 3 11/15/2018 Activesimvastatin 20 mg oral tablet (14 sources)HMG-CoA Reductase InhibitorStart: 40-71-0120nizc 1 tablet by mouth once dailySimvastatin 20 mg tablet Active 20 MG PO Daily May 25, 2023 12:00am FreeTextSig: Oral; Note: Source Status: Taking; Qty: 30 Tablet; Provider: Zbigniew Guardado ( )Simvastatin 20 MG Oral for 30 Days ActiveTiotropium [place] (15 sources)AnticholinergicStart: 68-19-4352xvvs 2.5 ug by inhalation twice dailyTiotropium [place] (Spiriva Respimat) 2.5 mcg/actuation mist Active 2 INH INHALATION Twice daily 07 10June 17, 2024 12:06pmStart: 01-30-2020 End: 00-41-5170eefc 2.5 ug by inhalation twice dailyTiotropium [place] (Spiriva Respimat) 2.5 mcg/actuation mist Discontinued 2 INH INHALATION Twice daily January 30, 2020 1:00am June 17, 2024 12:07pmStart: 34-57-4574TFBUUKL RESPIMAT 2.5 mcg/actuation inhaler 11/14/2018 Activetiotropium (SPIRIVA RESPIMAT) 1.25 MCG/ACT AERS inhaler Inhale 2 puffs into the lungs daily Active tiZANidine 4 mg oral tablet (17 sources)Central alpha-2 Adrenergic AgonistStart: 25-92-3446dqdo 2 mg by mouth three times daily as needed for painTizanidine 4 mg tablet Active 2 MG PO Three times daily as needed for Pain April 04, 2017 1:00amStart: 04-04-2017 take 2 mg by mouth three times dailyTizanidine Active 2 MG PO Three times daily April 04, 2017 1:00amStart: 29-94-0938uyhc 1 tablet by mouth once daily at bedtimetiZANidine (ZANAFLEX) 4 mg tablet Take 1 tablet by mouth daily at bedtime. 30 tablet 2 06/05/2014 Activetake 1 tablet by mouth every six hours as neededtiZANidine (ZANAFLEX) 2 mg tablet Take 1 tablet (2 mg total) by mouth every 6 (six) hours as neededfor muscle spasms. Jctqpy35 hr venlafaxine 75 mg extended release oral capsule (3 sources)Serotonin and Norepinephrine Reuptake InhibitorStart: 90-91-8867rqnm 1 capsule by mouth once daily at breakfastvenlafaxine (EFFEXOR XR) 75 MG extended release capsule Take 1 capsule by mouth daily (with breakfast) 30 capsule 09/21/2016 ActiveVirtussin A/C 100-10 MG/5ML (9 sources)Start: 18-05-5304Zcwfkmrfk A/C 100-10 MG/5ML 5 ml as needed Orally at bedtime for 30 days Jan, ActiveStart: 49-21-7899Wgptdekto A/C 100-10 MG/5ML 5 ml as needed Orally at bedtime for 30 days Oct, ActiveStart: 78-06-4184Pckxtvslu A/C 100-10 MG/5ML 5 ml as needed Orally at bedtime for 30 days May, ActiveStart: 40-80-4938Zvqowkxqs A/C 100-10 MG/5ML 5 ml as needed Orally at bedtime for 30 days Mar, ActiveStart: 01-18-2022 Virtussin A/C 100-10 MG/5ML 5 ml as needed Orally at bedtime for 30 days Jan, Active Completed/Discontinued Medications MedicationDrug Class(es)DatesSig (Normalized)Sig (Original)Albuterol Sulfate 90 mcg/actuation HFA aerosol inhaler (3 sources)Start: 04-04-2017 End: 71-50-5744Wmhcocyae Sulfate 90 mcg/actuation HFA aerosol inhaler Discontinued 90 MCG INHALATION Q4H as neededfor sob April 04, 2017 1:00am May 25, 2023 9:24amStart: 04-04-2017 End: 87-28-2150Etouqyvpn Sulfate 90 mcg/actuation HFA aerosol inhaler Discontinued 90 MCG INHALATION Q4H as neededfor sob April 04, 2017 12:00am May 25, 2023 8:24amARIPiprazole 5 mg oral tablet (10 sources)Atypical AntipsychoticStart: 11-27-2017 End: 43-15-1312aikm 1 tablet by mouth once dailyAripiprazole (Abilify) 5 mg Tablet Discontinued 5 MG PO Daily November 27, 2017 12:00am 2019 11:49ambusPIRone hydrochloride 15 mg oral tablet (11 sources)Start: 07-22-2017 End: 09-56-3745avnh 1 tablet by mouth once dailyBuspirone 15 mg tablet Discontinued 15 MG PO Daily July 22, 2017 12:00am January 30, 2020 4:32pm busPIRone (BUSPAR) 10 mg tablet Take 10 mg by mouth. Activecariprazine 1.5 mg oral capsule (20 sources)Atypical AntipsychoticStart: 01-30-2020 End: 48-99-0111lakh 1 capsule by mouth once dailyCariprazine (Vraylar) 1.5 mg capsule Discontinued 1.5 MG PO Daily January 30, 2020 1:00am February 02, 2020 11:49amchlordiazePOXIDE hydrochloride 25 mg oral capsule (10 sources)BenzodiazepineStart: 02-02-2020 End: 30-35-1541pxlm 1 tablet by mouth twice daily, then take 1 tablet by mouth once dailyChlordiazepoxide Hcl 25 mg Capsule Discontinued 25 MG PO Twice daily 8 5 February 02, 2020 1:00amDecember 2020 7:11am Take 1 tablet twice a day for two days, then one tablet daily for three dayscodeine phosphate 2 mg/ml / guaiFENesin 20 mg/ml oral solution (9 sources)Opioid AgonistStart: 05-25-2023 End: 47-74-7978vsai 5 mL by mouth every four to six hours as neededCodeine- Guaifenesin 10-100 mg/5 mL liquid Discontinued 5 ML PO EVERY 4-6 HOURS as needed May 25, 2023 12:00am December 21, 2023 11:33am FreeTextSi ml as needed Orally at bedtime; Note: Source Status: Refill; Refills: 0; Qty: 150 Milliliter; Provider: Zbigniew Guardado EStart: 48-27-2442Ppfqqijlc A/C 100- 10 MG/5ML 5 ml as needed Orally at bedtime for 30 days Jun, ActiveStart: 78-06-2771Cooemxxgb A/C 100-10 MG/5ML 5 ml as needed Orally at bedtime for 30 days Mar, ActiveStart: 22-78-0156Goflw: 00-41-0837Paugkgqqrbz AC 100-10 MG/5ML 5 ml as needed Orally at bedtime for 30 days Dec, Active dextromethorphan hydrobromide 3 mg/ml / promethazine hydrochloride 1.25 mg/ml oral solution (10 sources)Phenothiazine, Uncompetitive G-addgzm-M-aspartate Receptor Antagonist, Sigma-1 AgonistStart: 04-04-2017 End: 95-85-7372cqlb 1 mL by mouth every six hours as needed for cough Promethazine-Dm 6.25-15 mg/5 mL syrup Discontinued 5 ML PO Q6H as needed for cough 40 2 April 04, 2017 1:00am April 05, 2017 1:00am April 06, 2017 1:03amdiclofenac potassium 50 mg oral tablet (10 sources)Nonsteroidal Anti-inflammatory DrugStart: 07-22-2017 End: 13-75-4195vsqp 1 tablet by mouth once dailyDiclofenac Potassium 50 mg tablet Discontinued 50 MG PO Daily July 22, 2017 12:00am November 27, 2017 6:21pmdoxycycline hyclate 100 mg oral capsule (19 sources)Tetracycline-class DrugStart: 12-22-2020 End: 93-28-5883hhfq 1 capsule by mouth twice dailyDoxycycline Hyclate 100 mg capsule Discontinued 100 MG PO Twice daily 30 12December 22, 2020 12:00am February 19, 2021 6:55pmStart: 09-14-2017 End: 11-15-4604lren 1 capsule by mouth twice dailyDoxycycline Hyclate 100 mg capsule Discontinued 100 MG PO Twice daily 30 12September 14, 2017 12:00am S eptember 2017 6:12gm177 actuat formoterol fumarate 0.005 mg/actuat / mometasone furoate 0.1 mg/actuat metered dose inhaler (14 sources)Corticosteroid, beta2-Adrenergic AgonistStart: 04-04-2017 End: 35-98-9545Ujijvhzhge-Formoterol (Dulera) 100-5 mcg/actuation HFA aerosol inhaler Discontinued 5 MCG INHALATION Twice daily April 04, 2017 1:00am January 30, 2020 4:36pmmometasone-formoterol (DULERA) 100-5 mcg/actuation inhaler Inhale 2 Puffs as instructed as needed. Activetake 2 puff(s) by inhalation twice dailymometasone-formoterol (DULERA) 100-5 MCG/ACT inhaler Inhale 2 puffs into the lungs 2 times daily Activeibuprofen 800 mg oral tablet (20 sources)Nonsteroidal Anti-inflammatory DrugStart: 05-29-2017 End: 72-99-4319krvz 1 tablet by mouth three times daily as needed for pain Ibuprofen 800 mg tablet Discontinued 800 MG PO Three times daily as needed for pain November 27, 2017 12:00am February 02, 2020 11:49amKetorolac (11 sources)Nonsteroidal Anti-inflammatory Drug, Cyclooxygenase InhibitorStart: 99-02-8834Gguemyq per 15 mg Jun, 2 mLlevoFLOXacin 750 mg oral tablet (10 sources)Quinolone AntimicrobialStart: 01-25-2018 End: 01-57-5089flpt 1 tablet by mouth every twenty-four hoursLevofloxacin (Levaquin) 750 mg tablet Discontinued 750 MG PO Q24H 10 January 25, 2018 1:00am February 03, 2018 1:00am February 04, 2018 1:02am24 hr nicotine 0.875 mg/hr transdermal system (13 sources)Cholinergic Nicotinic AgonistStart: 02-02-2020 End: 16-71-5645bfjwc 1 dose transdermal route every twenty-four hoursNicotine 21 mg/24 hr Patch 24 Hour Discontinued 1 EACH TRANSDERML Daily February 02, 2020 1:00am May 25, 2023 9:31amStart: 09-21-2016 End: 04-81-3905czhyj 1 dose transdermal route once dailynicotine (NICODERM CQ) 21 MG/24HR Place 1 patch onto the skin daily 30 patch 09/21/2016 Active predniSONE 20 mg oral tablet (20 sources)Start: 01-25-2018 End: 05-50-0478hkum 2 tablets by mouth once dailyPrednisone 20 mg tablet Discontinued 40 MG PO Daily 12 15January 25, 2018 1:00am January 29, 2018 1:00am January 30, 2018 1:01amStart: 01-25-2018 End: 72-63-0421xbeh 40 mg by mouth once dailyPrednisone Discontinued 40 MG PO Daily 12 15January 25, 2018 1:00am January 30, 2018 1:01amStart: 09-14-2017 End: 26-87-8694ehzh 3 tablets by mouth once daily at mealtimePrednisone 20 mg tablet Discontinued 60 MG PO Daily 15 September 14, 2017 12:00am January 30, 20204:32pm administer with food or milkStart: 09-14-2017 End: 78-52-0364oqbk 60 mg by mouth once daily at mealtimePrednisone Discontinued 60 MG PO Daily 15 September 14, 2017 12:00am January 30, 2020 4:32pm admini ster with food or milkStart: 07-22-2017 End: 03-41-6133rkkv 1 tablet by mouth once daily at mealtimePrednisone 50 mg tablet Discontinued 50 MG PO Daily 07 15July 22, 2017 12:00am September 05, 2017 2:54pm administer with food or milkStart: 04-04-2017 End: 78-41-1332iybg 1 tablet by mouth once daily at mealtimePrednisone 20 mg tablet Discontinued 20 MG PO Daily April 04, 2017 1:00am July 22, 2017 12:06pm administer with food or milk Problems Active Problems Problem ClassificationProblemDateDocumented DateEpisodic/ChronicAbdominal pain (7 sources)Generalized abdominal pain; Translations: [Epigastric pain]Onset: 511226-74-5664CfnbpwzyZrvmxnd-uoohvcu disorders (20 sources)Alcohol withdrawal syndrome; Translations: [Alcohol withdrawal syndrome]Onset: 949811-03-2245ZqkjkxeVeiwxne-kvdgkft disorders (11 sources)Alcohol intoxication; Translations: [Alcohol use, unspecified with intoxication, unspecified]Onset: 351581-24-2267TsmbbkdrUhhvoml disorders (15 sources)Anxiety; Translations: [Anxiety disorder, unspecified]Onset: 543278-01-5026JyleoudWgbzkz (5 sources)Asthma-chronic obstructive pulmonary disease overlap syndrome; Translations: [Asthma-chronic obstructive pulmonary disease overlap syndrome] 33-00-3196RuyfjfoJghlsguz of urinary tract (14 sources)Kidney stone; Translations: [Calculus of kidney]Onset: 02-25-2016 62-87-3909QkmydhijUeuvsip obstructive pulmonary disease and bronchiectasis (20 sources)Acute exacerbation of chronic obstructive airways disease; Translations: [Chronic obstructive pulmonary disease with (acute) exacerbation] Onset: 01-11-2021 Resolved: 36-83-8484WwylvtcZugtinx obstructive pulmonary disease and bronchiectasis (9 sources)Bronchitis; Translations: [Bronchitis, not specified as acute or chronic]41-66-4304BfaqtplqQmfmcklcjku and hemorrhagic disorders (9 sources)Thrombocytopenic disorder; Translations: [Thrombocytopenia, unspecified]53-38-4638OcyeiipGmmvbpnrjdntix and diverticulitis (1 source)Diverticulosis of intestine, part unspecified, without perforation or abscess without bleeding; Translations: [Diverticulosis of intestine, part unspecified, without perforation or abscess without bleeding]Onset: 10-26-2023 ChronicE Codes: Fall (1 source)Unspecified fall, initial encounter; Translations: [Unspecified fall, initial encounter]Onset: 20-53-8789TncamjciP Codes: Fall (1 source)FallOnset: 64-83-8283Dcyiefixrq disorders (17 sources)Gastroesophageal reflux disease; Translations: [Gastro-esophageal reflux disease without esophagitis]Onset: 01-11-2021 Resolved: 42-35-3821WmqerldLonjipiqv and duodenitis (1 source)Chronic superficial gastritis without bleeding; Translations: [Chronic superficial gastritis without bleeding]Onset: 96-61-4175QjodtydIugwkbamnq disorders (5 sources)Menopausal syndrome; Translations: [Menopausal and female climacteric states]ChronicMood disorders (20 sources)Bipolar disorder, unspecified; Translations: [Recurrent major depression]Onset: 512070-76-3723DpalhemFsgt disorders (2 sources)Major depressive disorder, single episode, unspecified; Translations: [Major depressive disorder, single episode, unspecified]Onset: 91-42-9319Vbnwep and vomiting (6 sources)Vomiting; Translations: [Nausea with vomiting, unspecified]Onset: 266513-34-5926RnttcusoMshavtrueugt breast conditions (5 sources)Breasts asymmetrical; Translations: [Other specified disorders of breast]EpisodicNutritional deficiencies (1 source)Vitamin D deficiency, unspecified; Translations: [Vitamin D deficiency, unspecified]Onset: 67-24-2528EhmpegdNaack connective tissue disease (10 sources)Lateral epicondylitis of right humerus; Translations: [Lateral epicondylitis, right elbow]55-70-7863LevfkpoyHoawy liver diseases (2 sources)Abnormal levels of other serum enzymes; Translations: [Abnormal levels of other serum enzymes]Onset: 66-50-0138CldwwgryGthmi nervous system disorders (4 sources)Disorder of nervous system; Translations: [Demyelinating disease of central nervous system, unspecified]72-22-3282TmgdjijAoqvezu on above: deterioration from head injuryOther nervous system disorders (1 source)Neuropathy; Translations: [Polyneuropathy, unspecified]Onset: 999861-47-2435HnafuzmShfua nutritional; endocrine; and metabolic disorders (6 sources)Disorder of mineral metabolism; Translations: [Disorder of mineral metabolism, unspecified]Onset: 214505-73-0934IylwgcdGnvfv screening for suspected conditions (not mental disorders or infectious disease) (6 sources)Abnormal findings on diagnostic imaging of other parts of digestive tract; Translations: [Imaging of gastrointestinal tract abnormal]Onset: 077740-28-6186SdfytgddJuitf upper respiratory disease (19 sources)Allergic rhinitis; Translations: [Allergic rhinitis, unspecified] 24-40-8910NnmcqzfJwbul upper respiratory disease (2 sources)Allergic rhinitis, unspecified; Translations: [Allergic rhinitis J30.9]Onset: 01-11-2021 Resolved: 84-62-2277YsavhgiDzhka upper respiratory infections (10 sources)Upper respiratory infection; Translations: [Acute upper respiratory infection, unspecified]31-08-2871SpepoqwdQkmloxcgr (except that caused by tuberculosis or sexually transmitted disease) (4 sources)Pneumonia; Translations: [Pneumonia, unspecified organism]10-09-2023 EpisodicResidual codes; unclassified (9 sources)Alcoholism; Translations: [Alcohol use disorder]71-28-1938Ajqmzndl Residual codes; unclassified (15 sources)Tobacco dependence syndrome; Translations: [Tobacco use]Episodic Residual codes; unclassified (1 source)Pain, unspecified; Translations: [Pain, unspecified]Onset: 10-13-2023 EpisodicResidual codes; unclassified (1 source)Other specified conditions influencing health status; Translations: [Alcohol use disorder]47-20-4500AdxytvatJopaaywnn-related disorders (3 sources)Hallucinogen dependence, uncomplicated; Translations: [Tobacco user] Onset: 75-43-4763EzqtqioDetyamx and intentional self-inflicted injury (10 sources)Suicidal thoughts; Translations: [Suicidal ideations]01-30-2020 EpisodicSuperficial injury; contusion (10 sources)Contusion of upper limb; Translations: [Contusion of right upper arm, initial encounter]44-19-9284KwgeyzklMyqtmkn disorders (4 sources)Hypothyroidism, unspecified; Translations: [Nontoxic goiter, unspecified]Onset: 38-10-4779UcvffvqWjrlferukreu (1 source)Esophagitis, unspecified without bleeding; Translations: [Esophagitis, unspecified without bleeding]Onset: 13-45-6753Wxqztipswzpb (1 source)nausea, vomiting, abdominal pain, constipationOnset: 10-26-2023 Past or Other Problems Problem ClassificationProblemDateDocumented DateEpisodic/ChronicOther connective tissue disease (2 sources)H/O: musculoskeletal disease; Translations: [Personal history of other diseases of the musculoskeletal system and connective tissue]07-04-2023 EpisodicOther connective tissue disease (1 source)Fibromyalgia; Translations: [Fibromyalgia]Onset: EpisodicOther connective tissue disease (1 source)Muscle pain; Translations: [Myalgia and myositis, unspecified]Onset: 636411-17-7992ZhrxbdvgNzumk gastrointestinal disorders (1 source)Constipation, unspecified; Translations: [Constipation, unspecified] Onset: 03-14-1481UfaykzzqPleoo gastrointestinal disorders (2 sources)Constipation; Translations: [Constipation, unspecified]07-04-2023 EpisodicOther gastrointestinal disorders (1 source)Abdominal distension (gaseous); Translations: [Abdominal distension (gaseous)]Onset: 12-64-7708KmxbjqxmCcurv hematologic conditions (1 source)Personal history of diseases of the blood and blood-forming organs and certain disorders involving the immune mechanism; Translations: [Personal history of diseases of the blood and blood-forming organs and certain disorders involving the immune mechanism]Onset: 95-85-3235JwfkrluoAcwnf lower respiratory disease (1 source)Wheezing; Translations: [Wheezing]Onset: 76-41-2865YajlycpyZpfoohxy codes; unclassified (3 sources)Tobacco use; Translations: [Tobacco use disorder Z72.0]Onset: 01-11-2021 Resolved: 19-82-2982NxmrsijlHlbvigdw codes; unclassified (2 sources)Tobacco user; Translations: [Tobacco use]00-54-0505Kjeyhhot Spondylosis; intervertebral disc disorders; other back problems (1 source)Low back pain; Translations: [Lumbago]Onset: EpisodicUrinary tract infections (1 source)Acute cystitis without hematuria; Translations: [Acute cystitis without hematuria]Onset: 66-45-9963Rodjrgqu Results Test NameValueInterpretationReference RangeFacilityCBC WITH AUTO DIFFERENTIALon 26-63-5343YDBRQHANQ ABSOLUTE COUNT (10*3/UL) BY AUTOMATED COUNT0.0 10*3/uLNormal 0.0-0.2Pro[facility] Hospital CamarilloComment on above:Performed By: #### CBCA #### [address] [address] VIRBASOPHILS RELATIVE PERCENT BY AUTOMATED COUNT0.3 %Normal [facility] HospitalComment on above:Performed By: #### CBCA #### [address] [address] VIRCELLAVISION DIFFERENTIAL TYPEAUTOMATED DIFFERENTIALNormal [facility] HospitalComment on above:Performed By: #### CBCA #### [address] [address] VIREosinophils (Bld) [#/Vol]0.0 10*3/uLNormal0.0-0.4[facility] Hospital CamarilloComment on above:Performed By: #### CBCA #### [address] [address] VIREOSINOPHILS RELATIVE PERCENT BY AUTOMATED COUNT0.1 %Normal [facility] HospitalComment on above:Performed By: #### CBCA #### [facility] ([address] [place] [address] VIRErythrocyte distribution width (RBC) [Ratio]15.6 %High 11.5-15[facility] HospitalComment on above:Performed By: #### CBCA #### [facility] ([address] [place] [address] VIRHematocrit (Bld) [Volume fraction]49.4 %Erig14-97GjdDeyqnyBaylor Scott And White Medical Center – FriscoComment on above:Performed By: #### CBCA #### [facility] ([address] [place] [address] VIRHemoglobin (Bld) [Mass/Vol]16.8 g/gLOeex46.7-15.5PCincinnati VA Medical CenterComment on above:Performed By: #### CBCA #### [facility] ([address] [place] [address] VIRLYMPHOCYTES ABSOLUTE COUNT (10*3/UL) BY AUTOMATED COUNT1.5 10*3/uLNormal1.0-3.5PCincinnati VA Medical CenterComment on above:Performed By: #### CBCA #### [facility] ([address] [place] [address] VIRLYMPHOCYTES RELATIVE PERCENT BY AUTOMATED COUNT12.1 %Normal [facility] HospitalComment on above:Performed By: #### CBCA #### [facility] ([address] [place] [address] VIRMCH (RBC) [Entitic mass]31.4 bpPoklgg09-01UgsCpkvjdBaylor Scott And White Medical Center – FriscoComment on above:Performed By: #### CBCA #### [facility] ([address] [place] [address] VIRMCHC (RBC) [Mass/Vol]34.0 g/qPErgtzy69-04HbqOlbmieBaylor Scott And White Medical Center – FriscoComment on above:Performed By: #### CBCA #### [facility] ([facility]) [address] [place], [place] [address] [address] VIRMCV (RBC) [Entitic vol]92 mIPpdxuf61-542HuvWdyiuk Fremont HospitalComment on above:Performed By: #### CBCA #### [facility] ([address] [place] [address] VIRMONOCYTES ABSOLUTE COUNT (10*3/UL) BY AUTOMATED COUNT0.7 10*3/uLNormal0.0-0.9[facility] HospitalComment on above:Performed By: #### CBCA #### [facility] ([facility]) [address] [place] [address] [place] [address] VIRMONOCYTES RELATIVE PERCENT BY AUTOMATED COUNT5.4 %Normal [facility] HospitalCombeaumont hospital on above:Performed By: #### CBCA #### [facility] ([address] [place] [address] VIRNEUTROPHILS ABSOLUTE COUNT BY AUTOMATED COUNT10.3 10*3/uL High1.5-6.6[facility] HospitalCombeaumont hospital on above:Performed By: #### CBCA #### [facility] ([address] [place] [address] VIRNEUTROPHILS RELATIVE PERCENT BY AUTOMATED COUNT82.1 %Normal [facility] HospitalComment on above:Performed By: #### CBCA #### [facility] ([address] [place] [address] VIRPlatelet mean volume (Bld) [Entitic vol]10.1 fLNormal7-12 [facility] HospitalComment on above:Performed By: #### CBCA #### [facility] ([address] [place] [address] VIRPlatelets (Bld) [#/Vol]189 10*3/vACoryrs297-841MgaRaurwm Fremont HospitalComment on above:Performed By: #### CBCA #### [facility] ([facility]) [address] [place], [place] [address] [place] [address] VIRRBC COUNT5.35 X10E12/LHigh3.8-5.2PCincinnati [facility] Comment on above:Performed By: #### CBCA #### [facility] ([address] [place] [address] VIRWBC (Bld) [#/Vol]12.5 10*3/uLHigh4-11ProBaylor Scott And White Medical Center – FriscoComment on above:Performed By: #### CBCA #### [facility] ([address] [place] [address] VIRCOMPREHENSIVE METABOLIC PANELon 38-59-2865Zkqghmb [Mass/Vol]4.7 g/dLNormal3.2-5.3PCincinnati VA Medical CenterComment on above: Performed By: #### CMP ####[facility] ([address] [place] [address] VIRALP [Catalytic activity/Vol]72 U/FQmfznc33-965 [facility] HospitalComment on above:Performed By: #### CMP ####[facility] ([address] [place] [address] VIRALT [Catalytic activity/Vol]27 U/LNormal<=31PCincinnati VA Medical CenterComment on above:Performed By: #### CMP ####[facility] ([address] [place] [address] VIRAnion gap [Moles/Vol]15 mmol/LNormal5-15 [facility] HospitalComment on above:Performed By: #### CMP ####[facility] ([address] [place] [address] VIRAST [Catalytic activity/Vol]24 U/LNormal<=41ProBaylor Scott And White Medical Center – FriscoComment on above:Performed By: #### CMP ####[facility] ([address] [place] [address] VIRBilirubin [Mass/Vol]1.0 mg/dLNormal0.3-1.2 [facility] HospitalComment on above:Performed By: #### CMP ####[facility] ([address] [address] VIRCalcium [Mass/Vol]9.4 mg/dLNormal8.5-10.5PCincinnati VA Medical CenterComment on above: Performed By: #### CMP ####[facility] ([address] [place] [address] VIRChloride [Moles/Vol]104 mmol/CBfioxo86-326 [facility] HospitalComment on above:Performed By: #### CMP ####[facility] ([address] [place] [address] VIRCO2 [Moles/Vol]22 mmol/EMyykeh09-99FnfMvfgevCincinnati VA Medical CenterComment on above: Performed By: #### CMP ####[facility] ([address] [place] [address] VIRCreatinine [Mass/Vol]0.82 mg/dLNormal0.40-1.00 [facility] HospitalComment on above:Result Comment: METHOD TRACEABLE TO IDMS STANDARDPerformed By: #### CMP ####[facility] ([address] [address] VIRGFR/1.73 sq M.predicted among non- blacks MDRD (S/P/Bld) [Vol rate/Area]87 mL/min/{1.73_m2}Normal>=60[facility] HospitalComment on above:Result Comment: eGFR not reported due to non- numeric value for Creatinine. Reported eGFR is based on the CKD-EPI 2021 equation that does not use a race coefficient.Performed By: #### CMP ####[facility] ([address] [address] VIRGlucose [Mass/Vol]123 mg/oRPqdl58-36HbiLafrgkUC West Chester HospitalComment on above:Performed By: #### CMP ####[facility] ([address] [address] VIRPotassium [Moles/Vol]3.4 mmol/LLow3.5-5.0[facility] Comment on above:Performed By: #### CMP ####[facility] ([address] [address] VIRProtein [Mass/Vol]7.8 g/dLNormal 6.0-8.0[facility] HospitalComment on above:Performed By: #### CMP ####[facility] ([address] [address] VIRSodium [Moles/Vol]141 mmol/ZGkekvu666-211OsmJfewcsUC [facility] Hospital Comment on above:Performed By: #### CMP ####[facility] ([address] [address] VIRUrea nitrogen [Mass/Vol]20 mg/dL Normal5-23ProBaylor Scott And White Medical Center – FriscoComment on above:Performed By: #### CMP ####[facility] ([address] [address] VIRLACTATE W/ REFLEXon 08-33-4674UOEQUFE W/REFLEX1.6 mmol/LNormal0.4-2.0 [facility] HospitalComment on above:Order Comment: Result did not trigger repeat Lactate, re-order if needed.Performed By: #### LACTS #### [facility] ([address] [address] VIRXR CHEST 2 VWSon 46-90-6328IS CHEST 2 VWSXR CHEST 2 VWS XR CHEST 2 VWS History: . SOB. Comparison: None Impression: Hyperinflated lungs suggestive of COPD. Biapical scarring. No lobar consolidative airspace opacity. No pneumothorax, no pleural effusion. Nonenlarged heart. Osteopenia. Finalized by Kyle Elliott MD on 09/26/2024 12:14 PMNormalProBaylor Scott And White Medical Center – FriscoBASI METABOLIC PANELon 62-74-7949Oalhj gap [Moles/Vol]8 mmol/LNormal 5-15[facility] HospitalComment on above:Performed By: #### BMP #### [address] [address] VIRCalcium [Mass/Vol]8.6 mg/dLNormal8.5-10.5PCincinnati VA Medical CenterComment on above:Performed By: #### BMP #### [address] [place] [address] VIRChloride [Moles/Vol]102 mmol/VKisoxs16-645EsnKanpcuBaylor Scott And White Medical Center – FriscoComment on above:Performed By: #### BMP #### [address] [address] VIRCO2 [Moles/Vol]24 mmol/DNbtevo45-41ZxfMgrigiCincinnati VA Medical CenterComment on above:Performed By: #### BMP #### [address] [address] VIRCreatinine [Mass/Vol]0.54 mg/dLNormal0.40-1.00[facility] HospitalComment on above:Result Comment: METHOD TRACEABLE TO IDMS STANDARDPerformed By: #### BMP #### [address] [place] [address] VIREGFR (CKD-EPI) NON-RACE DEPENDENT>^90Normal>=60ProBaylor Scott And White Medical Center – FriscoComment on above:Result Comment: eGFR not reported due to non- numeric value for Creatinine. Reported eGFR is based on the CKD-EPI 2021 equation that does not use a race coefficient.Performed By: #### BMP #### [facility] ([address] [place] [address] VIRGlucose [Mass/Vol]112 mg/wBPbsn74-04WhnEczjajBaylor Scott And White Medical Center – FriscoComment on above:Performed By: #### BMP #### [facility] ([address] [address] VIRPotassium [Moles/Vol]3.8 mmol/LNormal3.5-5.0[facility] HospitalComment on above:Performed By: #### BMP #### [address] [place] [address] VIRSodium [Moles/Vol]134 mmol/PKrkydr863-029JzjWaeflm Fremont HospitalComment on above:Performed By: #### BMP #### [facility] ([address] [place] [address] VIRUrea nitrogen [Mass/Vol]11 mg/dLNormal5-23ProBaylor Scott And White Medical Center – FriscoComment on above:Performed By: #### BMP #### [address] [place] [address] VIRCBC WITH AUTO DIFFERENTIALon 36-13-4093JDRCXCNUS ABSOLUTE COUNT (10*3/UL) BY AUTOMATED COUNT0.0 10*3/uLNormal0.0-0.2PCincinnati VA Medical CenterComment on above:Performed By: #### CBCA #### [facility] ([address] [place] [address] VIRBASOPHILS RELATIVE PERCENT BY AUTOMATED COUNT0.4 %Normal [facility] HospitalComment on above:Performed By: #### CBCA #### [facility] ([address] [address] VIRCELLAVISION DIFFERENTIAL TYPEAUTOMATED DIFFERENTIALNormal [facility] HospitalComment on above:Performed By: #### CBCA #### [facility] ([address] [place] [address] VIREosinophils (Bld) [#/Vol]0.1 10*3/uLNormal0.0-0.4[facility] HospitalComment on above:Performed By: #### CBCA #### [facility] ([address] [address] VIREOSINOPHILS RELATIVE PERCENT BY AUTOMATED COUNT0.9 %Normal [facility] HospitalComment on above:Performed By: #### CBCA #### [address] [address] VIRErythrocyte distribution width (RBC) [Ratio]13.1 %Normal 11.5-15ProBaylor Scott And White Medical Center – FriscoComment on above:Performed By: #### CBCA #### [address] [address] VIRHematocrit (Bld) [Volume fraction]39.4 %Czlppq20-37 [facility] HospitalComment on above:Performed By: #### CBCA #### [address] [address] VIRHemoglobin (Bld) [Mass/Vol]13.5 g/eAOtqryo31.7-15.5 [facility] HospitalComment on above:Performed By: #### CBCA #### [address] [address] VIRLYMPHOCYTES ABSOLUTE COUNT (10*3/UL) BY AUTOMATED COUNT2.5 10*3/uLNormal1.0-3.5PCincinnati VA Medical CenterComment on above:Performed By: #### CBCA #### [facility] ([facility]) [address] [place] [address] [place] [address] VIRLYMPHOCYTES RELATIVE PERCENT BY AUTOMATED COUNT28.4 %Normal [facility] HospitalCombeaumont hospital on above:Performed By: #### CBCA #### [facility] ([facility]) [address] [place] [address] [place] [address] VIRMCH (RBC) [Entitic mass]31.7 asJiamtx61-29LhmSyztiwBaylor Scott And White Medical Center – FriscoComment on above:Performed By: #### CBCA #### [facility] ([address] [place] [address] VIRMCHC (RBC) [Mass/Vol]34.2 g/vUJbguhr58-78QkiEerkmaBaylor Scott And White Medical Center – FriscoComment on above:Performed By: #### CBCA #### [facility] ([facility]) [address] [place], [place] [address]. [place] [address] VIRMCV (RBC) [Entitic vol]93 hHUbgcxq81-446KexUdjknd Fremont HospitalComment on above:Performed By: #### CBCA #### [facility] ([facility]) [address] [place] [address] [place] [address] VIRMONOCYTES ABSOLUTE COUNT (10*3/UL) BY AUTOMATED COUNT0.6 10*3/uLNormal0.0-0.9ProBaylor Scott And White [facility] Center – FriscoCombeaumont hospital on above:Performed By: #### CBCA #### [facility] ([address] [place] [address] VIRMONOCYTES RELATIVE PERCENT BY AUTOMATED COUNT6.5 %Normal [facility] HospitalCombeaumont hospital on above:Performed By: #### CBCA #### [facility] ([facility]) [address] [place] [address] [place] [address] VIRNEUTROPHILS ABSOLUTE COUNT BY AUTOMATED COUNT5.6 10*3/uL Normal1.5-6.6[facility] HospitalComment on above:Performed By: #### CBCA #### [facility] ([address] [place] [address] VIRNEUTROPHILS RELATIVE PERCENT BY AUTOMATED COUNT63.8 %Normal [facility] HospitalComment on above:Performed By: #### CBCA #### [facility] ([address] [place] [address] VIRPlatelet mean volume (Bld) [Entitic vol]9.0 fLNormal7-12 [facility] HospitalComment on above:Performed By: #### CBCA #### [facility] ([address] [place] [address] VIRPlatelets (Bld) [#/Vol]130 10*3/fZEzo575-042HinWkcpolBaylor Scott And White Medical Center – FriscoComment on above:Performed By: #### CBCA #### [facility] ([address] [place] [address] VIRRBC COUNT4.26 X10E12/LNormal3.8-5.2[address] [facility]'S Hospital CamarilloComment on above:Performed By: #### CBCA #### [facility] ([address] [place] [address] VIRWBC (Bld) [#/Vol]8.8 10*3/uLNormal4-11[facility] HospitalComment on above:Performed By: #### CBCA #### [facility] ([address] [place] [address] VIRCT BRAIN WO CONTon 21-42-4665BD BRAIN WO CONTCT BRAIN WO CONT CLINICAL HISTORY: Fall, intoxicated; denies loss of consciousness TECHNIQUE: Multi-detector CT performed through the brain without IV contrast. Automated dose reduction techniques utilized. COMPARISON: None. FINDINGS: Extra axial spaces: Normal in size and morphology for the patient's age. Hemorrhage: None. Ventricular system: Normal in size and morphology for the patient's age. Basal cisterns: Normal. Cerebral parenchyma: Normal. Midline shift: None. Cerebellum: Normal. Brainstem: Normal. OTHER: Calvarium: Normal. Vascular system: Normal. Visualized Paranasal sinuses: Clear. Visualized Orbits: Normal. Visualized upper cervical spine: Normal. Sella and skull base: Normal. IMPRESSION: No evidence of acute intracranial abnormality. All CT scans at this facility use dose modulation, iterative reconstruction, and/or weight based dosing when appropriate to reduce radiation dose to as low as reasonably achievable. Finalized by Mariluz Cardona MD on 08/25/2024 7:38 PMNormalUC West Chester HospitalCT CERVICAL SPINE WO CONTon 85-75-5695XJ CERVICAL SPINE WO CONTCT CERVICAL SPINE WO CONT CLINICAL INFORMATION: Fall, intoxicated. COMPARISON: None. PROCEDURE: Routine cervical spine protocol CT was obtained without intravenous contrast. Sagittal and coronal reformatted images were obtained from the axial data. Automated exposure control was utilized. FINDINGS: Evaluation compromised by motion artifact. There is no evidence of fracture through the cervical vertebrae. The posterior elements are intact. No bony fragments are seen in the spinal canal. Sagittal and axial images demonstrate normal vertebral heights. There is no evidence of compressionfractures or malalignment. The odontoid process is intact. No significant prevertebral soft tissue abnormality is identified. Emphysematous changes in the lung apices. punctate palatine tonsil stones. Please note, if ligamentous or spinal cord injury is of clinical concern, suggest MR imaging or flexion-extension radiographs. IMPRESSION: No evidence of fractures, malalignment or acute bony pathology. All CT scans at this facility use dose modulation, iterative reconstruction, and/or weight based dosing when appropriate to reduce radiation dose to as low as reasonably achievable. Finalized by Mariluz Cardona MD on 08/25/2024 7:36 PMNOhioHealth Marion General HospitalETHANOLon 65-09-8423BFDFGRM8.324 g/dLHigh<=0.080[facility] HospitalComment on above:Result Comment: This report is intended for use in clinical monitoring or management of patients.Performed By: #### ALCO #### [facility] ([address] [place] [address] VIRCNPNon [id number] (NIQ) CHYNAKAREN ([id number]) 1975 F Date Time Provider Department 08/19/24 NEUROLOGY PROVIDER NIQ During your visit today, we recorded the following information about you: Virgen Sadler 08/22/2024 11:04 AM Signed Referral source: Jen Salas ([facility]) Reason for visit: recurrent HAs Allergies As of Date: 08/19/2024 Noted Allergy Reaction ANTIHISTIMINE 04/04/2014 1 - Mental Status Change 12 - Shortness of Breath NAPROXEN 02/04/2014 9 - Itching Date Reviewed: 11/15/2018 Reviewed by: Meredith Bell - Fully Assessed Reason for Visit: Appointment [186] Cmt: External referral to [facility] Prescriptions as of 08/22/2024 - SPIRIVA RESPIMAT 2.5 mcg/actuation inhaler - pregabalin (LYRICA) 100 mg capsule Take 100 mg by mouth three times daily. - Omeprazole 40 mg capsule Take 40 mg by mouth once daily. - busPIRone (BUSPAR) 10 mg tablet Take 10 mg by mouth. - QUEtiapine (SEROQUEL) 100 mg tablet Take 100 mg by mouth. - rizatriptan (MAXALT) 10 mg tablet Take 1 po AT ONSET OF HEADACHE. MAY REPEAT ONCE AFTER 2 HOURS if needed. DO NOT use on more than 2 days per week. - promethazine (PHENERGAN) 25 mg tablet Take 0.5-1 tablets by mouth every 8 hours as needed for Nausea/Vomiting (or migraine.). FOR NAUSEA - mometasone-formoterol (DULERA) 100-5 mcg/actuation inhaler Inhale 2 Puffs as instructed as needed. - OLANZapine-FLUoxetine (SYMBYAX) 12-50 mg per capsule Take 1 capsule by mouth daily at bedtime. - naltrexone HCl (NALTREXONE ORAL) Take 50 mg by mouth once daily. - cloNIDine HCl (CATAPRES) 0.2 mg tablet Take one(1) tablet daily. - QUEtiapine (SEROQUEL) 200 mg tablet Take 200 mg by mouth daily at bedtime. - pregabalin (LYRICA) 150 mg capsule Take 1 capsule by mouth three times daily for 30 days. - albuterol HFA (PROAIR HFA) 90 mcg/actuation inhaler Inhale 2 Puffs as instructed every 6 hours as needed. - tiZANidine (ZANAFLEX) 4 mg tablet Take 1 tablet by mouth daily at bedtime. - ergocalciferol, vitamin D2, (VITAMIN D) 50,000 unit capsule Take 1 capsule by mouth once each week. - famotidine (PEPCID) 20 mg tablet Take 20 mg by mouth once daily. - Levothyroxine 75 mcg cap Take by mouth daily as directed. Problem List As Of Date 08/19/2024 Noted Resolved Fibromyalgia [M79.7] 06/05/2013 Neuropathy [G62.9] 06/05/2013 History of alcohol abuse [F10.11] 06/05/2013 Tobacco use disorder [F17.200] 06/05/2013 Myalgia and myositis, unspecified [CXU6311] 06/05/2013 Lumbago [M54.50] 06/05/2013 Encounter Status:Closed by VIRGEN SADLER on 08/22/24[facility] thyroidon [id number] [facility] [place] [address] [place] [address] Ultrasound Report Signed Patient: Karen Clemente MR#: [id number] 01 : 1975 Acct:[id number] Age/Sex: 48 / F ADM Date: 06/27/24 Loc: Room: Type: [facility] Attending Dr: Jason Michele DO Ordering Provider: Jen Salas DO, RES Date of Service: 06/27/24 US/US thyroid: Enlarged thyroid Copies to: DO Jen Campbell DO, RES Thyroid Ultrasound HISTORY: Enlarged thyroid. COMPARISON: None The RIGHT lobe measures 3.0 x 1.3 x 1.2cm. LEFT lobe measures 3.3 x 1.4 x 1.2 cm. Isthmus has an AP dimension of 0.1cm. Heterogeneous thyroid parenchyma. Right mid to inferior: Nodule measures up to 8 mm. Left inferior ill-defined hypoechoic nodule measures up to 6. No microcalcifications identified. Symmetric blood flow of the thyroid gland identified. US/US thyroid IMPRESSION: Small bilateral thyroid nodules. Heterogeneous thyroid parenchyma. Impression dictated by: Berny Reyna M.D.06/27/2024 3:39 PM Dictation Location: [place] [address] Tech: Shyla Park Transcribed By: AMISH 06/27/24 1539 Dictated By: Berny Reyna DO 06/27/24 1538 Signed By: 06/27/24 1539[facility]ips Eye InstituteBI MAMMOGRAM SCREENING TOMOSYNTHESIS BILATERALon [id number] MAMMOGRAM SCREENING TOMOSYNTHESIS BILATERALThis is a summary report. The complete report is available in the patient's medical record. If you cannot access the medical record, please contact the sending organization for a detailed fax or copy. Examination: BI MAMMOGRAM SCREENING TOMOSYNTHESIS BILATERAL Clinical History: screening Technique: Screening digital mammography study of both breasts was performed with 2-D and 3-D tomosynthesis imaging. Study was compared to the prior exam dated 01/09/2015. Findings: There is no evidence of interval dominant spiculated mass, grouped microcalcifications, or skin thickening which would be suggestive of malignancy. Axillary lymph nodes including partially visualized axillary lymph nodes noted bilaterally which appear grossly unremarkable. IMPRESSION: Impression: No specific evidence of malignancy seen in either breast. BIRADS 2 - Benign Findings DENSITY: There are scattered areas of fibroglandular density. FOLLOW-UP: Routine Screening Mammogram ELECTRONICALLY SIGNED BY: Pedro Olivo M.D.NormalNot AvailableComment on above: Order Comment: Spot compression and us prnAlanine aminotransferase [Enzymatic activity/volume] in Serum or PlasmaOrdered By: Jen Salas on 25-17-4558QAC [Catalytic activity/Vol]Alanine aminotransferase [Enzymatic activity/volume] in Serum or PlasmaMercy Health Willard HospitalAlbumin [Mass/volume] in Serum or Plasma by Bromocresol green (BCG) dye binding methoOrdered By: Jen Salas on 67-49-0878Claridg BCG dye [Mass/Vol]Albumin [Mass/volume] in Serum or Plasma by Bromocresol green (BCG) dye binding metho3.5-5.7FChillicothe HospitalAlkaline phosphatase [Enzymatic activity/volume] in Serum or PlasmaOrdered By: Jen Salas on 39-40-9835XHE [Catalytic activity/Vol] Alkaline phosphatase [Enzymatic activity/volume] in Serum or Bogxdu77-358 [facility] Willard HospitalAspartate aminotransferase [Enzymatic activity/volume] in Serum or PlasmaOrdered By: Jen Salas on 84-12-2770ABL [Catalytic activity/Vol]Aspartate aminotransferase [Enzymatic activity/volume] in Serum or Wpokhi43-41XfegxfqwvMercy Health Willard HospitalBasophils Auto (Bld) [#/Vol]Ordered By: Jen Salas on 40-69-7391Eswgkmkmg (Bld) [#/Vol]Automated basophil count0.0-0.2FChillicothe HospitalBasophils/100 WBC Auto (Bld)Ordered By: Jen Salas on 02-39-3141Ghejxfxnb/100 WBC (Bld)Automated basophil %.Mer[facility] Health Willard HospitalBilirubin.total [Mass/volume] in Serum or PlasmaOrdered By: Jen Salas on 63-44-9682Ulgbcsgti [Mass/Vol] Bilirubin.total [Mass/volume] in Serum or Plasma0.3-1.0Mercy Health Willard HospitalCT abdomen pelvis w conon 51-03-1390DJ abdomen pelvis w con [facility] [place] [address] CT Scan Report Signed Patient: Karen Clemente MR#: [id number] 01 : 1975 Acct:[id number] Age/Sex: 48 / F ADM Date: 06/07/24 Loc: CT Room: Type: [facility] Attending Dr: Jason Michele DO Copies to: DO Jen Campbell DO, RES Ordering Provider: Jen Salas DO, RES Date of Service: 06/07/24 CT/CT abdomen pelvis w con: Abdominal bloating CT ABDOMEN AND PELVIS WITH INTRAVENOUS CONTRAST: CLINICAL HISTORY: Abdominal distention/bloating, constipation COMPARISON: 01/26/2022 TECHNIQUE: Spiral images were obtained through the abdomen and pelvis following the administration of intravenous contrast. This CT exam was performed using one or more following dose reduction techniques: Automated exposure control, adjustment of the mA and/or kV according to patient size, or use of iterative reconstruction technique. FINDINGS: Lung Bases: [Focal lingular opacity and right middle lobe opacities likely areas of atelectasis and or scarring. Organs: Scattered hepatic cysts. No abnormal enhancement involving liver or spleen. Kidneys symmetric in size without hydronephrosis. Multiple left upper pole renal calculi identified which are nonobstructive. GI: Moderate retained stool. No bowel obstruction. Likely short segment peristaltic activity involving the sigmoid colon. No CT findings acute appendicitis.[ Pelvis:[Uterus and adnexal regions unremarkable. Bladder is unremarkable.] Peritoneum/Retroperitoneum:No free air or free fluid. Mild plaque identified throughout the aorta. Aorta is not aneurysmal.[ Abd wall/Bones:Vertebral heights maintained. No cysts osseous lesion.[ CT/CT abdomen pelvis w con IMPRESSION: Moderate stool burden distal colon may represent constipation and/or mild impaction. Similar appearance of left upper pole renal calculi, nonobstructive. Short segment mural thickening sigmoid colon possible under distended colon versus focal peristaltic activity. Please correlate with any recent colonoscopy findings. Impression dictated by: Tino Bonds M.D.06/07/2024 1:37 PM Dictation Location: [place] [address] Transcribed By: AMISH 06/07/24 1336 Dictated By: Tino Bonds MD 06/07/24 1330 Signed By: 06/07/24 1337[facility] Physician GroupCalcium [Mass/volume] in Serum or PlasmaOrdered By: Jen Salas on 98-19-3320Jhwhphk [Mass/Vol]Calcium [Mass/volume] in Serum or Plasma8.6-10.3FChillicothe HospitalCarbon dioxide, total [Moles/volume] in Serum or PlasmaOrdered By: Jen Salas on 32-26-7142DU1 [Moles/Vol]Carbon dioxide, total [Moles/volume] in Serum or Plasma 21.0-31.0Mer[facility] Willard HospitalChloride [Moles/volume] in Serum or PlasmaOrdered By: Jen Salas on 20-29-4441Umfcbctb [Moles/Vol]Chloride [Moles/volume] in Serum or Hfgeav74-889BwfeqkenjMercy Health Willard Hospital Cholesterol [Mass/volume] in Serum or PlasmaOrdered By: Jen Salas on 79-48-7053Rgbvcedzfmf [Mass/Vol]Cholesterol [Mass/volume] in Serum or Plasma 140-200Mercy Health Willard HospitalComment on above:Chol less than 200 mg/dl low riskChol 201-239 mg/dl borderline riskChol 240 mg/dl and greater high riskCholesterol in HDL [Mass/volume] in Serum or PlasmaOrdered By: Jen Salas on 54-81-6435Ufgrxnjldym in HDL [Mass/Vol]Serum or plasma high density lipoprotein (HDL) cholesterol uumdbijudvt28-61ShjwrsfqlMercy Health Willard Hospital Comment on above:HDL CHOL ATP-III CLASSIFICATION Cardiovascular RiskHDL > or equal to 60 mg/dL LOWHDL < 40 mg/dL HIGHCholesterol in LDL Calc [Mass/Vol] Ordered By: Jen Salas on 98-03-4991Adcuyijqfsn in LDL [Mass/Vol]Cholesterol in LDL [Mass/volume] in Serum or Plasma by calculation0-100Mercy Health Willard HospitalComment on above:LDL ATP III CLASSIFICATIONLDL less than 100 mg/dL OptimalLDL 100-129 mg/dL Near or above wyepwhpRXZ110-148 mg/dL Borderline highLDL 160-189 mg/dL HighLDL greater than 189 mg/dL Very highCholesterol in VLDL Calc [Mass/Vol]Ordered By: Jen Salas on 52-03-4316Ycwhanyuerl in VLDL [Mass/Vol]Cholesterol in VLDL [Mass/volume] in Serum or Plasma by calculation [facility] Willard HospitalComplete Blood Count Auto Diffon 06-07-2024 Basophils (Bld) [#/Vol]0.1 10*3/uLNormal0.0-0.2[facility] Comment on above:Order Comment: Reason for Exam Hypothyroidism, unspecified type;History of anemiaPerformed By: #### CBC, T4F, MG, TSH3, [id number], FE and TIBC, LIPID, [id number], CMP, RETIC #### [facility] [address] [place] [address] USABasophils/100 WBC (Bld)1.5 %Normal.The [facility] Physician GroupComment on above:Order Comment: Reason for Exam Hypothyroidism, unspecified type;History of anemiaPerformed By: #### CBC, T4F, MG, TSH3, [id number], FE and TIBC, LIPID, [id number], CMP, RETIC #### [place] [address] USAEosinophils (Bld) [#/Vol]0.1 10*3/uLNormal0.0-0.45The [facility] Physician GroupComment on above:Order Comment: Reason for Exam Hypothyroidism, unspecified type;History of anemiaPerformed By: #### CBC, T4F, MG, TSH3, [id number], FE and TIBC, LIPID, [id number], CMP, RETIC #### [place] [address] USAEosinophils/100 WBC (Bld)1.4 %Normal.The [facility] Physician GroupComment on above:Order Comment: Reason for Exam Hypothyroidism, unspecified type;History of anemiaPerformed By: #### CBC, T4F, MG, TSH3, [id number], FE and TIBC, LIPID, [id number], CMP, RETIC #### [place] [address] USAErythrocyte distribution width (RBC) [Ratio]13.6 %Normal 11.9-15.3The [facility] Physician GroupComment on above:Order Comment: Reason for Exam Hypothyroidism, unspecified type;History of anemiaPerformed By: #### CBC, T4F, MG, TSH3, [id number], FE and TIBC, LIPID, [id number], CMP, RETIC #### [place] [address] USAHematocrit (Bld) [Volume fraction]40.7 %Jfcpkl15.0-46.4The [facility] Physician GroupComment on above:Order Comment: Reason for Exam Hypothyroidism, unspecified type;History of anemiaPerformed By: #### CBC, T4F, MG, TSH3, [id number], FE and TIBC, LIPID, [id number], CMP, RETIC #### [address] [address] USAHemoglobin (Bld) [Mass/Vol]13.7 g/eCFklwsc86.8-15.4The [facility] Physician GroupComment on above:Order Comment: Reason for Exam Hypothyroidism, unspecified type;History of anemiaPerformed By: #### CBC, T4F, MG, TSH3, [id number], FE and TIBC, LIPID, [id number], CMP, RETIC #### [place] [id number] USALymphocytes (Bld) [#/Vol]3.2 10*3/uLNormal1.00-4.8The [facility] Physician GroupComment on above:Order Comment: Reason for Exam Hypothyroidism, unspecified type;History of anemiaPerformed By: #### CBC, T4F, MG, TSH3, [id number], FE and TIBC, LIPID, [id number], CMP, RETIC #### [place] [id number] USALymphocytes/100 WBC (Bld)39.5 %Normal.The [facility] Physician GroupComment on above:Order Comment: Reason for Exam Hypothyroidism, unspecified type;History of anemiaPerformed By: #### CBC, T4F, MG, TSH3, [id number], FE and TIBC, LIPID, [id number], CMP, RETIC #### [facility] [address] [place], [place] [id number] USAMCH (RBC) [Entitic mass]31.2 xlUltbnn21.7-34.3The [facility] Physician GroupComment on above:Order Comment: Reason for Exam Hypothyroidism, unspecified type;History of anemiaPerformed By: #### CBC, T4F, MG, TSH3, [id number], FE and TIBC, LIPID, [id number], CMP, RETIC #### [facility] [address] [place] [address] USAMCV (RBC) [Entitic vol]92.6 pCFkwtgo18-262Loy [facility] Physician GroupComment on above:Order Comment: Reason for Exam Hypothyroidism, unspecified type;History of anemiaPerformed By: #### CBC, T4F, MG, TSH3, [id number], FE and TIBC, LIPID, [id number], CMP, RETIC #### [facility] [address] [place] [address] USAMean Corpuscular HGB Conc33.6 g/fMAvlcqo12.0-35.0The [facility] Physician GroupComment on above:Order Comment: Reason for Exam Hypothyroidism, unspecified type;History of anemiaPerformed By: #### CBC, T4F, MG, TSH3, [id number], FE and TIBC, LIPID, [id number], CMP, RETIC #### [place] [address] USAMonocytes (Bld) [#/Vol]0.7 10*3/uLNormal0.0-0.8The [facility] Physician GroupComment on above:Order Comment: Reason for Exam Hypothyroidism, unspecified type;History of anemiaPerformed By: #### CBC, T4F, MG, TSH3, [id number], FE and TIBC, LIPID, [id number], CMP, RETIC #### [place] [address] USAMonocytes/100 WBC (Bld)8.1 %Normal.The [facility] Physician GroupComment on above:Order Comment: Reason for Exam Hypothyroidism, unspecified type;History of anemiaPerformed By: #### CBC, T4F, MG, TSH3, [id number], FE and TIBC, LIPID, [id number], CMP, RETIC #### [place] [address] USANeutrophils (Bld) [#/Vol]4.1 10*3/uLNormal1.8-7.7The [facility] Physician GroupComment on above:Order Comment: Reason for Exam Hypothyroidism, unspecified type;History of anemiaPerformed By: #### CBC, T4F, MG, TSH3, [id number], FE and TIBC, LIPID, [id number], CMP, RETIC #### [facility] [address] [place] [address] USANeutrophils/100 WBC (Bld)49.5 %Normal.The [facility] Physician GroupComment on above:Order Comment: Reason for Exam Hypothyroidism, unspecified type;History of anemiaPerformed By: #### CBC, T4F, MG, TSH3, [id number], FE and TIBC, LIPID, [id number], CMP, RETIC #### [facility] [address] [place] [address] USANRBC%0.1 /100{WBC}Normal0-0.5[facility] Comment on above:Order Comment: Reason for Exam Hypothyroidism, unspecified type;History of anemiaPerformed By: #### CBC, T4F, MG, TSH3, [id number], FE and TIBC, LIPID, [id number], CMP, RETIC #### [facility] [address] [place] [address] USAPlatelet mean volume (Bld) [Entitic vol]10.0 fLNormal 6.3-10.7The [facility] Physician GroupComment on above:Order Comment: Reason for Exam Hypothyroidism, unspecified type;History of anemiaPerformed By: #### CBC, T4F, MG, TSH3, [id number], FE and TIBC, LIPID, [id number], CMP, RETIC #### [facility] [address] [place] [id number] USAPlatelets (Bld) [#/Vol]154 10*3/vOHjfjhp275-556Yrm [facility] Physician GroupComment on above:Order Comment: Reason for Exam Hypothyroidism, unspecified type;History of anemiaPerformed By: #### CBC, T4F, MG, TSH3, [id number], FE and TIBC, LIPID, [id number], CMP, RETIC #### [facility] [address] [place] [id number] USARBC (Bld) [#/Vol]4.40 10*6/uLNormal3.60-5.00The [facility] Physician GroupComment on above:Order Comment: Reason for Exam Hypothyroidism, unspecified type;History of anemiaPerformed By: #### CBC, T4F, MG, TSH3, [id number], FE and TIBC, LIPID, [id number], CMP, RETIC #### [facility] [address] [place] [address] USAWBC (Bld) [#/Vol]8.2 10*3/uLNormal3.8-11.6The [facility] Physician GroupComment on above:Order Comment: Reason for Exam Hypothyroidism, unspecified type;History of anemiaPerformed By: #### CBC, T4F, MG, TSH3, [id number], FE and TIBC, LIPID, [id number], CMP, RETIC #### [facility] [address] [place] [address] USAComprehensive Metabolic Panelon 03-26-0779Iixmkqm [Mass/Vol]4.6 g/dLNormal3.5-5.7The [facility] Physician GroupComment on above: Order Comment: Reason for Exam Hypothyroidism, unspecified type Reason for Exam Hypothyroidism, unspecified type;History of anemia Reason for Exam Vitamin D deficiencyPerformed By: #### CBC, T4F, MG, TSH3, [id number], FE and TIBC, LIPID, [id number], CMP, RETIC #### [facility] [address] [place] [address] USAAlbumin/Globulin [Mass ratio]2.0 {ratio}NormalThe [facility]arr[facility] Physician GroupComment on above:Order Comment: Reason for Exam Hypothyroidism, unspecified type Reason for Exam Hypothyroidism, unspecified type;History of anemia Reason for Exam Vitamin D deficiencyPerformed By: #### CBC, T4F, MG, TSH3, [id number], FE and TIBC, LIPID, [id number], CMP, RETIC #### [facility] [address] [place] [address] USAALP [Catalytic activity/Vol]54 U/ZOjfzki03-480Esi [facility] Physician GroupComment on above:Order Comment: Reason for Exam Hypothyroidism, unspecified type Reason for Exam Hypothyroidism, unspecified type;History of anemia Reason for Exam Vitamin D deficiencyPerformed By: #### CBC, T4F, MG, TSH3, [id number], FE and TIBC, LIPID, [id number], CMP, RETIC #### [facility] [address] [place] [address] USAALT [Catalytic activity/Vol]15 U/LNormal7-52The [facility] Physician GroupComment on above:Order Comment: Reason for Exam Hypothyroidism, unspecified type Reason for Exam Hypothyroidism, unspecified type;History of anemia Reason for Exam Vitamin D deficiencyPerformed By: #### CBC, T4F, MG, TSH3, [id number], FE and TIBC, LIPID, [id number], CMP, RETIC #### [facility] [address] [place] [address] USAAnion gap [Moles/Vol]10.3 mmol/LNormal6.0-15.0The [facility] Physician GroupComment on above:Order Comment: Reason for Exam Hypothyroidism, unspecified type Reason for Exam Hypothyroidism, unspecified type;History of anemia Reason for Exam Vitamin D deficiencyPerformed By: #### CBC, T4F, MG, TSH3, [id number], FE and TIBC, LIPID, [id number], CMP, RETIC #### [facility] [address] [place] [address] USAAST [Catalytic activity/Vol]16 U/CVywpgg84-85Wps [facility] Physician GroupComment on above:Order Comment: Reason for Exam Hypothyroidism, unspecified type Reason for Exam Hypothyroidism, unspecified type;History of anemia Reason for Exam Vitamin D deficiencyPerformed By: #### CBC, T4F, MG, TSH3, [id number], FE and TIBC, LIPID, [id number], CMP, RETIC #### [facility] [address] [place] [address] USABilirubin [Mass/Vol]0.4 mg/dLNormal0.3-1.0The [facility] Physician GroupComment on above:Order Comment: Reason for Exam Hypothyroidism, unspecified type Reason for Exam Hypothyroidism, unspecified type;History of anemia Reason for Exam Vitamin D deficiencyPerformed By: #### CBC, T4F, MG, TSH3, [id number], FE and TIBC, LIPID, [id number], CMP, RETIC #### [facility] [address] [place] [address] USACalcium [Mass/Vol]8.8 mg/dLNormal8.6-10.3The [facility] Physician GroupComment on above:Order Comment: Reason for Exam Hypothyroidism, unspecified type Reason for Exam Hypothyroidism, unspecified type;History of anemia Reason for Exam Vitamin D deficiencyPerformed By: #### CBC, T4F, MG, TSH3, [id number], FE and TIBC, LIPID, [id number], CMP, RETIC #### [facility] [address] [place] [id number] USAChloride [Moles/Vol]100 mmol/DEgdhur46-248Bba [facility] Physician GroupComment on above:Order Comment: Reason for Exam Hypothyroidism, unspecified type Reason for Exam Hypothyroidism, unspecified type;History of anemia Reason for Exam Vitamin D deficiencyPerformed By: #### CBC, T4F, MG, TSH3, [id number], FE and TIBC, LIPID, [id number], CMP, RETIC #### [facility] [address] [place] [id number] USACO2 [Moles/Vol]27.9 mmol/XCxdaea48.0-31.0The [facility] Physician GroupComment on above:Order Comment: Reason for Exam Hypothyroidism, unspecified type Reason for Exam Hypothyroidism, unspecified type;History of anemia Reason for Exam Vitamin D deficiencyPerformed By: #### CBC, T4F, MG, TSH3, [id number], FE and TIBC, LIPID, [id number], CMP, RETIC #### [facility] [address] [place] [address] USACreatinine [Mass/Vol]0.73 mg/dLNormal0.60-1.20The [facility] Physician GroupComment on above:Order Comment: Reason for Exam Hypothyroidism, unspecified type Reason for Exam Hypothyroidism, unspecified type;History of anemia Reason for Exam Vitamin D deficiencyPerformed By: #### CBC, T4F, MG, TSH3, [id number], FE and TIBC, LIPID, [id number], CMP, RETIC #### [facility] [address] [place] [address] USAGFR/1.73 sq M.predicted MDRD (S/P/Bld) [Vol rate/Area] mL/min/{1.73_m2}NormalThe [facility] Physician GroupComment on above:Order Comment: Reason for Exam Hypothyroidism, unspecified type Reason for Exam Hypothyroidism, unspecified type;History of anemia Reason for Exam Vitamin D deficiencyPerformed By: #### CBC, T4F, MG, TSH3, [id number], FE and TIBC, LIPID, [id number], CMP, RETIC #### [facility] [address] [place] [address] USAGlobulin (S) [Mass/Vol]2.3 g/dLNormalThe [facility] Physician GroupComment on above:Order Comment: Reason for Exam Hypothyroidism, unspecified type Reason for Exam Hypothyroidism, unspecified type;History of anemia Reason for Exam Vitamin D deficiencyPerformed By: #### CBC, T4F, MG, TSH3, [id number], FE and TIBC, LIPID, [id number], CMP, RETIC #### [facility] [address] [place] [address] USAGlucose [Mass/Vol]89 mg/jMTmkqmv12-331Iud [facility] Physician GroupComment on above:Order Comment: Reason for Exam Hypothyroidism, unspecified type Reason for Exam Hypothyroidism, unspecified type;History of anemia Reason for Exam Vitamin D deficiencyResult Comment: Random Glucose Reference Range is dependent on time and content of last meal. Glucose of more than 200 mg/dL in a nonstressed, ambulatory subject supports the diagnosis of Diabetes Mellitus. ADA recommended reference rangePerformed By: #### CBC, T4F, MG, TSH3, [id number], FE and TIBC, LIPID, [id number], CMP, RETIC #### [facility] [address] [place] [address] USAPotassium [Moles/Vol]4.2 mmol/LNormal3.5-5.1The [facility] Physician GroupComment on above:Order Comment: Reason for Exam Hypothyroidism, unspecified type Reason for Exam Hypothyroidism, unspecified type;History of anemia Reason for Exam Vitamin D deficiencyPerformed By: #### CBC, T4F, MG, TSH3, [id number], FE and TIBC, LIPID, [id number], CMP, RETIC #### [facility] [address] [place] [address] USAProtein [Mass/Vol]6.9 g/dLNormal6.4-8.9The [facility] Physician GroupComment on above:Order Comment: Reason for Exam Hypothyroidism, unspecified type Reason for Exam Hypothyroidism, unspecified type;History of anemia Reason for Exam Vitamin D deficiencyPerformed By: #### CBC, T4F, MG, TSH3, [id number], FE and TIBC, LIPID, [id number], CMP, RETIC #### [facility] [address] [place] [address] USASodium [Moles/Vol]134 mmol/FOkg101-035Rsr [facility] Physician GroupComment on above:Order Comment: Reason for Exam Hypothyroidism, unspecified type Reason for Exam Hypothyroidism, unspecified type;History of anemia Reason for Exam Vitamin D deficiencyPerformed By: #### CBC, T4F, MG, TSH3, [id number], FE and TIBC, LIPID, [id number], CMP, RETIC #### [facility] [address] [place] [address] USAUrea nitrogen [Mass/Vol]10 mg/dLNormal7-25The [facility] Physician GroupComment on above:Order Comment: Reason for Exam Hypothyroidism, unspecified type Reason for Exam Hypothyroidism, unspecified type;History of anemia Reason for Exam Vitamin D deficiencyPerformed By: #### CBC, T4F, MG, TSH3, [id number], FE and TIBC, LIPID, [id number], CMP, RETIC #### [facility] [address] [place] [address] USACreatinine [Mass/volume] in Serum or PlasmaOrdered By: Jen Salas on 22-20-7888Tlgrbppcol [Mass/Vol]Creatinine [Mass/volume] in Serum or Plasma0.60-1.20[facility] HospitalEosinophils Auto (Bld) [#/Vol]Ordered By: Jen Salas on 94-52-6161Qivirqcyoei (Bld) [#/Vol] Automated eosinophil count0.0-0.45[facility] Eosinophils/100 WBC Auto (Bld)Ordered By: Jen Salas on 06-07-2024 Eosinophils/100 WBC (Bld)Automated eosinophil %.[facility] HospitalErythrocyte distribution width Auto (RBC) [Ratio]Ordered By: Jen Salas on 01-74-0038Malokfumzul distribution width (RBC) [Ratio]Erythrocyte distribution width [Ratio] by Automated count11.9-15.3FChillicothe HospitalFolate [Mass/volume] in Serum or PlasmaOrdered By: Jen Salas on 57-31-7456Stjrkk [Mass/Vol]Folate [Mass/volume] in Serum or Plasma>5.9[facility] HospitalComment on above:Folate reference range: >5.9 ng/mlThe WHO technical consultation on folate and vitamin k98poigulamfllr has determined that folate concentrations lessthan 4 ng/ml are considered deficient.Free T4 (Free Thyroxine)on 54-80-4935Arjr T4 [Mass/Vol]0.46 ng/dLLow0.61-1.12The [facility] Physician GroupComment on above:Order Comment: Reason for Exam Hypothyroidism, unspecified type Reason for Exam Hypothyroidism, unspecified type;History of anemia Reason for Exam Vitamin D deficiencyPerformed By: #### CBC, T4F, MG, TSH3, [id number], FE and TIBC, LIPID, [id number], CMP, RETIC ####[facility] [address] [place] [address] [facility] Globulin Calc (S) [Mass/Vol]Ordered By: Jen Salas on 18-54-8434Szxckgaf (S) [Mass/Vol]Serum globulin measurement by calculation (mass/volume)[facility] HospitalGlucose [Mass/volume] in Serum or PlasmaOrdered By: Jen Salas on 70-07-7065Feeawzy [Mass/Vol]Glucose [Mass/volume] in Serum or Pevdqw97-981XdahgglheMercy Health Willard HospitalComment on above:ADA recommended reference rangeRandom Glucose Reference Range is dependent on time and content of last meal. Glucose of more than 200 mg/dL in a nonstressed, ambulatory subject supports the diagnosisof Diabetes Mellitus.Hematocrit Auto (Bld) [Volume fraction]Ordered By: Jen Salas on 57-08-8307Xdbqzqxlvl (Bld) [Volume fraction]Hematocrit [Volume Fraction] of Blood by Automated count34.0-46.4 [facility] HospitalHemoglobin [Mass/volume] in BloodOrdered By: Jen Salas on 44-85-6379Yabnqiwola (Bld) [Mass/Vol]Hemoglobin [Mass/volume] in Blood11.8-15.4FChillicothe HospitalIron [Mass/volume] in Serum or PlasmaOrdered By: Jen Salas on 55-37-2636Niae [Mass/Vol]Iron [Mass/volume] in Serum or Smurjo80-419XfhmouaxqMercy Health Willard HospitalIron and TIBC Profile on 06-07-2024% Iron Azsdkspoim28.4 %Wurhco52-68Avk [facility] Comment on above:Order Comment: Reason for Exam Hypothyroidism, unspecified type Reason for Exam Hypothyroidism, unspecified type;History of anemia Reason for Exam Vitamin D deficiencyPerformed By: #### CBC, T4F, MG, TSH3, [id number], FE and TIBC, LIPID, [id number], CMP, RETIC #### [facility] [address] [place] [address] USAIron [Mass/Vol]86 ug/tYJvgouq05-033Lfn [facility] Physician GroupComment on above:Order Comment: Reason for Exam Hypothyroidism, unspecified type Reason for Exam Hypothyroidism, unspecified type;History of anemia Reason for Exam Vitamin D deficiencyPerformed By: #### CBC, T4F, MG, TSH3, [id number], FE and TIBC, LIPID, [id number], CMP, RETIC #### [facility] [address] [place] [address] USATotal Iron Binding Ksrwazbo694 ug/cPRwxtos642-961Usm [facility] Physician GroupComment on above:Order Comment: Reason for Exam Hypothyroidism, unspecified type Reason for Exam Hypothyroidism, unspecified type;History of anemia Reason for Exam Vitamin D deficiencyPerformed By: #### CBC, T4F, MG, TSH3, [id number], FE and TIBC, LIPID, [id number], CMP, RETIC #### [facility] [address] [place] [address] USATransferrin [Mass/Vol]262 mg/tIBpmssx762-643Qfq [facility] Physician GroupComment on above:Order Comment: Reason for Exam Hypothyroidism, unspecified type Reason for Exam Hypothyroidism, unspecified type;History of anemia Reason for Exam Vitamin D deficiencyPerformed By: #### CBC, T4F, MG, TSH3, [id number], FE and TIBC, LIPID, [id number], CMP, RETIC #### [facility] [address] [place] [address] USALeukocytes [#/volume] corrected for nucleated erythrocytes in Blood by Automated counOrdered By: Jen Salas on 12-72-8901TSN corrected for nucl RBC Auto (Bld) [#/Vol]Leukocytes [#/volume] corrected for nucleated erythrocytes in Blood by Automated coun3.8-11.6FChillicothe Hospital Lipid Panelon 17-98-4861Pthmerjygsr [Mass/Vol]183 mg/oXYaccxr290-998Xhr [facility] Physician GroupComment on above:Order Comment: Reason for Exam Hypothyroidism, unspecified type Reason for Exam Hypothyroidism, unspecified type;History of anemia Reason for Exam Vitamin D deficiencyResult Comment: Chol less than 200 mg/dl low risk Chol 201-239 mg/dl borderline risk Chol 240 mg/dl and greater high riskPerformed By: #### CBC, T4F, MG, TSH3, [id number], FE and TIBC, LIPID, [id number], CMP, RETIC #### [facility] [address] [place] [address] USACholesterol in HDL [Mass/Vol]55 mg/sPWqcdel86-87Cgo [facility] Physician GroupComment on above:Order Comment: Reason for Exam Hypothyroidism, unspecified type Reason for Exam Hypothyroidism, unspecified type;History of anemia Reason for Exam Vitamin D deficiencyResult Comment: HDL CHOL ATP-III CLASSIFICATION Cardiovascular Risk HDL > or equal to 60 mg/dL LOW HDL < 40 mg/dL HIGHPerformed By: #### CBC, T4F, MG, TSH3, [id number], FE and TIBC, LIPID, [id number], CMP, RETIC #### [facility] [address] [place] [address] USACholesterol.total/Cholesterol in HDL [Mass ratio]3.3 {ratio}Normal<5.0The [facility] Physician GroupComment on above:Order Comment: Reason for Exam Hypothyroidism, unspecified type Reason for Exam Hypothyroidism, unspecified type;History of anemia Reason for Exam Vitamin D deficiencyPerformed By: #### CBC, T4F, MG, TSH3, [id number], FE and TIBC, LIPID, [id number], CMP, RETIC #### [facility] [address] [place] [address] USALDL Cholesterol,Cgdrqpcriw24 mg/dLNormal0-100The [facility] Physician GroupComment on above:Order Comment: Reason for Exam Hypothyroidism, unspecified type Reason for Exam Hypothyroidism, unspecified type;History of anemia Reason for Exam Vitamin D deficiencyResult Comment: LDL ATP III CLASSIFICATION LDL less than 100 mg/dL Optimal LDL 100-129 mg/dL Near or above optimal LDL 130-159 mg/dL Borderline high LDL 160-189 mg/dL High LDL greater than 189 mg/dL Very highPerformed By: #### CBC, T4F, MG, TSH3, [id number], FE and TIBC, LIPID, [id number], CMP, RETIC #### [facility] [address] [place] [address] USATriglyceride w/Gmpwec256 mg/dLHigh0-149The [facility] Physician GroupComment on above:Order Comment: Reason for Exam Hypothyroidism, unspecified type Reason for Exam Hypothyroidism, unspecified type;History of anemia Reason for Exam Vitamin D deficiencyResult Comment: TRIG ATP III CLASSIFICATION TRIG less than 150 mg/dL Normal TRIG 150-199 mg/dL Borderline high TRIG 200-500 mg/dL High TRIG greater than 500 mg/dL Very high Standard traceable to the Center for Disease Conrtrol and Prevention (CDC) test method.Performed By: #### CBC, T4F, MG, TSH3, [id number], FE and TIBC, LIPID, [id number], CMP, RETIC #### [facility] [address] [place] [address] USAVLDL QSLLWSGTGOC40 mg/dLNormalThe [facility] Physician GroupComment on above:Order Comment: Reason for Exam Hypothyroidism, unspecified type Reason for Exam Hypothyroidism, unspecified type;History of anemia Reason for Exam Vitamin D deficiencyPerformed By: #### CBC, T4F, MG, TSH3, [id number], FE and TIBC, LIPID, [id number], CMP, RETIC #### [facility] [address] [place] [address] USALymphocytes Auto (Bld) [#/Vol]Ordered By: Jen Salas on 68-37-8747Udszdzdawcg (Bld) [#/Vol]Lymphocytes [#/volume] in Blood by Automated count1.00-4.8[facility] HospitalLymphocytes/100 WBC Auto (Bld)Ordered By: Jen Salas on 74-67-7854Itnmtjopvkg/100 WBC (Bld) Lymphocytes/100 leukocytes in Blood by Automated count.[facility] Auto (RBC) [Entitic mass]Ordered By: Jen Salas on 69-41-7652JUN (RBC) [Entitic mass]MCH [Entitic mass] by Automated count24.7-34.3 [facility] Auto (RBC) [Mass/Vol]Ordered By: Jen Salas on 52-59-6182EAFP (RBC) [Mass/Vol]MCHC [Mass/volume] by Automated count 32.0-35.0[facility]V Auto (RBC) [Entitic vol]Ordered By: Jen Salas on 55-46-4580QJX (RBC) [Entitic vol]MCV [Entitic volume] by Automated lixrs19-533MwsqbghycMercy Health Willard HospitalMagnesiumon 06-07-2024 Magnesium [Mass/Vol]1.8 mg/dLLow1.9-2.7The [facility] Physician GroupComment on above:Order Comment: Reason for Exam Hypothyroidism, unspecified type Reason for Exam Hypothyroidism, unspecified type;History of anemia Reason for Exam Vitamin D deficiencyPerformed By: #### CBC, T4F, MG, TSH3, PQLH37HIB, FE and TIBC, LIPID, [id number], CMP, RETIC #### [facility] [address] [place] [id number] USAMagnesium [Mass/volume] in Serum or PlasmaOrdered By: Jen Salas on 92-26-3927Wdtcrcbnh [Mass/Vol]Magnesium [Mass/volume] in Serum or PlasmaLow1.9-2.7FChillicothe HospitalMonocytes Auto (Bld) [#/Vol]Ordered By: Jen Salas on 17-67-9658Knlllqasz (Bld) [#/Vol]Automated blood monocyte count0.0-0.8[facility] HospitalMonocytes/100 WBC Auto (Bld)Ordered By: Jen Salas on 04-66-2752Hucimdfxp/100 WBC (Bld) Automated monocyte %.[facility] HospitalNeutrophils Auto (Bld) [#/Vol]Ordered By: Jen Salas on 58-13-2003Epkqsdpkgii (Bld) [#/Vol] Neutrophils [#/volume] in Blood by Automated count1.8-7.7FChillicothe HospitalNeutrophils/100 WBC Auto (Bld)Ordered By: Jen Salas on 37-55-6128Tmhldpcuscn/100 WBC (Bld)Automated neutrophil %.[facility] HospitalNo Panel InformationOrdered By: Jen Salas on 06-07-2024 Estimated GFR (CKD-EPI)> 60.0 mL/MinMercy Health Willard HospitalPharmacy Creatinine Clearance (ChemN/AFChillicothe HospitalNucleated erythrocytes [Presence] in Blood by Automated countOrdered By: Jen Salas on 81-01-0194Xlromgfcn RBC Auto Ql (Bld)Nucleated erythrocytes [Presence] in Blood by Automated count0-0.5FChillicothe HospitalPlatelet mean volume Auto (Bld) [Entitic vol]Ordered By: Jen Salas on 36-45-6732Cuhfetdx mean volume (Bld) [Entitic vol]Platelet mean volume [Entitic volume] in Blood by Automated count6.3-10.7FChillicothe HospitalPlatelets Auto (Bld) [#/Vol]Ordered By: Jen Salas on 48-19-2022Fjhsbcyue (Bld) [#/Vol]Platelets [#/volume] in Blood by Automated -757ZknghwynrMercy Health Willard Hospital Potassium [Moles/volume] in Serum or PlasmaOrdered By: Jen Salas on 68-29-6777Hbwwzwmod [Moles/Vol]Potassium [Moles/volume] in Serum or Plasma 3.5-5.1FChillicothe HospitalProtein [Mass/volume] in Serum or Plasma Ordered By: Jen Salas on 13-58-6678Qrqzuqh [Mass/Vol]Protein [Mass/volume] in Serum or Plasma6.4-8.9[facility] Willard HospitalRBC Auto (Bld) [#/Vol] Ordered By: Jen Salas on 75-25-3260EGW (Bld) [#/Vol]Erythrocytes [#/volume] in Blood by Automated count3.60-5.00[facility] Reticulocyte Counton 32-01-1492Giexchgebgok Number0.045 10*6/uLNormal0.024-0.084 The [facility] Physician GroupComment on above:Order Comment: Reason for Exam Hypothyroidism, unspecified type;History of anemiaResult Comment: PERFORMED BY: [place] [address] PATHOLOGIST SENIOR ANIMATOR WEI CORBETT M.D.Performed By: #### CBC, T4F, MG, TSH3, [id number], FE and TIBC, LIPID, [id number], CMP, RETIC #### [facility] [address] [place] [address] USAReticulocyte Percent1.0 %Normal0.5-1.5The [facility] Physician GroupComment on above:Order Comment: Reason for Exam Hypothyroidism, unspecified type;History of anemiaPerformed By: #### CBC, T4F, MG, TSH3, [id number], FE and TIBC, LIPID, [id number], CMP, RETIC #### [facility] [address] [place], [place] [id number] USAReticulocytes [#/volume] in BloodOrdered By: Jen Salas on 71-54-8046Bsxyjcuzbando (Bld) [#/Vol]Absolute reticulocyte count 0.024-0.084Mer[facility] Willard HospitalReticulocytes/100 RBC Auto (Bld) Ordered By: Jen Salas on 74-38-6988Ifjvxgmefwmwx/100 RBC (Bld)Reticulocyte % auto0.5-1.5FUniversity Hospitals Lake West Medical Centererum or plasma albumin/globulin mass ratioOrdered By: Jen Salas on 69-01-6609Xazcvdg/Globulin [Mass ratio] Serum or plasma albumin/globulin mass ratioMercy Health Willard Hospital Serum or plasma anion gap determinationOrdered By: Jen Salas on 06-07-2024 Anion gap [Moles/Vol]Serum or plasma anion gap determination6.0-15.0[facility] Centererum or plasma iron binding capacity measurement (mass/volume)Ordered By: Jen Salas on 89-94-2966Cswg binding capacity [Mass/Vol]Iron binding capacity [Mass/volume] in Serum or Ymsngv898-119IzelegpjwDayton VA Medical Centererum or plasma iron saturation measurement (mass fraction)Ordered By: Jen Salas on 60-40-9525Utpw saturation [Mass fraction] Iron saturation [Mass Fraction] in Serum or Uusqce19-15HfksldovnDayton VA Medical Centererum or plasma total cholesterol/high density lipoprotein (HDL) cholesterol mass ratOrdered By: Jen Salas on 06-07-2024 Cholesterol.total/Cholesterol in HDL [Mass ratio]Serum or plasma total cholesterol/high density lipoprotein (HDL) cholesterol mass rat<5.0[facility] Medical Centerodium [Moles/volume] in Serum or PlasmaOrdered By: Jen Salas on 26-69-6399Bnzolw [Moles/Vol]Sodium [Moles/volume] in Serum or LtalsbMsf441-455TqvdihhopMercy Health Willard HospitalThyroid Stimulating Hormoneon 04-09-4804PQC Qn32.36 m[IU]/LHigh0.45-5.33The [facility] Physician GroupComment on above:Order Comment: Reason for Exam Hypothyroidism, unspecified type Reason for Exam Hypothyroidism, unspecified type;History of anemia Reason for Exam Vitamin D deficiencyPerformed By: #### CBC, T4F, MG, TSH3, [id number], FE and TIBC, LIPID, [id number], CMP, RETIC ####[facility] [address] [place] [address] USAThyrotropin [Units/volume] in Serum or PlasmaOrdered By: Jen Salas on 56-70-7325OWD QnThyrotropin [Units/volume] in Serum or PlasmaHigh0.45-5.33[facility] HospitalThyroxine (T4) free [Mass/volume] in Serum or PlasmaOrdered By: Jen Salas on 49-38-6899Hymd T4 [Mass/Vol]Thyroxine (T4) free [Mass/volume] in Serum or PlasmaLow0.61-1.12 [facility] HospitalTransferrin [Mass/volume] in Serum or Plasma Ordered By: Jen Salas on 98-03-3701Qjhjplovfep [Mass/Vol]Transferrin [Mass/volume] in Serum or Zjdjpb405-493XycmwpnviMercy Health Willard Hospital Triglyceride [Mass/volume] in Serum or PlasmaOrdered By: Jen Salas on 46-64-1200Tgbsotnbypyy [Mass/Vol]Triglyceride [Mass/volume] in Serum or Plasma High0-149[facility] Willard HospitalComment on above:TRIG ATP III CLASSIFICATIONTRIG less than 150 mg/dL NormalTRIG 150-199 mg/dL Borderline highTRIG 200-500 mg/dL High TRIG greater than 500 mg/dL Very highStandard traceable to the Center for Disease Conrtrol and Prevention (CDC) test method. Urea nitrogen [Mass/volume] in Serum or PlasmaOrdered By: Jen Salas on 35-22-3557Abdc nitrogen [Mass/Vol]Urea nitrogen [Mass/volume] in Serum or Plasma 7-25[facility] Willard HospitalVit. B12/Folate Profileon 06-07-2024 Cobalamin (Vitamin B12) [Mass/Vol]285 pg/wDCqdswx386-466Lnh [facility] Physician GroupComment on above:Order Comment: Reason for Exam Hypothyroidism, unspecified type Reason for Exam Hypothyroidism, unspecified type;History of anemia Reason for Exam Vitamin D deficiencyPerformed By: #### CBC, T4F, MG, TSH3, [id number], FE and TIBC, LIPID, [id number], CMP, RETIC ####[address] [place] [address] HQECvqalw46.0 ng/mLNormal>5.9The [facility] Physician GroupComment on above:Order Comment: Reason for Exam Hypothyroidism, unspecified type Reason for Exam Hypothyroidism, unspecified type;History of anemia Reason for Exam Vitamin D deficiencyResult Comment: Folate reference range: >5.9 ng/ml The WHO technical consultation on folate and vitamin b12 deficiencies has determined that folate concentrations less than 4 ng/ml are considered deficient.Performed By: #### CBC, T4F, MG, TSH3, [id number], FE and TIBC, LIPID, [id number], CMP, RETIC ####[address] [place] [address] [facility] CENTERVitamin B12 ser/plasOrdered By: Jen Salas on 16-04-7647Pyjdofeoh (Vitamin B12) [Mass/Vol]Vitamin B12 ser/okkt255-574MuecteflzMercy Health Willard HospitalVitamin D 25 Hydroxy Totalon 22-13-3278Pjxjiud D 25 Hydroxy Total36.8 ng/oKTwlikb30-023Cjx [facility] Physician GroupComment on above:Order Comment: Reason for Exam Hypothyroidism, unspecified type Reason for Exam Hypothyroidism, unspecified type;History of anemia Reason for Exam Vitamin D deficiencyResult Comment: VITAMIN D STATUS 25(OH)VITAMIN D RANGE (ng/mL) Deficient <20 Insufficient 20 to <30 Sufficient 30 to 100 Reference: Kasandra MF,Gagandeep NC, Vadim CISNEROS, et al. Evaluation,treatment, and prevention of vitamin D deficiency; an Endocrine Society clinical practice guideline. JCEM. 2010; 96(7):1911-30. PERFORMED BY: [facility] [address] [place] [address] PATHOLOGIST SENIOR ANIMATOR WEI CORBETT M.D.Performed By: #### CBC, T4F, MG, TSH3, VUTB51LZJ, FE and TIBC, LIPID, DTYQ73JA, CMP, RETIC ####[place] [place] [address] USAVitamin D+Metabolites [Mass/volume] in Serum or PlasmaOrdered By: Jen Salas on 99-79-8929Vtmjjzo D+Metabolites [Mass/Vol]Vitamin D+Metabolites [Mass/volume] in Serum or Kzqlmj67-167TfushzzabMercy Health Willard HospitalComment on above:VITAMIN D STATUS 25(OH)VITAMIN D RANGE (ng/mL) Deficient <20 Insufficient 20 to <04Bcpuybyevu85 to 100Reference: Kasandra MF,Gagandeep CHATMAN, Vadim CISNEROS, et al. Evaluation,treatment, and prevention of vitamin D deficiency; an Endocrine Society clinical practice guideline. JCEM. 2010; 96(7):1911-30.WBC Auto (Bld) [#/Vol]Ordered By: Jen Salas on 41-91-8823TZF (Bld) [#/Vol]Leukocytes [#/volume] in Blood by Automated count 3.8-11.[address] [place], [place] [address]X-ray reportOrdered By: Tino Bonds on 05-04-9559Fqfjj reportDILEY RIDGE [facility] Main [place] [address] [place] [address] XRay Report Signed Patient: Karen Clemente MR#: [id number] : 1975 Acct:[id number] Age/Sex: 48 / F ADM Date: 5 Loc: CT Room: Type: [facility] Attending Dr: Jason Michele DO Copies to: DO Jen Campbell DO, RES~ Ordering Provider: Jen Salas DO, RES Date of Service: 06/07/24 XR/XR chest 2V*: Wheezing PA AND LATERAL CHEST: CLINICAL HISTORY: Wheezing, increased shortness of breath history of COPD COMPARISON: 02/27/2021 FINDINGS: Unremarkable cardiomediastinal silhouette. Lungs are hyperinflated with chronic interstitial changes in the base clear. No effusion or pneumothorax. XR/XR chest 2V* IMPRESSION: NO ACUTE CARDIOPULMONARY ABNORMALITY. Impression dictated by: Tino Bonds M.D.06/07/2024 12:35 PM Dictation Location: [place] [address] Transcribed By: AMISH 06/07/24 1235 Dictated By: Tino Bonds MD 06/07/24 1234 Signed By: 06/07/24 1235 [facility] Work Phone: xr chest 2V*on 66-52-0830GD chest 2V*[facility] Main [place] [address] [place] [address] XRay Report Signed Patient: Karen Clemente MR#: [id number] 01 : 1975 Acct:[id number] Age/Sex: 48 / F ADM Date: 06/07/24 Loc: CT Room: Type: [facility] Attending Dr: Jason Michele DO Copies to: DO Jen Campbell DO, RES Ordering Provider: Jen Salas DO, RES Date of Service: 06/07/24 XR/XR chest 2V*: Wheezing PA AND LATERAL CHEST: CLINICAL HISTORY: Wheezing, increased shortness of breath history of COPD COMPARISON: 02/27/2021 FINDINGS: Unremarkable cardiomediastinal silhouette. Lungs are hyperinflated with chronic interstitial changes in the base clear. No effusion or pneumothorax. XR/XR chest 2V* IMPRESSION: NO ACUTE CARDIOPULMONARY ABNORMALITY. Impression dictated by: Tino Bonds M.D.06/07/2024 12:35 PM Dictation Location: [place] [address] Transcribed By: [facility] 06/07/24 1235 Dictated By: Tino Bonds MD 06/07/24 1234 Signed By: 06/07/[address] [place] [address] Physician GroupUrine Cultureon 04-30-2024 Bacteria identified Cx Nom (U)15,000 colonies/ml mixed bacterial skin contaminants 2 Days PERFORMED BY: [place] [address] PATHOLOGIST SENIOR ANIMATOR WEI CORBETT M.D.NormalThe [facility] Cabarrus Physician GroupComment on above: Performed By: #### CUU #### [place] [address] USAUrine cultureOrdered By: Jen Salas on 04-30-2024 Bacteria identified Cx Nom (U)Urine cultureFirelands Regional Medical CenterT3, [facility] 13-01-3995Hxbl T3 [Mass/Vol]2.48 pg/mL2.00 - 4.40 pg/mLChesapeake Regional Medical CenterFr T3 [Mass/Vol]2.48 pg/mLNormal2.00-4.40[facility] GeneralComment on above:Performed By: #### FT3 #### [address] [id number] Mini Lab Operator: Titi Linda MDT4, [facility] 49-40-0695Sigc T4 [Mass/Vol]1.1 ng/dL 0.92 - 1.68 ng/dLBon [facility] ServicesHon 15-22-4546Zngorvudnqnsaj and review of laboratory resultsAbnormalRiverside Doctors' Hospital [facility] Qn7.49 m[IU]/LHighChesapeake Regional Medical CenterThyroid Stim. Horm.on 26-41-5507Hiogexb Stim. Horm.7.49 uIU/mLHigh 0.27-4.20[facility] GeneralComment on above:Performed By: #### TSH #### [address] [place] [address] Mini Lab Operator: Tadeo Woods MD #### FT4 #### [address] [id number] Mini Lab Operator: Titi Linda MDThyroxine, [facility] 56-41-4363Jbtgxiloe, Free1.1 ng/dLNormal0.92-1.68[facility] GeneralComment on above:Performed By: #### TSH #### [facility] [address] [place] [address] [place] [address] Mini Lab Operator: Tadeo Woods MD #### FT4 #### [address] [id number] Mini Lab Operator: ANA LAURA Garciaomp Metabolic Profon 60-16-1923Afbjzxi/Glob Ratio1.1Tmoqlf1.0-2.5[facility] GeneralComment on above:Performed By: #### CP #### [address] [place], [place] [id number] Mini Lab Operator: Tadeo Woods MDGFR/1.73 sq M.predicted among non-blacks MDRD (S/P/Bld) [Vol rate/Area]78 mL/min/{1.73_m2}Normal>60[facility] Comment on above:Result Comment: These results are not intended for use in patients <18 years of age. eGFR results are calculated without a race factor using the 2020 CKD-EPI equation. Careful clinical correlation is recommended, particularly when comparing to results calculated using previous equations. The CKD-EPI equation is less accurate in patients with extremes of muscle mass, extra-renal metabolism of creatine, excessive creatine ingestion, or following therapy that affects renal tubular secretion.Performed By: #### CP #### [address] [place], [place] [phone] Mini Lab Operator: Tadeo Woods MDAlbumin [Mass/Vol]4.6 g/dLNormal3.5-5.2MFirelands Regional Medical Center South CampusComment on above:Performed By: #### CP #### [address] [place] [address] Mini Lab Operator: Carola Alicea Phos67 U/NZbcpsd18-373QrlejCleveland Clinic Akron GeneralComment on above:Performed By: #### CP #### [address] [place] [address] Mini Lab Operator: Tadeo Woods MDALT [Catalytic activity/Vol]33 U/VJspaep22-47ClbozCleveland Clinic Akron GeneralComment on above:Performed By: #### CP #### [address] [place], [place] [phone] Mini Lab Operator: Tadeo Woods MDAnion gap [Moles/Vol]14 mmol/LNormal9-16[facility] HospitalComment on above:Performed By: #### CP #### [facility] [address] [place] [address] Mini Lab Operator: Tadeo Woods MDAST [Catalytic activity/Vol]27 U/DCuwiia50-71Ifsnd [facility] HospitalComment on above:Performed By: #### CP #### [facility] [address] [place] [address] Mini Lab Operator: Tadeo Woods MDBilirubin [Mass/Vol]0.3 mg/dLNormal0.00-1.20MerSumma Health HospitalComment on above:Performed By: #### CP #### [address] [place] [address] Mini Lab Operator: Tadeo Woods MDBUN/CRE Esmrl63Euhr5-91UpczmCleveland Clinic Akron General Comment on above:Performed By: #### CP #### [address] [place] [address] Mini Lab Operator: ANA LAURA Aliceaalcium [Mass/Vol]10.0 mg/dLNormal8.6-10.4MerSumma Health HospitalComment on above:Performed By: #### CP #### [address] [place] [address] Mini Lab Operator: ANA LAURA Aliceahloride [Moles/Vol]103 mmol/VLctret17-032Oocee Tiffin HospitalComment on above:Performed By: #### CP #### [facility] [address] [place] [address] [place] [address] Mini Lab Operator: ANA LAURA AliceaO2 [Moles/Vol]22 mmol/RRnqyft74-30Mntwd [facility] HospitalComment on above:Performed By: #### CP #### [facility] [address] [place] [address] [place] [address] Mini Lab Operator: ANA LAURA Aliceareatinine [Mass/Vol]0.9 mg/dLNormal0.50-0.90[facility] HospitalComment on above:Performed By: #### CP #### [address] [place], [place] [address]83 Mini Lab Operator: Tadeo Woods MDGlucose [Mass/Vol]114 mg/qHIxuq36-24Wdhuu Tiffin HospitalComment on above:Performed By: #### CP #### [address] [place] [address] Mini Lab Operator: JODI Aliceaotassium [Moles/Vol]5.1 mmol/LNormal3.7-5.3MC[facility] HospitalComment on above:Performed By: #### CP #### [address] [place], [place] [address] Mini Lab Operator: Tadeo Woods MDProtein [Mass/Vol]7.3 g/dLNormal6.6-8.7[facility] HospitalComment on above:Performed By: #### CP #### [address] [place], [place] [phone] Mini Lab Operator: Tadeo Woods MDSodium [Moles/Vol]139 mmol/GOmkpyi524-712LqkfcCleveland Clinic Akron GeneralComment on above:Performed By: #### CP #### [address] [place] [address] Mini Lab Operator: Tadeo Woods MDUrea nitrogen [Mass/Vol]22 mg/dLHigh6-20[facility] GeneralComment on above:Performed By: #### CP #### [address] [place], [place] [phone] Mini Lab Operator: ANA LAURA Alcieaomprehensive Metabolic Panelon 59-40-6287Adfigir [Mass/Vol]4.6 g/dL3.5 - 5.2 g/dLBon Secours Ashtabula County Medical CenterAlbumin/Globulin [Mass ratio]1.7 {ratio}1.0 - 2.5Bon [facility] Let's JockALP [Catalytic activity/Vol]67 U/L35 - 104 U/LBon [facility]bay[facility] Let's JockALT [Catalytic activity/Vol]33 U/L10 - 35 U/LBon SecBrandBeauAnion gap [Moles/Vol]14 mmol/L9 - 16 mmol/LBon [facility] Entertainment HealthAST [Catalytic activity/Vol]27 U/L10 - 35 U/LBon Secbay[facility] Let's JockBilirubin [Mass/Vol]0.3 mg/dL0.00 - 1.20 mg/dLBon Secbay[facility] Let's JockCalcium [Mass/Vol]10.0 mg/dL8.6 - 10.4 mg/dLBon [facility] Let's Jock Chloride [Moles/Vol]103 mmol/L98 - 107 mmol/LBon [facility] Let's JockCO2 [Moles/Vol]22 mmol/L20 - 31 mmol/LBon [facility] Let's JockCreatinine [Mass/Vol] 0.9 mg/dL0.50 - 0.90 mg/dLBon [facility] HospitalBrandBeauEst, Glom Filt Rate78- PINFBon [facility] Let's JockComment on above: These results are not intended for use in patients <18 years of age. eGFR results are calculated without a race factor using the 2020 CKD-EPI equation. Careful clinical correlation is recommended, particularly when comparing to results calculated using previous equations. The CKD-EPI equation is less accurate in patients with extremes of muscle mass, extra-renal metabolism of creatine, excessive creatine ingestion, or following therapy that affects renal tubular secretion. Glucose [Mass/Vol]114 mg/kZHicc22 - 99 mg/dLBon [facility] HospitalBrandBeau Interpretation and review of laboratory resultsAbnormalBon [facility] Let's Jock Potassium [Moles/Vol]5.1 mmol/L3.7 - 5.3 mmol/LBon [facility] HospitalBrandBeauProtein [Mass/Vol]7.3 g/dL6.6 - 8.7 g/dLBon [facility] Let's JockSodium [Moles/Vol]139 mmol/L136 - 145 mmol/LBon [facility] HospitalBrandBeauUrea nitrogen [Mass/Vol]22 mg/dL High6 - 20 mg/dLBon [facility] Community HospitalUrea nitrogen/Creatinine [Mass ratio]24 mg/mgHigh9 - 20Bon [facility] Area Health CenterCBCon 02-27-2024 Erythrocyte distribution width (RBC) [Ratio]14.3 %11.8 - 14.4 %Stafford HospitalHematocrit (Bld) [Volume fraction]45.8 %36.3 - 47.1 %[facility]ord HospitalHemoglobin (Bld) [Mass/Vol]14.5 g/dL11.9 - 15.1 g/dLBon [facility] HospitalInterpretation and review of laboratory resultsAbnormalBon [facility] Rehabilitation HospitalH (RBC) [Entitic mass]33.9 ptIlan13.2 - 33.5 pgStafford Hospital MCHC (RBC) [Mass/Vol]31.7 g/dL28.4 - 34.8 g/dLBon [facility] HospitalMCV (RBC) [Entitic vol]107.0 fLDfku59.6 - 102.9 fLStafford HospitalNucleated RBC/100 WBC (Bld) [Ratio]0.0 %0.0 per 100 WBCStafford HospitalPlatelet mean volume (Bld) [Entitic vol]12.1 fL8.1 - 13.5 fLStafford Hospital Platelets (Bld) [#/Vol]166 10*3/uLStafford HospitalRBC (Bld) [#/Vol]4.28 10*6/uL3.95 - 5.11 m/uLStafford HospitalWBC other (Bld) [#/Vol]9.9Bon [facility] Area Health CenterErythrocyte distribution width (RBC) [Ratio]14.3 %Bfiplx63.8-14.4[facility] GeneralComment on above:Performed By: #### FT4 #### [employer] [address] [place] [address] Mini Lab Operator: Titi Linda MD #### CBC, CP, TSH #### [facility] [address] [place] [address] Mini Lab Operator: Tadeo Woods MDHematocrit (Bld) [Volume fraction]45.8 %Normal 36.3-47.1MFirelands Regional Medical Center South CampusComment on above:Performed By: #### FT4 #### [address] [address] Mini Lab Operator: Titi Linda MD #### DUSTIN, CP, TSH #### [address] [place] [address] Mini Lab Operator: Tadeo Woods MDHemoglobin (Bld) [Mass/Vol]14.5 g/dLNormal 11.9-15.1MFirelands Regional Medical Center South CampusComment on above:Performed By: #### FT4 #### [address] [address] Mini Lab Operator: Titi Linda MD #### DUSTIN CP, TSH #### [address] [place] [address]83 Mini Lab Operator: FIDE AliceaCH (RBC) [Entitic mass]33.9 hyDspd21.2-33.5[facility] GeneralComment on above:Performed By: #### FT4 #### [address] [address] Mini Lab Operator: Titi Linda MD #### DUSTIN CP, TSH #### [address] [place] [phone] Mini Lab Operator: FIDE AliceaCHC (RBC) [Mass/Vol]31.7 g/yRAoioet20.4-34.8[facility] GeneralComment on above:Performed By: #### FT4 #### [address] [phone] Mini Lab Operator: Titi Linda MD #### DUSTIN, CP, TSH #### [address] [place] [address] Mini Lab Operator: FIDE AliceaCV (RBC) [Entitic vol]107.0 xHBjkj72.6-102.9[facility] GeneralCombeaumont hospital on above:Performed By: #### FT4 #### [address] [address] Mini Lab Operator: Titi Linda MD #### CBC, CP, TSH #### [address] [place] [address] Mini Lab Operator: Tadeo Woods MDNRBC Automated0.0 per 100 WBCNormal0.0[facility] GeneralComment on above:Performed By: #### FT4 #### [address] [address] Mini Lab Operator: Titi Linda MD #### CBC, CP, TSH #### [address] [place] [address] Mini Lab Operator: La Alicea mean volume (Bld) [Entitic vol]12.1 fL Normal8.1-13.5[facility] GeneralComment on above:Performed By: #### FT4 #### [address] [address] Mini Lab Operator: Titi Linda MD #### CBC, CP, TSH #### [address] [place] [address] Mini Lab Operator: Edvin Alicea (Bld) [#/Vol]166 10*3/fXFztxqc321-949 [facility] GeneralCombeaumont hospital on above:Performed By: #### FT4 #### [address] [address] Mini Lab Operator: Titi Linda MD #### CBC, CP, TSH #### [address] [place] [address] Mini Lab Operator: HONG Alicea ([facility]) [#/Vol]4.28 10*6/uLNormal3.95-5.11[facility] GeneralComment on above:Performed By: #### FT4 #### [address] [address] Mini Lab Operator: Titi Linda MD #### CBC, CP, TSH #### [address] [place] [phone] Mini Lab Operator: Tadeo Woods MDKINGS PARK [facility] ([facility]) [#/Vol]9.9 10*3/uLNormal3.5-11.3MFirelands Regional Medical Center South CampusComment on above:Performed By: #### FT4 #### [address] [address] Mini Lab Operator: Titi Linda MD #### CBC, CP, TSH #### [address] [place], [place] [phone] Mini Lab Operator: ANA LAURA Aliceaashley regional medical center Metabolic Profon 98-06-0483Vfpnzwp [Mass/Vol] 4.6 g/dLNormal3.5-5.2MFirelands Regional Medical Center South CampusComment on above:Performed By: #### FT4 #### [address] [address] Mini Lab Operator: Titi Linda MD #### CBC, CP, TSH #### [address] [place], [place] [phone] Mini Lab Operator: Tadeo Woods MDAlbumin/Glob Ratio1.1Jyddef0.0-2.5[facility] GeneralComment on above:Performed By: #### FT4 #### [address] [address] Mini Lab Operator: Titi Linda MD #### CBC, CP, TSH #### [address] [place] [address] Mini Lab Operator: Carola Alicea Caev605 U/EIgbp85-016PipbeCleveland Clinic Akron GeneralComment on above:Performed By: #### FT4 #### [address] [address] Mini Lab Operator: Titi Linda MD #### CBC, CP, TSH #### [address] [place], [place] 9306683 Mini Lab Operator: Tadeo Woods MDALT [Catalytic activity/Vol]89 U/DTpjz81-44BaqxaCleveland Clinic Akron GeneralComment on above:Performed By: #### FT4 #### [address] [address] Mini Lab Operator: Titi Linda MD #### CBC, CP, TSH #### [address] [place], [place] 1887183 Mini Lab Operator: Rosa Alicea gap [Moles/Vol]11 mmol/LNormal9-16[facility] GeneralComment on above:Performed By: #### FT4 #### [address] [address] Mini Lab Operator: Titi Linda MD #### CBC, CP, TSH #### [address] [place], [place] 2526383 Mini Lab Operator: Tadeo Woods MDAST [Catalytic activity/Vol]60 U/PIfqw28-93EemodCleveland Clinic Akron GeneralComment on above:Performed By: #### FT4 #### [address] [address] Mini Lab Operator: Titi Linda MD #### CBC, CP, TSH #### [address] [place], [place] 3463683 Mini Lab Operator: Tadeo Woods MDBilirubin [Mass/Vol]0.2 mg/dLNormal0.00-1.20[facility] GeneralComment on above:Performed By: #### FT4 #### [address] [address] Mini Lab Operator: Titi Linda MD #### CBC, CP, TSH #### [address] [place] [address] Mini Lab Operator: Tadeo Woods MDBUN/CRE Mbxtv96Lino2-88SyxlcCleveland Clinic Akron General Comment on above:Performed By: #### FT4 #### [address] [address] Mini Lab Operator: Titi Linda MD #### CBC, CP, TSH #### [address] [place] [address] Mini Lab Operator: ANA LAURA Aliceaalcium [Mass/Vol]10.0 mg/dLNormal8.6-10.4[facility] GeneralComment on above:Performed By: #### FT4 #### [address] [address] Mini Lab Operator: Titi Linda MD #### CBC, CP, TSH #### [address] [place] [address]83 Mini Lab Operator: ANA LAURA Aliceahloride [Moles/Vol]103 mmol/VJuestt91-081NvssgCleveland Clinic Akron GeneralComment on above:Performed By: #### FT4 #### [address] [address] Mini Lab Operator: Titi Linda MD #### CBC, CP, TSH #### [address] [place] [address]83 Mini Lab Operator: Tadeo Woods MDCO2 [Moles/Vol]24 mmol/IRfpnpz44-84GpbrhCleveland Clinic Akron GeneralComment on above:Performed By: #### FT4 #### [facility] [address] [place] [address] Mini Lab Operator: Titi Linda MD #### DUSTIN, CP, TSH #### [address] [place] [address] Mini Lab Operator: ANA LAURA Aliceareatinine [Mass/Vol]1.2 mg/dLHigh0.50-0.90[facility] GeneralComment on above:Performed By: #### FT4 #### [facility] [address] [place] [address] Mini Lab Operator: Titi Linda MD #### DUSTIN, CP, TSH #### [address] [place] [address] Mini Lab Operator: Tadeo Woods MDGFR/1.73 sq M.predicted among non-blacks MDRD (S/P/Bld) [Vol rate/Area]54 mL/min/{1.73_m2}Low>60[facility] GeneralComment on above:Result Comment: These results are not intended for use in patients <18 years of age. eGFR results are calculated without a race factor using the 2020 CKD-EPI equation. Careful clinical correlation is recommended, particularly when comparing to results calculated using previous equations. The CKD-EPI equation is less accurate in patients with extremes of muscle mass, extra-renal metabolism of creatine, excessive creatine ingestion, or following therapy that affects renal tubular secretion.Performed By: #### FT4 #### [facility] [employer] [address] [place] [address] Mini Lab Operator: Titi Linda MD #### CBC, CP, TSH #### [address] [place] [address] Mini Lab Operator: Tadeo Woods MDGlucose [Mass/Vol]131 mg/qKKfie01-67QbvtfFirelands Regional Medical Center South CampusComment on above:Performed By: #### FT4 #### [place] [address] [place] [address] Mini Lab Operator: Titi Linda MD #### DUSTIN, CP, TSH #### [address] [place], [place] 9592883 Mini Lab Operator: JODI Aliceaotassium [Moles/Vol]5.4 mmol/LHigh3.7-5.3MFirelands Regional Medical Center South CampusComment on above:Performed By: #### FT4 #### [address] [address] Mini Lab Operator: Titi Linda MD #### DUSTIN, CP, TSH #### [address] [place], [place] 8609883 Mini Lab Operator: JODI Alicearotein [Mass/Vol]7.6 g/dLNormal6.6-8.7[facility] GeneralComment on above:Performed By: #### FT4 #### [address] [address] Mini Lab Operator: Titi Linda MD #### DUSTIN, CP, TSH #### [address] [place], [place] 3242283 Mini Lab Operator: JONI Aliceaodium [Moles/Vol]138 mmol/KAyggrz381-256WbibnCleveland Clinic Akron GeneralComment on above:Performed By: #### FT4 #### [address] [address] Mini Lab Operator: Titi Linda MD #### CBC, CP, TSH #### [address] [place], [place] 7[address]2483 Mini Lab Operator: Tadeo Woods MDUrea nitrogen [Mass/Vol]27 mg/dLHigh6-20[facility] GeneralComment on above:Performed By: #### FT4 #### [address], [place] 4747508 Mini Lab Operator: Titi Linda MD #### CBC, CP, TSH #### [facility] [address] [place] [address] Mini Lab Operator: Tadeo Woods [facility] OKLAHOMA CITYomprehensive Metabolic Panelon 27-28-1045Nicaiyd [Mass/Vol]4.6 g/dL3.5 - 5.2 g/dLBon [facility] HealthAlbumin/Globulin [Mass ratio]1.5 {ratio}1.0 - 2.5Bon [facility] HealthALP [Catalytic activity/Vol] 117 U/LHigh35 - 104 U/LBon [facility] HealthALT [Catalytic activity/Vol]89 U/LHigh10 - 35 U/LBon [facility] HealthAnion gap [Moles/Vol]11 mmol/L9 - 16 mmol/LBon [facility] HealthAST [Catalytic activity/Vol]60 U/LHigh10 - 35 U/L Bon [facility] HealthBilirubin [Mass/Vol]0.2 mg/dL0.00 - 1.20 mg/dLBon [facility] HealthCalcium [Mass/Vol]10.0 mg/dL8.6 - 10.4 mg/dLBon [facility] HealthChloride [Moles/Vol]103 mmol/L98 - 107 mmol/LBon [facility] HealthCO2 [Moles/Vol]24 mmol/L20 - 31 mmol/LBon [facility] HealthCreatinine [Mass/Vol]1.2 mg/dLHigh0.50 - 0.90 mg/dLBon [facility] HealthEst, Glom Filt Xfji18Xyq- PINFBon [facility] County Community HospitalComment on above: These results are not intended for use in patients <18 years of age. eGFR results are calculated without a race factor using the 2020 CKD-EPI equation. Careful clinical correlation is recommended, particularly when comparing to results calculated using previous equations. The CKD-EPI equation is less accurate in patients with extremes of muscle mass, extra-renal metabolism of creatine, excessive creatine ingestion, or following therapy that affects renal tubular secretion. Glucose [Mass/Vol]131 mg/kSAlaz11 - 99 mg/dLBon [facility] HospitalPotassium [Moles/Vol]5.4 mmol/LHigh3.7 - 5.3 mmol/LBon [facility] HealthProtein [Mass/Vol]7.6 g/dL6.6 - 8.7 g/dLBon [facility] Community HospitalSodium [Moles/Vol]138 mmol/L136 - 145 mmol/LBon [facility] Community HospitalUrea nitrogen [Mass/Vol]27 mg/dL High6 - 20 mg/dLBon [facility] HospitalUrea nitrogen/Creatinine [Mass ratio]23 mg/mgHigh9 - 20Bon [facility] HospitalNo Panel Informationon 02-27-2024 Interpretation and review of laboratory resultsAbnoPioneer Memorial Hospital and Health ServicesT4, Freeon 97-36-2716Ctny T4 [Mass/Vol]0.7 ng/dLLow0.92 - 1.68 ng/dLBon [facility] Community HospitalInterpretation and review of laboratory resultsAbnoBlack Hills Rehabilitation HospitalTSHon 02-27-2024 TSH Qn21.50 m[IU]/LHighStafford HospitalThyroid Stim. Horm.on 02-27-2024 Thyroid Stim. Horm.21.50 uIU/mLHigh0.27-4.20[facility] GeneralComment on above:Performed By: #### FT4 #### [address] [id number] Mini Lab Operator: Titi Linda MD #### CBC, CP, TSH #### [address] [place] [address] Mini Lab Operator: Tadeo Woods MDThyroxine, [facility] 58-23-7699Mnwfypvxv, Free0.7 ng/dLLow0.92-1.68[facility] GeneralComment on above:Performed By: #### FT4 #### [address] [id number] Mini Lab Operator: Titi Linda MD #### CBC, CP, TSH #### [facility] [address] [place] [address] [place] [address] Mini Lab Operator: Tadeo Woods MDH PYLORI SCREENon 10-26-2023H. pylori Org specific cx Ql (Tiara fld)NegativeNormalNEGProBaylor Scott And White Medical Center – FriscoComment on above: Performed By: #### [id number] #### [facility] ([id number]) [address] [place] [address] [address] [place], [place] [address]CFV ( test) Ql (U)on 35-38-8245Mzqg HCG ( test) Ql (U)NegativeNormalNEGUC West Chester HospitalComment on above: Performed By: #### 2106-3 #### [facility] ([id number]) [address] [facility], [address] FLO[address] [place], [place] [address]Htxqpfdm Pathologyon 45-46-7377Omywican PathologyNormal UC [facility] Chester HospitalComment on above:Result Comment: [facility] [address] [place] [id number] Surgical Pathology Consultation Patient Name:KAREN CLEMENTE:1975 (Age: 47)Gender:FTaken:4Reported:4Physician(s):Toña Vo D.O. ([phone])Copy To: Rec. #:[id number]: #[id number] Final Pathologic Diagnosis 1. Gastric antrum biopsy: Mild chronic inactive gastritis. No dysplasia or intestinal metaplasia identified. No Helicobacter pylori organisms identified on H&E-stained. 2. Gastric Cardia biopsy: Gastric mucosa without significant pathologic change. Negative for intestinal metaplasia; no significant inflammatory activity identified. No Helicobacter pylori organisms identified on H&E stain. 3. Distal esophageal biopsy: Squamous esophageal and columnar mucosa showing chronic inflammation with mild focal activity, and foveolar hyperplasia. No dysplasia or goblet cell metaplasia identified. Report Electronically Signed Out ao/4Acarie Chacko MD Interpretation performed at [employer], [address] [place] [address], License number: [id number]. Clinical History Nausea, vomiting, abdominal pain, constipation. Gross Description 1. Received in formalin labeled CHILL, antrum are two light puri soft tissue bits, 0.3 cm. The specimen is filtered and entirely submitted in a single cassette. (1, ns, [id number],m8) DM. 2. Received in formalin labeled CHILL, cardia are three light puri soft tissue bits, 0.2-0.5 cm. The specimen is filtered and entirely submitted in a single cassette. (1, ns, [id number],m8) DM. 3. Received in formalin labeled CHILL, distal esophagus are five light puri soft tissue bits, 0.2-0.4 cm. The specimen is filtered and entirely submitted in a single cassette. (1, ns, [id number],m8) DM. dm/10/27/2023GP Specimen(s) Received 1: Antrum biopsy 2: Cardia biopsy 3: Distal esophageal biopsy Fee Codes(s): 1; 71787 2; 82733 3; 20413Rbdbugpqzsz [Units/volume] in Serum or PlasmaOrdered By: Jarred Levy on 74-56-7699MMF Qn18.34 m[IU]/L0.45-5.33[facility] Willard HospitalThyroxine (T4) free [Mass/volume] in Serum or PlasmaOrdered By: Jarred Levy on 32-42-1069Jqyj T4 [Mass/Vol]0.56 ng/dL0.61-1.12[facility] HospitalAlanine aminotransferase [Enzymatic activity/volume] in Serum or PlasmaOrdered By: Cecilio Epps on 18-81-5390OFN [Catalytic activity/Vol]11 U/L7-52[facility] HospitalAlbumin [Mass/volume] in Serum or Plasma by Bromocresol green (BCG) dye binding methoOrdered By: Cecilio Epps on 48-85-9278Ndblrqj BCG dye [Mass/Vol]4.2 g/dL3.5-5.7FChillicothe HospitalAlkaline phosphatase [Enzymatic activity/volume] in Serum or PlasmaOrdered By: Cecilio Epps on 15-51-6545WIP [Catalytic activity/Vol]56 U/L34-104 [facility] HospitalAspartate aminotransferase [Enzymatic activity/volume] in Serum or PlasmaOrdered By: Cecilio Epps on 17-34-8152KPX [Catalytic activity/Vol]13 U/Y09-73OanmopkypMercy Health Willard HospitalBasophils Auto (Bld) [#/Vol]Ordered By: Cecilio Epps on 14-78-7619Itzexvwbh (Bld) [#/Vol]0.0 10*3/uL0.0-0.2FChillicothe HospitalBasophils/100 WBC Auto (Bld)Ordered By: Cecilio Epps on 77-97-2921Vzxksqfyg/100 WBC (Bld)0.6 %. [facility] HospitalBilirubin.total [Mass/volume] in Serum or PlasmaOrdered By: Cecilio Epps on 83-96-0186Kpfrluumv [Mass/Vol]0.6 mg/dL 0.3-1.0Mer[facility] HospitalCalcium [Mass/volume] in Serum or Plasma Ordered By: Cecilio Epps on 60-33-0137Mdofalm [Mass/Vol]8.6 mg/dL8.6-10.3 [facility] HospitalCarbon dioxide, total [Moles/volume] in Serum or PlasmaOrdered By: Cecilio Epps on 66-76-5483FQ8 [Moles/Vol]28.4 mmol/L 21.0-31.0Mer[facility] Will[facility] HospitalChloride [Moles/volume] in Serum or PlasmaOrdered By: Cecilio Epps on 51-80-6448Uzrvhuls [Moles/Vol]104 mmol/L 98-107Mer[facility] HospitalCreatinine [Mass/volume] in Serum or PlasmaOrdered By: Cecilio Epps on 95-86-6456Ljaclilexv [Mass/Vol]0.99 mg/dL 0.60-1.20[facility] HospitalEosinophils Auto (Bld) [#/Vol]Ordered By: Cecilio Epps on 91-07-8393Lrowducjins (Bld) [#/Vol]0.1 10*3/uL0.0-0.45 [facility] HospitalEosinophils/100 WBC Auto (Bld)Ordered By: Cecilio Epps on 11-75-3040Drgulkuywwb/100 WBC (Bld)1.0 %.[facility] HospitalErythrocyte distribution width Auto (RBC) [Ratio]Ordered By: Cecilio Epps on 32-62-4607Qyaswqhrmmw distribution width (RBC) [Ratio]14.9 % 11.9-15.3FChillicothe HospitalFolate [Mass/volume] in Serum or PlasmaOrdered By: Cecilio Epps on 19-67-0515Wqpuae [Mass/Vol]4.9 ng/mL>5.9 [facility] HospitalComment on above:Folate reference range: >5.9 ng/mlThe WHO technical consultation on folate and vitamin z61wkueerolirhl has determined that folate concentrations lessthan 4 ng/ml are considered deficient. Globulin Calc (S) [Mass/Vol]Ordered By: Cecilio Epps on 19-85-8077Mzbqlymr (S) [Mass/Vol]2.4 g/dLMercy Health Willard HospitalGlucose [Mass/volume] in Serum or PlasmaOrdered By: Cecilio Epps on 66-11-4419Jqupwqi [Mass/Vol]83 mg/fG11-423WflhzrzroMercy Health Willard HospitalComment on above:ADA recommended reference rangeRandom Glucose Reference Range is dependent on time and content of last meal. Glucose of more than 200 mg/dL in a nonstressed, ambulatory subject supports the diagnosisof Diabetes Mellitus.Hematocrit Auto (Bld) [Volume fraction]Ordered By: Cecilio Epps on 72-80-3971Iscmeivnql (Bld) [Volume fraction]41.1 %34.0-46.4FChillicothe HospitalHemoglobin [Mass/volume] in BloodOrdered By: Cecilio Epps on 38-31-9395Unwctgipyl (Bld) [Mass/Vol]14.0 g/dL11.8-15.4FChillicothe HospitalHepatitis C virus IgG Ab [Presence] in Serum or Plasma by ImmunoassayOrdered By: Cecilio Epps on 71-19-4356HCS IgG IA QlNon-ReactiveNon ReactiveMercy Health Willard HospitalHesanta cl[facility] C virus RNA [Units/volume] (viral load) in Serum or Plasma by ONEIL with probOrdered By: Cecilio Epps on 94-94-9597BSF RNA ONEIL+probe QnN/A [facility] HospitalHesanta clara valley medical center C virus RNA [log units/volume] (viral load) in Serum or Plasma by ONEIL withOrdered By: Cecilio Epps on 08-10-2022 HCV RNA ONEIL+probe [Log units/Vol]N/AFChillicothe HospitalLeukocytes [#/volume] corrected for nucleated erythrocytes in Blood by Automated coun Ordered By: Cecilio Epps on 77-53-2525SYC corrected for nucl RBC Auto (Bld) [#/Vol]5.9 10*3/uL3.8-11.6FChillicothe HospitalLymphocytes Auto (Bld) [#/Vol]Ordered By: Cecilio Epps on 63-87-0145Wdoyoonsnvc (Bld) [#/Vol] 1.6 10*3/uL1.00-4.8[facility] HospitalLymphocytes/100 WBC Auto (Bld)Ordered By: Cecilio Epps on 03-86-7430Gbykvnobgxa/100 WBC (Bld)27.8 %. [facility] Auto (RBC) [Entitic mass]Ordered By: Cecilio Epps on 06-41-8695FOQ (RBC) [Entitic mass]32.7 pg24.7-34.3FChillicothe HospitalMCHC Auto (RBC) [Mass/Vol]Ordered By: Cecilio Epps on 77-68-4831BQSS (RBC) [Mass/Vol]34.0 g/dL32.0-35.0Prem[facility] Hospital NorthV Auto (RBC) [Entitic vol]Ordered By: Cecilio Epps on 56-14-2168DUS (RBC) [Entitic vol]96.2 nE30-867KavwsrbopMercy Health Willard HospitalMonocytes Auto (Bld) [#/Vol]Ordered By: Cecilio Epps on 55-88-7314Udawbmupt (Bld) [#/Vol] 0.5 10*3/uL0.0-0.8[facility] HospitalMonocytes/100 WBC Auto (Bld) Ordered By: Cecilio Epps on 12-12-8541Lgignyyyg/100 WBC (Bld)8.0 %.[facility] HospitalNeutrophils Auto (Bld) [#/Vol]Ordered By: Cecilio Epps on 47-36-9472Xsloevlfgcd (Bld) [#/Vol]3.7 10*3/uL1.8-7.7FChillicothe HospitalNeutrophils/100 WBC Auto (Bld)Ordered By: Cecilio Epps on 20-15-7838Bkufygmzhrm/100 WBC (Bld)62.6 %.[facility] HospitalNo Panel InformationOrdered By: Cecilio Epps on 18-65-3629Cmlkcrqlt GFR (CKD-EPI)> 60.0 mL/MinMercy Health Willard HospitalHecarmen B Core Total AntibodyNegativeNegativeMercy Health Willard HospitalComment on above: Performed at: [facility] [id number] Director: Tadeo Rosado PhD, Phone: [phone] samuel.[facility] HospitalComment on above:Not infected with HCV unless early or acute infection issuspected (which may be delayed in an immuno compromisedindividual), or other evidence exists to indicate HCVinfection. Hepatitis C RNA QuantitativeN/[facility] HospitalPharmacy Creatinine Clearance (ChemN/[facility] HospitalNucleated erythrocytes [Presence] in Blood by Automated countOrdered By: Cecilio Epps on 68-77-6479Zkyhkhogx RBC Auto Ql (Bld)0.1 /100{WBC}0-0.5FChillicothe HospitalPlatelet mean volume Auto (Bld) [Entitic vol]Ordered By: Cecilio Epps on 77-59-0653Aapbnzus mean volume (Bld) [Entitic vol]10.1 fL6.3-10.7 [facility] HospitalPlatelets Auto (Bld) [#/Vol]Ordered By: Cecilio Epps on 94-68-2707Wwrzqjvqi (Bld) [#/Vol]143 10*3/oA692-386OewritsifMercy Health Willard HospitalPotassium [Moles/volume] in Serum or PlasmaOrdered By: Cecilio Epps on 13-20-6333Fyihajddq [Moles/Vol]3.8 mmol/L3.5-5.1FChillicothe HospitalProtein [Mass/volume] in Serum or PlasmaOrdered By: Cecilio Epps on 90-58-1598Suvcvqv [Mass/Vol]6.6 g/dL6.4-8.9[facility] HospitalRBC Auto (Bld) [#/Vol]Ordered By: Cecilio Epps on 52-85-6618ICM (d) [#/Vol]4.28 10*6/uL3.60-5.00[facility] Medical Centererum hepatitis B virus surface antibody detectionOrdered By: Cecilio Epps on 20-60-8463OPV surface Ab Ql (S)Non-Reactive.[facility] HospitalComment on above:Non Reactive: Inconsistent with immunity, less than 10 mIU/mL Reactive: Consistent with immunity, greater than 9.9 mIU/mLSerum or plasma albumin/globulin mass ratioOrdered By: Ceciilo Epps on 08-10-2022 Albumin/Globulin [Mass ratio]1.8 {ratio}[facility] Centererum or plasma anion gap determinationOrdered By: Cecilio Epps on 69-48-8559Rumrt gap [Moles/Vol]11.4 mmol/L6.0-15.0[facility] Medical Centerodium [Moles/volume] in Serum or PlasmaOrdered By: Cecilio Epps on 08-10-2022 Sodium [Moles/Vol]140 mmol/A693-339XjdbmbyxaMercy Health Willard HospitalThyrotropin [Units/volume] in Serum or PlasmaOrdered By: Cecilio Epps on 84-20-4983BEH Qn21.80 m[IU]/L0.45-5.33[facility] HospitalThyroxine (T4) free [Mass/volume] in Serum or PlasmaOrdered By: Cecilio Epps on 61-73-8979Akpe T4 [Mass/Vol]0.28 ng/dL0.61-1.12[facility] HospitalUrea nitrogen [Mass/volume] in Serum or PlasmaOrdered By: Cecilio Epps on 59-16-7771Avoj nitrogen [Mass/Vol]16 mg/dL7-25[facility] HospitalVitamin B12 ser/plasOrdered By: Cecilio Epps on 88-23-7079Hxptbaigc (Vitamin B12) [Mass/Vol]164 pg/pY514-533JxxixxqigMercy Health Willard HospitalVitamin D+Metabolites [Mass/volume] in Serum or PlasmaOrdered By: Cecilio Epps on 08-10-2022 Vitamin D+Metabolites [Mass/Vol]29.4 ng/jX74-528IgcdrccfwMercy Health Willard HospitalComment on above:VITAMIN D STATUS 25(OH)VITAMIN D RANGE (ng/mL) Deficient <20 Insufficient 20 to <70Hdbypyzugo90 to 100Reference: Kasandra MF,Gagandeep NC, Vadim CISNEROS, et al. Evaluation,treatment, and prevention of vitamin D deficiency; an Endocrine Society clinical practice guideline. JCEM. 2010; 96 (7):1911-30.WBC Auto (Bld) [#/Vol]Ordered By: Cecilio Epps on 44-38-6410KOA (Bld) [#/Vol]5.9 10*3/uL3.8-11.6FChillicothe HospitalThyrotropin [Units/volume] in Serum or PlasmaOrdered By: Cecilio Epps on 68-55-8477HKR Qn6.15 m[IU]/L0.45-5.33[facility] HospitalThyroxine (T4) [Mass/volume] in Serum or PlasmaOrdered By: Cecilio Epps on 09-56-0701E4 [Mass/Vol]7.70 ug/dL5.39-11.82[facility] HospitalTriiodothyronine (T3) [Mass/volume] in Serum or PlasmaOrdered By: Cecilio Epps on 06-06-2022 T3 [Mass/Vol]1.01 ng/mL0.87-1.78[facility] HospitalTS DL <= 0.005 mIU/L QnOrdered By: Cecilio Epps on 14-17-2335GJF Qn8.27 m[IU]/L0.45-5.33 [facility] HospitalThyroxine (T4) free [Mass/volume] in Serum or PlasmaOrdered By: Cecilio Epps on 77-56-3098Giho T4 [Mass/Vol]0.59 ng/dL 0.61-1.12[facility] DL <= 0.005 mIU/L QnOrdered By: Cecilio Epps on 34-85-3410BCU Qn25.89 m[IU]/L0.45-5.33[facility] HospitalThyroxine (T4) free [Mass/volume] in Serum or PlasmaOrdered By: Cecilio Epps on 35-64-4605Itgi T4 [Mass/Vol]0.37 ng/dL0.61-1.12[facility] HospitalAlbumin [Mass/volume] in Serum or Plasmaon 07-29-2020 Albumin [Mass/Vol]4.0 g/dL3.2-5.5FOhioHealth CtrCreatinine and Glomerular filtration rate.predicted panel (S/P/Bld)on 11-65-7086Oiqewxxxun [Mass/Vol]0.77 mg/dL0.44-1.03[facility] Health CtrEstimated glomerular filtration rate (GFR) non- Americanon 58-48-8695BLX/1.73 sq M.predicted among non-blacks MDRD (S/P/Bld) [Vol rate/Area]> 60 mL/MinPremier Health CtrGlobulin Calc (S) [Mass/Vol]on 65-97-5359Wwmwpyhl (S) [Mass/Vol]2.5 g/dLPremier Health CtrNo Panel Informationon 85-96-2395Qwbbmkieu GFR ()> 60 mL/MinPremier Health CtrComment on above:GFR estimated reference range: According to KDOQI guidelines, <60 ml/min/1.73m2 is sufficient todiagnose a patient with chronic kidney disease.Pharmacy Creatinine Clearance (ChemN/AFOhioHealth CtrProtein [Mass/volume] in Serum or Plasmaon 02-30-7722Vojdyne [Mass/Vol]6.5 g/dL6.1-7.9Prem[facility] Health CtrSerum or plasma alanine aminotransferase measurement without P-5'-P (enzymatic activion 06-49-7982THW No additional P-5'-P [Catalytic activity/Vol] 36 U/E71-09ZenrdhjswPremier Health CtrSerum or plasma albumin/globulin mass ratioon 10-89-2083Sbuvhkb/Globulin [Mass ratio]1.6 {ratio}[facility] Health CtrSerum or plasma alkaline phosphatase measurement (enzymatic activity/volume)on 26-46-7718JQC [Catalytic activity/Vol]44 U/J78-30VupmctlszPremier Health CtrSerum or plasma aspartate aminotransferase measurement (enzymatic activity/volume)on 05-14-9803VST [Catalytic activity/Vol]24 U/L10-42 [facility] Health CtrSerum or plasma calcium measurement (mass/volume) on 31-85-2498Udzjned [Mass/Vol]9.4 mg/dL8.2-10.2FOhioHealth Ctr Serum or plasma chloride measurement (moles/volume)on 15-62-5036Hgcemnwb [Moles/Vol]102 mmol/E71-852EkxpckxelPremier Health CtrSerum or plasma glucose measurement (mass/volume)on 44-06-9110Ppfkcdr [Mass/Vol]80 mg/fZ97-992BwutwcwlyPremier Health CtrComment on above:ADA recommended reference rangeRandom Glucose Reference Range is dependent on time and content of last meal. Glucose of more than 200 mg/dL in a nonstressed, ambulatory subject supports the diagnosisof Diabetes Mellitus.Serum or plasma potassium measurement (moles/volume)on 09-32-5780Qzabwkkki [Moles/Vol]4.1 mmol/L3.5-5.1FOhioHealth CtrSerum or plasma sodium measurement (moles/volume)on 47-03-2888Zflwwl [Moles/Vol]137 mmol/P904-408WycngufdjSelect Medical Specialty Hospital - ColumbusSerum or plasma total bilirubin measurement (mass/volume)on 10-01-4797Pqytwrcod [Mass/Vol]0.5 mg/dL0.3-1.2FOhioHealth CtrSerum or plasma total carbon dioxide measurement (moles/volume)on 76-10-3513JX7 [Moles/Vol]27.5 mmol/L 22.0-30.0Premier Health CtrSerum or plasma urea nitrogen measurement (mass/volume)on 55-18-3690Ltjp nitrogen [Mass/Vol]12 mg/dL9-23Premier Health CtrTSH DL <= 0.005 mIU/L Qnon 64-31-2074ATO Qn16.84 m[IU]/L 0.45-5.33Prem[facility] Health CtrThyroxine (T4) free [Mass/volume] in Serum or Plasmaon 70-64-3355Kqzo T4 [Mass/Vol]0.57 ng/dL0.61-1.12Premier Health CtrDrug Scr, Abuse, Uron 50-06-4607Bmzziykbrpy(s),UrNegative NormalNEGMercy Adena Pike Medical CenterComment on above:Result Comment: (Positive cutoff 1000 ng/mL)Performed By: #### UA, UMICAO, ALDEN ####[address] [phone](s),UrNegative NormalNEGRiverside Methodist HospitalComment on above:Result Comment: (Positive cutoff 200 ng/mL)Performed By: #### UA, UMICAO, ALDEN ####[address] [phone] excessNegativeNormal NEGRiverside Methodist HospitalCombeaumont hospital on above:Result Comment: (Positive cutoff 300 ng/mL)Performed By: #### UA, UMICAO, ALDEN ####[address] [phone](s)PositiveAbnormalNEG [facility] HospitalCombeaumont hospital on above:Result Comment: (Positive cutoff 200 ng/mL)Performed By: #### UA, UMICAO, ALDEN ####[address] [phone](s),UrNegativeNormalNEGMercy Adena Pike Medical CenterCombeaumont hospital on above:Result Comment: (Positive cutoff 50 ng/mL) Performed By: #### LACI MONGE ALDEN ####[address] [phone] InfoAssay provides medical screening only. The absence of expected drug(s) and/orNormalMercy Adena Pike Medical CenterCombeaumont hospital on above:Result Comment: metabolite(s) may indicate diluted or adulterated urine, limitations of testing or timing of collection.Testing for legal purposes should be confirmed by another method. To request confirmation of test result, please call the lab within 7 days of sample submission.Performed at [address] [address] [phone] By: #### LACI MONGE ALDEN ####[address] [phone](s), UrNegative NormalNEGMercy Adena Pike Medical CenterCombeaumont hospital on above:Result Comment: (Positive cutoff 300 ng/mL)Performed By: #### LACI MONGE ALDEN ####[address] [phone], UrineNegative NormalNEGMercy Adena Pike Medical CenterCombeaumont hospital on above:Result Comment: (Positive cutoff 100 ng/mL)Performed By: #### UA UMICAO ALDEN ####[address] [address] Phencyclidine, UrNegative NormalNEGMercy Adena Pike Medical CenterCombeaumont hospital on above:Result Comment: (Positive cutoff 25 ng/mL)Performed By: #### UA, UMICAO, ALDEN ####[address] [phone], methadone presence NegativeNormalNEGMercy Adena Pike Medical CenterCombeaumont hospital on above:Result Comment: (Positive cutoff 300 ng/mL)Performed By: #### UA, UMICAO, ALDEN ####[address] [address] Buprenorphrine, Ur NOT REPORTEDNormalNEGMercy Adena Pike Medical CenterComment on above:Performed By: #### UA, UMICAO, ALDEN ####[address] [address] MDMA, UrineNOT REPORTEDNormalNEGMercy [facility]ena [facility] Comment on above:Performed By: #### UA, UMICAO, ALDEN ####[address] [address] Methamphetamine, UrNOT REPORTEDNormalNEGMercy Adena Pike Medical CenterComment on above:Performed By: #### UA, UMICAO, ALDEN ####[address] [address] Propoxyphene,UrineNOT REPORTEDNormalNEGMercy Adena Pike Medical CenterComment on above:Performed By: #### UA, UMICAO, ALDEN ####[address] [address] Urine, tricyclic antidepressantsNOT REPORTEDNormalNEGMercy Adena Pike Medical CenterComment on above: Performed By: #### UA, UMICAO, ALDEN ####[address] [phone], Routineon 39-43-4740Gpmsdmogsoppp mass concNegativeNormalNEGMercy Adena Pike Medical CenterComment on above:Performed By: #### UA, UMICAO, ALDEN ####[address] [address] Bilirubin (direct)NegativeNormalNEGMercy Summerside HospitalComment on above:Performed By: #### UA, UMICAO, ALDEN ####[address] [place] [address] Hemoglobin mass conc (Bld)NegativeNormalNEGRiverside Methodist HospitalComment on above:Performed By: #### UA, UMICAO, ALDEN ####[address] [place] [address] Nitrite,UrNegativeNormalNEGRiverside Methodist Hospital Comment on above:Performed By: #### UA, UMICAO, ALDEN ####[address] [address] TurbidityCLOUDYAbnormal CLEARRiverside Methodist HospitalComment on above:Performed By: #### UA, UMICAO, ALDEN ####[address] [address] Urine, colorYELLOWNormalYELMerSt. Rita's HospitalComment on above:Performed By: #### UA, UMICAO, ALDEN ####[address] [address] Urine, glucose presenceNegativeNormalNEGRiverside Methodist HospitalComment on above:Performed By: #### UA, UMICAO, ALDEN ####[address] [place] [address] Urine, leukocyte esterase presenceTRACEAbnormalNEGRiverside Methodist HospitalComment on above: Result Comment: Performed at [address] [phone] By: #### UA, UMICAO, ALDEN ####[address] [address] Urine, pH5.5 [pH] Normal5.0-8.0Riverside Methodist HospitalCombeaumont hospital on above:Performed By: #### UA, UMICAO, ALDEN ####[address] [phone], protein presenceNegativeNoatrium health wake forest baptist high point medical centerNEGRiverside Methodist Hospital Comment on above:Performed By: #### UA, UMICAO, ALDEN ####[address] [address] Urine, specific gravity 1.482Gyadlm4.000-1.030MerCrystal Clinic Orthopedic Center on above:Performed By: #### UA, UMICAO, ALDEN ####[address] [address] Urobilinogen,UrNormalNormalNORMRiverside Methodist Hospital Comment on above:Performed By: #### UA, UMICAO, ALDEN ####[address] [phone] REPORTEDNormal [facility] on above:Performed By: #### UA, UMICAO, ALDEN ####[address] [address] Urinalysis,Microon 09-19-2016-----NormalRiverside Methodist HospitalCombeaumont hospital on above:Performed By: #### UA, UMICAO, ALDEN ####[address] [phone] Strands1+AbnormalNONEMercy Adena Pike Medical CenterCombeaumont hospital on above:Performed By: #### UA, UMICAO, ALDEN ####[address] [address] Urine WBC's2 TO 5NormalRiverside Methodist HospitalCombeaumont hospital on above:Performed By: #### UA, UMICAO, ALDEN ####[address] [place] [phone], amorphous sediment presence in sediment1+AbnormalNONEMeUC Medical CenterComment on above:Result Comment: Performed at [address] [phone] By: #### UA, UMICAO, ALDEN ####[address] [place] [address] Urine, bacteria in sedimentMODERATEAbnormalSelect Medical Specialty Hospital - Columbus SouthComment on above:Performed By: #### UA, UMICAO, ALDEN ####[address] [place] [address] Urine, erythrocytes0 TO 2NormalMerSt. Rita's HospitalComment on above:Performed By: #### UA, UMICAO, ALDEN ####[address] [place] [phone], RenalNOT MGYRHOQWGmgcrx2IrlyhRiverside Methodist Hospital Comment on above:Performed By: #### UA, UMICAO, ALDEN ####[address] [place] [address] Other ObservationsNOT REPORTEDNormalNREQMerSt. Rita's HospitalComment on above:Performed By: #### UA, UMICAO, ALDEN ####[address] [place] [phone] REPORTEDNormalNONEMeUC Medical Center Comment on above:Performed By: #### UA, UMICAO, ALDEN ####[address] [place] [address] Urine, casts in sediment NOT REPORTEDNormalMerSt. Rita's HospitalComment on above:Performed By: #### UA, UMICAO, ALDEN ####[address] [address] Urine, crystals in sedimentNOT REPORTEDSalem City Hospital on above:Performed By: #### LACI MONGE, ALDEN ####[address] [address] Urine, epithelial cells in sedimentNOT REPORTEDNormalRiverside Methodist HospitalCombeaumont hospital on above:Performed By: #### LACI MONGE, ALDEN ####[address] [address] Urine, yeast presence in sedimentNOT Genesis HospitalCombeaumont hospital on above:Performed By: #### LACI MONGE, ALDEN ####[address] [address] CBC with Diffon 64-32-5480Fjr. Basophil0.10 k/uLNormal0.0-0.2 [facility] on above:Result Comment: Performed at [address] [address] Performed By: #### CDP, CP ####[address] [address] Abs.Neutrophil (Seg)3.70 k/uLNormal1.3-9.1MAshtabula County Medical Center on above:Performed By: #### CDP, CP ####[address] [address] Basophils/100 WBC Auto (Bld)1 %NormalThe [facility] on above:Performed By: #### CDP, CP ####[address] [phone] 10*3/uLNormal0.0-0.4[facility] Comment on above:Performed By: #### CDP, CP ####[address]arrSan [address] [place] [address] Eosinophils/100 leukocytes3 %Normal [facility] HospitalComment on above:Performed By: #### CDP, CP ####[address]arr[address] [place] [address] Erythrocyte distribution width Auto Ratio (RBC)13.9 %Hdffov62.5-14.9[facility] HospitalComment on above:Performed By: #### CDP, CP ####[address] [address] Erythrocytes (RBC)4.36 10*6/uLNormal4.0-5.2MDayton VA Medical CenterComment on above:Performed By: #### CDP, CP ####[address] [place] [address] Hematocrit (HCT)42.6 %Hpeoqd37-49OyquaRiverside Methodist Hospital Comment on above:Performed By: #### CDP, CP ####[address] [place] [address] Hemoglobin mass conc (Bld)14.4 g/dL Ywpgqt83.0-16.0[facility] HospitalComment on above:Performed By: #### CDP, CP ####[address] [address] Slxpnkcdjws8.00 10*3/uLNormal1.0-4.8[facility] Comment on above:Performed By: #### CDP, CP ####[address] [address] Lymphocytes/100 nkzoaghzpn98 %Normal [facility] HospitalComment on above:Performed By: #### CDP, CP ####[address] [address] ULP54.0 pg Wlxfft42-13XtxbcRiverside Methodist HospitalComment on above:Performed By: #### CDP, CP ####[address] [address] MCHC mass conc (RBC)33.7 g/wPZsspjs82-43TkttjSt. Rita's HospitalComment on above:Performed By: #### CDP, CP ####[address] [address] MXK39.7 oGLiinkx54-136AgdhgRiverside Methodist HospitalComment on above:Performed By: #### CDP, CP ####[address] [address] Nycmhnfvi0.70 10*3/uL Normal0.1-1.3[facility] Medical CenterComment on above:Performed By: #### CDP, CP ####[address] [address] Monocytes/100 ibldpwvrpg78 %NormalRiverside Methodist HospitalCombeaumont hospital on above: Performed By: #### CDP, CP ####[address] [address] Neutrophil (Seg)55 %NormalRiverside Methodist HospitalComment on above:Performed By: #### CDP, CP ####[address] [address] Platelet mean volume (PMV) 9.7 fLNormal6.0-12.0[facility] HospitalComment on above:Performed By: #### CDP, CP ####[address] [address] Dbgjcbyeg247 10*3/rNNkmmzo079-742WjvtmR[facility]ide [facility] Hospital Comment on above:Performed By: #### CDP, CP ####[address] [place] [address] WBC (Leukocytes)6.7 10*3/uLNormal 3.5-11.0[facility] HospitalComment on above:Performed By: #### CDP, CP ####[address], [place] [phone] Diff PerformedNOT REPORTEDNormRegency Hospital CompanyComment on above: Performed By: #### CDP, CP ####[address], [place] [phone] morphologyNOT REPORTEDNoLicking Memorial HospitalComment on above:Performed By: #### CDP, CP ####[address] [phone] REPORTEDNoLicking Memorial HospitalComment on above:Performed By: #### CDP, CP ####[address] [address] WBC MorphologyNOT REPORTEDTrinity Health System East CampusComment on above: Performed By: #### CDP, CP ####[address] [phone] Metabolic Profon 09-16-2016(cont.)Normal [facility] HospitalCombeaumont hospital on above:Result Comment: Average GFR for 40-49 years old: 99 mL/min/1.73sq mChronic Kidney Disease: <60 mL/min/1.73sq mKidney failure: <15 mL/min/1.73sq meGFR calculated using average adult body mass. Ad ditional eGFR calculator available at:http://www.NGRAIN.com/multiple_crcl_2012.htmPerformed at [facility] [address] [place] [address] [phone] By: #### CDP, CP ####[facility] [place] [phone] aminotransferase (ALT)33 U/LNormal5-33MerSt. Rita's HospitalComment on above:Performed By: #### CDP, CP ####[address] [address] Bxgjahb9.0 g/dL Normal3.5-5.2MercSelect Medical Specialty Hospital - TrumbullComment on above:Performed By: #### CDP, CP ####[address] [address] Alkaline Phos64 U/GHjcupd78-178OijwbSt. Rita's HospitalComment on above: Performed By: #### CDP, CP ####[address] [address] Anion gap12 mmol/LNormal9-17[facility] HospitalComment on above:Performed By: #### CDP, CP ####[address] [address] Aspartate aminotransferase (AST)37 U/LHigh<32[facility] HospitalComment on above:Performed By: #### CDP, CP ####[address] [address] Bilirubin Ql (U)0.24 mg/dLLow0.3-1.2MDayton VA Medical Center Comment on above:Performed By: #### CDP, CP ####[address] [address] Uxibaad3.3 mg/dLNormal8.6-10.4[facility] HospitalComment on above:Performed By: #### CDP, CP ####[facility] [place] [address] Qgnrtyiz96 mmol/L Cvaxgt44-794KmmcaRiverside Methodist HospitalComment on above:Performed By: #### CDP, CP ####[address] [address] CO227 mmol/EBxvlec58-67JqfbwRiverside Methodist HospitalComment on above:Performed By: #### CDP, CP ####[address] [address] Qujopcofgy7.60 mg/dLNormal0.50-0.90[facility] Comment on above:Performed By: #### CDP, CP ####[address] [address] eGFR (non-black)mL/min/{1.73_m2}Normal >60[facility] HospitalComment on above:Performed By: #### CDP, CP ####[address] [address] Glucose mass espf505 mg/oDZbnj01-90PrxbiDayton VA Medical CenterComment on above: Performed By: #### CDP, CP ####[address] [address] Potassium molar conc4.8 mmol/LNormal3.7-5.3 [facility] HospitalComment on above:Performed By: #### CDP, CP ####[address] [address] Bikcoaq4.9 g/dLNormal6.4-8.3MDayton VA Medical CenterComment on above:Performed By: #### CDP, CP ####[address] [phone] mmol/FQzwdbn595-403XprmbRiverside Methodist HospitalComment on above:Performed By: #### CDP, CP ####[address] [address] Urea lrgcyrax60 mg/dLHigh6-20[facility] HospitalComment on above:Performed By: #### CDP, CP ####[address] [address] Albumin/Globulin RatioNOT REPORTEDNormal1.0-2.5[facility] HospitalComment on above:Performed By: #### CDP, CP ####[address] [address] BUN/CRE RatioNOT REPORTEDNormal9-20[facility] Comment on above:Performed By: #### CDP, CP ####[address] [address] Staging:NOT REPORTEDNormalRiverside Methodist HospitalComment on above:Performed By: #### CDP, CP ####[address] [address] Vital Signs Date TimeVital SignValuePerforming AgatxgvxaPxrhnmss95-28-5026 13:07-0400Body mass index (BMI) [Ratio]28.87 kg/n5WmjvxdDeena Bell MD Work Phone: [facility] HospitalOfparrqbkt35-21-8742 13:07-0400Body ldoypj21.94 kgDeena Bell MD Work Phone: [facility] HospitalDoxiwonupr87-65-9896 13:07-0400Diastolic blood ggaxffno69 mm[Hg]Deena Bell MD Work Phone: noMer[facility] CenterFzjpqbyeaa41-89-0632 13:07-0400Systolic blood mm[Hg]Deena Bell MD Work Phone: [place] [address]Egvjfoquez65-23-5774 11:32-0400Body hovnnzxvaxu65 [degF]Services [facility] Work Phone: [facility]10-10-2024 11:32-0400 Body uffrwa67.57 kgServices [facility] Work Phone: [facility]10-10-2024 11:32-0400 Diastolic blood kajkrmzy60 mm[Hg]Services [facility] Work Phone: [facility]10-10-2024 11:32-0400 Heart rate85 /[facility] Work Phone: [phone] [place], [place] [address]10-10-2024 11:32-0400 Respiratory rate20 /minSGlenbeigh Hospital Work Phone: [facility]10-10-2024 11:32-0400 SaO2% (BldA) [Mass fraction]96 %Services [facility] Work Phone: [facility]10-10-2024 11:32-0400 Systolic blood inajklbp589 mm[Hg]Services [facility] Work Phone: [facility]08-13-2024 09:55-0400 Body fnwgci[address] [place], [place] 4517708-13-2024 09:55-0400Body mass index (BMI) [Ratio]27.81 kg/m2Pmh [address] [place], [place] 4517708-13-2024 09:55-0400 Body .[address] [place], [place] 4517708-08-2024 10:14-0400Body height 160 cmJealistair Burtonoll STOCK DRIVER-LOAN MANAGER Work Phone: [facility]08-08-2024 10:14-0400Body mass index (BMI) [Ratio]28.13 kg/j7Zfpuzqdalistair Goff STOCK DRIVER-LOAN MANAGER Work Phone: [facility]08-08-2024 10:14-0400Body .03 kgJebrian Denver STOCK DRIVER-LOAN MANAGER Work Phone: [address] [place], [place] [address]708-08-2024 10:14Diastolic blood lcvxjtju14 mm[Hg]Nieves Goff STOCK DRIVER-LOAN MANAGER Work Phone: [facility]08-08-2024 10:14Heart rate 113 /minNieves Goff STOCK DRIVER-LOAN MANAGER Work Phone: [facility] [employer] Gjdvup93-14-9869 10:14Systolic blood svmaysiw883 mm[Hg]Nieves Goff STOCK DRIVER-LOAN MANAGER Work Phone: [facility] Byrrgv50-58-0521 13:58-0400Body iorsfv602 cmNieves Goff STOCK DRIVER-LOAN MANAGER Work Phone: [facility] Eaduqw53-54-7064 13:58-0400Body mass index (BMI) [Ratio]29.76 kg/b6DcjvxloNieves Goff STOCK DRIVER-LOAN MANAGER Work Phone: [facility] Asvvps49-16-3752 13:58-0400Body zsuwpw19.2 kgNieves Goff APRN-LOAN MANAGER Work Phone: [facility] HospitalStar Scientific Lnkuzf47-82-7883 13:58-0400Diastolic blood sfrsbcoy14 mm[Hg]Nieves Goff STOCK DRIVER-LOAN MANAGER Work Phone: [facility] Llseit86-66-7162 13:58-0400Systolic blood bwzpmcuo699 mm[Hg]Nieves Goff STOCK DRIVER-LOAN MANAGER Work Phone: [facility] Unioah57-32-4222 12:30-0400Body bijvov814.48 cmChristopher Zbigniew Other [email or web address] Other 03-22-2023 12:30-0400Body mass index (BMI) [Ratio] 29.99 kg/u0Vdsraqanbuc Zbigniew Other [email or web address] Other 03-22-2023 12:30-0400Body kyrzojkdhiy55.8 [degF] Christopher Zbigniew Other [employer] Other 03-22-2023 12:30-0400Body oaoimz51.39 kgChristopher Zbigniew Other [employer] Other 03-22-2023 12:30-0400Diastolic blood qjxmwxad98 mm[Hg] Christopher Zbigniew Other [employer] Other 03-22-2023 12:30-0400Respiratory rate20 /min Christopher Zbigniew Other [employer] Other 03-22-2023 12:30-4474XfT7% (BldA) [Mass fraction]97 % Christyareliser Zbigniew Other [employer] Other 03-22-2023 12:30-0400Systolic blood yyvkwvpu477 mm[Hg] Christopher Zbigniew Other [employer] Other 11-01-2021 10:30-0400Body .48 cmChristyareliser Zbigniew Other [employer] Other 11-01-2021 10:30-0400Body mass index (BMI) [Ratio]27.8 kg/e7Hafrekuhcne Zbigniew Other [employer] Other 11-01-2021 10:30-0400Body auvbcemcwpq50.6 [degF] Christyareliser Zbigniew Other [employer] Other 11-01-2021 10:30-0400Body .95 kgChristopher Zbigniew Other [employer] Other 11-01-2021 10:30-0400Diastolic blood eyadonwh52 mm[Hg] Geo Mcculloughdano Other [email or web address] Other 11-01-2021 10:30-0400Respiratory rate20 /min Geo Mcculloughdano Other [email or web address] Other 11-01-2021 10:30-1462NpV4% (BldA) [Mass fraction]97 % Geo Mcculloughdano Other [email or web address] Other 11-01-2021 10:30-0400Systolic blood ejvofhvd788 mm[Hg] Geo Coy Other [employer] Other Encounters Encounter DateEncounter TypeCare ProviderFacilityStart: 09-26-2024 End: 01-12-4895Boymoixdl department patient visitCOMMUNITY HEALTH SERVICES [facility]tart: 08-25-2024 End: 59-27-9293Umletjvoo department patient visitFELIX BELCHEREast [facility] City Hospitaltart: 88-27-2070wfrqwicfsuNzwfadwd [facility]ertart: 08-19-2024 End: 56-00-8698Mmsppkwve encounterNeurology ProviderNeurologyComment on above: Appointment (External referral to Neurological [place]/)Start: 06-27-2024 End: 85-08-2910Ghzdmfr encounter procedureScitlalli Salas DO Work Phone: [facility]-Ultrasound [facility] [place] Work Phone: Start: 06-27-2024 End: 17-56-4755fqwhdjczxbTdqqfhxz Mason DO Work Phone: [facility] Work Phone: Start: 06-26-2024 End: 96-28-1588kgfrypbueoSJBFNL P JONESNot AvailableStart: 54-34-8843Uvxsiulltx RecurringSamanmalissa Salas DO Work Phone: [facility]- CredibleStart: 06-17-2024 End: 85-66-2171Yxibdms encounter statusDeena Bell MD Work Phone: noIA HealthcareStart: 06-17-2024 End: 49-42-8598Qwzkqzlh preventive med est patient 40-64yrsPenolbritni Bell MD Work Phone: noms [facility] OBComment on above:Encounter for screening mammogram for malignant neoplasm of breast; Encounter for gynecological examination without abnormal finding; Encounter for screening for cervical cancerStart: 06-17-2024 End: 91-64-2865bqxxambjneDKWIJR P JONESNot AvailableStart: 06-07-2024 End: 74-90-3462Bjzomgx encounter procedureServices Family Health Work Phone: [phone] [place] [address] Ctr-CT Scan [facility] [place] Work Phone: Start: 06-07-2024 End: 38-71-2242ogfgfduxqwRpwhkrrb Family Health Work Phone: [facility] Work Phone: Start: 97-01-6081Avfnorqecx RecurringSerChesapeake Regional Medical Center Work Phone: [facility] CredibleStart: 04-30-2024 End: 72-51-0269xmnmwuubivIjkpluik Family Health Work Phone: [facility] Work Phone: Start: 04-30-2024 End: 80-76-5700Ellnbcrw ReferredSerChesapeake Regional Medical Center Work Phone: [facility] ServicesStart: 04-17-2024 End: 95-07-4114Xhrbokmlc encounterDeena Bell MD Work Phone: [facility] OBComment on above:Appointment RequestStart: 59-28-0905Aglvuuzcxm [facility] Work Phone: [facility] CredibleStart: 03-11-2024 End: 77-25-7998cvzlandkfsMRAHOYWalter P. Reuther Psychiatric Hospitaltart: 03-11-2024 End: 99-15-2513Aszftvvwfg hospital visit by physicianR[facility] LaboratoryStart: 03-11-2024 End: 84-55-5652tjzcxxyjebXVVOPJWalter P. Reuther Psychiatric Hospitaltart: 03-11-2024 End: 67-31-7200Qxlaabwida hospital visit by physicianROC[facility]STER [facility] LaboratoryStart: 02-27-2024 End: 32-76-6646rgatnspwzvWSWFXPWalter P. Reuther Psychiatric Hospitaltart: 02-27-2024 End: 69-42-4153Wvotjmmfuf hospital visit by physicianROC[facility]STER [facility] LaboratoryStart: 12-21-2023 End: 04-92-0701vrtvqdfqhbBcjyyeut Family Health Work Phone: [facility] Work Phone: Start: 12-21-2023 End: 38-36-2514Eeyjmfp encounter procedureServices [facility] Work Phone: [facility] Work Phone: Start: 12-19-2023 End: 40-84-5273Ggzskeiqj encounterCatie Ardon [facility] Physicians General SurgeryStart: 77-98-4408Iwlyoielzy RecurringSerChesapeake Regional Medical Center Work Phone: [facility] CredibleStart: 10-31-2023 End: 10-07-6063Rgewfyajv encounterLalitha Hoang [facility] Physicians General SurgeryStart: 10-27-2023 End: 77-59-1101Ovullsmyf Jaden Ardon [facility] Physicians General SurgeryStart: 10-27-2023 End: 36-06-9511Cgeobaaeeq and management of inpatientVERN D [facility] Springfieldtart: 10-26-2023 End: 82-74-8775Kolhfvwjay and management of inpatientMICHAEL GRILLISPSumma Health Barberton Campustart: 10-24-2023 End: 58-07-7088ownlarpkntKke Pat Phone Call Provider [address] [place] [address] - Pre AdmitStart: 10-24-2023 End: 54-28-5259lwhturbvkyQZZIFKeck Hospital of USCtart: 10-19-2023 End: 28-29-8287Lnvmsw outpatient [facility] Britni Denver STOCK DRIVERMendeley Work Phone: [facility] Physicians General SurgeryComment on above: Nausea and vomiting, unspecified vomiting type (Primary Dx); Generalized abdominal pain; Constipation, unspecified constipation type; History of fibromyalgia; Tobacco abuseStart: 10-19-2023 End: 57-32-3725svcqmwmqnmJZCJACOProvidence St[facility] Start: 99-52-4865ujmuxotvgxVUKZZformerly [facility] Start: 07-04-2023 End: 70-75-4634aqjdinbmwuQEVCEZFProvidence St. [facility] Start: 07-04-2023 End: 31-28-6127Xvblat outpatient visit 15 [facility]Le[facility] Britni Denver STOCK DRIVER-Kaliki Work Phone: [facility] SurgeryComment on above: Abnormal CT scan, gastrointestinal tract (Primary Dx); Tobacco abuse; Constipation, unspecified constipation type; Epigastric pain; Lower abdominal pain; Nausea and vomiting, unspecified vomiting type; History of fibromyalgiaStart: 04-18-2023 End: 43-05-1136gtdknblyxlXxcyahlxbpm Zbigniew Other [employer] Other Start: 47-45-0915Tbgmuisqx encounterChristopher AvendanoFPG Pulmonary DiseaseStart: 04-04-2023 End: 58-61-8465mqtwyihsxsQfyadclozfg Zbigniew Other [email or web address] Other Start: 89-02-6121Revihtqdn encounterChristopher AvendanoFPG Pulmonary DiseaseStart: 01-13-2023 End: 13-96-8985bhloouygnhOwqqqgzdyvx Zbigniew Other [employer] Other Start: 75-65-1045Cvinoldrw encounterChristopher AvendanoFPG Pulmonary DiseaseStart: 10-26-2022 End: 49-81-6589khbxexvsjmQdcrgspriif Zbigniew Other nort [employer] Other Start: 32-67-9894Hqrtdfnsw encounterChristopher AvendanoFPG Pulmonary DiseaseStart: 10-24-2022 End: 95-95-2818hjalibgwgrZubxfuyljjq Zbigniew Other [employer] Other Start: 47-53-0213Faepimntp encounterChristopher AvendanoFPG Pulmonary DiseaseStart: 10-10-2022 End: 94-11-7260peuljhtxgcFtucfygl Family Health Work Phone: [facility] Work Phone: Start: 10-10-2022 End: 56-81-4507Qxfyqqiw ReferredSeremanate health/inter-community hospitales [facility] Work Phone: [facility]-[place] Family Health ServicesStart: 08-10-2022 End: 73-74-5403unxyyxzdrqTxxhldox [facility] Work Phone: [facility] Work Phone: Start: 08-10-2022 End: 84-52-8262Slkenre encounter procedureServices Family Health Work Phone: [facility]trasound [facility] [place] Work Phone: Start: 40-83-5460Kphfzsmdup RecurringServices Family Health Work Phone: [facility]- CredibleStart: 06-06-2022 End: 69-92-0006qkwsvnezetRhqdvpmu Family Health Work Phone: [facility] Work Phone: Start: 06-06-2022 End: 28-29-2342Wcinvmwa ReferredVantage Point Behavioral Health Hospital Work Phone: [facility]-[place] Family Health ServicesStart: 06-01-2022 End: 06-86-5989gjysshpifmScjnstrffgc Zbigniew Other [email or web address] Other Start: 20-23-6490Ytozog outpatient visit 15 minutes Geo AvendanoFPG Pulmonary DiseaseStart: 05-23-2022 End: 92-60-2334vjcornmbhnDocfwekwuea Zbigniew Other [email or web address] Other Start: 38-53-1596Zxqltjgwr encounterChristopher AvendanoFPG Pulmonary DiseaseStart: 05-04-2022 End: 03-18-4021xusocflrydVoqjjpbfHoward Memorial Hospital Work Phone: [facility] Work Phone: Start: 05-04-2022 End: 73-08-3390Khnvyyp encounter procedureServices [facility] Work Phone: [facility]-XRay [facility] [place] Work Phone: Start: 04-05-2022 End: 56-92-1564cmpbhnmdbnIstlldvprhu Zbigniew Other [email or web address] Other Start: 57-05-4980Sgeyyxeyr encounterChristopher AvendanoFPG Pulmonary DiseaseStart: 03-21-2022 End: 54-68-9586yevtqaiszgTumdmchofpx Zbigniew Other [email or web address] Other Start: 44-89-9217Nhgehnlez encounterChristopher AvendanoFPG Pulmonary DiseaseStart: 02-16-2022 End: 20-49-7138Itjegick ReferredColer-[facility] SMGBB [facility] Work Phone: [facility] HospitalStart: 01-18-2022 End: 61-62-7456krgrtjoppkWuxwzoqpued Zbigniew Other [employer] Other Start: 81-37-1156Jcxtzxinx encounterChristopher AvendanoFPG Pulmonary DiseaseStart: 12-29-2021 End: 10-16-6976akibaaovqyIfkrjosm Family Health Work Phone: [facility] Work Phone: Start: 12-29-2021 End: 67-15-1524Qfsuvvxo ReferredVantage Point Behavioral Health Hospital Work Phone: [facility] HospitalStart: 06-23-2021 End: 97-27-2171qxvdictpybWckrvfggifv Zbigniew Other [facility] [employer] Other Start: 40-37-9020Syadiitky encounterChristopher AvendanoFPG Pulmonary DiseaseStart: 03-17-2021 End: 51-25-1882atsoiforlqImztfxgtcof Zbigniew Other [employer] Other Start: 73-78-6391Qrqotvlpi encounterChristopher AvendanoFPG Pulmonary DiseaseStart: 03-16-2021 End: 07-71-6422mqnypsilyyDimqrjoxzaj Zbigniew Other [email or web address] Other Start: 90-18-6155Uhzvyjbrg encounterChristopher AvendanoFPG Pulmonary DiseaseStart: 01-25-2021 End: 52-02-0800rdgcbwncpcXlelyxvtemd Zbigniew Other [facility] [employer] Other Start: 46-25-0312Szprmezno encounterChristopher AvendanoFPG Pulmonary DiseaseStart: 60-10-5779Rambsd outpatient visit 15 minutes Geo JameldanoFPG Pulmonary DiseaseStart: 07-29-2020 End: 18-32-4590Zwtukbw encounter procedureC. Zbigniew/Preceptor Work Phone: -Lab [facility] HospitalStart: 09-16-2016 End: 32-15-5988Nyfbniqgxs and management of inpatientSumma Health Barberton Campustart: 77-76-0706Bfkdqkupfc and management of inpatientC. Zbigniew/Preceptor Work Phone: [phone] [facility] Procedures DateProcedureProcedure DetailPerforming ClinicianStart: 05-43-4391JF scan of thyroidSamantha Josue DO Work Phone: Start: 71-91-1562Uxviz chest X-raySjoint township district memorial hospitalQurater Work Phone: Start: 25-31-9312Hwypzqcq tomography of abdomen and pelvis with contrastSVital Farms Work Phone: Start: 49-46-9706Mugwh cultureSjoint township district memorial hospitalQurater Work Phone: Start: 13-63-9818Dyxzfwqghlzud metabolic panelErnest Sherlyn STOCK DRIVER - LOAN MANAGER Work Phone: Start: 23-61-1226Dnzlkqvxmqzcq metabolic panelErnest Sherlyn STOCK DRIVER - LOAN MANAGER Work Phone: Start: 51-48-0996QrbahhdxgkaSpataz Venia CMAStart: 36-24-7129Mgvabmwsguynigl of liverSjoint township district memorial hospitalices rumr Phone: Start: 05-04-2022 End: 84-54-1276C-ray of both kneesServices [employer] Work Phone: Start: 63-32-3827Q-ray of lumbar spine, four views Services [employer] Phone: Start: 96-88-7627ZZFDFZWYF PATIENTKUL EDDIEPTAStart: 67-63-4111Bfowdjlehjw urinalysisKUL EDDIEPTAStart: 38-27-4700NsiixcqmknMDD KADI Start: 43-17-6351LGJYE DRUG SCREENKUL EDDIEPTAStart: 74-36-0921HTO WITH AUTO DIFFERENTIALKUL EDDIEPTAStart: 00-11-9767GJPKQVQPYKYUC METABOLIC PANELKTIMOTHY WALLIS Start: 39-50-2016BURC CODEKTIMOTHY MORGANPTAStart: 76-40-9837HD CONSULT TO HISTORY AND PHYSICALKUL EDDIEPTAStart: 59-37-7985LXVVFLR STATUS (DIRECT)MINISTERIO WALLISStart: 27-62-7785SKLN GENERALKTIMOTHY MORGANPTAStart: 21-86-3838NUPMEJY STATUS (DIRECT)MINISTERIO WALLIS Start: 32-28-0552CyvimqsnzciNwbkkl Jones MD Work Phone: H/O: surgeryHistory of lung biopsyVantage Point Behavioral Health Hospital [employer]) Phone: Plan of Treatment DateCare ActivityDetailAuthorStart: 58-43-1145Gklqhqsua for malignant neoplasm of colonClermont County Hospital SystemStart: 12-16-7597AJL test (Diabetes, CKD 3-4, OR last GFR 15-59)GFR test (Diabetes, CKD 3-4, OR last GFR 15-59)Chuy [facility] HospitalStart: 11-17-0039Eupzgilpr vaccinationInfluenza Vaccine (Season Ended)[facility] HospitalStart: 32-82-2263Qmwvl BMI ScreeningAdult BMI ScreeningProKettering Health Behavioral Medical Center SystemStart: 77-21-9880Zypvvhy ScreeningTobacco ScreeningGuernsey Memorial Hospitalca Health SystemStart: 97-25-2228Rzahe BMI ScreeningAdult BMI ScreeningProUniversity Hospitals St. John Medical Centerca [facility] SystemStart: 44-20-2615Tniepvm ScreeningTobacco ScreeningProtestant Deaconess [facility] Start: 47-73-5516Thbvd BMI ScreeningAdult BMI ScreeningGuernsey Memorial Hospitalca [facility] System Start: 39-86-4644Idwtmgl ScreeningTobacco ScreeningGuernsey Memorial Hospitalca [facility] SystemStart: 07-08-2024 End: 65-59-7728Horqyet encounter /28/2025 1:30 PM EDT Office Visit [facility] [address] [place] [phone] Deena Bell MD [address] [place] [address] [facility] OBStart: 07-08-2024 End: 34-18-9018Vahtodzqeiln / ancillary services eavmrpmias72/28/2025 1:00 PM EDT Ancillary Procedure [facility] [address] [place] [id number] [facility] OBStart: 61-66-6392Tlsaq BMI ScreeningAdult BMI ScreeningPending sale to [facility]art: 16-11-7837Qxcqbyv ScreeningTobacco ScreeningClermont County Hospital SystemStart: 05-16-2024 End: 73-07-1719Gtdzbgu encounter zobapelml68/06/2025 2:45 PM EST Office Visit [facility] [address] [place] [phone] Deena Bell MD [address] [place] [address] [facility] OBStart: 50-30-2410Rkjnd cultureDayton VA Medical Centertart: 60-26-2217Uoyzhbwt identified in Urine by CultureUrine [facility] Centertart: 80-90-2162Vdnncnzvkckkav of varicella zoster vaccineZoster (Shingles) Vaccine (1 of 2)[facility] HospitaledicUnited Hospital SystemStart: 58-63-9596Ucovulymfdlw Vaccine: 50+ (1 of 1 - PCV)Pneumococcal Vaccine: 50+ (1 of 1 - PCV)[facility] Hospitaltart: 60-17-9149Qzcfmmqpg for malignant neoplasm of lungLung Cancer Screening &/or CounselingStafford HospitalStart: 99-77-1029Vhxlwgxl vaccine (1 of 2)Shingles vaccine (1 of 2)[facility] HospitalStart: 09-11-3675Htxxvpfb Vaccine (1 of 2)Shingrix Vaccine (1 of 2)[facility] Hospitaltart: 62-49-5870CCGTY-19 Vaccine ( season) COVID-19 Vaccine ( season)[facility] HospitalStart: 11-12-2023 Covid-19 Vaccine ()Covid-19 Vaccine () [facility]tart: 27-48-8697Lvuitcfej vaccinationPike Community Hospital Start: 10-26-2023 End: 93-35-6223Flzbjtktm to same day surgery [facility] SurgeryComment on above:ESOPHAGOGASTRODUODENOSCOPY DIAGNOSTIC [00744 (CPT )]Start: 10-26-2023 End: 08-52-8539Bmsztbqaun rjkhogtzbvvm94/15/2024 9:00 AM EDT Anesthesia Event [facility] - Surgery [address] [place] [address] Ketty Roach, DO [address] [place] [address] [facility] HospitalStart: 10-26-2023 End: 68-75-7455Mzbfdhjddpu flx dx w/collj spec when pfrmdFREMONT SURGERYStart: 10-26-2023 End: 26-78-3188Xgvlcplvsufrynngdcwnkksbyr transoral diagnosticFREMONT SURGERY Start: 67-03-2623Pneibdebgl hospital visit by physicianOhio Valley Hospital SurgeryStart: 04-76-5242Ijxxkoorv vaccinationFlu vaccine (#1) [facility] HospitalStart: 07-26-2023 End: 32-93-7538Obquyol encounter asfibuxzb47/15/2024 9:00 AM EDT Procedure visit [facility] General Surgery [address] [place] [address] Toña Vo DO [address] [place] [address] [facility] SurgeryStart: 03-44-6585Wimerxsr ScreeningDiabetes ScreeningBrecksville VA / Crille Hospitaltart: 2018 Lipid panelLipid ScreeningBrecksville VA / Crille Hospitaltart: 11-19-3367Viswfzmyl for malignant neoplasm of colonStafford HospitalStart: 67-70-5348Mutjv panel LipidsStafford HospitalStart: 07-65-6819Ivegqqkjb for malignant neoplasm of breastMammogramNOMS HealthcareStart: 05-73-4874Bkesguauy for malignant neoplasm of breastBon Secours Mary Immaculate Hospitalart: 03-90-9072Jfyxxvkxi for malignant neoplasm of cervixStafford HospitalStart: 68-78-6654Ltuifctel for malignant neoplasm of cervixStafford HospitalStart: 1992 DTaP,Tdap and Td Vaccines (1 - Tdap)DTaP,Tdap and Td Vaccines (1 - Tdap) [facility] to [facility]: 71-11-1230DJnQ/Tdap/Td vaccine (1 - Tdap) DTaP/Tdap/Td vaccine (1 - Tdap)[facility] Hospitalart: 1992 Hepatitis B vaccine (1 of 3 - 19+ 3-dose series)Hepatitis B vaccine (1 of 3 - 19+ 3-dose series)[facility]: 39-13-3975Fiesr microalbumin profileDTaP,Tdap,Td Vaccine (1 - Tdap)[facility]tart: 24-39-7186Uxxuw BMI Follow Up PlanAdult BMI Follow Up [facility] SystemStart: 12-15-1991 Anxiety ScreeningAnxiety ScreeningBrecksville VA / Crille Hospitaltart: 49-02-3543Hsusjywxrh ScreeningDepression ScreeningBrecksville VA / Crille Hospitaltart: 09-06-5889Msvcvhand C screeningBon Secours Mary Immaculate Hospitalart: 31-73-7283IWN screeningHIV Screening [facility]tart: 26-02-9853OME screeningHIV screenStafford Hospital Start: 96-01-2339Yhjsemdsnm MonitoringDepression MonitoringStafford HospitalStart: 69-42-1472Xvdwjojlnn ScreeningDepression ScreeningPending sale to [facility]htart: 06-40-5470Gloekeqszvlk 0-64 years Vaccine (1 of 2 - PCV) Pneumococcal 0-64 years Vaccine (1 of 2 - PCV)[facility] HealthStart: 71-84-6599Vfgnrvtax for malignant neoplasm of colonNOIA HealthcareStart: 95-82-9501Zkugfxq CounselingTobacco CounselingPike Community HospitalDBT Breast - bilateral screeningBilateral screening mammogram with tomosynthesis Imaging Routine Encounter for screening mammogram for malignant neoplasm of breast Ordered: 06/17/2024[facility] Work Phone: comment on above:Ordered: 06/17/2024 End: 88-27-2613BRT / ColonoscopyEGD / Colonoscopy GI Routine Nausea and vomiting, unspecified vomiting type Generalized abdominal pain Constipation, unspecified constipation type 1 Occurrences starting 10/19/2023 until 10/18/2024 [facility] Work Phone: Comment on above:1 Occurrences starting 10/19/2023 until 10/18/2024Hepatitis B core antibody measurementMetroHealth Main Campus Medical Center B virus surface Ab [Presence] in SerumMetroHealth Main Campus Medical Center C virus IgG Ab [Presence] in Serum or Plasma by Immunoassay [facility] C virus RNA [log units/volume] (viral load) in Serum or Plasma by ONEIL with probe detectionMercy Health Willard HospitalHesanta clara [facility] center C virus RNA [Units/volume] (viral load) in Serum or Plasma by ONEIL with probe detectionMercy Health Willard HospitalIGP, APT HPV,RFX 16/18,45IGP, APT HPV,RFX 16/18,45 Lab Routine Encounter for gynecological examination without abnormal finding Encounter for screening for cervical cancer Ordered: 06/17/2024[facility] HealthcareComment on above:Ordered: 06/17/2024 Urinalysis complete panel - UrineUrinalysis with reflex microscopic Lab Routine Encounter for gynecological examination without abnormal finding Ordered: 06/17/2024[facility] HealthcareComment on above:Ordered: 06/17/2024[facility] Immunizations Immunization DateImmunizationNotesCare TrxeennsRnzhsgva40-72-8586Bxbzanu per 15 mgChristopher Zbigniew Other [facility] [employer] Other Payers DatePayer CategoryPayerPolicy [id number] Health InsuranceCARESOURCE MEDICAID [id number]-[id number] 2023Medicaid [id number] [id number] [id number] ..1.683405.3.57[id number] .1.488527.3.57[id number] 2..1.355001.3.579.[id number] ..1.116817.3.579.2.[id number] 2..1.438752.3.579.2.48897-25-5620Gdhhmqh90904137 2.0.1.152248.3.579.2.88625-00-9108Nlllhre77779638 2.0.1.999381.3.579.2.39669-36-4448Ztdgvmu8026707 2.0.1.922794.3.579.2.251742-94-5459Mjkqymh1753910 2..1.858320.3.579.2.[id number] 2..1.692715.3.579.2.411589-75-9566Vhzyjbn782649590 2..1.947991.3.579.2.283687-14-3677Ilhtdhj85009838 2..1.198677.3.579.2.392398-72-4862Wodutun73022511 2..1.577466.3.579.2.925742-62-6070Ocjyjpt38602254 2..1.377721.3.579.2.421105-31-4863Bftpjhm22777800 2..1.751310.3.579.2.349522-97-8021Aezeipu53879514 2..1.604162.3.579.2.021482-26-0121Vlvwmow79832971 2.0.1.586731.3.579.2.0877Nartxce99902522 2.0.1.921081.3.579.2.531 Fkkdvtm67200937 2.840.1.742269.3.579.2.585Riieqmm45459083 2.0.1.718524.3.579.2.674Obiuoai45848106 2.0.1.819835.3.579.2.531 Social History DateTypeDetailFacilityStart: 01-30-2020 End: 43-88-2261Klbgens smoking status NHISSmoker (finding)[facility]ertart: 16-08-6859Hom Assigned At [facility]ertart: 09-24-2018 End: 14-83-3755Rrh Assigned At [facility] [employer] Other Start: 09-16-2016 End: 38-96-7566Wqbvoln smoking status NHISSmokes tobacco dailyBon SecHenry County HospitalHistory of tobacco useCigarette SmokerClermont County Hospital SystemStart: 09-16-2016 End: 37-56-0493Qcocpqwaxv smoked current (pack per day) - Tuchuorl1SbiInxtry[address] [place], [place] [address]tart: 09-16-2016 End: 06-03-8501Xrnbjhbtp beverage intakeCurrent drinker of alcohol (finding) [facility]ending [facility] to [facility]: 75-53-9841Kmacjid Comment7/ 6-pack pamella hard lemonade dailyBon [facility] HospitalStart: 02-71-9581Nhu assigned at birthNot on fileClermont County Hospital SystemChildcareUnknowTwin County Regional Healthcaretart: 80-13-1187Tgshgdb CommentOCCASIONALLYPending sale to [facility] Healthtart: 05-01-2024 End: 90-16-3847LseRtzkxt (finding)[facility] Willard HospitalTobacc smoking status NHISTobacco smoking consumption unknownCASTLEVIEW HOSPITAL HealthcareStart: 28-62-6815Deljmma use and exposureSmokeless tobacco non-userK[facility]tering Health Start: 93-20-5979Oliknomhm beverage intakeCurrent non-drinker of alcohol (finding)[facility] Hospitaltart: 31-38-3403Ufhfqzr Commentused to drink, quit 08/17/12. 12 pack/day x 25 yearsK[facility]tering Health Functional Status YuwpMwwwwyureqScgoulScawykva86-43-0841Apo you deaf, or do you have serious difficulty hearingYes 08/28/2014 9:15 AM Junie Bruce MA YesKettering HealthYwnscf33-64-4835Vig you blind, or do you have serious difficulty seeing, even when wearing glassesYes 08/28/2014 9:15 AM EDT Junie Mercado MA [facility]06-18-2015Do you have serious difficulty walking or climbing stairsYes 08/28/2014 9:15 AM EDT Junie Mercado MA [facility]06-18-2015Do you have difficulty dressing or bathingNo 08/28/2014 9:15 AM EDT Junie Mercado MA [facility] HospitalNyldgg10-32-5667Hfybihz of a physical, mental, or emotional condition, do you have difficulty doing errands alone such as visiting a physician's office or shoppingNo 08/28/2014 9:15 AM EDT Junie Mercado MA No [facility] Mental Status LxezIowznhqdxhTqxmbdXmdjhkua49-22-7011Srzokwd of a physical, mental, or emotional condition, do you have serious difficulty concentrating, remembering, or making decisionsYes 08/28/2014 9:15 AM EDT Junie Mercado MA [facility] Clinical Notes 01-11-2021 to 08-22-2024 Note Date & OkxjVsojTibhyphi86-33-8738 Telephone encounter Note* Telephone Encounter - Virgen Sadler - 08/22/2024 10:59 AM EDT Referral source: Jen Salas ([facility]) Reason for visit: recurrent HAs [facility]06-12-2025 Miscellaneous Notes* Telephone Encounter - Virgen Sadler - 08/22/2024 10:59 AM EDT Referral source: Jen Salas ([facility]) Reason for visit: recurrent HAs documented in this encounterKettering Health04-17-2025 Radiology Diagnostic study noteDILEY [facility]IDGE [place] [address] Ultrasound Report Signed Patient: Karen Clemente MR#: [id number] : 1975 Acct:[id number] Age/Sex: 48 / F ADM Date: 5 Loc: Room: Type: [facility] Attending Dr: Jason Michele DO Ordering Provider: Jen Salas DO, RES Date of Service: 06/27/24 US/US thyroid: Enlarged thyroid Copies to: DO Jen Campbell DO, RES~ Thyroid Ultrasound HISTORY: Enlarged thyroid. COMPARISON: None The RIGHT lobe measures 3.0 x 1.3 x 1.2cm. LEFT lobe measures 3.3 x 1.4 x 1.2 cm. Isthmus has an AP dimension of 0.1cm. Heterogeneous thyroid parenchyma. Right mid to inferior: Nodule measures up to 8 mm. Left inferior ill-defined hypoechoic nodule measures up to 6. No microcalcifications identified. Symmetric blood flow of the thyroid gland identified. US/US thyroid IMPRESSION: Small bilateral thyroid nodules. Heterogeneous thyroid parenchyma. Impression dictated by: Berny Reyna M.D.06/27/2024 3:39 PM Dictation Location: [place] [address] Tech: Shyla Oroeze Transcribed By: AMISH 06/27/24 153 Dictated By: Berny Reyna DO 06/27/24 1538 Signed By: 06/27/24 1539 [facility]04-07-2025 History of Present illness Narrative * Deena Bell MD - 06/17/2024 1:00 PM EDT Images from the original note were not included. Deena Bell MD Obstetrics and Gynecology Patient: Karen Clemente : 1975 (48 y.o.) Yearly Wellness Exam Date: 06/17/2024 Reason for Visit - Chief Complaint Patient presents with Gynecologic Exam Patient present for yearly. Patient denies any issues with bowels, breast or urinary. 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 She has been taking Premarin for hormone replacement therapy for the past five weeks. The patient mentions having COPD and has been attempting to quit smoking for years. The patient complains of sharp shooting pains down her leg. She also reports kidney pain in her back and mentions the possibility of kidney stones or being out of alignment. The patient previously experienced urinary symptoms including odor, but states these have resolved. She is uncertain if she currently has any urinary issues. The patient discloses a history of substance abuse treatment. She recently completed a 30-day inpatient program in [place] and is currently participating in an intensive outpatient program thatmeets 3-7 days a week for six months. The patient's medical history includes a history of ovariectomy, COPD, and back surgery years ago. Her current medications include Premarin, taken daily for at least 5 weeks, and iron pills. US pelvis endometrial depth 3mm 2019 Regarding her social history, the patient is currently staying in a quiet motel. She has a history of smoking and is attempting to quit. She completed a 30-day treatment in [place] and is now in a 6-month program that meets 3-7 days per week. The patient mentions that participants in her current program look out for one another. In a review of systems, the patient reports feeling cold all the time, sharp shooting pain down herleg, previous kidney pain and urine odor (now resolved), and emotional ups and downs. History of Present Illness, Associated Treatments and Results - OB History Para Term AB Living 2 0 0 0 0 0 SAB IAB Ectopic Multiple Live Births 0 0 0 0 2 # Outcome Date GA Lbr Abdiaziz/2nd Weight Sex Type Anes PTL Lv 2 1 Meds CLIDINIUM BROMIDE (TUDORZA PRESSAIR INHL) Inhale. albuterol (PROVENTIL HFA;VENTOLIN HFA) 90 mcg/actuation inhaler Inhale 1 puff. 08/28/2014 budesonide-formoterol (SYMBICORT) 160-4.5 mcg/actuation inhaler Indications: bronchospasm prevention with COPD Inhale 2 puffs in the morning and 2 puffs before bedtime. Indications: bronchospasm prevention with COPD. cholecalciferol 1,000 units tablet TAKE 1 TABLET BY MOUTH EVERY DAY 04/26/2023 cloNIDine (CATAPRES) 0.2 mg tablet Take 1 tablet (0.2 mg total) by mouth 3 (three) times a day. docusate sodium (COLACE) 100 mg capsule Take 1 capsule (100 mg total) by mouth 2 (two) times a day as needed. 05/04/2023 escitalopram (LEXAPRO) 20 mg tablet Take 1 tablet (20 mg total) by mouth in the morning. estrogens, conjugated (PREMARIN ORAL) Take 1 tablet by mouth in the morning. Patient did not know the dosage. FAMOTIDINE (PEPCID ORAL) Take by mouth. levothyroxine sodium (TIROSINT) 50 mcg capsule Take 1 capsule (50 mcg total) by mouth in the morning. MetamuciL 0.4 gram capsule Take 1 capsule (0.4 g total) by mouth in the morning. 04/26/2023 OLANZapine-FLUoxetine (SYMBYAX) 12-50 mg per capsule Take 1 capsule by mouth nightly. ondansetron (ZOFRAN) 8 mg tablet Take 1 tablet (8 mg total) by mouth. 06/19/2023 pregabalin (LYRICA) 150 mg capsule Take 1 capsule (150 mg total) by mouth 3 (three) times a day. 28 mg iron- 800 mcg tablet TAKE 1 TABLET BY MOUTH EVERY DAY 04/28/2023 progesterone (PROMETRIUM) 200 mg capsule Take 1 capsule (200 mg total) by mouth. promethazine (PHENERGAN) 25 mg tablet Take 1 tablet (25 mg total) by mouth 4 (four) times a day as needed for vomiting or nausea. 10/09/2023 QUEtiapine (SEROquel) 200 mg tablet Take 0.5 tablets (100 mg total) by mouth nightly. tiZANidine (ZANAFLEX) 2 mg table Review of Systems - Constitutional: Negative. HENT: Negative. Eyes: Negative. Respiratory: Negative. Cardiovascular: Negative. Gastrointestinal: Negative. Endocrine: Negative. Genitourinary: Negative. Musculoskeletal: Negative. Skin: Negative. Allergic/Immunologic: Negative. Neurological: Negative. Hematological: Negative. Psychiatric/Behavioral: Negative. Not on File No current outpatient medications on file. No current outpatient medications on file. Past Medical History: Diagnosis Date COPD (chronic obstructive pulmonary disease) (CMS/HCC) Emphysema lung (CMS/HCC) Fibromyalgia Glaucoma Renal stones Past Surgical History: Procedure Laterality Date CERVICAL BIOPSY W/ LOOP ELECTRODE EXCISION COLONOSCOPY LUNG BIOPSY Family History Problem Relation Name Age of Onset Cancer Sister Social History Tobacco Use Smoking Status Not on file Smokeless Tobacco Not on file Physical Exam - General appearance, mentation, extraocular movements, facial strength and movement, hearing, upper and lower extremity strength and tone, sensation to gross testing, coordination, and gait are normalor at baseline unless noted below. Physical Exam Constitutional: Appearance: Normal appearance. Genitourinary: Right Labia: No rash or lesions. Left Labia: No lesions or rash. No vaginal discharge or erythema. No vaginal prolapse present. No vaginal atrophy present. Right Adnexa: not tender and no mass present. Left Adnexa: not tender and no mass present. No cervical lesion. Uterus is not tender. Uterus is anteverted. Breasts: Right: Normal. No mass or nipple discharge. Left: Normal. No mass or nipple discharge. HENT: Head: Normocephalic and atraumatic. Cardiovascular: Rate and Rhythm: Normal rate and regular rhythm. Pulmonary: Breath sounds: Normal breath sounds. Abdominal: General: There is distension. Palpations: Abdomen is soft. There is no mass. Tenderness: There is no abdominal tenderness. Musculoskeletal: General: Normal range of motion. Cervical back: Neck supple. Lymphadenopathy: Cervical: No cervical adenopathy. Neurological: Mental Status: She is alert and oriented to person, place, and time. Skin: General: Skin is warm and dry. Psychiatric: Mood and Affect: Mood normal. Assessment/Plan ICD-10-CM 1. Encounter for screening mammogram for malignant neoplasm of breast Z12.31 Bilateral screening mammogram with tomosynthesis 2. Encounter for gynecological examination without abnormal finding Z01.419 IGP, APT HPV,RFX 16/18,45 Urinalysis with reflex microscopic 3. Encounter for screening for cervical cancer Z12.4 IGP, APT HPV,RFX 16/18,45 Assessment & Plan 1. Postmenopausal symptoms. She has been on Premarin since her last visit and continues to take it daily. She reports experiencing constant cold sensations and has started taking iron supplements. The potential risks associatedwith hormone replacement therapy, including an increased likelihood of breast cancer, heart attack,stroke, and dementia, were discussed. She was informed that discontinuing the medication could leadto the persistence of postmenopausal symptoms such as weight gain, hair loss, and emotional instability. An ultrasound has been ordered to monitor her condition while on hormone replacement therapy. . 2. Chronic obstructive pulmonary disease (COPD). She reports having COPD and is attempting to quit smoking. She is advised to continue efforts to quit smoking and to follow up with her primary care physician for ongoing management of COPD. 3. Alcohol use disorder. She is currently in an intensive outpatient program (IOP) for alcohol use disorder, attending classes 3 days a week. She reports being tired but finds the program supportive. Her expected completion date is mid-September. 4. Malodorous urine. She reported experiencing malodorous urine, which has since resolved. A urine analysis will be conducted to rule out any underlying issues. PROCEDURE The patient underwent a lung biopsy and dental extraction in the past. Pap and exam performed. Mammogram ordered Results can be found in MyChart in 7 days Bone health discussed Return 1 year 1. Menopausal symptoms: - Patient is post-oophorectomy and currently taking Premarin (conjugated estrogens) for 5 weeks - Increased risks associated with estrogen-only therapy noted - Patient desires to discontinue hormone therapy due to family history of cancer - Plan: a) Discontinue Premarin as per patient's request b) Educate patient on potential postmenopausal symptoms without hormone therapy c) Schedule pelvic ultrasound to evaluate uterus d) Consider alternative treatments for menopausal symptoms if needed 2. Electrolyte imbalance: - Patient reports recent low magnesium levels - Complains of feeling cold frequently - Plan: a) Review recent lab results for magnesium levels b) Confirm and adjust magnesium supplementation as needed c) Consider further workup for causes of electrolyte imbalance 3. Chronic Obstructive Pulmonary Disease (COPD): - Patient reports history of COPD and ongoing attempts to quit smoking - Plan: a) Encourage continued smoking cessation efforts b) Per clinical research physician 4. Musculoskeletal pain: - Patient reports sharp shooting pain down her leg and back issues - Describes kidney pain (unclear if musculoskeletal in origin) - Plan: a) Evaluate for potential causes of leg and back pain b) Consider referral to physical therapy or pain management if appropriate Per PCP 5. Substance use disorder: - Patient completed 30-day inpatient treatment program in [place] - Currently in 6-month outpatient program, attending 3-7 days per week - Plan: a) Encourage continued participation in outpatient substance use treatment program b) Follow up on progress in mid-September when program is scheduled to end 6. Urinary symptoms: - Patient reports history of kidney pain and possible urinary odor (improved) - Concerned about potential kidney stones or anatomical issues - Plan: a) Obtain urine sample for urinalysis b) Consider further imaging studies if urinalysis is abnormal or symptoms persist documented in this encounterFulton State HospitalPknthbtdxd11-68-7204 Radiology Diagnostic [facility]DILEY [facility] Main [place] [address] [place], [place] [id number] CT Scan Report Signed Patient: Karen Clemente MR#: [id number] : 1975 Acct:[id number] Age/Sex: 48 / F ADM Date: 5 Loc: CT Room: Type: [facility] Attending Dr: Jason Michele DO Copies to: DO Jen Campbell DO, RES~ Ordering Provider: Jen Salas DO, RES Date of Service: 06/07/24 CT/CT abdomen pelvis w con: Abdominal bloating CT ABDOMEN AND PELVIS WITH INTRAVENOUS CONTRAST: CLINICAL HISTORY: Abdominal distention/bloating, constipation COMPARISON: 01/26/2022 TECHNIQUE: Spiral images were obtained through the abdomen and pelvis followingthe administration of intravenous contrast. This CT exam was performed using one or more following dose reduction techniques: Automated exposure control, adjustment of the mA and/or kV according to patient size, or use of iterative reconstruction technique. FINDINGS: Lung Bases: [Focal lingular opacity and right middle lobe opacities likely areas of atelectasis andor scarring. Organs: Scattered hepatic cysts. No abnormal enhancement involving liver or spleen. Kidneys symmetric in size without hydronephrosis. Multiple left upper pole renal calculi identified which are nonobstructive. GI: Moderate retained stool. No bowel obstruction. Likely short segment peristaltic activity involving the sigmoid colon. No CT findings acute appendicitis.[ Pelvis:[Uterus and adnexal regions unremarkable. Bladder is unremarkable.] Peritoneum/Retroperitoneum:No free air or free fluid. Mild plaque identified throughout the aorta. Aorta is not aneurysmal.[ Abd wall/Bones:Vertebral heights maintained. No cysts osseous lesion.[ CT/CT abdomen pelvis w con IMPRESSION: Moderate stool burden distal colon may represent constipation and/or mild impaction. Similar appearance of left upper pole renal calculi, nonobstructive. Short segment mural thickening sigmoid colon possible under distended colon versus focal peristaltic activity. Please correlate with any recent colonoscopy findings. Impression dictated by: Tino Bonds M.D.06/07/2024 1:37 PM Dictation Location: [facility]--23 Transcribed By: AMISH 06/07/24 1337 Dictated By: Tino Bonds MD 06/07/24 1330 Signed By: 06/07/24 1337 [facility] Work Phone: [phone] 266-142502-13-2025 Telephone encounter Note* Telephone Encounter - Cindi Carvajal MA - 04/25/2024 10:02 AM EST 3rd Attempt Cld pt lm on vm NOMS [id number] Miscellaneous Notes* Telephone Encounter - Cindi Carvajal MA - 04/25/2024 10:02 AM EST 3rd Attempt Cld pt lm on vm * Telephone Encounter - Shyanne Bowers MA - 04/22/2024 1:20 PM EST 2nd Attempt: Called patient left message for patient to return our call, to get her schd for an appointment. Patient can reach our office @ [phone] Monday through 8:00 AM - 4:00 PM and Monday 8:00 AM - 12:00 PM. * Telephone Encounter - Shyanne Bowers MA - 04/17/2024 2:26 PM EST 1st Attempt: Called patient left message for patient to return our call, to get her schd for an appointment. Patient can reach our office @ [phone] Monday through 8:00 AM - 4:00 PM and Monday 8:00 AM - 12:00 PM. * Telephone Encounter - Kelsey Magana - 04/17/2024 11:54 AM EST PT called and stated that she thinks she has a pretty bad UTI and wants to be seen sooner than the end of April/may (When I was trying to move her [employer] to), Not entirely surewhat all is going on besides her having pain, tried to explain that we would schedule her appt for may and then someone would call her back to move her in sooner due to issues but I believe the call dropped as the line went silent, can pt be scheduled sooner? documented in this encounterF[facility] [id number] Telephone encounter Note* Telephone Encounter - Shyanne Bowers MA - 04/22/2024 1:20 PM EST 2nd Attempt: Called patient left message for patient to return our call, to get her schd for an appointment. Patient can reach our office @ [phone] Monday through 8:00 AM - 4:00 PM and Monday 8:00 AM - 12:00 PM. [facility] [id number] Telephone encounter Note* Telephone Encounter - Shyanne Bowers MA - 04/17/2024 2:26 PM EST 1st Attempt: Called patient left message for patient to return our call, to get her schd for an appointment. Patient can reach our office @ [phone] Monday through 8:00 AM - 4:00 PM and Monday 8:00 AM - 12:00 PM. [facility] [id number] Telephone encounter Note* Telephone Encounter - Kelsey Magana - 04/17/2024 11:54 AM EST PT called and stated that she thinks she has a pretty bad UTI and wants to be seen sooner than the end of April/may (When I was trying to move her [employer] to), Not entirely surewhat all is going on besides her having pain, tried to explain that we would schedule her appt for may and then someone would call her back to move her in sooner due to issues but I believe the call dropped as the line went silent, can pt be scheduled sooner? [id number] Miscellaneous Notes* Telephone Encounter - Catie Ardon CMA - 12/19/2023 10:27 AM EDT I had a call from Stefanie. She is a counselor at [facility]. She said that she sent some paper over, requesting a op report for the Colonoscopy/EGD that Dr Vo recently completed for her. I called Karen & asked her if she did want them to have a copy of that. She said she wasn't sure why they wanted it, but to go ahead & send it. I told her that we didn't have to give it to them. I can ask them for a medical release of records signed by her first. She said as long as it's just the Op Report & notes that pertain to the EGD/Colon, then she's okay with that. She has an issue with transportation & doesn't want them to make her wait on her mental health meds until they get it. I told her I'll send that over today. documented in [facility] encounterP[facility]10-08-2024 Telephone encounter Note* Telephone Encounter - Catie Ardon CMA - 12/19/2023 10:27 AM EDT I had a call from Stefanie. She is a counselor at [facility] [employer]. She said that she sent some paper over, requesting a op report for the Colonoscopy/EGD that Dr Vo recently completed for her. I called Karen & asked her if she did want them to have a copy of that. She said she wasn't sure why they wanted it, but to go ahead & send it. I told her that we didn't have to give it to them. I can ask them for a medical release of records signed by her first. She said as long as it's just the Op Report & notes that pertain to the EGD/Colon, then she's okay with that. She has an issue with transportation & doesn't want them to make her wait on her mental health meds until they get it. I told her I'll send that over today. [facility]08-20-2024 Miscellaneous Notes* Telephone Encounter - Lalitha Hoang CMA - 10/31/2023 9:04 AM EDT ----- Message from Dr. Toña Vo, sent at 10/31/2023 6:59 AM EDT ----- Please call patient and let her know that she had mild gastritis and I recommend she take omeprazole OTC for the next 6 weeks only. Thanks, Dr. Delarosa * Telephone Encounter - Lalitha Hoang CMA - 10/31/2023 9:04 AM EDT Spoke with patient regarding pathology results. Patient verbally understood with no further questions. documented in this encounterPike [facility] Hospital08-20-2024 Telephone encounter Note* Telephone Encounter - Lalitha Hoang CMA - 10/31/2023 9:04 AM EDT ----- Message from Dr. Toña Vo DO sent at 10/31/2023 6:59 AM EDT ----- Please call patient and let her know that she had mild gastritis and I recommend she take omeprazole OTC for the next 6 weeks only. ThanksDr. Delarosa [facility]08-20-2024 Telephone encounter Note* Telephone Encounter - Lalitha Hoang CMA - 10/31/2023 9:04 AM EDT Spoke with patient regarding pathology results. Patient verbally understood with no further questions. [facility]08-[facility]24 Miscellaneous Notes* Telephone Encounter - Catie Ardon CMA - 10/27/2023 9:01 AM EDT The patient called & said that she had papers, with pictures in her bag when she got home from her Colonoscopy yesterday. She didn't think that Dr Vo came in, to talk to her after her colonoscopy yesterday. I told her that she likely just did not remember Dr Yulissa coming in, because he typically would stop in. I told her that the report says she has some diverticula, but I explained toher that its not uncommon to have diverticula. It'd only be a worry if they were infected. She told me that she was vomiting last week & wanted to see what was going on. I let her know that once Dr Vo gets the results of her biopsies, we will call her with the results. documented in this encounterPike [facility] Hospital08-16-2024 Telephone encounter Note* Telephone Encounter - Catie Ardon CMA - 10/27/2023 9:01 AM EDT The patient called & said that she had papers, with pictures in her bag when she got home from her Colonoscopy yesterday. She didn't think that Dr Vo came in, to talk to her after her colonoscopy yesterday. I told her that she likely just did not remember Dr Vo coming in, because he typically would stop in. I told her that the report says she has some diverticula, but I explained toher that its not uncommon to have diverticula. It'd only be a worry if they were infected. She told me that she was vomiting last week & wanted to see what was going on. I let her know that once Dr Vo gets the results of her biopsies, we will call her with the results. [facility] [id number] Miscellaneous Notes* Perioperative Nursing Note - Leela Ferrer RN - 10/24/2023 2:40 PM EDT Preoperative Education Checklist- General Surgery date: 10/26/23 Surgery time: 0900 Arrival time: 0700 1. Bring a photo ID and your insurance card with you the day of surgery. You will check in at the main lobby of the [facility]- registration desk is straight ahead as soon as you walk in. Tell them you are here for surgery. 2. If you have a Living Will/Durable Power of [place] for Health Care that is not on file here, please bring a copy the day of surgery. 3. Please shower/bathe the night before surgery with the provided soap or wipes. Do not shower the morning of surgery- you will do use wipes when you arrive here at the hospital before getting into your surgical gown. Do not shave the area of your procedure for 2 days prior to your surgery. 4. NO powder, lotion, perfume/cologne, aftershave, make-up, deodorant, or hair products after you have bathed. 5. NO nail cayman islander/acrylic on at least one finger. If you are having a hand, wrist or foot surgery then all nail c[place] islander and artificial/acrylic nails must be removed from that hand or foot. 6. Avoid ALL Aspirin and non-steroidal anti-inflammatory drugs and certain vitamins (Ibuprofen, Advil, Aleve, Excedrin, Meloxicam, Celebrex, fish/krill oil, etc.) for 7 days prior to surgery as instructed by your surgeon and/or your prescribing doctor. Tylenol IS ALLOWED. If you are on Ticlid, Xarelto, Eliquis, Pradaxa, Plavix or Coumadin, please check with your prescribing doctor for instructions for when to stop them. 7. If you use an inhaler, continue to use it routinely. 8. Nothing to eat or drink (not even water, gum, mints, or hard candy!) AFTER midnight prior to your surgery. 9. Take only medications that you are instructed to on the morning of surgery with a TINY SIP OF WATER. 10. Choose a responsible adult that will be able to drive you home when you are discharged from your hospital stay for your surgery and can stay with you in your home for 24 hours after your procedure. You must NOT drive any vehicle or operate any machinery for 24 hours after surgery. 11. When you dress for your appointment, please wear loose fitting clothing that is appropriate to accommodate your surgical area procedure. BRING WITH YOU ANY DEVICES YOU MAY NEED: JAQUI hose, ice machine, sling/swath, brace or special shoe, oversized zip-up or button up shirt, CPAP machine if staying overnight. 12. Do NOT wear jewelry, watches, or any piercings or metal for surgery- leave these valuables and money at home. 13. Do NOT wear contact lenses for surgery- glasses are okay if needed. 14. The anesthesiologist will talk with you the day of surgery and will ask you to sign a Consent Form. 15. Refrain from smoking or any type of tobacco use for at least 8 hours and marijuana for 24 hoursprior to arrival for your surgery. 16. If a GREEN BLOOD band is given to you, please bring it with you for the day of surgery. 17. Notify your surgeon if you develop any illness before your surgery. 18. If you are staying overnight, please DO NOT BRING your home medications with you. 19. If you have any questions prior to surgery, please call the Preadmission Testing office at [phone], Mon.-Fri. 7 a.m.-3 p.m. Leave a voicemail if needed. Pre-Surgery Instructions: Medication Instructions ACLIDINIUM BROMIDE (TUDORZA PRESSAIR INHL) Take morning of procedure if needed albuterol (PROVENTIL HFA;VENTOLIN HFA) 90 mcg/actuation inhaler Take morning of procedure if needed budesonide-formoterol (SYMBICORT) 160-4.5 mcg/actuation inhaler Take morning of procedure if needed cholecalciferol 1,000 units tablet Stop taking 0 days prior to procedure cloNIDine (CATAPRES) 0.2 mg tablet Stop taking 0 days prior to procedure docusate sodium (COLACE) 100 mg capsule Stop taking 0 days prior to procedure escitalopram (LEXAPRO) 20 mg tablet Stop taking 0 days prior to procedure estrogens, conjugated (PREMARIN ORAL) Stop taking 0 days prior to procedure FAMOTIDINE (PEPCID ORAL) Stop taking 0 days prior to procedure levothyroxine sodium (TIROSINT) 50 mcg capsule Take morning of procedure MetamuciL 0.4 gram capsule Stop taking 0 days prior to procedure OLANZapine-FLUoxetine (SYMBYAX) 12-50 mg per capsule Stop taking 0 days prior to procedure ondansetron (ZOFRAN) 8 mg tablet Stop taking 0 days prior to procedure pregabalin (LYRICA) 150 mg capsule Stop taking 0 days prior to procedure 28 mg iron- 800 mcg tablet Stop taking 0 days prior to procedure progesterone (PROMETRIUM) 200 mg capsule Stop taking 0 days prior to procedure promethazine (PHENERGAN) 25 mg tablet Stop taking 0 days prior to procedure QUEtiapine (SEROquel) 200 mg tablet Stop taking 0 days prior to procedure tiZANidine (ZANAFLEX) 2 mg tablet Stop taking 0 days prior to procedure documented in this encounterPike [facility] Hospital08-13-2024 Nurse Note* Perioperative Nursing Note - Leela Ferrer RN - 10/24/2023 2:40 PM EDT Preoperative Education Checklist- General Surgery date: 10/26/23 Surgery time: 0900 Arrival time: 0700 1. Bring a photo ID and your insurance card with you the day of surgery. You will check in at the main lobby of the [facility]- registration desk is straight ahead as soon as you walk in. Tell them you are here for surgery. 2. If you have a Living Will/Durable Power of [place] for Health Care that is not on file here, please bring a copy the day of surgery. 3. Please shower/bathe the night before surgery with the provided soap or wipes. Do not shower the morning of surgery- you will do use wipes when you arrive here at the hospital before getting into your surgical gown. Do not shave the area of your procedure for 2 days prior to your surgery. 4. NO powder, lotion, perfume/cologne, aftershave, make-up, deodorant, or hair products after you have bathed. 5. NO nail [place] islander/acrylic on at least one finger. If you are having a hand, wrist or foot surgery then all nail [place] and artificial/acrylic nails must be removed from that hand or foot. 6. Avoid ALL Aspirin and non-steroidal anti-inflammatory drugs and certain vitamins (Ibuprofen, Advil, Aleve, Excedrin, Meloxicam, Celebrex, fish/krill oil, etc.) for 7 days prior to surgery as instructed by your surgeon and/or your prescribing doctor. Tylenol IS ALLOWED. If you are on Ticlid, Xarelto, Eliquis, Pradaxa, Plavix or Coumadin, please check with your prescribing doctor for instructions for when to stop them. 7. If you use an inhaler, continue to use it routinely. 8. Nothing to eat or drink (not even water, gum, mints, or hard candy!) AFTER midnight prior to your surgery. 9. Take only medications that you are instructed to on the morning of surgery with a TINY SIP OF WATER. 10. Choose a responsible adult that will be able to drive you home when you are discharged from your hospital stay for your surgery and can stay with you in your home for 24 hours after your procedure. You must NOT drive any vehicle or operate any machinery for 24 hours after surgery. 11. When you dress for your appointment, please wear loose fitting clothing that is appropriate to accommodate your surgical area procedure. BRING WITH YOU ANY DEVICES YOU MAY NEED: JAQUI hose, ice machine, sling/swath, brace or special shoe, oversized zip-up or button up shirt, CPAP machine if staying overnight. 12. Do NOT wear jewelry, watches, or any piercings or metal for surgery- leave these valuables and money at home. 13. Do NOT wear contact lenses for surgery- glasses are okay if needed. 14. The anesthesiologist will talk with you the day of surgery and will ask you to sign a Consent Form. 15. Refrain from smoking or any type of tobacco use for at least 8 hours and marijuana for 24 hoursprior to arrival for your surgery. 16. If a GREEN BLOOD band is given to you, please bring it with you for the day of surgery. 17. Notify your surgeon if you develop any illness before your surgery. 18. If you are staying overnight, please DO NOT BRING your home medications with you. 19. If you have any questions prior to surgery, please call the Preadmission Testing office at [phone], Mon.-Fri. 7 a.m.-3 p.m. Leave a voicemail if needed. Pre-Surgery Instructions: Medication Instructions ACLIDINIUM BROMIDE (TUDORZA PRESSAIR INHL) Take morning of procedure if needed albuterol (PROVENTIL HFA;VENTOLIN HFA) 90 mcg/actuation inhaler Take morning of procedure if needed budesonide-formoterol (SYMBICORT) 160-4.5 mcg/actuation inhaler Take morning of procedure if needed cholecalciferol 1,000 units tablet Stop taking 0 days prior to procedure cloNIDine (CATAPRES) 0.2 mg tablet Stop taking 0 days prior to procedure docusate sodium (COLACE) 100 mg capsule Stop taking 0 days prior to procedure escitalopram (LEXAPRO) 20 mg tablet Stop taking 0 days prior to procedure estrogens, conjugated (PREMARIN ORAL) Stop taking 0 days prior to procedure FAMOTIDINE (PEPCID ORAL) Stop taking 0 days prior to procedure levothyroxine sodium (TIROSINT) 50 mcg capsule Take morning of procedure MetamuciL 0.4 gram capsule Stop taking 0 days prior to procedure OLANZapine-FLUoxetine (SYMBYAX) 12-50 mg per capsule Stop taking 0 days prior to procedure ondansetron (ZOFRAN) 8 mg tablet Stop taking 0 days prior to procedure pregabalin (LYRICA) 150 mg capsule Stop taking 0 days prior to procedure 28 mg iron- 800 mcg tablet Stop taking 0 days prior to procedure progesterone (PROMETRIUM) 200 mg capsule Stop taking 0 days prior to procedure promethazine (PHENERGAN) 25 mg tablet Stop taking 0 days prior to procedure QUEtiapine (SEROquel) 200 mg tablet Stop taking 0 days prior to procedure tiZANidine (ZANAFLEX) 2 mg tablet Stop taking 0 days prior to procedure [facility]9DIAMOND [facility] [id number] History of Present illness Narrative* Nieves Goff, [employer] MANAGER - 10/19/2023 10:00 AM EDT Images from the original note were not included. Chief Complaint: Nausea, vomiting, abdominal pain History of Present Illness Karen Clemente is a 47 y.o. female who presents to the office with several GI complaints. She reports nausea, vomiting, abdominal pain and constipation. Symptoms have been ongoing for over a year and have progressively gotten worse. Her abdominal pain is in the epigastric region and lower abdomen. She reports cramping that is relieved after she has a bowel movement. She reports constipation. She denies rectal bleeding. She also reports nausea, vomiting and heartburn. She takes omeprazole withno relief. She has a history of ulcers. She smokes 1 pack of cigarettes daily. She denies any recreational drug usage. She drinks occasional alcohol. She takes 800 mg ibuprofen daily. She admits to ea ting a poor diet. She states she mainly drinks water. She was recently seen in the [facility] ED on 10/08/2023. CT abdomen and pelvis revealed no acute abdominal findings. Her labs were within normal limits. Gallbladder/liver/pancreas ultrasound 10/06/2022 was normal. She has a history of fibromyalgia. Her past surgical history includes bilateral oophorectomy. Review of Systems Constitutional: Negative for fever and unexpected weight change. HENT: Negative for trouble swallowing. Respiratory: Negative for shortness of breath. Cardiovascular: Negative for chest pain. Gastrointestinal: Positive for nausea, vomiting, abdominal pain and constipation. Negative for diarrhea, blood in stool and black tarry stool. Genitourinary: Negative for dysuria and difficulty urinating. Musculoskeletal: Negative for gait problem. Skin: Negative for rash and wound. Neurological: Negative for dizziness, weakness and light-headedness. Hematological: Does not bruise/bleed easily. Psychiatric/Behavioral: Negative for confusion. 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 Indications: bronchospasm prevention with COPD., Disp: , Rfl: cholecalciferol 1,000 units tablet, TAKE 1 TABLET BY MOUTH EVERY DAY, Disp: , Rfl: cloNIDine (CATAPRES) 0.2 mg tablet, Take 1 tablet (0.2 mg total) by mouth 3 (three) times a day., Disp: , Rfl: docusate sodium (COLACE) 100 mg capsule, Take 1 capsule (100 mg total) by mouth 2 (two) times a dayas needed., Disp: , Rfl: escitalopram (LEXAPRO) 20 mg tablet, Take 1 tablet (20 mg total) by mouth in the morning., Disp: , Rfl: estrogens, conjugated (PREMARIN ORAL), Take 1 tablet by mouth in the morning. Patient did not know the dosage., Disp: , Rfl: FAMOTIDINE (PEPCID ORAL), Take by mouth., Disp: , Rfl: levothyroxine sodium (TIROSINT) 50 mcg capsule, Take 1 capsule (50 mcg total) by mouth in the morning., Disp: , Rfl: MetamuciL 0.4 gram capsule, Take 1 capsule (0.4 g total) by mouth in the morning., Disp: , Rfl: OLANZapine-FLUoxetine (SYMBYAX) 12-50 mg per capsule, Take 1 capsule by mouth nightly., Disp: , Rfl: ondansetron (ZOFRAN) 8 mg tablet, Take 1 tablet (8 mg total) by mouth., Disp: , Rfl: pregabalin (LYRICA) 150 mg capsule, Take 1 capsule (150 mg total) by mouth 3 (three) times a day., Disp: , Rfl: 28 mg iron- 800 mcg tablet, TAKE 1 TABLET BY MOUTH EVERY DAY, Disp: , Rfl: progesterone (PROMETRIUM) 200 mg capsule, Take 1 capsule (200 mg total) by mouth., Disp: , Rfl: promethazine (PHENERGAN) 25 mg tablet, Take 1 tablet (25 mg total) by mouth 4 (four) times a day asneeded for vomiting or nausea., Disp: , Rfl: QUEtiapine (SEROquel) 200 mg tablet, Take 0.5 tablets (100 mg total) by mouth nightly., Disp: , Rfl: tiZANidine (ZANAFLEX) 2 mg tablet, Take 1 tablet (2 mg total) by mouth every 6 (six) hours as needed for muscle spasms., Disp: , Rfl: Social History Socioeconomic History Marital status: Spouse name: Not on file Number of children: Not on file Years of education: Not on file Highest education level: Not on file Occupational History Not on file Tobacco Use Smoking status: Every Day Current packs/day: 1.00 Types: Cigarettes Smokeless tobacco: Not on file Vaping Use Vaping status: Never Used Substance and Sexual Activity Alcohol use: Yes Comment: OCCASIONALLY Drug use: Not Currently Sexual activity: Not Currently Other Topics Concern Not on file Social History Narrative Not on file Social Determinants of Health Financial Resource Strain: Not on file Food Insecurity: No Food Insecurity (10/19/2023) Hunger Screening Food Insecurity - Worry: Never True Food Insecurity - Inability: Never True Transportation Needs: Not on file Physical Activity: Not on file Stress: Not on file Social Connections: Not on file Interpersonal Safety: Not on file Housing Instability: Not on file Family History Problem Relation Age of Onset Aneurysm Mother Emphysema Father Cancer Sister Objective Physical Exam Constitutional: General: She is not in acute distress. Appearance: Normal appearance. She is not ill-appearing. Comments: BMI 28.13 HENT: Head: Normocephalic and atraumatic. Mouth/Throat: Mouth: Mucous membranes are moist. Eyes: Pupils: Pupils are equal, round, and reactive to light. Cardiovascular: Rate and Rhythm: Normal rate and regular rhythm. Pulmonary: Effort: Pulmonary effort is normal. No respiratory distress. Abdominal: General: Bowel sounds are normal. There is no distension. Palpations: Abdomen is soft. There is no mass. Tenderness: There is abdominal tenderness in the epigastric area. There is no guarding. Hernia: No hernia is present. Musculoskeletal: General: Normal range of motion. Skin: General: Skin is warm and dry. Neurological: Mental Status: She is alert and oriented to person, place, and time. Mental status is at baseline. Vital Signs: Blood pressure 124/85, pulse 113, height 160 cm (5' 3 ), weight 72 kg (158 lb 12.8 oz). Respiratory Source: No data recorded Admission Weight: Weight: 72 kg (158 lb 12.8 oz) Labs Lab Results Component Value Date WBC 8.2 07/22/2016 HGB 16.1 (H) 07/22/2016 HCT 47.1 (H) 07/22/2016 MCV 94 07/22/2016 PLT 136 (L) 07/22/2016 Lab Results Component Value Date GLU 86 07/22/2016 CALCIUM 9.0 07/22/2016 K 3.5 07/22/2016 CO2 27 07/22/2016 CL 96 (L) 07/22/2016 BUN 20 07/22/2016 CREATININE 0.71 07/22/2016 No results found for: AMYLASE Lab Results Component Value Date LIPASE 127 03/28/2015 Lab Results Component Value Date ALT 21 07/22/2016 AST 39 07/22/2016 ALKPHOS 60 07/22/2016 No results found for: INR , PROTIME Assessment Nausea and vomiting Epigastric abdominal pain with history of ulcers Lower abdominal cramping and constipation Tobacco abuse History of fibromyalgia Plan EGD and colonoscopy with possible biopsy and/or polypectomy. Risks, benefits, and alternatives discussed with patient. Educated on bowel evacuation preparation. Patient verbalizes understanding and wishes to proceed. Reiterated smoking cessation, healthy diet, avoid NSAIDs. Evaluation included: Preparing to see the patient (e.g., review of tests) Obtaining and/or reviewing separately obtained history Performing a medically appropriate examination and/or evaluation Counseling and educating the patient/family/caregiver Referring and communicating with other health home care music therapist Nausea and vomiting, unspecified vomiting type [R11.2] LAUREN NESBITT [facility] [place] This note was created with the assistance of a speech recognition program. While intending to generate a timely document that accurately reflects the content of the visit, no guarantee can be provided that every grammatical or spelling mistake has been or will be identified or corrected. Thank you for your understanding. ALUREN Nesbitt 10/19/23 1123 [facility] History of Present illness Narrative* Nieves Goff APRN-LOAN MANAGER - 07/04/2023 1:30 PM EDT Images from the original note were not included. Chief Complaint: Abdominal pain History of Present Illness Karen Clemente is a 47 y.o. female who presents to the office today to reschedule her EGD/colonoscopy. She cancelled her last due to being sick. She was last seen by Dr. Vo 09/21/2022, notes below. She continues to have the same symptoms including nausea, vomiting, abdominal pain and constipation x1 year. Her pain is in the epigastric region and in her bilateral lower abdomen. She states she will sit on the toilet trying to have a bowel movement and will have to put a rag on her forehead.She denies rectal bleeding. She states she has a history of peptic ulcer disease. Gallbladder/liver/pancreas ultrasound 10/06/2022 was normal. Notes from 09/21/2022: Karen Clemente is a 46-year-old female who presents after going to the [facility] emergency room on September 10 with complaints of persistent nausea and vomiting 4 days which he is had present off and on for many years. She had a CT scan of the abdomen and pelvis performed without contrast which showed intussusception in the left upper quadrant without obstruction. She complains of epigastric abdominal pain. She is had bowel issues for years in that she has chronic constipation and can not evacuate herself for many days. Her last colonoscopy was greater than 10 years ago. She denies anymelena hematochezia. She admits to constipation all the time. It is not related to food intake. Shefeels bloated. She had an EGD done 10 years ago as well. She has a history of reflux disease for which she takes famotidine 2-3 times daily but does not seem to help for her. She denies any family history of intestinal cancer. She is had a bilateral oophorectomy 5-6 years ago in [place]. She has a history of kidney stones as well. She has not seen a urologist. She had several kidney stones of theleft kidney noted. She smokes tobacco for 25 years plus. She is on permanent disability due to PTSD fibromyalgia and other Reasons. She denies any hematuria but has a known history of kidney stones. CT scan done at the [facility] with the abdomen and pelvis showed intussusception of the jejunum with no evidence of obstruction. PCP is through [facility] outpatient services And she sees a different provider every visit. Review of Systems Constitutional: Negative for fever and unexpected weight change. HENT: Negative for trouble swallowing. Respiratory: Positive for shortness of breath. Hx. of COPD Cardiovascular: Negative for chest pain. Gastrointestinal: Positive for nausea, vomiting, abdominal pain and constipation. Negative for diarrhea, blood in stool and black tarry stool. Genitourinary: Negative for dysuria and difficulty urinating. Musculoskeletal: Negative for gait problem. Skin: Negative for rash and wound. Neurological: Negative for dizziness, weakness and light-headedness. Hematological: Does not bruise/bleed easily. Psychiatric/Behavioral: Negative for confusion. 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 Indications: bronchospasm prevention with COPD., Disp: , Rfl: cholecalciferol 1,000 units tablet, TAKE 1 TABLET BY MOUTH EVERY DAY, Disp: , Rfl: cloNIDine (CATAPRES) 0.2 mg tablet, Take 1 tablet (0.2 mg total) by mouth 3 (three) times a day., Disp: , Rfl: docusate sodium (COLACE) 100 mg capsule, Take 1 capsule (100 mg total) by mouth 2 (two) times a dayas needed., Disp: , Rfl: escitalopram (LEXAPRO) 20 mg tablet, Take 1 tablet (20 mg total) by mouth in the morning., Disp: , Rfl: estrogens, conjugated (PREMARIN ORAL), Take 1 tablet by mouth in the morning. Patient did not know the dosage., Disp: , Rfl: FAMOTIDINE (PEPCID ORAL), Take by mouth., Disp: , Rfl: levothyroxine sodium (TIROSINT) 50 mcg capsule, Take 1 capsule (50 mcg total) by mouth in the morning., Disp: , Rfl: MetamuciL 0.4 gram capsule, Take 1 capsule (0.4 g total) by mouth in the morning., Disp: , Rfl: OLANZapine-FLUoxetine (SYMBYAX) 12-50 mg per capsule, Take 1 capsule by mouth nightly., Disp: , Rfl: ondansetron (ZOFRAN) 8 mg tablet, Take 1 tablet (8 mg total) by mouth., Disp: , Rfl: pregabalin (LYRICA) 150 mg capsule, Take 1 capsule (150 mg total) by mouth 3 (three) times a day., Disp: , Rfl: 28 mg iron- 800 mcg tablet, TAKE 1 TABLET BY MOUTH EVERY DAY, Disp: , Rfl: progesterone (PROMETRIUM) 200 mg capsule, Take 1 capsule (200 mg total) by mouth., Disp: , Rfl: QUEtiapine (SEROquel) 200 mg tablet, Take 0.5 tablets (100 mg total) by mouth nightly., Disp: , Rfl: tiZANidine (ZANAFLEX) 2 mg tablet, Take 1 tablet (2 mg total) by mouth every 6 (six) hours as needed for muscle spasms., Disp: , Rfl: Social History Socioeconomic History Marital status: Spouse name: Not on file Number of children: Not on file Years of education: Not on file Highest education level: Not on file Occupational History Not on file Tobacco Use Smoking status: Every Day Current packs/day: 1.00 Types: Cigarettes Smokeless tobacco: Not on file Vaping Use Vaping status: Never Used Substance and Sexual Activity Alcohol use: Yes Comment: OCCASIONALLY Drug use: Not Currently Sexual activity: Not Currently Other Topics Concern Not on file Social History Narrative Not on file Social Determinants of Health Financial Resource Strain: Not on file Food Insecurity: No Food Insecurity (11/02/2022) Hunger Screening Food Insecurity - Worry: Never True Food Insecurity - Inability: Never True Transportation Needs: Not on file Physical Activity: Not on file Stress: Not on file Social Connections: Not on file Interpersonal Safety: Not on file Housing Instability: Not on file Family History Problem Relation Age of Onset Aneurysm Mother Emphysema Father Cancer Sister Objective Physical Exam Constitutional: General: She is not in acute distress. Appearance: Normal appearance. She is not ill-appearing. HENT: Head: Normocephalic and atraumatic. Mouth/Throat: Mouth: Mucous membranes are moist. Eyes: Pupils: Pupils are equal, round, and reactive to light. Cardiovascular: Rate and Rhythm: Normal rate and regular rhythm. Pulmonary: Effort: Pulmonary effort is normal. No respiratory distress. Abdominal: General: There is no distension. Palpations: Abdomen is soft. Tenderness: There is abdominal tenderness in the epigastric area. There is no guarding. Musculoskeletal: General: Normal range of motion. Skin: General: Skin is warm and dry. Neurological: Mental Status: She is alert and oriented to person, place, and time. Mental status is at baseline. Vital Signs: Blood pressure 113/77, height 160 cm (5' 3 ), weight 76.2 kg (168 lb). Respiratory Source: No data recorded Admission Weight: Weight: 76.2 kg (168 lb) Labs Lab Results Component Value Date WBC 8.2 07/22/2016 HGB 16.1 (H) 07/22/2016 HCT 47.1 (H) 07/22/2016 MCV 94 07/22/2016 PLT 136 (L) 07/22/2016 Lab Results Component Value Date GLU 86 07/22/2016 CALCIUM 9.0 07/22/2016 K 3.5 07/22/2016 CO2 27 07/22/2016 CL 96 (L) 07/22/2016 BUN 20 07/22/2016 CREATININE 0.71 07/22/2016 No results found for: AMYLASE Lab Results Component Value Date LIPASE 127 03/28/2015 Lab Results Component Value Date ALT 21 07/22/2016 AST 39 07/22/2016 ALKPHOS 60 07/22/2016 No results found for: INR , PROTIME Assessment Abnormal CT scan GI tract with intussusception left upper quadrant jejunum at the [facility]09/10/2022 Epigastric abdominal pain Nausea and vomiting Constipation Tobacco abuse Plan Patient was provided with phone number to schedule esophagram with upper GI series and small-bowel follow-through to rule out intussusception. She did not complete this as instructed after her last office visit. EGD and colonoscopy with possible biopsy and/or polypectomy. Risks, benefits, and alternatives discussed with patient. Educated on bowel evacuation preparation. Patient verbalizes understanding and wishes to proceed. 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 While intending to generate a timely document that accurately reflects the content of the visit, no guarantee can be provided that every grammatical or spelling mistake has been or will be identified or corrected. Thank you for your understanding. LAUREN Nesbitt 07/05/23 0858 documented in this encounterP[facility]02-[facility]24 Evaluation note* Encounter Date Diagnosis Assessment Notes Treatment Notes Treatment Clinical Notes Apr, Chronic obstructive pulmonary disease, unspecified (ICD-10 - J44.9) [employer] Other 01-23-2024 Evaluation note* Encounter Date Diagnosis Assessment Notes Treatment Notes Treatment Clinical Notes Mar, Chronic obstructive pulmonary disease, unspecified (ICD-10 - J44.9) [employer] Other 11-03-2023 Evaluation note* Encounter Date Diagnosis Assessment Notes Treatment Notes Treatment Clinical Notes Jan, Chronic obstructive pulmonary disease, unspecified (ICD-10 - J44.9) [employer] Other 08-16-2023 Evaluation note* Encounter Date Diagnosis Assessment Notes Treatment Notes Treatment Clinical Notes Oct, Chronic obstructive pulmonary disease, unspecified (ICD-10 - J44.9) [employer] Other 08-14-2023 Evaluation note* Encounter Date Diagnosis Assessment Notes Treatment Notes Treatment Clinical Notes Oct, Chronic obstructive pulmonary disease, unspecified (ICD-10 - J44.9) [employer] Other 03-22-2023 Evaluation note* Encounter Date Diagnosis Assessment Notes Treatment Notes Treatment Clinical Notes May, Chronic obstructive pulmonary disease, unspecified (ICD-10 - J44.9) May,Tobacco use disorder (ICD-10 - Z72.0) May,llergic rhinitis (ICD-10 - J30.9) May,ERD (gastroesophageal reflux disease) (ICD-10 - K21.9) [employer] Other 03-13-2023 Evaluation note* Encounter Date Diagnosis Assessment Notes Treatment Notes Treatment Clinical Notes May, Chronic obstructive pulmonary disease, unspecified (ICD-10 - J44.9) [employer] Other 01-24-2023 Evaluation note* Encounter Date Diagnosis Assessment Notes Treatment Notes Treatment Clinical Notes Mar, Chronic obstructive pulmonary disease, unspecified (ICD-10 - J44.9) [employer] Other 01-09-2023 Evaluation note* Encounter Date Diagnosis Assessment Notes Treatment Notes Treatment Clinical Notes Mar, Chronic obstructive pulmonary disease, unspecified (ICD-10 - J44.9) [employer] Other 11-08-2022 Evaluation note* Encounter Date Diagnosis Assessment Notes Treatment Notes Treatment Clinical Notes Jan, Chronic obstructive pulmonary disease, unspecified (ICD-10 - J44.9) [employer] Other 11-01-2021 Evaluation note* Encounter Date Diagnosis Assessment Notes Treatment Notes Treatment Clinical Notes Jan, Chronic obstructive pulmonary disease, unspecified (ICD-10 - J44.9) Jan,Tobacco use disorder (ICD-10 - Z72.0) Jan,llergic rhinitis (ICD-10 - J30.9) Jan,GERD (gastroesophageal reflux disease) (ICD-10 - K21.9) [employer] Other Evaluation noteNo assessment information available [facility] noteNo InformationNort [employer] Other Evaluation note* Diagnosis Onset Date Resolution Status Asthma with COPD acute [facility] Work Phone: Evaluation note* Diagnosis Abnormal CT scan, gastrointestinal tract- Primary Tobacco abuse Tobacco use disorder Constipation, unspecified constipation type Epigastric pain Abdominal pain, epigastric Lower abdominal pain Abdominal pain, other specified site Nausea and vomiting, unspecified vomiting type History of fibromyalgia Personal history of other musculoskeletal disorders documented in this encounter [facility] Diagnosis Nausea and vomiting, unspecified vomiting type- Primary Generalized abdominal pain Abdominal pain, generalized Constipation, unspecified constipation type History of fibromyalgia Personal history of other musculoskeletal disorders Tobacco abuse Tobacco use disorder documented in this encounter [facility] SystemEvaluation [facility]* Diagnosis Encounter for screening mammogram for malignant neoplasm of breast Encounter for gynecological examination without abnormal finding Encounter for screening for cervical cancer documented in this encounter [facility] general Narrative - Reported* Type Description Date Medical History 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 Medical HistorypneumoniaMedical HistoryCOPDSurgical Historylung biopsySurgical HistoryLaparoscopy for kidney stonesSurgical HistoryLaparoscopy for ovarian cystsSurgical Historyremoval of ludmila ovaries and [id number] History pneumoniaHospitalization Historylung biopsy [employer] Other History general Narrative - ReportedNolafayette regional health center [employer] Other Hisuokr general Narrative - Reported* Type Description Date Medical History 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 cramping10/2022 [employer] Other InstructionsNot on filedocumented in this encounter [facility] SystemInstructionsNot on filedocumented in this encounter [facility]InstructionsNot on filedocumented in this encounter [facility] SystemInstructionsNot on filedocumented in this encounter [facility] SystemInstructionsNot on filedocumented in this encounter [facility] Summary Purpose Family History No Family History Records Found Relationship Condition Age at Onset Recorded Date/T [place] brother Alcoholism Unknown Myocardial infarctionUnknownfatherAlcoholismUnknownNot SpecifiedAlcoholism UnknownsisterAlcoholismUnknown Relationship Condition Age at Onset Recorded Date/T flaco brother Alcoholism Unknown Myocardial infarctionUnknownfatherAlcoholismUnknownDeceasedUnknownHeart disease UnknownmotherAlcoholismUnknownFamily history of mental disorderUnknownsister AlcoholismUnknownChronic obstructive pulmonary diseaseUnknown Advance Directives No Advanced Directives Records Found Advance Directive Response Recorded Date/ Time Advance Directives No April 04, 2017 4:47pm Advance Directive Response Recorded Date/ Time Advance Directives No April 04, 2017 3:47pm Date ActivatedDate InactivatedComments09/16/2016 12:31 PM09/22/2016 5:32 PM Chief Complaint and Reason for Visit Chief [...] Kidney A xochilt R10.13;E03.9;R53.82;Z11.59 Hypothyroidism, unspecified type Chief Complaint ^Sharp Pain Kidney A xochilt Tate for VisitAsthma with COPD Chief Complaint Admit Date ^Sharp Pain Kidney Area December 30 6:17am April 17, 2024 1 0:05am Chief Complaint Admit Date ^Sharp Pain Kidney Area December 30 6:17am N30.00 April 30, 2024 4:09pm June 04, 2024 1:1 3pm R14.0 June 07, 2024 11: 41am Chief Complaint Admit Date ^Sharp Pain Kidney Area December 30 6:17am N30.00 April 30, 2024 4:09pm R14.0 June 07, 2024 11: 41am BH June 20, 2024 10: 56am E04.9 June 27, 2024 1:0 3pm Additional Source Comments INFORMATION SOURCE (unrecogn ized section and content) DATE CREATED AUTHOR 09/06/2017 [facility] DATE CREATED AUTHOR AUTHOR'S ORGANIZ ATION 10/21/2023 [facility] DATE CREATED AUTHOR AUTHOR'S ORGANIZ ATION 03/14/2024 [facility] DATE CREATED AUTHOR AUTHOR'S ORGANIZ ATION 07/01/2024 [facility] DATE CREATED AUTHOR AUTHOR'S ORGANIZ ATION 08/25/2024 [facility] DATE CREATED AUTHOR AUTHOR'S ORGANIZ ATION 09/24/2024 [facility] DATE CREATED AUTHOR AUTHOR'S ORGANIZ ATION 09/29/2024 [facility] Goals (unrecognized section and content) Goals may be documented in a n alternate sectionNo InformationNo InformationNo InformationNo InformationGoals may be documented in an alternate sectionNo InformationGoals may be documented in an alternate sectionNo InformationNo InformationNo InformationNo InformationGoals may be documented in an alternate sectionGoals may be documented in an alternate sectionGoals may be documented in an alternate sectionNo InformationNo InformationNo InformationNo InformationNo InformationGoals may be documented in an alternate sectionNot on filedocumented as of this encounterNot on filedocumented as of this encounterNot on filedocumented as of this encounterNot on filedocumented as of this encounterNot on filedocumented as of this encounterNot on filedocumented as of this encounterGoals may be documented in an alternate sectionGoals may be documented in an alternate sectionGoals may be documented in an alternate section REASON FOR VISIT (unrecogniz ed section and content) ReasonCommentsAbdominal PainABDOMINAL PAIN, CANCELED LAST COLON SCHED 01/25/23 AT [facility], NEEDS THAT RESCHEDULEReasonCommentsVomitingVomiting, cramping, [facility] ER 10/07/23, cancelled scopes 01/25/23 and 07/26/23ReasonOnset DateComments Appointment [id number]/17/2024ReasonCommentsGynecologic ExamPatient present for yearly. Patient denies any issues with bowels, breast or urinary.ReasonComments AppointmentExternal referral to [facility] [place] [facility] Teams (unrecognized sec tion and content) Team Status: Active Member Role Status Dates Services Family Health Primary Care Provider Active Team Status: Active Member Role Status Dates Kyaw Coy/Kyree Watt Attending Provider Active Team Status: Inactive Member Role Status Dates Services Family Health Primary Care Provider Active Jason Michele DOAttending ProviderActiveChbrayden Lowrie , DO RESOther Provider Active Team Status: Inactive Member Role Status Dates Services Family Health Primary Care Provider Active Trena Swann ProviderActive Team Status: Inactive Member Role Status Dates Services Family Health Primary Care Provider Active Cecilio Epps DO RESAttending ProviderActive Team Status: Inactive Member Role Status Dates Services Family Health Primary Care Provider Active Jason Michele DOAttending ProviderActiveChbrayden Epps , DO RESReferring ProviderActive Team Status: Active Member Role Status Dates Services Family Health Primary Care Provider Active Trena Castillo ProviderActive Team Status: Inactive Member Role Status Dates Services Family Health Primary Care Provider Active Cecilio Epps DO RESReferring ProviderActiveJodi Campbell ProviderActive Team Status: Active Member Role Status Dates Kyaw Coy/Kyree Watt Attending Provider Active Start: December 31, 2003 Team Status: Active Member Role Status Dates Services Family Health Primary Care Provider Active Start: December 19, 2023 Trena Weinstein ProviderActiveStart: December 19, 2023 Team Status: Inactive Member Role Status Dates Services Family Health Primary Care Provider Active Start: December 21, 2023 End: December 20Trena Houser ProviderActiveStart: December 21, 2023 End: December 21, 2023Team MemberRelationshipSpecialtyStart DateEnd Date Felix Belcher MD [address] [place], [place] [address] [address] PCP - Vxkglwy39/19/16Team MemberRelationshipSpecialtyStart DateEnd Date Felix Belcher MD [facility] [place] [address] PCP - Nbokrap47/19/16Team MemberRelationshipSpecialtyStart DateEnd Date Felix Belcher MD PCP - Fxuyiau69/19/16Team MemberRelationshipSpecialtyStart DateEnd Date Felix Belcher MD PCP - Cmdgtwl14/19/16Team MemberRelationshipSpecialtyStart DateEnd Date Felix Belcher MD PCP - Gtmbalq30/19/16 Team Status: Active Member Role Status Dates Services Family [facility] Primary Care Provider Active Start: April 17, 2024 Bessy Weinsteinending ProviderActiveStart: April 17, 2024 Team Status: Inactive Member Role Status Dates Jen Salas DO RES Attending Provider Active Start: April 30, 2024 End: April 30, 2024Team MemberRelationshipSpecialtyStart DateEnd Date Jason Michele DO [address] [place] [address] PCP - [facility]03/27/24 Team Status: Active Member Role Status Dates Services Family Health Primary Care Provider Active Start: June 04, 2024 Bessy Weinsteinending ProviderActiveStart: June 04, 2024 Team Status: Inactive Member Role Status Dates Jason Michele DO Attending Provider Active Start : June 07, 2024 End: June 07, 2024Sasandi Salas DO RESReferring ProviderActiveStart: June 07, 2024 End: June 07, 2024[facility] ProviderActiveStart: June 07, 2024 End: June 07, 2024Team MemberRelationshipSpecialtyStart DateEnd Date Jason Michele DO [address] [place] [address] PCP - GeneralFamily Medicine03/27/24 Team Status: Active Member Role Status Dates Services [facility] Primary Care Provider Active Start: June 20, 2024 Trena Weinstein ProviderActiveStart: June 20, 2024 Team Status: Inactive Member Role Status Dates Services [facility] Primary Care Provider Active Start: June 27, 2024 End: June 27, 2024Jason DO LenyAttending ProviderActiveStart: June 27, 2024 End: June 27, 2024Safraciscomalissa Salas DO RESReferring ProviderActiveStart: June 27, 2024 End: June 27, 2024Team MemberRelationshipSpecialtyStart DateEnd Date Charbel Buchanan(Hist) [address] [place] [id number] [facility] V[facility]oyy[facility]25[facility] Source Comments (unrecognize d section and content) In the event this informatio n is protected by the Federal Confidentiality of Alcohol and Drug Abuse Patient Records regulations: The Federal rules restrict any use of the information to criminally investigate or prosecute any alcohol or drug abuse patient.[facility] FOR RECORDS PERTAINING TO PATIENTS WHO ARE [...] BE BASED ON THE PRIMARY CLINICAL RECORDS. [facility]. provides no warranty or guarantee of the accuracy or completeness of information in this document.
--- NOTE | 2024-12-31 17:53 | ED.WOUNDLAC1 ---
HPI - Wound/Laceration General Chief Complaint: Wound/Laceration Stated Complaint: FALL, GASH R THIGH Time Seen by Provider: 12/31/24 17:46 Source: patient Mode of arrival: walk-in Limitations: no limitations History of Present Illness HPI narrative: 49 year old female presents to the ED for a wound check. Reports a slip and fall 3 days ago. She cut her right upper leg on a piece of a broken ceramic bowl. Her tetanus status is not up to date. Denies LOC, weakness, dizziness, N/T. She has been ambulatory. Denies fever, chills. Related Data Home Medications ?Medication ?Instructions ?Recorded ?Confirmed albuterol sulfate 90 mcg/actuation 2 inh inhalation Q6H PRN shortness 09/10/22 07/18/23 aerosol inhaler (Ventolin HFA) of breath or wheezing clonidine HCl 0.2 mg tablet 0.2 mg PO TID 09/10/22 07/18/23 famotidine 20 mg tablet 20 mg PO .QHS 09/10/22 07/17/23 levothyroxine 125 mcg tablet 50 mcg PO QDAY 09/10/22 07/17/23 pregabalin 150 mg capsule 150 mg PO TID 09/10/22 07/17/23 quetiapine 200 mg tablet 100 mg PO .QHS 09/10/22 07/17/23 budesonide-formoterol HFA 160 2 inh inhalation BID 09/11/22 07/18/23 mcg-4.5 mcg/actuation aerosol inhaler ondansetron 4 mg disintegrating 8 mg PO DAILY PRN nausea and 09/11/22 07/17/23 tablet vomiting aclidinium bromide 400 1 inh inhalation BID 07/17/23 mcg/actuation breath activated powder inhaler (Tudorza Pressair) cholecalciferol (vitamin D3) 25 1,000 unit PO DAILY 07/17/23 mcg (1,000 unit) tablet conjugated estrogens 0.3 mg tablet 0.3 mg PO DAILY 07/17/23 (Premarin) docusate sodium 100 mg tablet 100 mg PO BID PRN constipation 07/17/23 escitalopram oxalate 20 mg tablet 20 mg PO DAILY 07/17/23 (Lexapro) olanzapine-fluoxetine 12 mg-50 mg 1 cap PO DAILY 07/17/23 capsule (Symbyax) progesterone micronized 200 mg 400 mg PO DAILY 07/17/23 capsule (Prometrium) psyllium husk 0.4 gram capsule 0.4 g PO DAILY 07/17/23 (Daily Fiber) tizanidine 2 mg tablet 2 mg PO Q6H PRN muscle spasticity 07/17/23 Previous Rx's ?Medication ?Instructions ?Recorded prednisone 10 mg tablet See Rx Instructions .Route 09/10/23 .COMPLEX #30 tabs tramadol 50 mg tablet 50 mg PO Q8H PRN pain 5 days #20 09/10/23 tabs promethazine 25 mg tablet 25 mg PO QID PRN nausea and 10/08/23 vomiting #20 tabs cephalexin 500 mg capsule 500 mg PO Q8H 10 days #30 caps 12/31/24 doxycycline monohydrate 100 mg 100 mg PO BID 10 days #20 caps 12/31/24 capsule hydrocodone 5 mg-acetaminophen 325 1 tab PO Q8H PRN pain 4 days #12 12/31/24 mg tablet tabs Allergies Allergy/AdvReac Type Severity Reaction Status Date / Time naproxen Allergy Intermediate Hives Verified 12/31/24 17:39 varenicline Allergy Hives Verified 12/31/24 17:39 Antihistamines - Alkylamine AdvReac Intermediate Hives Verified 12/31/24 17:39 Review of Systems ROS Constitutional Denies: fever or chills Cardiovascular Denies: chest pain Respiratory Denies: shortness of breath Gastrointestinal Denies: abdominal pain, nausea or vomiting Musculoskeletal Reports: extremity pain; Denies: back pain, neck pain or joint pain Integumentary/Breast Reports: redness, new lesion and changes in skin color Neurological Denies: headache, numbness in extremities, weakness in extremities or dizziness [facility] Medical History (Updated 12/31/24 @ 18:02 by Hailee Adhikari) Full dentures ?Z97.2 - Presence of dental prosthetic device (complete) (partial) (ICD-10) ?K08.109 - Complete loss of teeth, unspecified cause, unspecified class (ICD-10) Anemia ?D64.9 - Anemia, unspecified (ICD-10) Sleep apnea ?G47.30 - Sleep apnea, unspecified (ICD-10) Hypothyroidism ?E03.9 - Hypothyroidism, unspecified (ICD-10) Edentulous ?K08.109 - Complete loss of teeth, unspecified cause, unspecified class (ICD-10) Vomiting ?R11.10 - Vomiting, unspecified (ICD-10) Nausea ?R11.0 - Nausea (ICD-10) Menopause ?Z78.0 - Asymptomatic menopausal state (ICD-10) Disease of thyroid gland ?E07.9 - Disorder of thyroid, unspecified (ICD-10) Fibromyalgia ?M79.7 - Fibromyalgia (ICD-10) Acute posttraumatic stress disorder ?F43.11 - Post-traumatic stress disorder, acute (ICD-10) Kidney stones ?N20.0 - Calculus of kidney (ICD-10) Acid reflux ?K21.9 - Gastro-esophageal reflux disease without esophagitis (ICD-10) History of peptic ulcer disease ?Z87.11 - Personal history of peptic ulcer disease (ICD-10) Abdominal pain ?R10.9 - Unspecified abdominal pain (ICD-10) Nausea and vomiting ?R11.2 - Nausea with vomiting, unspecified (ICD-10) Constipation ?K59.00 - Constipation, unspecified (ICD-10) Recovering alcoholic ?F10.21 - Alcohol dependence, in remission (ICD-10) Pneumonia ?J18.9 - Pneumonia, unspecified organism (ICD-10) Ovarian cyst ?N83.209 - Unspecified ovarian cyst, unspecified side (ICD-10) Glaucoma ?H40.9 - Unspecified glaucoma (ICD-10) Emphysema of lung ?J43.9 - Emphysema, unspecified (ICD-10) COPD (chronic obstructive pulmonary disease) ?J44.9 - Chronic obstructive pulmonary disease, unspecified (ICD-10) Arthritis ?M19.90 - Unspecified osteoarthritis, unspecified site (ICD-10) Ganglion cyst of dorsum of right wrist ?M67.431 - Ganglion, right wrist (ICD-10) Intussusception ?K56.1 - Intussusception (ICD-10) Surgical History (Updated 07/20/23 @ 09:17 by Joanie Roper NP) H/O tooth extraction ?K08.409 - Partial loss of teeth, unspecified cause, unspecified class (ICD-10) History of esophagogastroduodenoscopy (EGD) ?Z98.890 - Other specified postprocedural states (ICD-10) H/O oophorectomy History of lung biopsy ?Z98.890 - Other specified postprocedural states (ICD-10) H/O colonoscopy ?Z98.890 - Other specified postprocedural states (ICD-10) Family History (Updated 07/20/23 @ 09:21 by Joanie Roper NP) Other Aneurysm Emphysema of lung Family history of COPD (chronic obstructive pulmonary disease) Family history of cancer Family history of emphysema Family history of myocardial infarction Social History (Updated 07/20/23 @ 09:13 by Joanie Roper NP) Within the past year, how often did you have a drink containing alcohol: monthly or less Within the past year, how many standard drinks containing alcohol did you have on a typical day: 1 or 2 Total score: 0 Score interpretation: A score less than 3 is consistent with normal alcohol consumption. Smoking status: Current every day smoker What tobacco products do you use: cigarettes Packs per day: 2 Years smoked: 30 Smoking pack-years: 60.00 Non-prescribed substance use: denies use Highest level of school completed/degree received: 10th grade Little interest or pleasure in doing things: not at all Feeling down, depressed, or hopeless: not at all Exam Constitutional Vital Signs, click to edit/add: Last Vital Signs Temp 98.8 F 12/31/24 17:39 Pulse 85 12/31/24 17:39 Resp 20 12/31/24 17:39 BP 134/86 12/31/24 17:39 Pulse Ox 96 12/31/24 17:39 O2 Del Method Room Air 12/31/24 17:39 Common normals: no apparent distress and oriented x3 General appearance: cooperative HENMT Common normals: moist oral mucous membranes Neck & C-Spine Common normals: supple Chest Chest: symmetrical chest wall rise Respiratory Common normals: normal respiratory effort Effort & inspection: able to speak in complete sentences and symmetric chest movement Cardio Common normals: regular rate Peripheral pulses: posterior tibial pulses present and dorsalis pedis pulses present Back & Pelvis Thoracic spine/upper back: normal to inspection; no thoracic spinal tenderness and no paraspinal muscle tenderness Lumbar spine/lower back: normal to inspection; no lumbar spinal tenderness and no paraspinal muscle tenderness Extremity Right lower extremity: hip joint (No bony tenderness or instability.) Other: Various areas of bruising to right upper posterolateral leg. Several abrasions noted. There are two gaping, deep lacerations to the area as well. Areas are approx 4cm x 3cm and 2 cm x 3cm. Minimal bleeding. No purulent drainage. Minimal surrounding erythema. Neuro Common normals: oriented x3, moves all extremities and no focal motor deficits Sensorium/orientation: awake and alert Speech: speech normal Course Vital Signs Vital signs: Vital Signs Temperature 98.8 F 12/31/24 17:39 Pulse Rate 85 12/31/24 17:39 Respiratory Rate 20 12/31/24 17:39 Blood Pressure 134/86 12/31/24 17:39 Pulse Oximetry 96 12/31/24 17:39 Oxygen Delivery Method Room Air 12/31/24 17:39 Temperature 98.8 F 12/31/24 17:39 Pulse Rate 85 12/31/24 17:39 Respiratory Rate 20 12/31/24 17:39 Blood Pressure 134/86 12/31/24 17:39 Pulse Oximetry 96 12/31/24 17:39 Oxygen Delivery Method Room Air 12/31/24 17:39 MDM - Wound/Laceration MDM Narrative Medical decision making narrative: Pt declined CT scans and/or x-rays today. Her wounds were irrigated. Steri-strips and a dressing were applied. She was accompanied by a friend for a ride home. [place] was [place]. Prescriptions were provided for doxycycline, keflex, and norco. Follow up with pcp for a recheck, further evaluation and treatment. Return to the ED for worsening symptoms. Differential Diagnosis Differential diagnosis: Likely laceration and abrasion Medical Records Attestation: I reviewed the patient's medical records. Discharge Plan Discharge Chief Complaint: Wound/Laceration Clinical Impression: Open leg wound, Contusion of right leg, Fall Patient Disposition: Home, Self-Care Time of Disposition Decision: 18:01 Condition: Good Mode of Transportation: Private Vehicle Prescriptions / Home Meds: New doxycycline monohydrate 100 mg capsule 100 mg PO BID 10 Days Qty: 20 0RF hydrocodone-acetaminophen 5-325 mg tablet 1 tab PO Q8H PRN (Reason: pain) 4 Days Qty: 12 0RF cephalexin 500 mg capsule 500 mg PO Q8H 10 Days Qty: 30 0RF No Action albuterol sulfate [Ventolin HFA] 90 mcg/actuation HFA aerosol inhaler 2 inh INHALATION Q6H PRN (Reason: shortness of breath or wheezing) clonidine HCl 0.2 mg tablet 0.2 mg PO TID famotidine 20 mg tablet 20 mg PO .QHS levothyroxine 125 mcg tablet 50 mcg PO QDAY pregabalin 150 mg capsule 150 mg PO TID quetiapine 200 mg tablet 100 mg PO .QHS budesonide-formoterol 160-4.5 mcg/actuation HFA aerosol inhaler 2 inh inhalation BID ondansetron 4 mg tablet,disintegrating 8 mg PO DAILY PRN (Reason: nausea and vomiting) promethazine 25 mg tablet 25 mg PO QID PRN (Reason: nausea and vomiting) Qty: 20 0RF tramadol 50 mg tablet 50 mg PO Q8H PRN (Reason: pain) 5 Days Qty: 20 0RF prednisone 10 mg tablet See Rx Instructions .ROUTE .COMPLEX Qty: 30 0RF Rx Instructions: 4 by mouth daily for three days then 3 by mouth daily for three days then 2 by mouth daily for three days then 1 by mouth daily for three days Tudorza Pressair 400 mcg/actuation aerosol powdr breath activated 1 inh inhalation BID cholecalciferol (vitamin D3) 25 mcg (1,000 unit) tablet 1,000 unit PO DAILY docusate sodium 100 mg tablet 100 mg PO BID PRN (Reason: constipation) escitalopram oxalate [Lexapro] 20 mg tablet 20 mg PO DAILY Premarin 0.3 mg tablet 0.3 mg PO DAILY Rx Instructions: cyclically psyllium husk [Daily Fiber] 0.4 gram capsule 0.4 g PO DAILY olanzapine-fluoxetine [Symbyax] 12-50 mg capsule 1 cap PO DAILY progesterone micronized [Prometrium] 200 mg capsule 400 mg PO DAILY tizanidine 2 mg tablet 2 mg PO Q6H PRN (Reason: muscle spasticity) Rx Instructions: do not exceed 3 doses per 24 hrs Print Language: Spanish Instructions: Wound Infection (ED), Acute Wounds (ED) Additional Instructions: Return to the ED for worsening symptoms. Keep the wound clean and dry. Watch for signs of infection: redness, purulent drainage, increased warmth, swelling. Follow up with your primary care provider for a wound recheck; following with a wound care clinic may be beneficial. Referrals: Physician,Non-Staff, MD [Primary Care Provider] - 1 week
[2024-12-31] MEDS: ONDANSETRON 4 MG RAPDIS TABLET SL (18:25)
[2024-12-31] MEDS: CEPHALEXIN 500 MG CAPSULE PO (18:25)
[2024-12-31] MEDS: OXYCODONE HCL/ACETAMINOPHEN 5MG/325MG 1 TAB PO (18:25)
[2024-12-31] MEDS: DOXYCYCLINE MONOHYDRATE 100 MG CAPSULE PO (18:25)
[2024-12-31] MEDS: DIPHTH,PERTUSS(ACELL),TET VAC 0.5 ML SYRINGE IM (18:26)
== END 2024-12-31 18:48 | disposition home or self-care (01) ==
PROVIDERS: Emergency Provider Emergency Medicine
DX: S71.101A Unspecified open wound, right thigh, initial encounter (principal); S70.11XA Contusion of right thigh, initial encounter; F17.210 Nicotine dependence, cigarettes, uncomplicated; Z23 Encounter for immunization; W01.110A Fall on same level from slipping, tripping and stumbling with subsequent striking against sharp glass, initial encounter
CPT/HCPCS: 90471; 90715; 99284; Q0162